=== PATIENT | male | born 1990 | race Caucasian/White ===

== ENCOUNTER 2017-09-08 15:41 | Emergency (ER) | payer MEDICAID, SELFPAY ==
[2017-09-08 15:42] VITALS: BP 136/76; PULSE 94; PULSE 96; RESP 20; TEMP 37; O2SAT 100; O2SAT 98; BMI 20.2
[2017-09-08 15:51] VITALS: BP 128/78; PULSE 86; RESP 14; O2SAT 98
--- NOTE | 2017-09-08 16:00 | RAD_ITS ---
STUDY: X-RAY CHEST REASON FOR EXAM: Male, 26 years old. Cough and difficulty breathing TECHNIQUE: Frontal and lateral views of the chest. COMPARISON: 11/12/2015 FINDINGS: The lungs are clear and expanded. There is no demonstrated pleural abnormality. Normal size heart. Normal mediastinum and lubna. Normal visualized pulmonary arteries. Normal visualized aortic arch and descending thoracic aorta. Normal visualized thoracic spine. Normal visualized ribs, clavicles, and shoulders. There is no demonstrated abnormality of the visualized soft tissue structures of the upper abdomen. RAD/Chest PA and Lateral IMPRESSION: Normal x-ray examination of the chest. Electronically Signed: Jordan Laguerre MD at 16:28 EDT , Service support ,
[2017-09-08 16:19] VITALS: PULSE 93; RESP 14; O2SAT 100
[2017-09-08] MEDS: Albuterol 2.5 MG/3 ML VIAL.NEB. INHALATION (16:19)
--- NOTE | 2017-09-08 16:51 | ED.DCSUM_ITS ---
- ER Visit Summary Date of Service: 09/08/17 Chief Complaint: I cannot breathe History of Present Illness: The patient is a 26 M who presents with chief complaint of I cannot breathe. Patient states he has pain left side of his chest with breathing after coughing. His cough is nonproductive. Does complain of nasal congestion. He denies headache. He denies fever chills. He denies ocular or auditory symptoms. He denies leg pain, swelling discoloration. He has no risk factors for pulmonary embolus. Patient denies any trauma. He denies nausea, vomiting or diarrhea. He denies any urologic symptoms. He denies any skin lesions. He has no past medical history. He is a smoker. Physical Examination: Vital signs are remarkable for a slight elevation blood pressure of 120/78. Patient appears slightly anxious. Head is atraumatic normocephalic. Pupils equal reactive. Extra muscles are intact. TMs are normal. Nares patent with mild drainage and nasal congestion. Posterior pharynx with slight erythema no exudate. Uvula is midline. Trachea is midline. There is no stridor. Lungs are without wheezes, rales or rhonchi. Heart is regular without murmur, gallop or rub. Abdomen soft nontender. No skin lesions or rashes noted. There is no asymmetry, swelling, discoloration, leg vein distention, palpable cords or tenderness along the distribution of the deep venous system. He is alert and oriented with a nonfocal neurologic exam. Test Results: Two-view chest x-ray interpreted by id reveals no evidence of infiltrate, effusion, or any abnormality. Cardiac silhouette is normal. Mediastinum is normal. Musculoskeletal structures are normal without any evidence of fracture etc. Peak flow prior to treatment for 440 and after treatment 450. Emergency Department Course and Treatment: Chest x-ray was obtained to evaluate for pneumothorax, infiltrate etc. Aerosols to assess if this would help and peak flows because of his insistence he cannot breathe and is not moving any air in or out. Treatment Plan: Informed by the respiratory therapist he still having tingling consistent with hyperventilation. Disposition: Discharged home with appropriate home-going instruction and prescription for naproxen since he has no contraindication. Impression: 1. Viral upper respiratory infection 2. Pleurisy secondary #1 This note was generated with [employer] software. It may contain incorrect words, spelling, and punctuation that were not noted in review of the chart prior to signing ED Disposition - Plan for ED Patient: Disposition: Home or Assisted Living Chief Complaint: Cough Instructions: ED URI Viral, ED Chest Pain Pleurisy Prescriptions: Naproxen [Naprosyn] 500 mg PO BID #10 tab Referrals: Care Physician,No Primary [Primary Care Provider] - Barry Haynes III, MD [STAFF PHYSICIAN] - 1 Week if not improving
[2017-09-08 17:18] VITALS: BP 125/70; PULSE 80; RESP 14; O2SAT 99
== END 2017-09-08 17:20 | disposition home or self-care (01) ==
PROVIDERS: Emergency Provider Emergency Medicine
DX: R09.1 Pleurisy (principal); J06.9 Acute upper respiratory infection, unspecified; F17.200 Nicotine dependence, unspecified, uncomplicated
CPT/HCPCS: 71046; 94640; 99283

== ENCOUNTER 2017-09-10 02:24 | Emergency (ER) | payer MEDICAID, SELFPAY ==
[2017-09-10 02:24] VITALS: BP 153/89; PULSE 84; RESP 18; TEMP 37.1; O2SAT 100; BMI 18.3
[2017-09-10 02:29] VITALS: O2SAT 100
--- NOTE | 2017-09-10 02:44 | ED.VISSUMM ---
- ER Visit Summary Date of Service: 09/10/17 Chief Complaint: [] Cough History of Present Illness: The patient is a 26 M [] complaining of cough, sore throat, subjective worsening of asthma. Denies fevers. Denies chest pain. Patient speaking with pressured speech and is verbally abusive. Physical Examination: [] Afebrile, vital signs stable. 26-year-old male no acute distress. Conversational. Cardiovascular exam is regular rate and rhythm. Lungs are clear to auscultation. Abdomen is soft and nontender. Test Results: [] None. Emergency Department Course and Treatment: [] Patient presents in a mildly agitated state. He was seen here yesterday reportedly and given a breathing treatment and had a negative chest x-ray. He was also prescribed naproxen which he said has minimally helped his symptoms. He was offered a breathing treatment and steroids and said he wanted to go to another hospital. After he became continually verbally abusive I discontinued the order of the aerosols and provided him prednisone as he had no wheezing on exam. He was discharged with a prescription for prednisone. Treatment Plan: [] Follow-up with PCP. Disposition: [] Discharge, stable. Impression: [] URI History of asthma This note was generated with [employer] dictation software. It may contain incorrect words, spelling, and punctuation that were not noted in review of the chart prior to signing ED Disposition - Plan for ED Patient: Chief Complaint: Shortness of Breath Referrals: Care Physician,No Primary [Primary Care Provider] -
--- NOTE | 2017-09-10 02:48 | ED.DEP ---
ED Disposition - Plan for ED Patient: Disposition: Home or Assisted Living Chief Complaint: Shortness of Breath Instructions: ED Upper Resp Infec No Abx Tx Prescriptions: Prednisone [Deltasone] 40 mg PO DAILY #5 tab Referrals: Care Physician,No Primary [Primary Care Provider] -
[2017-09-10] MEDS: predniSONE 20 MG Tablet 60 MG PO (02:49)
[2017-09-10 02:50] VITALS: RESP 18
--- NOTE | 2017-09-10 02:53 | ED.RN ---
upon administering meds to pt, pt was vulgar and swearing. pt stated fuck this mother fucking place. that dr gross got no empathy and is a fucking idiot along with all the other fucking retards at this stupid [facility]. pt ambulated out of department with no difficulty, swearing y'all are mother fuckers and i'm calling your boss and you're all getting letters on his way out.
== END 2017-09-10 02:51 | disposition home or self-care (01) ==
PROVIDERS: Emergency Provider Emergency Medicine
DX: J06.9 Acute upper respiratory infection, unspecified (principal); J45.909 Unspecified asthma, uncomplicated; Z72.0 Tobacco use
CPT/HCPCS: 99283

== ENCOUNTER 2019-07-11 03:14 | Emergency (ER) | payer MEDICAID, SELFPAY ==
[2019-07-11 03:15] VITALS: BP 122/69; PULSE 109; RESP 18; TEMP 36.4; O2SAT 98; BMI 20.3
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
[2019-07-11] MEDS: Naproxen 500 MG Tablet PO (03:41)
[2019-07-11] MEDS: traMADol 50 MG Tablet PO (03:41)
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
[2019-07-11 04:29] VITALS: BP 122/69; PULSE 109; RESP 18; O2SAT 98
== END 2019-07-11 04:30 | disposition home or self-care (01) ==
PROVIDERS: Emergency Provider Emergency Medicine; PCP Internal Medicine
DX: S16.1XXA Strain of muscle, fascia and tendon at neck level, initial encounter (principal); S60.222A Contusion of left hand, initial encounter; F17.200 Nicotine dependence, unspecified, uncomplicated; Y04.2XXA Assault by strike against or bumped into by another person, initial encounter; Y93.89 Activity, other specified; Y92.89 Other specified places as the place of occurrence of the external cause
CPT/HCPCS: 73110; 73130; 99284

== ENCOUNTER 2022-04-22 15:35 | Emergency (ER) | payer MEDICAID, SELFPAY ==
[2022-04-22 15:36] VITALS: BP 111/75; PULSE 90; RESP 18; TEMP 36.1; O2SAT 99; BMI 19.9
--- NOTE | 2022-04-22 15:57 | CT_ITS ---
EXAM: CT LUMBAR SPINE WITHOUT INTRAVENOUS CONTRAST CLINICAL INDICATION: injury TECHNIQUE: Helically acquired images were obtained of the lumbar spine without intravenous contrast. 2D reformats were reviewed. This CT exam was performed using one or more of the following dose reduction techniques: automated exposure control, adjustment of the mA and/or kV according to patient size, and/or use of iterative reconstruction technique. This report was created using [employer] report [employer] technology. COMPARISON: None. FINDINGS: VERTEBRAE: Unremarkable. No fracture. No traumatic subluxation. No discrete lytic or blastic abnormality. Normal alignment. DISCS/SPINAL CANAL/NEURAL FORAMINA: Unremarkable. Disc heights are preserved. No critical stenosis. VASCULATURE: Visualized abdominal aorta is not dilated. LYMPH NODES: Unremarkable. No retroperitoneal adenopathy. CT/Spine Lumbar without Contrast IMPRESSION: No evidence of acute lumbar spinal fracture or spondylolisthesis. Electronically Signed: Iker Guthrie MD at 17:19 EST ,
--- NOTE | 2022-04-22 15:57 | CT_ITS ---
EXAM: CT PELVIS WITHOUT INTRAVENOUS CONTRAST CLINICAL INDICATION: trauma TECHNIQUE: Helically acquired images were obtained of the pelvis without intravenous contrast. This CT exam was performed using one or more of the following dose reduction techniques: automated exposure control, adjustment of the mA and/or kV according to patient size, and/or use of iterative reconstruction technique. This report was created using [employer] report generation technology. COMPARISON: None. FINDINGS: BOWEL: Unremarkable as visualized. No bowel distention. No focal inflammatory change. APPENDIX: No evidence of acute appendicitis. INTRAPERITONEAL SPACE: Unremarkable. No ascites or other fluid collection. No free air. BLADDER: Unremarkable. REPRODUCTIVE: Unremarkable as visualized. No mass. BONES/JOINTS: Unremarkable. No suspicious lytic or blastic abnormality. SOFT TISSUES: Unremarkable. No pelvic wall hernia. LYMPH NODES: Unremarkable. No enlarged lymph nodes. CT/Pelvis without IV Contrast IMPRESSION: Negative CT of the soft tissue pelvis. Electronically Signed: Iker Guthrie MD at 17:21 [facility] ,
[2022-04-22] MEDS: HYDROcodone Bitartrate/Apap 5/325 Tablet PO (16:10)
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
[2022-04-22 17:48] VITALS: BP 119/72; PULSE 64; RESP 14; O2SAT 100
== END 2022-04-22 17:50 | disposition home or self-care (01) ==
PROVIDERS: Emergency Provider Emergency Medicine; PCP Internal Medicine; Visit Provider Emergency Medicine
DX: S30.0XXA Contusion of lower back and pelvis, initial encounter (principal); F17.210 Nicotine dependence, cigarettes, uncomplicated; S70.01XA Contusion of right hip, initial encounter; M54.50 Low back pain, unspecified; V28.09XA Other motorcycle driver injured in noncollision transport accident in nontraffic accident, initial encounter
CPT/HCPCS: 72131; 72192; 99282

== ENCOUNTER 2022-05-10 11:11 | Emergency (ER) | payer MEDICAID, SELFPAY ==
[2022-05-10 11:11] VITALS: BP 133/75; PULSE 91; RESP 16; TEMP 37.2; O2SAT 100; BMI 19.9
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
--- NOTE | 2022-05-10 11:28 | ED.RN ---
PT OBSERVED AMBULATING OUT OF DEPT.
== END 2022-05-10 11:32 | disposition left against medical advice (07) ==
LOC: ED 11:33
PROVIDERS: PCP Internal Medicine
DX: Z53.21 Procedure and treatment not carried out due to patient leaving prior to being seen by health care provider (principal)

== ENCOUNTER 2022-07-29 12:29 | Emergency (ER) | payer MEDICAID, SELFPAY ==
[2022-07-29 12:30] VITALS: BP 118/66; PULSE 63; RESP 18; TEMP 36; O2SAT 97; BMI 19.2
--- NOTE | 2022-07-29 14:22 | ED.RN ---
PT LEAVING, TIRED OF WAITING. I DONT WANT TO BE HERE ALL DAY.
== END 2022-07-29 14:22 | disposition left against medical advice (07) ==
LOC: ED 15:02
PROVIDERS: PCP Internal Medicine
DX: Z53.21 Procedure and treatment not carried out due to patient leaving prior to being seen by health care provider (principal)

== ENCOUNTER 2022-08-10 12:58 | Observation (INO) | payer MEDICAID, SELFPAY ==
[2022-08-10 12:58] VITALS: BP 105/78; PULSE 83; RESP 18; TEMP 36.9; O2SAT 98; BMI 20.9
[2022-08-10 13:40] LABS: Anion Gap 7 (5-15); BUN 19 mg/dL (7-18); BUN/Creat Ratio 21.5 RATIO (10-20); Chloride 105 mmol/L (98-107); Creatinine, Serum 0.88 mg/dL (0.70-1.30); EST Glomerular Filtration Rate 107 mL/min (>60); Est Glom Filt Rate - Afr Amer 129 mL/min (>60); Estimated Creatinine Clearance 111.59 ml/min; Glucose 147 mg/dL (74-106); Potassium 4.3 mmol/L (3.5-5.1); Sodium Level 137 mmol/L (136-145)
[2022-08-10 13:45] LABS: Amphetamine Urine VISTA POSITIVE (<1000 ng/mL); Barbiturate Urine VISTA NEGATIVE (< 200 ng/mL); Benzodiazepine Urine VISTA NEGATIVE (< 200 ng/mL); Cocaine Urine VISTA POSITIVE (< 300 ng/mL); Ecstacy Urine VISTA NEGATIVE (< 500 ng/mL); Methadone Urine VISTA NEGATIVE (< 300 ng/mL); PCP Urine VISTA NEGATIVE (< 25 ng/mL); THC Urine VISTA POSITIVE (< 50 ng/mL); Vista UDS pH Range 5
[2022-08-10 13:48] LABS: Alcohol, Blood (Medical)-Serum < 3.0 mg/dL
--- NOTE | 2022-08-10 13:49 | CM.ED ---
BIANKA Note Referral Reason: [facility] Referral Source: Case Find SW met with patient to discuss the [facility] program. 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 Patient said the fentanyl in his system was upsetting as his younger brother from fentanyl in 2019. Patient said that he went to [facility] to get treatment. Patient said that he is doing this for his 10 year old daughter who thinks I am superman but voiced he has to do treatment for himself. Patient said that his drug of choice was meth and stated as a child he had ADHD and was on various medications for ADHD including Ritalin and Concerta. Patient said that this is my first time seeking help. Patient said that his drug of choice was meth and he last used 2 days ago. Patient said that he thought he was doing meth and did not realize what else he was doing till he got the tox screen from [facility]. Patient was advised that the [facility] program includes no outside food or visitors, no phone access and all personal items are secured. BIANKA called Addiction TherapistKody and updated her regarding patient?s admission to [facility]. Plan: [facility] Jazlyn SIM
--- NOTE | 2022-08-10 14:37 | HP.PCM.HOS_ITS ---
HPI - General General Date of Admission: 08/10/22 Date of Service: 08/10/22 Chief Complaint: Polysubstance abuse-suspected acute opiate withdrawal HPI Narrative RAFA HYLTON, is a 31 M who presented the emergency department on 08/10/2022 after pre senting to [facility] and having a toxicology screen positive for fentanyl. 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 Unfortunately his toxicology screen was positive for fentanyl as well and there is suspicion that the amphetamines he uses is laced with this. Toxicology screen here is positive for cocaine, amphetamines, and marijuana. Patient states he has been using for several months. States he has been having escalation of use lately and would really like to stop. He states its not doing me any good. He is interested in sobriety. He denies any IV drug use ever. He admits also smoking tobacco. Vital signs on presentation were unremarkable. CBC was pending on admission. Chemistry panel was unremarkable. Toxicology screen showed amphetamines, co inna, and cannabis. Our screen is not able to delineate fentanyl. Plan is to admit the patient and monitor need for Subutex with withdrawal symptoms. If not any required 24 hours we will likely discharge home with outpatient planning for [facility]. [facility] Medical History Tobacco abuse Home Medications naproxen 500 mg tablet 500 mg PO BID PRN #20 tabs 07/11/19 [Rx Last Taken Unknown] Allergy/AdvReac Type Severity Reaction Status Date / Time No Known Allergies Allergy Verified 07/29/22 12:36 no significant family history Surgical History History of appendectomy Social History (Updated 08/10/22 @ 15:[address] Missy Hopkins DO) Smoking Status: Current every day smoker tobacco type: cigarettes alcohol intake: never substance use type: amphetamines ROS Constitutional Constitutional: Reports chills; Denies anorexia, change in weight, fatigue, fever(s), malaise, night sweats, weakness or other Eyes Eyes: Denies blurry vision, change in eye color, change in vision, discharge from eye(s), double vision, erythema, eye pain, loss of vision or other ENT HEENT: Denies abnormal hearing, dysphagia, ear pain, epistaxis, headache(s), hearing loss, nasal congestion, nasal discharge, post nasal drip, sinus pressure, sore throat or other Cardiovascular Cardiovascular: Denies chest pain, claudication, dyspnea on exertion, edema, lightheadedness, orthopnea, palpitations, paroxysmal nocturnal dyspnea, rapid heart rate, syncope or other Respiratory/Chest Respiratory/Chest: Denies cough, dyspnea, excessive phlegm production, hemoptysis, productive cough, shortness of breath at rest, shortness of breath with exertion, wheezing or other Gastrointestinal Gastrointestinal: Denies abdominal pain, coffee ground emesis, constipation, diarrhea, dyspepsia, hematemesis, hematochezia, loose stools, melena, nausea, vomiting or other Genitourinary Genitourinary: Denies burning urination, difficulty urinating, dysuria, hematuria, nocturia, urinary frequency, urinary hesitancy, urinary incontinence, urinary urgency or other Musculoskeletal Musculoskeletal: Denies arthralgias, back pain, joint pain, joint stiffness, joint swelling, myalgias, neck pain or other Neurologic Neurologic: Reports tremor(s); Denies abnormal gait, abnormal speech, confusion, disequilibrium, dizziness, focal weakness, headache(s), numbness, paresthesias, seizure-like activity, seizures, syncope, tingling or other Psychiatric Psychiatric: Reports anxiety; Denies depression, homicidal ideation, suicidal ideation or other Endocrine Endocrinology: Denies change in body appearance, cold intolerance, excessive sweating, heat intolerance, polydipsia, polyuria or other Hematologic/Lymphatic Hematologic/Lymphatic: Denies anemia, easy bleeding, easy bruising, lymphadenopathy or other Allergic/Immunologic Allergic/Immunologic: Denies rhinitis, hives, eczemia, asthma or other Vital Signs Vital Signs Vital Signs: 08/10/22 12:58 Temperature 98.4 F Temperature Source Temporal Pulse Rate 83 Respiratory Rate 18 Blood Pressure 105/78 Blood Pressure Mean 87 Pulse Ox 98 Oxygen Delivery Method Room Air Weight Weight: 64.274 kg Body Mass Index (BMI) 20.9 Physical Exam Const alert, oriented x3, no apparent distress and well nourished Constitutional Narrative: Young middle-aged white male, sitting up in bed, appears comfortable nontoxic HEENT normocephalic, head/scalp atraumatic, hearing grossly normal bilaterally and moist oral mucous membranes HEENT Narrative: Dentition is good, Mallampati is 2, no thrush Resp normal respiratory effort, no retractions, no use of accessory muscles and clear to auscultation bilaterally Auscultation: Negative for rales, rhonchi or wheezes Cardio regular rate, regular rhythm, S1 normal heart sound, S2 normal heart sound, no murmurs, no rub, no gallops and no clicks GI normal to inspection, nondistended, normoactive bowel sounds, soft to palpation, non-tender and non-distended Extremity no clubbing, cyanosis or edema Extremity Narrative: 2+ pedal pulses Neuro oriented x3, CN's II-XII intact bilaterally, moves all extremities and no focal motor deficits Speech: speech normal Psych affect normal Psych Narrative: Appears mildly anxious but otherwise unremarkable Results Lab / Micro Data Result Diagrams: 08/10/22 13:16 08/10/22 13:16 Labs: Laboratory Results - last 24 hr 08/10/22 13:16: Sodium 137, Potassium 4.3, Chloride 105, Carbon Dioxide 25.0, Anion Gap 7, BUN 19 H, Creatinine 0.88, Estim Creat Clear Calc 111.59, Est GFR (MDRD) Af Amer 129, Est GFR (MDRD) Non-Af 107, BUN/Creatinine Ratio 21.5 H, Glucose 147 H, Calcium 9.0 08/10/22 13:16: Ethyl Alcohol < 3.0 08/10/22 13:17: Urine Opiates Screen NEGATIVE, Urine Methadone Screen NEGATIVE, Ur Barbiturates Screen NEGATIVE, Ur Phencyclidine Scrn NEGATIVE, Ur Amphetamines Screen POSITIVE H, MDMA (Ecstasy) Screen NEGATIVE, U Benzodiazepines Scrn NEGATIVE, Urine Cocaine Screen POSITIVE H, U Cannabinoids Screen POSITIVE H, Ur Drug Screen Comment Assessment & Plan Assessment/Plan (1) Opiate withdrawal: (2) Polysubstance abuse: PLAN: Plan Acute opiate withdrawal -Patient denies regular opiate use however it is suspected based on his tox screen over [facility] that his methamphetamines and cocaine are laced with fentanyl -Toxicology screen at [facility] was positive for fentanyl -Subutex taper per [facility] protocol -Supportive medications as needed -Consult [facility] Polysubstance abuse -Toxicology screen positive for marijuana, cocaine, amphetamines, and fentanyl positive at [facility] -Recommend cessation -[facility] consultation as above Tobacco abuse -Recommend cessation -Nicotine replacement therapy DVT prophylaxis -Low risk -Encourage frequent and early ambulation CODE STATUS Full code Charges/Coding Visit Charges Inpatient E&M: 39269 Init Hosp L2
--- NOTE | 2022-08-10 14:48 | EX.ED.SAOD ---
HPI History of Present Illness Chief Complaint: Substance Abuse Informant: patient Narrative Narrative: Patient is a 31-year-old male with a 5-year history of methamphetamine abuse. He states he snorts it. He states he generally uses every day. He kind of uses whenever he can get but thinks it is mostly methamphetamines. He was following with [facility] and had a drug screen today which was also positive for fentanyl. They recommend he come to the emergency room for inpatient detox. Patient states he last used 2 days ago. He does note that he is having abdominal discomfort, diarrhea and just feels jittery. Denies any nausea or vomiting. Denies any other complaints at this time. Does note that he had a recent laceration to his left hand 10 days ago and one of the sutures fell out but the other [address]. No other complaints. [facility] Medical History Tobacco abuse Home Medications naproxen 500 mg tablet 500 mg PO BID PRN #20 tabs 07/11/19 [Rx Last Taken Unknown] Allergy/AdvReac Type Severity Reaction Status Date / Time No Known Allergies Allergy Verified 07/29/22 12:36 Surgical History History of appendectomy Social History Smoking Status: Current every day smoker tobacco type: cigarettes ROS ROS ED Constitutional Constitutional ED: Denies chills or fever(s) Eyes Eyes: Denies change in vision Respiratory/Chest Respiratory/Chest: Denies cough or dyspnea Gastrointestinal Gastrointestinal: Reports abdominal pain and diarrhea; Denies nausea or vomiting Musculoskeletal Musculoskeletal: Reports myalgias; Denies arthralgias Neurologic Neurologic: Denies headache(s) Psychiatric Psychiatric: Denies anxiety Hematologic/Lymphatic Hematologic/Lymphatic: Denies easy bleeding or easy bruising EXAM Physical Exam Const Vital Signs: 08/10/22 12:58 Temperature 98.4 F Temperature Source Temporal Pulse Rate 83 Respiratory Rate 18 Blood Pressure 105/78 Blood Pressure Mean 87 Pulse Ox 98 Oxygen Delivery Method Room Air Positive well nourished and well developed Constitutional Narrative: thin General Appearance ED: well developed and NAD; Negative for pallor HEENT Reports moist mucous membranes atraumatic Eyes PERRL and EOMs intact bilaterally Neck supple Chest Wall inspection of chest normal Resp normal respiratory effort and clear to auscultation bilaterally Cardio regular rate and regular rhythm GI soft to palpation, non-tender and non-distended Extremity General Extremety ED: Negative for edema or tenderness General Extremity: Negative for edema Neuro oriented x3 Sensorium / Orientation: alert Motor Exam: Negative for general weakness Psych mental status grossly normal and thought process normal Skin Skin Narrative: Healing well approximated laceration to the left hand between the thumb and the index finger. [address] General Skin Exam: Negative for jaundice or pallor Lesions: no lesions Rashes: no rashes MDM MDM MDM Narrative Medical decision making narrative: Patient presents for inpatient detox. He has a benign physical exam. Does have a suture in the left hand that is ready to be removed. This will be removed per nursing staff. Patient structure is positive for amphetamines, cocaine and cannabis. We do not have fentanyl in our drug screen but apparently that was positive earlier today at [facility]. Patient will be admitted for inpatient detox as he is likely regularly using fentanyl with his amphetamines. He is agreeable with plan of care. Remains hemodynamically stable. Lab Data Attestation: I reviewed the patient's lab results. Labs: Laboratory Results - last 24 hr 08/10/22 08/10/22 08/10/22 13:16 13:16 13:17 Sodium 137 Potassium 4.3 Chloride 105 Carbon Dioxide 25.0 Anion Gap 7 BUN 19 H Creatinine 0.88 Estim Creat Clear Calc 111.59 Est GFR (MDRD) Af Amer 129 Est GFR (MDRD) Non-Af 107 BUN/Creatinine Ratio 21.5 H Glucose 147 H Calcium 9.0 Urine Opiates Screen NEGATIVE Urine Methadone Screen NEGATIVE Ur Barbiturates Screen NEGATIVE Ur Phencyclidine Scrn NEGATIVE Ur Amphetamines Screen POSITIVE H MDMA (Ecstasy) Screen NEGATIVE U Benzodiazepines Scrn NEGATIVE Urine Cocaine Screen POSITIVE H U Cannabinoids Screen POSITIVE H Ur Drug Screen Comment Ethyl Alcohol < 3.0 Discharge Plan Triage Chief Complaint: Substance Abuse ED Provider: Estrellita Worthington Dx/Rx/DC Orders Prescriptions: No Action naproxen 500 MG tablet 500 mg PO BID PRN Qty: 20 0RF Primary Care Provider: Sanjay Cid Referrals: Sanjay Cid MD [Primary Care Provider] -
--- NOTE | 2022-08-10 14:50 | NURSING ---
MED SURG SHERLEY POLYSUBSTANCE ABUSE
[2022-08-10 14:57] VITALS: BP 108/59; PULSE 89; RESP 16; TEMP 36.6; O2SAT 98
[2022-08-10 16:17] LABS: Absolute Lymphocyte Count 2.47 X10^3/uL (0.83-4.51); Absolute Neutrophil Count 2.2 X10^3/uL (2.0-7.7); Basophil# 0.06 X10^3/uL; Eosinophil# 0.39 X10^3/uL; Eosinophils% 6.7 % (0-5); Hemoglobin 14.6 g/dL (13.0-16.5); Lymphocyte # 2.47 X10^3/ul (0.83-4.51); Lymphocyte % 42.4 % (19-41); Mean Corp Hgb Conc 32.4 g/dL (32-36); Mean Corpuscular Hgb 30.1 pg (27.0-32.0); Mean Corpuscular Volume 92.8 fL (80-94); Mean Platelet Vol. 10.1 fl (6.2-12.0); Monocyte# 0.74 X10^3/uL; Monocyte% 12.7 % (0-10); NRBC Flagged by Analyzer 0 % (0-5); Neutrophil # 2.15 X10^3/uL (2.7-7.7); Platelet Count 240 K/mm3 (150-450); RBC Distribution Width CV 12.4 % (11.6-14.6); RBC Distribution Width SD 42.6 fl (35.1-43.9); Red Blood Count 4.85 M/mm3 (4.6-6.2); White Blood Count 5.8 K/mm3 (4.4-11.0)
[2022-08-10 17:11] VITALS: BMI 20.9
[2022-08-10 22:33] VITALS: BP 108/72; PULSE 80; RESP 18; TEMP 36.7; O2SAT 97
[2022-08-10] MEDS: traZODone 100 MG Tablet PO (22:41)
[2022-08-11 05:32] VITALS: BP 94/49; PULSE 62; RESP 16; TEMP 36.8; O2SAT 98
[2022-08-11 08:41] VITALS: BP 108/63; PULSE 81; RESP 16; TEMP 36.6; O2SAT 99
--- NOTE | 2022-08-11 10:12 | ADDICTION ---
This policy writer sales met with PT to conduct ASAM, MSE, AUDIT assessments and to plan for d/c. PT A+Ox4 and participated actively. All assessments completed. PT plans to f/u with residential treatment at [facility]. Peer Supporter will provide transportation post d/c from [facility].
--- NOTE | 2022-08-11 12:46 | DCINST_ITS ---
Discharge Instructions Diet Discharge Diet: No restrictions Activity Discharge Activity: Return to Normal Activity Follow Up Care Test Results: Test results from this visit will be discussed in further detail at your follow- up appointment, if applicable. Discharge Plan Admission Admit Date/Time: 08/10/22 14:31 Primary Reason for Your Visit: Opioid detox Attending Provider: Vannessa Blandon Primary Care Provider: Sanjay Cid Consulting Providers: Missy Hopkins Instructions Patient Instructions: ED Drug Abuse Discharge Orders/Prescriptions Prescriptions: Continued naproxen 500 MG tablet 500 mg PO BID PRN Qty: 20 0RF Referrals / Follow Up: Sanjay Cid MD [Primary Care Provider] - Disposition Disposition (needs filled in before D/C Order can be placed): DC/Tx to Another Type of HCF
--- NOTE | 2022-08-11 12:48 | PCM.DC.SUM ---
Providers Date of Admission: 08/10/22 Date of Discharge: 08/11/22 Primary Care Physician: Dr. Sanjay Cid MD Reason For Visit: OPIATE DETOX Diagnosis Discharge Diagnosis (1) Opiate withdrawal: Status: Acute Code(s): F11.93 - Opioid use, unspecified with withdrawal (2) Polysubstance abuse: Status: Acute Code(s): F19.10 - Other psychoactive substance abuse, uncomplicated Medications at Discharge Home Medications naproxen 500 mg tablet 500 mg PO BID PRN #20 tabs 07/11/19 Hospital Course Summary of Care Provided Minutes Spent on Discharge: 20 Hospital Course: Per HPI: RAFA HYLTON, is a 31 M who presented the emergency department on 08/10/2022 after presenting to [facility] and having a toxicology screen positive for fentanyl.? He reported that he presented to [facility] for help with his amphetamine addiction.? Unfortunately his toxicology screen was positive for fentanyl as well and there is suspicion that the amphetamines he uses is laced with this.? Toxicology screen here is positive for cocaine, amphetamines, and marijuana.? Patient states he has been using for several months.? States he has been having escalation of use lately and would really like to stop.? He states its not doing me any good.? He is interested in sobriety.? He denies any IV drug use ever.? He admits also smoking tobacco. Vital signs on presentation were unremarkable.? CBC was pending on admission.? Chemistry panel was unremarkable.? Toxicology screen showed amphetamines, cocaine, and cannabis.? Our screen is not able to delineate fentanyl. Plan is to admit the patient and monitor need for Subutex with withdrawal symptoms.? If not any required 24 hours we will likely discharge home with outpatient planning for [facility]. Interim history: He did overnight and did not develop any symptoms of withdrawal, no complaints on day of discharge and was discharged to [facility] residential treatment in stable condition. Physical Exam Narrative General: Alert, oriented, no apparent distress HEENT: Atraumatic, normocephalic Eyes: Anicteric, normal conjunctiva, extraocular movements grossly intact Neck: Supple Respiratory: Clear to auscultation bilaterally, normal respiratory effort Cardiovascular: Regular rate and rhythm GI: Soft, nontender, nondistended Extremities: No edema Musculoskeletal: Moving all extremities Neuro: No overt focal neurological deficits Skin: No rashes appreciated Psych: Cooperative Weight / BMI Weight Weight: 64.27 kg Body Mass Index (BMI) 20.9 ABG / Lab / Microbiology Data Result Diagrams: 08/10/22 13:16 08/10/22 13:16 Laboratory: Laboratory Results - last 24 hr 08/10/22 13:16: WBC 5.8, RBC 4.85, Hgb 14.6, Hct 45.0, MCV 92.8, MCH 30.1, MCHC 32.4, RDW Std Deviation 42.6, RDW Coeff of Johanna 12.4, Plt Count 240, MPV 10.1, Immature Gran % (Auto) 0.200, Neut % (Auto) 37.0 L, Lymph % (Auto) 42.4 H, [place] % (Auto) 12.7 H, Eos % (Auto) 6.7 H, Baso % (Auto) 1.0, Absolute Neuts (auto) 2.2, Absolute Lymphs (auto) 2.47, Nucleated RBC % 0 08/10/22 13:16: Sodium 137, Potassium 4.3, Chloride 105, Carbon Dioxide 25.0, Anion Gap 7, BUN 19 H, Creatinine 0.88, Estim Creat Clear Calc 111.59, Est GFR (MDRD) Af Amer 129, Est GFR (MDRD) Non-Af 107, BUN/Creatinine Ratio 21.5 H, Glucose 147 H, Calcium 9.0 08/10/22 13:16: Ethyl Alcohol < 3.0 08/10/22 13:17: Urine Opiates Screen NEGATIVE, Urine Methadone Screen NEGATIVE, Ur Barbiturates Screen NEGATIVE, Ur Phencyclidine Scrn NEGATIVE, Ur Amphetamines Screen POSITIVE H, MDMA (Ecstasy) Screen NEGATIVE, U Benzodiazepines Scrn NEGATIVE, Urine Cocaine Screen POSITIVE H, U Cannabinoids Screen POSITIVE H, Ur Drug Screen Comment D/C Instructions Discharge Diet: No restrictions Meaningful Use Info Meaningful Use Diagnoses (Choose all that apply): None applicable Discharge Plan Admission Admit Date/Time: 08/10/22 14:31 Primary Reason for Your Visit: Opioid detox Attending Provider: Vannessa Blandon Primary Care Provider: Sanjay Cid Consulting Providers: Missy Hopkins Instructions Patient Instructions: ED Drug Abuse Discharge Orders/Prescriptions Prescriptions: Continued naproxen 500 MG tablet 500 mg PO BID PRN Qty: 20 0RF Referrals / Follow Up: Sanjay Cid MD [Primary Care Provider] - Disposition Disposition (needs filled in before D/C Order can be placed): DC/Tx to Another Type of HCF Charges/Coding Visit Charges Inpatient E&M: 66869 Disch Hosp
== END 2022-08-11 12:20 | disposition other institution (70) ==
LOC: ED 14:09 → MS3 08-11 06:48
PROVIDERS: Admitting Provider Internal Medicine; Emergency Provider Emergency Medicine; PCP Internal Medicine; Visit Provider Internal Medicine
DX: F11.23 Opioid dependence with withdrawal (principal); F15.10 Other stimulant abuse, uncomplicated; F14.19 Cocaine abuse with unspecified cocaine-induced disorder; F17.210 Nicotine dependence, cigarettes, uncomplicated; F12.10 Cannabis abuse, uncomplicated; S61.412D Laceration without foreign body of left hand, subsequent encounter; X58.XXXD Exposure to other specified factors, subsequent encounter
CPT/HCPCS: 80048; 80307; 82077; 85025; 99282; H0012

== ENCOUNTER 2023-07-21 14:39 | Emergency (ER) | payer MEDICAID, SELFPAY ==
[2023-07-21 14:41] VITALS: BP 133/84; PULSE 112; RESP 18; TEMP 36.7; O2SAT 99; BMI 21.4
--- NOTE | 2023-07-21 15:11 | CT_ITS ---
STUDY: CTA HEAD AND NECK WITH CONTRAST REASON FOR EXAM: Male, 32 years old. vision change, left side weakness RADIATION DOSAGE (If Supplied By Facility): CTDIvol = ( 26.40 ) mGy, DLP = ( 1699.78 ) mGycm TECHNIQUE: CT angiography was performed with a multi-detector CT scanner. Data acquisition was obtained from the skull base through the vertex following intravenous administration of IV 100mL [id number]-370. MIP images were reconstructed from the axial data set. Post-processing of the angiographic images was performed, with multiplanar reformation and 3D reconstruction. Individualized dose optimization techniques were used for this CT. COMPARISON: No relevant priors. FINDINGS: Normal bilateral petrous carotid arteries. Normal right cavernous carotid artery with a normal supraclinoid bifurcation. Normal left cavernous carotid artery with a normal supraclinoid bifurcation. Normal right A1 segments of the anterior cerebral artery. Normal left A1 segments of the anterior cerebral artery. Normal intact anterior communicating artery (ACOM). Normal bilateral A2 segments of the anterior cerebral arteries. Normal right M1 and M2 segments of the middle cerebral arteries, with a normal M1 bifurcation. Normal left M1 and M2 segments of the middle cerebral arteries, with a normal M1 bifurcation. Normal right posterior communicating artery (PCOM). Normal left posterior communicating artery (PCOM). Normal bilateral vertebral arteries. Normal basilar artery with a normal basilar bifurcation. The visualized bilateral superior cerebellar (SCA) arteries are normal. Normal bilateral P1, P2 and visualized P3 segments of the posterior cerebral arteries. There is no demonstrated aneurysm of the [place]. There is no demonstrated abnormality of the visualized brain. AORTIC ARCH: Normal visualized aortic arch. Normal origins of the brachiocephalic, left common carotid, and left subclavian arteries. RIGHT CAROTID ARTERIES: Normal right common carotid artery (CCA). Normal right common carotid bulb. Normal origin of the right internal carotid (ICA) artery without a hemodynamically significant stenosis. Normal visualized cervical portion of the right internal carotid artery. Normal origin of the right external carotid artery (ECA). LEFT CAROTID ARTERIES: Normal left common carotid artery (CCA). Normal left common carotid bulb. Normal origin of the left internal carotid (ICA) artery without a hemodynamically significant stenosis. Normal visualized cervical portion of the left internal carotid artery. Normal origin of the left external carotid artery (ECA). VERTEBRAL ARTERIES: Normal bilateral vertebral arteries. CT/CTA Head AND Neck W/ Contrast IMPRESSION: Normal CTA Head and neck with contrast. Electronically Signed: Jordan Laguerre MD at 16:39 EST ,
--- NOTE | 2023-07-21 15:13 | EDS_ITS ---
HPI History of Present Illness Chief Complaint: Back Detail of Chief Complaint: Back pain, paresthesias, anxiety, vision change Informant: patient Narrative Narrative: Patient presents with multiple complaints. He does report a history of back problems that stemmed from an injury in 2019. He has flares of pain intermittently but states x-rays have been unremarkable. He has not been able to get into see a specialist or have an MRI. He states that he had a good day at work today and got off work at noon. Around 2:00 he noted vision changes. Difficulty seeing out of his left eye and reports paresthesias on the left side of his body. He used his mother's inhaler and states he is able to breathe better. His vision changes improved but are not quite back to normal. He still feels like his left arm and leg are tingly and he feels off balance. He does have pain in his lower spine near the tailbone as well as some chest tightness. Patient does have a history of polysubstance abuse, but states he only uses marijuana currently. He denies using cigarettes, but does admit to vaping. [facility] Medical History Tobacco abuse Home Medications naproxen 500 mg tablet 500 mg PO BID PRN #20 tabs 07/11/19 [Rx Last Taken Unknown] lorazepam 0.5 mg tablet (Ativan) 0.5 mg PO BID PRN anxiety #10 tabs 07/21/23 [Rx Last Taken Unknown] Allergy/AdvReac Type Severity Reaction Status Date / Time No Known Allergies Allergy Verified 07/21/23 14:41 Surgical History History of appendectomy Social History Smoking Status: Current every day smoker tobacco type: cigarettes alcohol intake: never substance use type: amphetamines ROS ROS ED Constitutional Constitutional ED: Denies chills or fever(s) Eyes Eyes: Reports change in vision; Denies discharge from eye(s) ENT ENT ED: Denies discharge from eye(s), rhinorrhea or sore throat Cardiovascular Cardiovascular: Reports chest pain and racing heartbeat; Denies palpitations Respiratory/Chest Respiratory/Chest: Reports dyspnea; Denies cough Gastrointestinal Gastrointestinal: Denies abdominal pain, nausea or vomiting Genitourinary Genitourinary ED: Denies dysuria Musculoskeletal Musculoskeletal: Reports back pain; Denies extremity pain Integumentary Denies Abrasions or rash Neurologic Neurologic: Reports paresthesias and weakness; Denies headache(s) Psychiatric Psychiatric: Reports anxiety; Denies depression Allergic/Immunologic Allergic/Immunologic ED: Denies lip swelling or urticaria EXAM Physical Exam Const Vital Signs: 07/21/23 14:41 Temperature 98.1 F Temperature Source Temporal Pulse Rate 112 H Respiratory Rate 18 Blood Pressure 133/84 H Blood Pressure Mean 100 Pulse Ox 99 Oxygen Delivery Method Room Air Positive well nourished and well developed General Appearance ED: well developed HEENT Reports moist mucous membranes Eyes PERRL and EOMs intact bilaterally Chest Wall inspection of chest normal and palpation of chest normal Resp normal respiratory effort and clear to auscultation bilaterally Cardio Rate: tachycardic GI non-tender Palpation: soft Back/Spine Back/Spine Narrative: Mild tenderness in the lower lumbar region. No erythema or point tenderness. Extremity normal to inspection Neuro oriented x3 Neuro Narrative: Patient standing at bedside and able to ambulate without difficulty. Able to stand on tiptoes and heels without difficulty. Able to push pull with arms without difficulty. No drift appreciated. Normal sensation on testing. Psych Attitude: agitated Mood & Affect: anxious Skin no rashes or lesions noted MDM MDM MDM Narrative Medical decision making narrative: Patient placed on pvc monitor. EKG obtained to evaluate for cardiac arrhythmia/ischemia. Chest x-ray obtained to evaluate for acute lung pathology, cardiac size, or mediastinal abnormality. Lumbar spine x-rays obtained given his pain to this area with prior injury. CT of the head and neck obtained given his reported vision change along with left-sided paresthesias. Labwork obtained to evaluate for leukocytosis, anemia, and electrolyte derangement. Patient given Ativan to help with anxiety. History & Record Review Discussion w/independent historian: Patient Additional record(s) reviewed:: Prior ED visit and Prior labs Lab Data Attestation: I reviewed the patient's lab results. Labs: Laboratory Results - last 24 hr 07/21/23 15:24 WBC 5.3 RBC 4.94 Hgb 15.0 Hct 43.3 MCV 87.7 MCH 30.4 MCHC 34.6 RDW Std Deviation 40.9 RDW Coeff of Johanna 12.7 Plt Count 262 MPV 10.6 Immature Gran % (Auto) 0.400 Neut % (Auto) 58.0 Lymph % (Auto) 29.9 [place] % (Auto) 10.0 Eos % (Auto) 0.9 Baso % (Auto) 0.8 Absolute Neuts (auto) 3.1 Absolute Lymphs (auto) 1.58 Nucleated RBC % 0 Sodium 140 Potassium 3.7 Chloride 107 Carbon Dioxide 27.0 Anion Gap 6 BUN 11 Creatinine 1.00 Estim Creat Clear Calc 99.50 Est GFR (MDRD) Af Amer 112 Est GFR (MDRD) Non-Af 93 BUN/Creatinine Ratio 11.0 Glucose 113 H Calcium 9.0 Troponin I High Sens 5 Radiography Chest X-Ray - ED: 2 View, Read by ED Physician, Normal, Heart, Lungs and Medias tinum X-Ray: LS SPine (Chronic changes with no acute findings per my interpretation.) Diagnostic Testing: Clinical Impression(s) from Imaging Studies Head/Neck CTA 07/21/23 15:11 IMPRESSION: Normal CTA Head and neck with contrast. Electronically Signed: Jordan Laguerre MD at 16:39 EST , Chest X-Ray 07/21/23 16:00 IMPRESSION: No acute radiographic abnormalities. Hyperinflated lungs which can be seen in asthma. Electronically Signed: Roberto Dubon MD at 16:14 EST , Lumbar Spine X-Ray 07/21/23 16:00 IMPRESSION: No evidence of lumbar spinal fracture or spondylolisthesis. Minimal multilevel degenerative disc disease and spondylosis. Electronically Signed: Roberto Dubon MD at 16:18 EST , EKG Initial EKG: Attestation: I personally reviewed and interpreted this EKG as follows: Interpretation: Sinus Rhythm (Sinus at 75 with no acute ischemia.) Treatment and Re-Evaluation :: CBC was normal white count 5.3 with a hemoglobin of 15.0. Differential unremarkable. Chemistry studies are normal. Troponin is normal at 5. Two-view chest x-ray per my interpretation reveals no acute findings. Radiology interpretation reviewed and agrees. Lumbar spine x-rays per my interpretation for chronic changes with no acute findings. Radiology interpretation is reviewed. CTA of the head and neck reveals no acute abnormalities. EKG is sinus rhythm with no ischemia. On repeat evaluation patient sitting in the bed in no acute distress. Resting comfortably. His symptoms have completely resolved. I was able to give him reassurance with this workup. I do feel that anxiety had a significant impact on his symptoms. I will write him a short course of Ativan to use as needed. Return instructions are given. Discharge Plan Triage Chief Complaint: Back ED Provider: Joycelyn Isaac Dx/Rx/DC Orders Clinical Impression: Paresthesias, Anxiety, Back pain Instructions: ED Anxiety Reaction, ED Back Pain (Acute or Chronic), ED Paraesthesias Prescriptions: New lorazepam [Ativan] 0.5 mg tablet 0.5 mg PO BID PRN (Reason: anxiety) Qty: 10 0RF No Action naproxen 500 MG tablet 500 mg PO BID PRN Qty: 20 0RF Primary Care Provider: Sanjay Cid Referrals: Sanjay Cid MD [Primary Care Provider] - 1-2 Weeks Disposition Disposition: Home, Self Care
[2023-07-21] MEDS: Lorazepam 2 MG/ML WCH Syringe 0.5 MG IV (15:50)
[2023-07-21] MEDS: 0.9% Normal Saline (1000mL) 1,000 ML 150 ML IV (15:52)
[2023-07-21 15:56] LABS: Absolute Lymphocyte Count 1.58 X10^3/uL (0.83-4.51); Absolute Neutrophil Count 3.1 X10^3/uL (2.0-7.7); Basophil# 0.04 X10^3/uL; Basophil% 0.8 % (0-1); Eosinophil# 0.05 X10^3/uL; Eosinophils% 0.9 % (0-5); Hematocrit 43.3 % (40-54); Lymphocyte # 1.58 X10^3/ul (0.83-4.51); Lymphocyte % 29.9 % (19-41); Mean Corp Hgb Conc 34.6 g/dL (32-36); Mean Corpuscular Hgb 30.4 pg (27.0-32.0); Mean Corpuscular Volume 87.7 fL (80-94); Mean Platelet Vol. 10.6 fl (6.2-12.0); Monocyte# 0.53 X10^3/uL; NRBC Flagged by Analyzer 0 % (0-5); Neutrophil # 3.07 X10^3/uL (2.7-7.7); Platelet Count 262 K/mm3 (150-450); RBC Distribution Width CV 12.7 % (11.6-14.6); RBC Distribution Width SD 40.9 fl (35.1-43.9); Red Blood Count 4.94 M/mm3 (4.6-6.2); White Blood Count 5.3 K/mm3 (4.4-11.0)
--- NOTE | 2023-07-21 16:00 | RAD_ITS ---
INDICATION: pain EXAMINATION/TECHNIQUE: X-RAY - XR Spine Lumbar 2 or 3 Views COMPARISON: None. FINDINGS: VERTEBRAE: Preserved vertebral body height. No fracture. No spondylolisthesis. Preservation of the normal lumbar lordosis. Minimal multilevel facet arthropathy. DISCS: Minimal multilevel degenerative disc disease and spondylosis. INCLUDED ABDOMEN: Included bowel gas pattern is non-obstructive. RAD/Lumbar Spine 2 or 3 Views IMPRESSION: No evidence of lumbar spinal fracture or spondylolisthesis. Minimal multilevel degenerative disc disease and spondylosis. Electronically Signed: Roberto Dubon MD at 16:18 EST ,
--- NOTE | 2023-07-21 16:00 | RAD_ITS ---
INDICATION: pain EXAMINATION/TECHNIQUE: X-RAY - XR Chest 2 Views COMPARISON: None. FINDINGS: Hyperinflated lungs. Lungs otherwise clear. The cardiomediastinal silhouette is unremarkable. No pleural effusion or pneumothorax. No acute osseous abnormalities. RAD/Chest PA and Lateral IMPRESSION: No acute radiographic abnormalities. Hyperinflated lungs which can be seen in asthma. Electronically Signed: Roberto Dubon MD at 16:14 EST ,
[2023-07-21 16:06] LABS: Anion Gap 6 (5-15); BUN 11 mg/dL (7-18); Chloride 107 mmol/L (98-107); EST Glomerular Filtration Rate 93 mL/min (>60); Est Glom Filt Rate - Afr Amer 112 mL/min (>60); Glucose 113 mg/dL (74-106); Potassium 3.7 mmol/L (3.5-5.1); Sodium Level 140 mmol/L (136-145); Troponin-I HS 5 pg/mL (3.0-78.0)
[2023-07-21 16:59] VITALS: BP 124/69; PULSE 72; RESP 15; O2SAT 99
== END 2023-07-21 17:00 | disposition home or self-care (01) ==
PROVIDERS: Emergency Provider Emergency Medicine; PCP Internal Medicine; Visit Provider Emergency Medicine
DX: R20.2 Paresthesia of skin (principal); F41.9 Anxiety disorder, unspecified; M54.9 Dorsalgia, unspecified; H53.9 Unspecified visual disturbance; F17.210 Nicotine dependence, cigarettes, uncomplicated; R07.9 Chest pain, unspecified; R06.00 Dyspnea, unspecified
CPT/HCPCS: 70496; 70498; 71046; 72100; 80048; 84484; 85025; 93005; 96361; 96374; 99284; J7030; Q9967; A4216

== ENCOUNTER 2023-08-03 06:20 | Emergency (ER) | payer MEDICAID, SELFPAY ==
[2023-08-03 06:21] VITALS: BP 116/76; PULSE 73; RESP 18; TEMP 36.4; O2SAT 95; BMI 22.1
--- NOTE | 2023-08-03 07:07 | EX.ED.DYSGE1 ---
HPI History of Present Illness Chief Complaint: Other, Pain/Inj Informant: patient Onset/Context/Timing Onset: Weeks (1) Context: Gradual Onset Timing: Continuous Quality: Dull Location: Lower lumbar and sacrum Worsened by: Movement Relieved by: Pressure on tailbone Narrative Narrative: Patient presents with back pain and neck pain that has been getting progressively worse over the past week. Patient states pain is mainly over his lower lumbar area. Patient describes his pain as dull. Patient states that the pain has been constant. Patient denies any trauma or injury. Patient states the pain is worse with certain movements. Patient states the pain radiates down his left leg. Patient states it gets better when he applies pressure to his tailbone. Patient states an episode earlier this week where he felt lightheaded. Patient denies any syncope or falls. Prior similar symptoms: Yes PFSH [facility] Medical History (Updated 08/03/23 @ 08:[address] Donnie Carter DO) Tobacco abuse Home Medications cyclobenzaprine 10 mg tablet 10 mg PO QHS PRN PRN Muscle Spasm #10 TABLETS 08/03/23 [Rx Last Taken Unknown] naproxen 500 mg tablet 500 mg PO BID PRN #20 tabs 08/03/23 [Rx Last Taken Unknown] Allergy/AdvReac Type Severity Reaction Status Date / Time No Known Allergies Allergy Verified 08/03/23 06:24 Surgical History (Updated 08/03/23 @ 07:[address] Donnie Carter DO) H/O vascular surgery History of appendectomy Social History Smoking Status: Current every day smoker tobacco type: cigarettes and e-cigarettes alcohol intake: never substance use type: amphetamines ROS ROS ED Constitutional Constitutional ED: Reports sweats; Denies chills or fever(s) Eyes Eyes: Reports change in vision; Denies blurry vision ENT ENT ED: Reports rhinorrhea; Denies sore throat Cardiovascular Cardiovascular: Denies chest pain or palpitations Respiratory/Chest Respiratory/Chest: Reports dyspnea; Denies cough Gastrointestinal Gastrointestinal: Reports nausea; Denies vomiting Genitourinary Genitourinary ED: Denies dysuria or hematuria Musculoskeletal Musculoskeletal: Reports back pain and neck pain Integumentary Denies abscess or rash Neurologic Neurologic: Reports headache(s); Denies weakness Allergic/Immunologic Allergic/Immunologic ED: Denies mouth swelling or urticaria EXAM Physical Exam Const Vital Signs: 08/03/23 06:21 Temperature 97.6 F L Temperature Source Temporal Pulse Rate 73 Respiratory Rate 18 Blood Pressure 116/76 Blood Pressure Mean 89 Pulse Ox 95 Oxygen Delivery Method Room Air Positive well nourished and well developed General Appearance ED: well developed and NAD HEENT Reports moist mucous membranes Neck supple and no JVD Chest Wall inspection of chest normal and palpation of chest normal Resp normal respiratory effort and clear to auscultation bilaterally Cardio regular rate and regular rhythm GI non-distended Palpation: soft and tender LLQ and LUQ; Negative for guarding or rebound tenderness present Extremity normal to inspection General Extremety ED: Negative for edema or tenderness General Extremity: Negative for edema Neuro oriented x3, CN's II-XII intact bilaterally and no sensory deficits noted Neuro Narrative: Deep tendon reflexes are 2/4 bilaterally. Sensorium / Orientation: alert Motor Exam: strength 5/5 throughout Psych mental status grossly normal MDM MDM MDM Narrative Medical decision making narrative: Differential diagnosis includes spondylolisthesis, occult fracture, musculoskeletal strain, and anxiety. X-rays of the lumbar spine will be obtained to assess for spondylolisthesis and occult fracture. Radiography X-Ray: LS SPine, Read by ED Physician, Read by Radiologist and Normal Bony Alignment Diagnostic Testing: Clinical Impression(s) from Imaging Studies Lumbar Spine X-Ray 08/03/23 07:28 IMPRESSION: Normal x-ray examination of the lumbar spine. Electronically Signed: Rey Nelson MD at 8:04 EST , X-rays of the lumbar spine were obtained. There are 2 views. On my independent interpretation, there is no acute fracture or spondylolisthesis. Radiologist also interpreted the x-rays and agrees. Treatment and Re-Evaluation :: Patient was given injections of Toradol and Norflex here. Patient is feeling better on reevaluation. Patient was advised of his findings. Patient was given prescriptions for Naprosyn and Flexeril. Patient was instructed to follow-up with his primary care physician in 5 to 7 days for reevaluation. Patient was instructed to return if worse in any way. Patient understood and was agreeable with the plan. All questions were answered. Discharge Plan Triage Chief Complaint: Other, Pain/Inj ED Provider: Donnie Carter Dx/Rx/DC Orders Clinical Impression: Acute lumbosacral myofascial strain, Polysubstance abuse Instructions: ED Back Sprain/Strain Prescriptions: New cyclobenzaprine [cyclobenzaprine] 10 mg tablet 10 mg PO QHS PRN PRN (Reason: Muscle Spasm) Qty: 10 0RF naproxen 500 mg tablet 500 mg PO BID PRN Qty: 20 0RF Primary Care Provider: Care Physician,No Primary Referrals: NOT,DEFINED [Non-Staff] - 5-7 Days Disposition Disposition: Home, Self Care
--- NOTE | 2023-08-03 07:28 | RAD_ITS ---
STUDY: X-RAY - LUMBAR SPINE REASON FOR EXAM: Male, 32 years old. Injury/Pain TECHNIQUE: 2 view(s) of the lumbar spine were obtained. COMPARISON: Comparison is made with prior study dated July 21, 2023. FINDINGS: Normal lumbar lordosis. There is no substantial scoliosis. There is a normal alignment of the vertebrae. Normal vertebral bodies and endplates. Normal disc space heights. The soft tissue structures are unremarkable. RAD/Lumbar Spine 2 or 3 Views IMPRESSION: Normal x-ray examination of the lumbar spine. Electronically Signed: Rey Nelson MD at 8:04 EST ,
[2023-08-03] MEDS: Ketorolac 60 MG/2 ML Vial IM (07:36)
[2023-08-03] MEDS: Orphenadrine 60 MG/2 ML Ampul IM (07:38)
[2023-08-03 08:38] VITALS: BP 120/74; PULSE 73; RESP 14; TEMP 36.6; O2SAT 98
== END 2023-08-03 08:41 | disposition home or self-care (01) ==
PROVIDERS: Emergency Provider Emergency Medicine; Visit Provider Emergency Medicine
DX: S39.012A Strain of muscle, fascia and tendon of lower back, initial encounter (principal); F19.19 Other psychoactive substance abuse with unspecified psychoactive substance-induced disorder; F17.210 Nicotine dependence, cigarettes, uncomplicated; R06.00 Dyspnea, unspecified; R51.9 Headache, unspecified; X58.XXXA Exposure to other specified factors, initial encounter
CPT/HCPCS: 72100; 99282

== ENCOUNTER 2023-08-03 22:27 | Emergency (ER) | payer MEDICAID, SELFPAY ==
[2023-08-03 22:27] VITALS: BP 121/90; PULSE 81; RESP 18; TEMP 36.8; O2SAT 100; BMI 21.7
--- NOTE | 2023-08-03 22:47 | EDS_ITS ---
HPI History of Present Illness Chief Complaint: General Illness Detail of Chief Complaint: back pain Informant: patient Narrative Narrative: Patient presenting with pain in his low back that has been present for little over a week. He states it started with lots of heavy lifting and repetitive movements with heavy items at work. States he has had flareups like this before but this was not going away. Has occurred multiple times in the past couple years since he had some type of accident injuring his low back. It is focused in his left lower back radiating up his back and down his left leg. He states tonight he has been nauseated and he is scared that something is wrong. He states when the pain is severe sometimes takes his breath away. He denies any fevers chills or recent illness or feeling like he has an illness. He denies using any IV drugs. He was seen here earlier today for the same thing and states the pain is the same. He states that he cannot get comfortable. Denies any weakness, numbness. Denies any bowel or bladder dysfunction. No saddle anesthesia. [facility] Medical History Tobacco abuse Home Medications cyclobenzaprine 10 mg tablet 10 mg PO QHS PRN PRN Muscle Spasm #10 TABLETS 08/03/23 [Rx Last Taken Unknown] naproxen 500 mg tablet 500 mg PO BID PRN #20 tabs 08/03/23 [Rx Last Taken Unknown] prednisone 20 mg tablet 40 mg (2 x 20 mg) PO QHS #12 TABLETS 08/03/23 [Rx Last Taken Unknown] Allergy/AdvReac Type Severity Reaction Status Date / Time No Known Allergies Allergy Verified 08/03/23 22:29 Surgical History (Updated 08/03/23 @ 07:[address] Donnie Carter, DO) H/O vascular surgery History of appendectomy Social History Smoking Status: Current every day smoker tobacco type: cigarettes and e- cigarettes alcohol intake: never substance use type: amphetamines ROS ROS ED Constitutional Constitutional ED: Denies chills or fever(s) Gastrointestinal Gastrointestinal: Reports nausea; Denies abdominal pain, constipation, fecal incontinence or vomiting Genitourinary Genitourinary ED: Reports other Details: no urinary retention ; Denies abdominal discomfort or urinary incontinence Musculoskeletal Musculoskeletal: Reports as per HPI, back pain and other Details: States he has a whooshing feeling with moving a lot of the joints in his body including his neck, but not necessarily pain; when he moves his hip certain way he gets a crack/thump that is not necessarily painful and is concerned that something dangerous is going on with his back because of all this ; Denies neck pain Integumentary Denies rash or wounds Neurologic Neurologic: Denies headache(s), paresthesias or weakness Psychiatric Psychiatric: Reports anxiety; Denies suicidal ideation EXAM Physical Exam Const Vital Signs: 08/03/23 22:27 08/03/23 23:06 Temperature 98.3 F 98.3 F Temperature Source Temporal Pulse Rate 81 81 Respiratory Rate 18 18 Blood Pressure 121/90 H 121/90 H Blood Pressure Mean 100 100 Pulse Ox 100 100 Oxygen Delivery Method Room Air Positive well nourished and well developed General Appearance ED: well developed and NAD HEENT Negative for trauma or tenderness Eyes PERRL and EOMs intact bilaterally Neck full ROM and supple GI normal to inspection, nondistended, normoactive bowel sounds, soft to palpation and non-tender Back/Spine no CVA tenderness and normal to inspection Lumbar Spine / Lower Back: ROM limited, paraspinal muscle tenderness left (Mild at left SI joint. Normal inspection. No bony tenderness. No apparent limited range of motion.) and straight leg raise negative bilaterally; Negative for lumbar spinal tenderness Extremity normal to inspection, full ROM and no pedal edema Extremity Narrative: With flexing at the hips and then extending them along with external rotation patient recreates low-pitched joint cracking that he does not experience pain with objectively Neuro oriented x3 and no sensory deficits noted Sensorium / Orientation: alert Motor Exam: strength 5/5 throughout and clonus absent Deep Tendon Reflexes: Rt Patellar (L4): 2+, Lt Patellar (L4): 2+, Rt Ankle (S1): 2+ and Lt Ankle (S1): 2+ Deep Tendon Reflexes Back: Rt Patellar (L4): 2+, Lt Patellar (L4): 2+, Rt Ankle (S1): 2+ and Lt Ankle (S1): 2+ Plantar Reflex: Downgoing: bilateral Psych thought process normal Psych Narrative: Very anxious, moving arms and legs around normally but actively as if anxious. Easily consoles verbally. Mood & Affect: anxious Skin no rashes or lesions noted and no wounds MDM MDM MDM Narrative Medical decision making narrative: I reviewed the patient's ED visit from earlier today as well as lumbar spine x- ray series as interpreted by radiology as normal. His vital signs are normal right now. He is very anxious. He is neurologically intact and has normal pulses, negative straight leg raises bilaterally, and no sign of cauda equina syndrome or conus medullaris syndrome at this time. I reassured him, there is no life threat present. I do not think he has any type of joint infections. With regards to his joints being potentially inflamed in his back or elsewhere, I advised him that the ER is not the place to have a workup for chronic arthralgias. He needs to follow-up. In the meantime I am happy to try him on some prednisone. He took naproxen and Flexeril just prior to coming in here. Differential here does include a ruptured or inflamed disc, with radiculopathy which she is testing negative for at this time, as well as musculoskeletal etiologies such as sacroiliitis, basic strain. He does not have any acutely narrowed disc space. Discharged home to follow-up. History & Record Review Additional record(s) reviewed:: Prior ED visit Discharge Plan Triage Chief Complaint: General Illness ED Provider: Jad Santamaria Dx/Rx/DC Orders Clinical Impression: Low back pain Instructions: ED Back Pain (Acute or Chronic) Prescriptions: New prednisone 20 mg tablet 40 mg PO QHS Qty: 12 0RF No Action cyclobenzaprine [cyclobenzaprine] 10 mg tablet 10 mg PO QHS PRN PRN (Reason: Muscle Spasm) Qty: 10 0RF naproxen 500 mg tablet 500 mg PO BID PRN Qty: 20 0RF Primary Care Provider: Care Physician,No Primary Referrals: Doctor,Your [Non-Staff] - 3-5 Days if not improving Disposition Disposition: Home, Self Care Discharge Date/Time: 08/03/23 23:06
[2023-08-03] MEDS: predniSONE 20 MG Tablet 40 MG PO (22:59)
[2023-08-03] MEDS: proMETHazine 25 MG Tablet PO (22:59)
[2023-08-03 23:06] VITALS: BP 121/90; PULSE 81; RESP 18; TEMP 36.8; O2SAT 100
== END 2023-08-03 23:06 | disposition home or self-care (01) ==
PROVIDERS: Emergency Provider Emergency Medicine; Visit Provider Emergency Medicine
DX: S39.012A Strain of muscle, fascia and tendon of lower back, initial encounter (principal); F19.19 Other psychoactive substance abuse with unspecified psychoactive substance-induced disorder; F17.210 Nicotine dependence, cigarettes, uncomplicated; R06.00 Dyspnea, unspecified; R51.9 Headache, unspecified; R11.0 Nausea; X50.0XXA Overexertion from strenuous movement or load, initial encounter; Y99.0 Civilian activity done for income or pay
CPT/HCPCS: 72100; 96372; 99282; 99283

== ENCOUNTER 2023-08-05 12:46 | Emergency (ER) | payer MEDICAID, SELFPAY ==
[2023-08-05 12:47] VITALS: BP 128/71; PULSE 130; RESP 22; TEMP 36.4; O2SAT 100; BMI 21.4
--- NOTE | 2023-08-05 12:55 | EX.ED.DYSGE1 ---
HPI <JOSE GUADALUPE Hooker - Last Filed: 08/05/23 14:06> History of Present Illness Chief Complaint: Back Narrative Narrative: 32-year-old male presents with chronic low back pain and 2 days of not feeling well with multiple symptoms. He states he has been nauseated, fatigued, shaky all over, lightheaded and feels like he might pass out, and has left arm numbness and tingling. He has had left sided paresthesias intermittently for two years. His low back pain flared up over a week ago. It started after heavy lifting and repetitive movements at work. He has had similar flareups in the past after a back injury in 2019. It is mainly in his left lower back radiating down his left leg. He uses marijuana but denies other drugs or IV drug use. He has been seen for this multiple times in the past including 08/03/2023 and states the pain is the same. He has no weakness, saddle anesthesia, or bladder or bowel incontinence. 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 Donnie Carter DO) H/O vascular surgery History of appendectomy Social History Smoking Status: Current every day smoker tobacco type: cigarettes and e-cigarettes alcohol intake: never substance use type: amphetamines ROS <JOSE GUADALUPE Hooker - Last Filed: 08/05/23 14:06> ROS ED ROS Narrative Constitutional: Negative for fever, chills, malaise. CVS: Negative for palpitations, chest pain. Respiratory: Negative for shortness of breath. GI: Negative for abdominal pain, vomiting, diarrhea. Neuro: Negative for headache. EXAM <JOSE GUADALUPE Hooker - Last Filed: 08/05/23 14:06> Physical Exam Narrative Exam Narrative: CONST: Patient anxious and twitching in bed. EYES: Normal inspection. NECK: Normal inspection. RESP: No respiratory distress, CTAB. CVS: Rapid but regular rhythm, no murmur, no gallop. ABD: Soft and nontender, no guarding or rebound, nondistended. SKIN: Color normal, no rash, warm, dry, intact. EXTREMITIES: Normal appearance, 5/5 upper and lower extremity strength, normal sensation in all dermatomes, 2+ radial DP pulses. Compartments soft, no swelling or skin changes. NEURO: Oriented x4. PSYCH: Normal affect. Const Vital Signs: 08/05/23 12:47 08/05/23 14:08 Temperature 97.5 F L 98.6 F Temperature Source Temporal Pulse Rate 130 H 69 Respiratory Rate 22 H 20 H Blood Pressure 128/71 H 132/84 H Blood Pressure Mean 90 100 Pulse Ox 100 98 Oxygen Delivery Method Room Air <David Ruiz MD - Last Filed: 08/05/23 15:16> Physical Exam Const Vital Signs: 08/05/23 12:47 08/05/23 14:08 Temperature 97.5 F L 98.6 F Temperature Source Temporal Pulse Rate 130 H 69 Respiratory Rate 22 H 20 H Blood Pressure 128/71 H 132/84 H Blood Pressure Mean 90 100 Pulse Ox 100 98 Oxygen Delivery Method Room Air MDM <JOSE GUADALUPE Hooker - Last Filed: 08/05/23 14:06> MDM MDM Narrative Medical decision making narrative: Patient is twitching all over. He has paresthesias in the left arm. He has had this off and on for 2 years. He also has chronic low back pain. He is twitching and anxious, heart rate 130 with otherwise stable vital signs. He has a normal neurological exam. MSPs are intact in upper and lower extremities. Due to his heart rate labs and drug screen were obtained and are only remarkable for mild hypokalemia at 3.3 which was replaced p.o. Urine drug screen positive for cannabinoids. After IV fluids patient was reassessed. Heart rate is 77 bpm. He is lying in bed in no distress. He is asking for an MRI due to his ongoing paresthesias but again these have been present for 2 years. He had a negative CTA head neck for this issue on 07/21/2023. There is no indication for emergent MRI. He has an appointment with a new PCP on August 14 and she discussed the symptoms. For his chronic back pain he was given IV Toradol. At home he has naproxen/Flexeril/prednisone. He was discharged in stable condition. External records reviewed: CTA head and neck 07/21/2023 is negative. Lab Data Attestation: I reviewed the patient's lab results. Labs: Laboratory Results - last 24 hr 08/05/23 13:11 WBC 5.3 RBC 5.32 Hgb 15.7 Hct 46.6 MCV 87.6 MCH 29.5 MCHC 33.7 RDW Std Deviation 39.4 RDW Coeff of Johanna 12.3 Plt Count 231 MPV 10.2 Immature Gran % (Auto) 0.400 Neut % (Auto) 57.5 Lymph % (Auto) 33.6 [place] % (Auto) 7.3 Eos % (Auto) 0.4 Baso % (Auto) 0.8 Absolute Neuts (auto) 3.1 Absolute Lymphs (auto) 1.79 Nucleated RBC % 0 Sodium 141 Potassium 3.3 L Chloride 109 H Carbon Dioxide 23.0 Anion Gap 9 BUN 15 Creatinine 1.20 Estim Creat Clear Calc 82.97 Est GFR (MDRD) Af Amer 90 Est GFR (MDRD) Non-Af 75 BUN/Creatinine Ratio 12.5 Glucose 110 H Calcium 9.1 Total Bilirubin 1.10 H AST 25 ALT 20 Alkaline Phosphatase 89 Total Protein 7.2 Albumin 4.8 Globulin 2.4 Albumin/Globulin Ratio 2.0 Urine Opiates Screen NEGATIVE Urine Methadone Screen NEGATIVE Ur Barbiturates Screen NEGATIVE Ur Phencyclidine Scrn NEGATIVE Ur Amphetamines Screen NEGATIVE MDMA (Ecstasy) Screen NEGATIVE U Benzodiazepines Scrn NEGATIVE Urine Cocaine Screen NEGATIVE U Cannabinoids Screen POSITIVE H Ur Drug Screen Comment EKG Initial EKG: Attestation: I personally reviewed and interpreted this EKG as follows: Interpretation: Sinus Rhythm and No Acute Injury Pattern Comments: Normal sinus rhythm with sinus arrhythmia at 77 bpm Normal intervals, no ischemic changes <David Ruiz MD - Last Filed: 08/05/23 15:16> MDM MDM Narrative Medical decision making narrative: Patient is twitching all over. He has paresthesias in the left arm. He has had this off and on for 2 years. He also has chronic low back pain. He is twitching and anxious, heart rate 130 with otherwise stable vital signs. He has a normal neurological exam. MSPs are intact in upper and lower extremities. Due to his heart rate labs and drug screen were obtained and are only remarkable for mild hypokalemia at 3.3 which was replaced p.o. Urine drug screen positive for cannabinoids. After IV fluids patient was reassessed. Heart rate is 77 bpm. He is lying in bed in no distress. He is asking for an MRI due to his ongoing paresthesias but again these have been present for 2 years. He had a negative CTA head neck for this issue on 07/21/2023. There is no indication for emergent MRI. He has an appointment with a new PCP on August 14 and she discussed the symptoms. For his chronic back pain he was given IV Toradol. At home he has naproxen/Flexeril/prednisone. He was discharged in stable condition. External records reviewed: CTA head and neck 07/21/[address] Ruiz: I have personally performed a face to face assessment of the patient and have reviewed the SAMEER Note. I performed a substantive portion of the visit including all aspects of the following. My bernstein findings include: History is chronic back pain. Wants MRI. Exam is afebrile. Vital signs noted. Regular rate and rhythm. Lungs clear to auscultation bilaterally. Abdomen soft nontender with normal active bowel sounds. Neurological examination nonfocal and nonlateralizing. Medical Decision Making: Check labs. Check urine for drugs of abuse. Toradol for analgesia. Follow-up primary care. Discharge. Other additions or changes: [None] Lab Data Labs: Laboratory Results - last 24 hr 08/05/23 13:11 WBC 5.3 RBC 5.32 Hgb 15.7 Hct 46.6 MCV 87.6 MCH 29.5 MCHC 33.7 RDW Std Deviation 39.4 RDW Coeff of Johanna 12.3 Plt Count 231 MPV 10.2 Immature Gran % (Auto) 0.400 Neut % (Auto) 57.5 Lymph % (Auto) 33.6 [place] % (Auto) 7.3 Eos % (Auto) 0.4 Baso % (Auto) 0.8 Absolute Neuts (auto) 3.1 Absolute Lymphs (auto) 1.79 Nucleated RBC % 0 Sodium 141 Potassium 3.3 L Chloride 109 H Carbon Dioxide 23.0 Anion Gap 9 BUN 15 Creatinine 1.20 Estim Creat Clear Calc 82.97 Est GFR (MDRD) Af Amer 90 Est GFR (MDRD) Non-Af 75 BUN/Creatinine Ratio 12.5 Glucose 110 H Calcium 9.1 Total Bilirubin 1.10 H AST 25 ALT 20 Alkaline Phosphatase 89 Total Protein 7.2 Albumin 4.8 Globulin 2.4 Albumin/Globulin Ratio 2.0 Urine Opiates Screen NEGATIVE Urine Methadone Screen NEGATIVE Ur Barbiturates Screen NEGATIVE Ur Phencyclidine Scrn NEGATIVE Ur Amphetamines Screen NEGATIVE MDMA (Ecstasy) Screen NEGATIVE U Benzodiazepines Scrn NEGATIVE Urine Cocaine Screen NEGATIVE U Cannabinoids Screen POSITIVE H Ur Drug Screen Comment Discharge Plan Triage Chief Complaint: Back ED Midlevel Provider: Neva Lea ED Provider: David Ruiz Dx/Rx/DC Orders Clinical Impression: Low back pain, Paresthesia Instructions: Back Basics: A Healthy Spine Prescriptions: No Action prednisone 20 mg tablet 40 mg PO QHS Qty: 12 0RF cyclobenzaprine [cyclobenzaprine] 10 mg tablet 10 mg PO QHS PRN PRN (Reason: Muscle Spasm) Qty: 10 0RF naproxen 500 mg tablet 500 mg PO BID PRN Qty: 20 0RF Primary Care Provider: Care Physician,No Primary Referrals: Care Physician,No Primary [Primary Care Provider] - Activity Restrictions/Additional Instructions: You need to follow-up with your PCP as scheduled on August 14 Disposition Disposition: Home, Self Care Discharge Date/Time: 08/05/23 14:23
[2023-08-05] MEDS: 0.9% Normal Saline (1000mL) 1,000 ML 999 ML IV (13:15)
[2023-08-05 13:26] LABS: Absolute Lymphocyte Count 1.79 X10^3/uL (0.83-4.51); Absolute Neutrophil Count 3.1 X10^3/uL (2.0-7.7); Basophil# 0.04 X10^3/uL; Basophil% 0.8 % (0-1); Eosinophil# 0.02 X10^3/uL; Eosinophils% 0.4 % (0-5); Hematocrit 46.6 % (40-54); Hemoglobin 15.7 g/dL (13.0-16.5); Lymphocyte # 1.79 X10^3/ul (0.83-4.51); Lymphocyte % 33.6 % (19-41); Mean Corp Hgb Conc 33.7 g/dL (32-36); Mean Corpuscular Hgb 29.5 pg (27.0-32.0); Mean Corpuscular Volume 87.6 fL (80-94); Mean Platelet Vol. 10.2 fl (6.2-12.0); Monocyte# 0.39 X10^3/uL; Monocyte% 7.3 % (0-10); NRBC Flagged by Analyzer 0 % (0-5); Neutrophil # 3.07 X10^3/uL (2.7-7.7); Neutrophil % 57.5 % (47-70); Platelet Count 231 K/mm3 (150-450); RBC Distribution Width CV 12.3 % (11.6-14.6); RBC Distribution Width SD 39.4 fl (35.1-43.9); Red Blood Count 5.32 M/mm3 (4.6-6.2); White Blood Count 5.3 K/mm3 (4.4-11.0)
--- NOTE | 2023-08-05 13:32 | EKG12_ITS ---
Test Reason : CHEST DISCOMFORT Blood Pressure : / mmHG Vent. Rate : 077 BPM Atrial Rate : 077 BPM P-R Int : 166 ms QRS Dur : 094 ms QT Int : 346 ms P-R-T Axes : 088 074 069 degrees QTc Int : 391 ms Normal sinus rhythm with sinus arrhythmia Normal ECG When compared with ECG of 21-JUL-2023 15:20, No significant change was found Confirmed by MAYELA YBARRA, NATAN ([id number]), fashion editor MARITA COELLO ([id number]) on 08/07/2023 1:05:56 PM Referred By: Confirmed By:NATAN PEDRO MD
[2023-08-05 13:40] LABS: AST(SGOT) 25 U/L (15-37); Alanine Aminotransfer ALT/SGPT 20 U/L (16-61); Albumin, Serum 4.8 g/dL (3.2-5.0); Alkaline Phosphatase 89 U/L (45-117); Anion Gap 9 (5-15); BUN 15 mg/dL (7-18); BUN/Creat Ratio 12.5 RATIO (10-20); Calcium,Total 9.1 mg/dL (8.5-10.1); Chloride 109 mmol/L (98-107); EST Glomerular Filtration Rate 75 mL/min (>60); Est Glom Filt Rate - Afr Amer 90 mL/min (>60); Estimated Creatinine Clearance 82.97 ml/min; Globulin 2.4 g/dL (2.2-4.2); Glucose 110 mg/dL (74-106); Potassium 3.3 mmol/L (3.5-5.1); Protein, Total 7.2 g/dL (6.4-8.2); Sodium Level 141 mmol/L (136-145)
[2023-08-05 13:49] LABS: Amphetamine Urine VISTA NEGATIVE (<1000 ng/mL); Barbiturate Urine VISTA NEGATIVE (< 200 ng/mL); Benzodiazepine Urine VISTA NEGATIVE (< 200 ng/mL); Cocaine Urine VISTA NEGATIVE (< 300 ng/mL); Ecstacy Urine VISTA NEGATIVE (< 500 ng/mL); Methadone Urine VISTA NEGATIVE (< 300 ng/mL); PCP Urine VISTA NEGATIVE (< 25 ng/mL); THC Urine VISTA POSITIVE (< 50 ng/mL); Vista UDS pH Range 5
[2023-08-05] MEDS: Ketorolac 15 MG/ML Vial IV (14:05)
[2023-08-05] MEDS: Potassium Chloride Oral Tablet 20 MEQ PO (14:06)
[2023-08-05 14:08] VITALS: BP 132/84; PULSE 69; RESP 20; TEMP 37; O2SAT 98
== END 2023-08-05 14:23 | disposition home or self-care (01) ==
PROVIDERS: Physician Assistant; Emergency Provider Emergency Medicine; Visit Provider Emergency Medicine
DX: M54.50 Low back pain, unspecified (principal); E87.6 Hypokalemia; R20.2 Paresthesia of skin; G89.29 Other chronic pain; F17.210 Nicotine dependence, cigarettes, uncomplicated; F17.290 Nicotine dependence, other tobacco product, uncomplicated
CPT/HCPCS: 80053; 80307; 85025; 93005; 96361; 96374; 99283; J7030; A4216

== ENCOUNTER 2023-08-06 12:53 | Emergency (ER) | payer MEDICAID, SELFPAY ==
[2023-08-06 12:54] VITALS: BP 128/61; PULSE 106; RESP 16; TEMP 36.2; O2SAT 99; BMI 21.4
--- NOTE | 2023-08-06 13:08 | EDS_ITS ---
HPI <JOSE GUADALUPE Hooker - Last Filed: 08/06/23 14:29> History of Present Illness Chief Complaint: Back Narrative Narrative: 32-year-old male states about a week ago he developed cold sweats, myalgias, and lightheadedness. This is patient's third visit to the ED this week. At earlier visits he was complaining of a flare of his chronic low back pain. He is also having that but it is managed by naproxen and Flexeril. He was prescribed prednisone at a prior visit but did not pick it up. He has no new issues regarding his back. PFSH <JOSE GUADALUPE Hooker - Last Filed: 08/06/23 14:29> PFSH Medical History Tobacco abuse Home Medications cyclobenzaprine 10 mg tablet 10 mg PO QHS PRN PRN Muscle Spasm #10 TABLETS 08/03/23 [Rx Last Taken Unknown] naproxen 500 mg tablet 500 mg PO BID PRN #20 tabs 08/03/23 [Rx Last Taken Unknown] prednisone 20 mg tablet 40 mg (2 x 20 mg) PO QHS #12 TABLETS 08/03/23 [Rx Last Taken Unknown] Allergy/AdvReac Type Severity Reaction Status Date / Time No Known Allergies Allergy Verified 08/06/23 12:56 Surgical History H/O vascular surgery History of appendectomy Social History Smoking Status: Current every day smoker tobacco type: cigarettes and e- cigarettes alcohol intake: never substance use type: amphetamines ROS <JOSE GUADALUPE Hooker - Last Filed: 08/06/23 14:29> ROS ED ROS Narrative Constitutional: Positive for chills, malaise. ENT: Negative for sore throat, rhinorrhea. CVS: Negative for chest pain. Respiratory: Negative for shortness of breath, cough. GI: Positive for nausea. Negative for abdominal pain, vomiting, diarrhea, melena, hematochezia. : Negative for dysuria. Neuro: Negative for headache. EXAM <JOSE GUADALUPE Hooker - Last Filed: 08/06/23 14:29> Physical Exam Narrative Exam Narrative: CONST: Patient sitting in no acute distress. EYES: Normal inspection. NECK: Normal inspection. RESP: No respiratory distress, CTAB. CVS: Regular rate and rhythm, no murmur, no gallop. ABD: Soft and nontender, no guarding or rebound, nondistended. SKIN: Color normal, no rash, warm, dry, intact. EXTREMITIES: Normal appearance, no pedal edema. NEURO: Oriented x4. PSYCH: Normal affect. Const Vital Signs: 08/06/23 12:54 Temperature 97.2 F L Temperature Source Temporal Pulse Rate 106 H Respiratory Rate 16 Blood Pressure 128/61 H Blood Pressure Mean 83 Pulse Ox 99 Oxygen Delivery Method Room Air <David Ruiz MD - Last Filed: 08/06/23 14:58> Physical Exam Const Vital Signs: 08/06/23 12:54 Temperature 97.2 F L Temperature Source Temporal Pulse Rate 106 H Respiratory Rate 16 Blood Pressure 128/61 H Blood Pressure Mean 83 Pulse Ox 99 Oxygen Delivery Method Room Air MDM <JOSE GUADALUPE Hooker - Last Filed: 08/06/23 14:29> [facility] Narrative Medical decision making narrative: Patient reports a week of chills, lightheadedness and myalgias. He appears well and nontoxic. He has a benign exam. With main complaint of bodyaches his symptoms sound viral in nature. COVID/flu/RSV swab is negative. He was seen yesterday in the ED and had CBC/CMP which was only notable for potassium of 3.3 that was replaced. He does not require repeat blood work today. He was medicated with Tylenol and advised to continue naproxen or Tylenol at high. He needs to follow-up with his PCP. He was discharged in stable condition. <David Ruiz MD - Last Filed: 08/06/23 14:58> [facility] Narrative Medical decision making narrative: Patient reports a week of chills, lightheadedness and myalgias. He appears well and nontoxic. He has a benign exam. With main complaint of bodyaches his symptoms sound viral in nature. COVID/flu/RSV swab is negative. He was seen yesterday in the ED and had CBC/CMP which was only notable for potassium of 3.3 that was replaced. He does not require repeat blood work today. He was medicated with Tylenol and advised to continue naproxen or Tylenol at high. He needs to follow-up with his PCP. He was discharged in stable condition. Dr. Ruiz: I have personally performed a face to face assessment of the patient and have reviewed the SAMEER Note. I performed a substantive portion of the visit including all aspects of the following. My bernstein findings include: History is 1 week history of chills, lightheadedness, myalgias. Seen yesterday in the emergency department for back pain. Had laboratory work at that time. Differential diagnosis includes viral syndrome, versus chronic pain. Exam is afebrile. Vital signs noted. Resting on cot comfortably. Moves all extremities. Ambulatory in ED. No twitching noted today. Medical Decision Making: Check respiratory swab. Respiratory swab reviewed and he is negative for COVID, influenza, and RSV. I reviewed the laboratory work from yesterday, and do not feel that it requires repeating. Disposition is discharged in stable condition. Other additions or changes: [None] History & Record Review Additional record(s) reviewed:: Prior ED visit Lab Data Attestation: I reviewed the patient's lab results. Labs: Respiratory swabs negative. Discharge Plan Triage Chief Complaint: Back ED Midlevel Provider: Neva Lea ED Provider: David Ruiz Dx/Rx/DC Orders Clinical Impression: Myalgia Instructions: ED Myalgias Prescriptions: No Action prednisone 20 mg tablet 40 mg PO QHS Qty: 12 0RF cyclobenzaprine [cyclobenzaprine] 10 mg tablet 10 mg PO QHS PRN PRN (Reason: Muscle Spasm) Qty: 10 0RF naproxen 500 mg tablet 500 mg PO BID PRN Qty: 20 0RF Primary Care Provider: Care Physician,No Primary Referrals: Care Physician,No Primary [Primary Care Provider] - Activity Restrictions/Additional Instructions: Your COVID/flu/RSV swab is negative. Continue naproxen and Flexeril as needed. You can take [id number] Tylenol 1000 mg every 6 hours as needed for pain. You need to follow-up with your PCP. Disposition Disposition: Home, Self Care Discharge Date/Time: 08/06/23 14:43
[2023-08-06] MEDS: Acetaminophen 500 MG Tablet 1000 MG PO (13:12)
--- NOTE | 2023-08-06 14:33 | ED.RN ---
This RN walked in to pt room to discharge pt. Pt is on phone having a conversation, this RN waited several minutes, pt showed no signs of ending phone conversation. This RN handed pt discharge papers and asked do you have any questions for me? . Pt states to person on phone, this jacquie holcomb nurse was just in here . This RN asked pt not to speak that way to staff, pt states you guys didn't do shit for me . This RN explained that we had done all appropriate testing and now pt was able to move around the room freely without any distress and that pt had been seen several times for the same symptoms with no acute findings. Pt states I'll be back later . This RN reminded pt that he could not be verbally abusive to staff if he returned.
== END 2023-08-06 14:43 | disposition home or self-care (01) ==
PROVIDERS: Emergency Provider Emergency Medicine; Visit Provider Emergency Medicine
DX: M79.10 Myalgia, unspecified site (principal); M54.9 Dorsalgia, unspecified; F17.210 Nicotine dependence, cigarettes, uncomplicated; F17.290 Nicotine dependence, other tobacco product, uncomplicated; G89.29 Other chronic pain
CPT/HCPCS: 87631; 99282

== ENCOUNTER 2023-08-07 02:20 | Emergency (ER) | payer MEDICAID, SELFPAY ==
[2023-08-07 02:22] VITALS: BP 132/94; PULSE 98; RESP 16; TEMP 36.4; O2SAT 98; BMI 21.2
--- NOTE | 2023-08-07 02:40 | CT_ITS ---
INDICATION: pain left groin area EXAMINATION: CT Abdomen And Pelvis W/ Contrast Injection TECHNIQUE: Helically acquired images were obtained of the abdomen and pelvis with sagittal and coronal reconstructed images. Individualized dose optimization techniques were used for this CT. IV contrast dosage and agent: 100 mL of Isovue-370. Oral contrast: None. COMPARISON: CT pelvis from 04/22/2022. FINDINGS: VESSELS: No abdominal aortic aneurysm or dissection. LIVER: No evidence of a mass. No intrahepatic or extrahepatic biliary duct dilation. GALLBLADDER: No calcified stones. No evidence of cholecystitis. PANCREAS: No focal solid or cystic mass. No evidence of pancreatitis. SPLEEN: Normal. ADRENAL GLANDS: Normal. KIDNEYS AND URETERS: No urinary tract stone. No hydronephrosis or hydroureter. No significant asymmetric perinephric stranding. URINARY BLADDER: Unremarkable. BOWEL: No evidence of diverticulosis or diverticulitis. Appendix not identified. No evidence of bowel obstruction. REPRODUCTIVE ORGANS: No evidence of a pelvic mass. PERITONEUM: No intraabdominal free fluid or free air. LYMPH NODES: No pathologically enlarged mesenteric or retroperitoneal lymph nodes. ABDOMINAL WALL: No abdominal or pelvic wall hernia. BONES: Mild to moderate degenerative changes at L5-S1. Disc protrusions at L4-L5 and L5-S1. LOWER CHEST: Visualized lung bases are unremarkable. CT/Abdomen/Pelvis W IV Cont ONLY IMPRESSION: 1. No acute abnormality. 2. No abnormality seen in the left inguinal region. 3. Degenerative changes at L5-S1 and disc protrusions at L4-L5 and L5-S1. Electronically Signed: Ronal Prather DO at 4:07 [facility] ,
--- NOTE | 2023-08-07 02:45 | EX.ED.DYSGE1 ---
HPI History of Present Illness Chief Complaint: Other, Pain/Inj Informant: patient Narrative Narrative: Patient complains of pain in the right hip groin back area. Patient has had multiple visits for this. He also has a history of chronic back pain. This is normally managed with meds. No surgeries ever. He states that this pain has been going on for about a week. He really defines it is in the left groin area. He shows me that he can lift his hip up and rotated he gets popping in the anterior groin and anterior hip area. This reproduces his symptoms. Denies urinary symptoms. No change in bowel habits or incontinence. He sometimes feels tingling in his toes but never had weakness. This comes and goes. He states the pain kind of radiates up into his lower abdomen. At first he thought his back was acting up but he thinks this is different. When I talked to the patient I find out he did fall about a few days or maybe a week before this. 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 He was not climbing a ladder. 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 Evidently had bound up somehow and it knocked him to the ground backwards and landed on his back sacral and left hip area. But he states it did not seem to hurt a lot at that time. He has never had kidney stones. He is never had fevers with this. He states the pain makes him sometimes feel as though he might get sick but he is not nauseated and he has never vomited and he is able to eat and drink fine. I reviewed some recent visits. He has had 2 sets of blood works this month. He has had lumbar spine films. He even had CTA of the head and neck. All of his workup so far has been negative. He is on prednisone but just took the second dose tonight. So he is not going to be getting much benefit from it yet. [facility] Medical History Tobacco abuse Home Medications cyclobenzaprine 10 mg tablet 10 mg PO QHS PRN PRN Muscle Spasm #10 TABLETS 08/03/23 [Rx Last Taken Unknown] naproxen 500 mg tablet 500 mg PO BID PRN #20 tabs 08/03/23 [Rx Last Taken Unknown] prednisone 20 mg tablet 40 mg (2 x 20 mg) PO QHS #12 TABLETS 08/03/23 [Rx Last Taken Unknown] Allergy/AdvReac Type Severity Reaction Status Date / Time No Known Allergies Allergy Verified 08/06/23 12:56 Surgical History H/O vascular surgery History of appendectomy Social History Smoking Status: Current every day smoker tobacco type: cigarettes and e-cigarettes alcohol intake: never substance use type: amphetamines ROS ROS ED ROS Narrative A complete review of systems was performed and is negative except as documented in the history of present illness. Some specific details below. Constitutional: No recent fevers or chills. No overall malaise or myalgias. He has pain in the left hip but no generalized aches ENT: No difficulty swallowing. No swelling. No pain. No GERD. CV: No chest pain or palpitations. Respiratory: No dyspnea. No hemoptysis. No difficulty taking breaths. GI: Please see history of present illness. No actual nausea vomiting. No diarrhea. No constipation. No incontinence. : No frequency dysuria or hematuria. No trouble starting or stopping stream. Musculoskeletal: See history of present illness. Skin: No rash. Nondiaphoretic. Neuro: No weakness or numbness. Occasionally has a tingly feeling just in the tip of his toes. But he states he sometimes gets these in the right toes and in both hands also. This might be anxiety. He also states that he is out of his Ativan. It looks like he was given a prescription earlier this month but just for a few days and is not routinely prescribed it. Endocrine: No polyuria or polydipsia. EXAM Physical Exam Narrative Exam Narrative: CONSTITUTIONAL: Patient is nontoxic in appearance. The patient looks comfortable. Work of breathing looks normal. I watched him walk back to the room which he did without any difficulty HEENT: No notable trauma. Mucous membranes moist. No sign of dental infection. EYES: No conjunctival injection. No pallor. NECK: No meningismus. No JVD. CARDIOVASCULAR: Regular rate. Regular rhythm. No notable murmur. No JVD. RESPIRATORY: No respiratory distress. Breathing is unlabored. No wheezes. No rhonchi. No rales. No pain with a deep breath. GASTROINTESTINAL: Not distended. Bowel sounds are normal. No tenderness. No guarding. No rebound. No palpable mass. No bruit. Abdomen is overall quite benign. I do not even get left lower quadrant tenderness. GENITOURINARY: No tenderness over the bladder. No CVA tenderness. There is no inguinal hernia. When I put my hand over the anterior hip area on the left, patient will lift and rotate his leg and I can feel the clicking that he refers to. This is what is causing him pain. This seems very musculoskeletal. MUSCULOSKELETAL: Atraumatic. No peripheral edema. No cord. No tenderness along the deep venous system. No asymmetry. Distal pulses are intact. Sensation is also intact. NEUROLOGICAL: Patient is alert and oriented. No focal deficit noted. Patient can stand on toes and heels and do squats. He walks well. Patellar reflex 2+ bilaterally. Achilles reflex 1+ bilaterally. SKIN: No noted rashes. No diaphoresis. No vesicles noted. No notable pallor. PSYCHIATRIC: Patient is calm. Mood is appropriate. Const Vital Signs: 08/07/23 02:22 Temperature 97.5 F L Temperature Source Oral Pulse Rate 98 Respiratory Rate 16 Blood Pressure 132/94 H Blood Pressure Mean 106 Pulse Ox 98 Oxygen Delivery Method Room Air MDM MDM MDM Narrative Medical decision making narrative: I believe this patient's symptoms are musculoskeletal. It certainly possible it is related to the injury at work but I am not certain of that. But he has a clicking popping in the left inguinal area possibly from the left hip with motion. Patient has had x-rays. But with his multiple visits recurrent symptoms I will do a scan of his abdomen pelvis to make sure were not missing kidney stone or bleeding or other acute significant process. 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 But I think it is a starting point to rule out acute processes. I do not think we need to repeat his blood work. He has had 2 sets of relatively normal blood work this month. My independent interpretation of the patient's CT scan of the abdomen and pelvis shows no acute process. I do not see any bony injury. Kidneys look normal. Bowel looks normal. Final reading is really normal other than degenerative changes noted L4-S1. I explained to the patient that he appears to have musculoskeletal problem. I agree that this may not be typical back pain. He has an obvious clicking in the inguinal region when he lifts and rotates the leg with an internal/external rotation mechanism. I recommend he not do this repetitively to check it. He tends to sit in bed and move it [id number]. I think this is aggravating it. I will write him off work for couple days. I explained he needs to continue the prednisone because it takes days before it works for musculoskeletal problems. Radiography Diagnostic Testing: Clinical Impression(s) from Imaging Studies Abdomen/Pelvis CT 08/07/23 02:40 IMPRESSION: 1. No acute abnormality. 2. No abnormality seen in the left inguinal region. 3. Degenerative changes at L5-S1 and disc protrusions at L4-L5 and L5-S1. Electronically Signed: Ronal Prather DO at 4:07 EST , Discharge Plan Triage Chief Complaint: Other, Pain/Inj Other Complaint: Lower Extremity Injury ED Provider: Hector Saunders Dx/Rx/DC Orders Clinical Impression: Left inguinal pain Instructions: ED Hip Strain Prescriptions: No Action prednisone 20 mg tablet 40 mg PO QHS Qty: 12 0RF cyclobenzaprine [cyclobenzaprine] 10 mg tablet 10 mg PO QHS PRN PRN (Reason: Muscle Spasm) Qty: 10 0RF naproxen 500 mg tablet 500 mg PO BID PRN Qty: 20 0RF Stand Alone Forms: ED Work / School Excuse Primary Care Provider: Care Physician,No Primary Referrals: Leonie Rocha [Non-Staff] - 3-5 Days if not improving Care Physician,No Primary [Primary Care Provider] - Activity Restrictions/Additional Instructions: Follow-up with your physician or referral as above. Disposition Disposition: Home, Self Care
[2023-08-07 04:33] VITALS: BP 123/82; PULSE 58; RESP 16; TEMP 36.6; O2SAT 97
== END 2023-08-07 04:34 | disposition home or self-care (01) ==
PROVIDERS: Emergency Provider Emergency Medicine; Visit Provider Emergency Medicine
DX: M54.9 Dorsalgia, unspecified (principal); G89.29 Other chronic pain; R10.2 Pelvic and perineal pain; F17.210 Nicotine dependence, cigarettes, uncomplicated
CPT/HCPCS: 74177; 99283; Q9967; A4216

== ENCOUNTER 2023-08-08 11:13 | Emergency (ER) | payer MEDICAID, SELFPAY ==
[2023-08-08 11:14] VITALS: BP 142/91; PULSE 82; RESP 20; TEMP 36.6; O2SAT 97; BMI 20.7
--- NOTE | 2023-08-08 11:41 | EX.ED.DYSGE1 ---
HPI History of Present Illness Chief Complaint: Anxiety Informant: patient Onset/Context/Timing Onset: Weeks (1) Context: Gradual Onset Timing: Continuous Quality: Stabbing, dull Location: Left flank, chest, and head Worsened by: Nothing Relieved by: Nothing Narrative Narrative: Patient presents with left flank and chest pain that has been constant for the past week. Patient states the pain came on gradually. Patient states it has gotten progressively worse. Patient describes the pain as dull but stabbing. Patient states the pain is over the left flank, chest, and head. Patient states he feels lightheaded when he is up and ambulating. Patient states he feels better when he is laying flat. Patient states nothing seems to help with his pain however. Patient admits to some subjective chills. Patient states his urine has been orange and dark red recently. Patient admits to some nausea and vomiting. Patient states he is unable to keep anything down. [facility] Medical History Tobacco abuse Home Medications cyclobenzaprine 10 mg tablet 10 mg PO QHS PRN PRN Muscle Spasm #10 TABLETS 08/03/23 [Rx Last Taken Unknown] naproxen 500 mg tablet 500 mg PO BID PRN #20 tabs 08/03/23 [Rx Last Taken Unknown] prednisone 20 mg tablet 40 mg (2 x 20 mg) PO QHS #12 TABLETS 08/03/23 [Rx Last Taken Unknown] Allergy/AdvReac Type Severity Reaction Status Date / Time No Known Allergies Allergy Verified 08/08/23 11:13 Surgical History H/O vascular surgery History of appendectomy Social History Smoking Status: Current every day smoker tobacco type: e-cigarettes alcohol intake: never substance use type: amphetamines ROS ROS ED Constitutional Constitutional ED: Reports chills; Denies fever(s) Eyes Eyes: Reports blurry vision; Denies diplopia ENT ENT ED: Denies rhinorrhea or sore throat Cardiovascular Cardiovascular: Reports chest pain and palpitations Respiratory/Chest Respiratory/Chest: Reports dyspnea; Denies cough Gastrointestinal Gastrointestinal: Reports nausea and vomiting Genitourinary Genitourinary ED: Reports hematuria; Denies dysuria Musculoskeletal Musculoskeletal: Reports back pain; Denies neck pain Integumentary Reports rash; Denies abscess Neurologic Neurologic: Reports headache(s); Denies weakness Allergic/Immunologic Allergic/Immunologic ED: Denies mouth swelling or urticaria EXAM Physical Exam Const Vital Signs: 08/08/23 11:14 08/08/23 11:52 Temperature 97.9 F Temperature Source Oral Pulse Rate 82 68 Respiratory Rate 20 H 13 Blood Pressure 142/91 H 131/85 H Blood Pressure Mean 108 100 Pulse Ox 97 98 Oxygen Delivery Method Room Air Room Air Positive well nourished and well developed General Appearance ED: well developed and NAD HEENT Reports moist mucous membranes Neck supple and no JVD Resp normal respiratory effort and clear to auscultation bilaterally Cardio regular rate and regular rhythm GI non-distended Palpation: soft and tender epigastric, LLQ, RLQ, LUQ, RUQ and suprapubic; Negative for guarding or rebound tenderness present Back/Spine General Back: CVA tenderness left Extremity normal to inspection Neuro oriented x3, CN's II-XII intact bilaterally and no sensory deficits noted Sensorium / Orientation: alert Motor Exam: strength 5/5 throughout Psych Mood & Affect: anxious MDM MDM MDM Narrative Medical decision making narrative: Differential diagnosis includes ureteral calculus, urinary tract infection, pneumonia, pneumothorax, musculoskeletal pain, and anxiety. Urinalysis will be obtained to assess for urinary tract infection and hematuria. CBC will be obtained to assess for leukocytosis and anemia. Basic metabolic profile will be obtained to assess for electrolyte abnormality and renal function. CT scan of the abdomen pelvis will be obtained to assess for ureteral calculus. Chest x-ray will be obtained to assess for pneumonia and pneumothorax. Patient has no signs of cauda equina syndrome and does not need an emergent MRI. Lab Data Attestation: I reviewed the patient's lab results. Lab results narrative: CBC was reviewed and was within normal limits. Basic metabolic profile was reviewed and was within normal limits. Urinalysis was reviewed. There is no evidence of urinary tract infection or hematuria. Labs: Laboratory Results - last 24 hr 08/08/23 08/08/23 12:00 12:15 WBC 6.3 RBC 5.53 Hgb 16.2 Hct 47.6 MCV 86.1 MCH 29.3 MCHC 34.0 RDW Std Deviation 38.9 RDW Coeff of Johanna 12.2 Plt Count 228 MPV 10.0 Immature Gran % (Auto) 0.500 Neut % (Auto) 58.9 Lymph % (Auto) 29.6 Mcleod % (Auto) 10.3 H Eos % (Auto) 0.2 Baso % (Auto) 0.5 Absolute Neuts (auto) 3.7 Absolute Lymphs (auto) 1.87 Nucleated RBC % 0 Sodium 141 Potassium 3.7 Chloride 107 Carbon Dioxide 27.0 Anion Gap 7 BUN 14 Creatinine 1.04 Estim Creat Clear Calc 92.58 Est GFR (MDRD) Af Amer 107 Est GFR (MDRD) Non-Af 88 BUN/Creatinine Ratio 13.5 Glucose 88 Calcium 9.6 Urine Color Yellow Urine Clarity Clear Urine pH 6.5 Ur Specific [place] 1.015 Urine Protein 15 H Urine Glucose (UA) Normal Urine Ketones 50 H Urine Occult Blood Negative Urine Nitrite Negative Urine Bilirubin Negative Urine Urobilinogen 1 H Ur Leukocyte Esterase Negative Urine RBC 0 SEEN Urine WBC 0 SEEN Ur Squamous Epith Cells 0 SEEN Urine Bacteria 0 SEEN Urine Mucus 0 SEEN Radiography Diagnostic Testing: Clinical Impression(s) from Imaging Studies Abdomen/Pelvis CT 08/08/23 11:47 IMPRESSION: Scattered sigmoid diverticula. Questionable sludge in the gallbladder lumen. Electronically Signed: Rey Nelson MD at 13:17 EST , CT scan of the abdomen and pelvis was obtained. There are scattered sigmoid diverticula. There is questionable sludge in the gallbladder lumen. There is no free air or free fluid. There is no evidence of bowel obstruction or perforation. There is no ureteral calculus noted. This was interpreted by the radiologist and was also independently reviewed by myself. Treatment and Re-Evaluation :: Patient was given IV fluids and Toradol. Patient is feeling better on reevaluation. Patient was advised of his findings. Patient was instructed to drink plenty of fluids. Patient was instructed to continue Naprosyn as needed for pain. Patient was instructed to follow-up with his primary care physician for further evaluation. Patient understood and was agreeable with the plan. All questions were answered. Discharge Plan Triage Chief Complaint: Anxiety ED Provider: Schwiger,Donnie Dx/Rx/DC Orders Clinical Impression: Low back pain, Myalgia Instructions: ED Back and Neck Pain, General Prescriptions: No Action prednisone 20 mg tablet 40 mg PO QHS Qty: 12 0RF cyclobenzaprine [cyclobenzaprine] 10 mg tablet 10 mg PO QHS PRN PRN (Reason: Muscle Spasm) Qty: 10 0RF naproxen 500 mg tablet 500 mg PO BID PRN Qty: 20 0RF Primary Care Provider: Care Physician,No Primary Referrals: Leonie Rocha [Non-Staff] - 3-5 Days Disposition Disposition: Home, Self Care
--- NOTE | 2023-08-08 11:47 | CT_ITS ---
STUDY: CT ABDOMEN AND PELVIS WITHOUT CONTRAST REASON FOR EXAM: Male, 32 years old. Left flank pain RADIATION DOSAGE (If Supplied By Facility): CTDIvol = ( 6.10 ) mGy, DLP = ( 283.48 ) mGycm TECHNIQUE: Transaxial images were obtained from the dome of the diaphragm to the symphysis pubis without oral contrast, and without intravenous contrast. Sagittal and coronal images were reconstructed. Individualized dose optimization techniques were used for this CT. COMPARISON: Comparison is made with prior study dated August 07, 2023. FINDINGS: The visualized lung bases are unremarkable. The visualized portions of the heart are within normal limits. Normal liver. Questionable sludge in the gallbladder lumen. Normal spleen. Normal pancreas. Normal bilateral adrenal glands. Normal right kidney. Normal left kidney. Normal visualized stomach. Normal small intestine. There are scattered colonic diverticula consistent with diverticulosis. The appendix is visualized and appears normal. Normal abdominal aorta. Normal inferior vena cava. Normal retroperitoneum. Normal urinary bladder. Normal abdominal wall. There are degenerative changes of the visualized lumbar spine. CT/Abdomen/Pelvis without Cont IMPRESSION: Scattered sigmoid diverticula. Questionable sludge in the gallbladder lumen. Electronically Signed: Rey Nelson MD at 13:17 EST ,
[2023-08-08 11:52] VITALS: BP 131/85; PULSE 68; RESP 13; O2SAT 98
[2023-08-08 12:11] LABS: Absolute Lymphocyte Count 1.87 X10^3/uL (0.83-4.51); Absolute Neutrophil Count 3.7 X10^3/uL (2.0-7.7); Basophil# 0.03 X10^3/uL; Basophil% 0.5 % (0-1); Eosinophil# 0.01 X10^3/uL; Eosinophils% 0.2 % (0-5); Hematocrit 47.6 % (40-54); Hemoglobin 16.2 g/dL (13.0-16.5); Lymphocyte # 1.87 X10^3/ul (0.83-4.51); Lymphocyte % 29.6 % (19-41); Mean Corpuscular Hgb 29.3 pg (27.0-32.0); Mean Corpuscular Volume 86.1 fL (80-94); Monocyte# 0.65 X10^3/uL; Monocyte% 10.3 % (0-10); NRBC Flagged by Analyzer 0 % (0-5); Neutrophil # 3.73 X10^3/uL (2.7-7.7); Neutrophil % 58.9 % (47-70); Platelet Count 228 K/mm3 (150-450); RBC Distribution Width CV 12.2 % (11.6-14.6); RBC Distribution Width SD 38.9 fl (35.1-43.9); Red Blood Count 5.53 M/mm3 (4.6-6.2); White Blood Count 6.3 K/mm3 (4.4-11.0)
[2023-08-08 12:21] LABS: Anion Gap 7 (5-15); BUN 14 mg/dL (7-18); BUN/Creat Ratio 13.5 RATIO (10-20); Calcium,Total 9.6 mg/dL (8.5-10.1); Chloride 107 mmol/L (98-107); Creatinine, Serum 1.04 mg/dL (0.70-1.30); EST Glomerular Filtration Rate 88 mL/min (>60); Est Glom Filt Rate - Afr Amer 107 mL/min (>60); Estimated Creatinine Clearance 92.58 ml/min; Glucose 88 mg/dL (74-106); Potassium 3.7 mmol/L (3.5-5.1); Sodium Level 141 mmol/L (136-145)
[2023-08-08 12:22] LABS: Bacteria 0 SEEN /hpf (None Seen); Mucous, Urine 0 SEEN /hpf (<or=2+); Red Blood Cells-Urine 0 SEEN /hpf (0-5); Squamous Epithelial Cells - UA 0 SEEN /hpf (0-5); White Blood Cells 0 SEEN /hpf (0-5)
[2023-08-08] MEDS: 0.9% Normal Saline (1000mL) 1,000 ML 1000 ML IV (12:31)
[2023-08-08] MEDS: Ketorolac 30 MG/ML Syringe IV (12:31)
[2023-08-08 12:35] LABS: Color, Urine Yellow (Yellow); Glucose, Dipstick Normal (Normal); Ketone-Dipstick 50 mg/dl (Negative); Leukocyte Esterase-Dipstick Negative /ul (Negative); Nitrite-Dipstick Negative (Negative); Occult Blood-Urine Negative /ul (Negative); Protein-Dipstick 15 mg/dl (Negative); Specific Gravity, Urine 1.015 (1.002-1.030); Urine Bilirubin Dipstick Negative (Negative); Urine Clarity Clear (Clear); Urine Urobilinogen 1 mg/dl (Normal); Urine pH 6.5 (5.0 - 8.0)
[2023-08-08 13:57] VITALS: BP 116/79; PULSE 78; RESP 20; TEMP 37.1; O2SAT 98
== END 2023-08-08 14:00 | disposition home or self-care (01) ==
PROVIDERS: Emergency Provider Emergency Medicine; Visit Provider Emergency Medicine
DX: M54.50 Low back pain, unspecified (principal); F41.9 Anxiety disorder, unspecified; M79.10 Myalgia, unspecified site; R11.2 Nausea with vomiting, unspecified; R07.9 Chest pain, unspecified; F17.290 Nicotine dependence, other tobacco product, uncomplicated; R06.00 Dyspnea, unspecified; R31.9 Hematuria, unspecified; R51.9 Headache, unspecified; K57.30 Diverticulosis of large intestine without perforation or abscess without bleeding
CPT/HCPCS: 74176; 80048; 81001; 85025; 87631; 96361; 96374; 99284; J7030

== ENCOUNTER 2023-08-09 21:29 | Emergency (ER) | payer MEDICAID, SELFPAY ==
[2023-08-09 21:30] VITALS: BP 134/77; PULSE 118; RESP 16; TEMP 36.4; O2SAT 99; BMI 21.7
--- NOTE | 2023-08-09 21:48 | EX.ED.DYSGE1 ---
HPI History of Present Illness Chief Complaint: Palpitations Narrative Narrative: Patient presenting with anxiety. He states believes it is due to taking prednisone. He was just started on this for lower back pain. He states it did initially help his pain and he felt like he was going to sleep last night and then today it has been worse. He states he took his prednisone tonight as prescribed and now he feels even more anxious. He admits that he did smoke some weed tonight and states that he had previously smoked this batch. He does not know if there was something in it or not. Patient states it does not calm down and he is actually more anxious. He had lab work done 2 days ago which was normal as an outpatient. He had a D-dimer done yesterday as well. He denies any chest pain but does feel like he is a little bit anxious with his symptoms. No fevers, chills, cough. [facility] Medical History Tobacco abuse Home Medications cyclobenzaprine 10 mg tablet 10 mg PO QHS PRN PRN Muscle Spasm #10 TABLETS 08/03/23 [Rx Last Taken Unknown] naproxen 500 mg tablet 500 mg PO BID PRN #20 tabs 08/03/23 [Rx Last Taken Unknown] prednisone 20 mg tablet 40 mg (2 x 20 mg) PO QHS #12 TABLETS 08/03/23 [Rx Last Taken Unknown] hydroxyzine pamoate 25 mg capsule (Vistaril) 25 mg PO TID PRN anxiety #20 caps 08/09/23 [Rx Last Taken Unknown] Allergy/AdvReac Type Severity Reaction Status Date / Time No Known Allergies Allergy Verified 08/09/23 21:32 Surgical History H/O vascular surgery History of appendectomy Social History Smoking Status: Current every day smoker tobacco type: e-cigarettes alcohol intake: never substance use type: amphetamines ROS ROS ED Constitutional Constitutional ED: Denies chills, fever(s) or sweats Eyes Eyes: Denies blurry vision or change in vision ENT ENT ED: Denies ear pain or sore throat Cardiovascular Cardiovascular: Denies chest pain, palpitations or racing heartbeat Respiratory/Chest Respiratory/Chest: Denies cough, dyspnea or sputum Gastrointestinal Gastrointestinal: Denies abdominal pain, constipation, diarrhea, nausea or vomiting Genitourinary Genitourinary ED: Denies dysuria, hematuria or urinary frequency Musculoskeletal Musculoskeletal: Reports back pain; Denies arthralgias, myalgias or neck pain Integumentary Denies abscess, Abrasions or rash Neurologic Neurologic: Denies headache(s), paresthesias or weakness Psychiatric Psychiatric: Reports anxiety; Denies depression, suicidal ideation or suicidal thoughts Endocrine Endocrinology: Denies polydipsia or polyuria EXAM Physical Exam Const Vital Signs: 08/09/23 21:30 Temperature 97.6 F L Temperature Source Temporal Pulse Rate 118 H Respiratory Rate 16 Blood Pressure 134/77 H Blood Pressure Mean 96 Pulse Ox 99 Oxygen Delivery Method Room Air Positive well nourished and well developed General Appearance ED: well developed and NAD; Negative for pallor HEENT Reports moist mucous membranes Eyes PERRL and EOMs intact bilaterally Resp normal respiratory effort and clear to auscultation bilaterally Auscultation: Negative for rales, rhonchi or wheezes Cardio regular rate Rate: tachycardic Neuro oriented x3 and CN's II-XII intact bilaterally Psych mental status grossly normal Skin no rashes or lesions noted General Skin Exam: Negative for jaundice or pallor MDM MDM MDM Narrative Medical decision making narrative: Patient presenting with anxiety. He believes it is due to taking prednisone. He states he is never really taken that. He also took Naprosyn today which he thought might of worsened his symptoms. He he admits to smoking weed as well does not know if there was something in the weed but he is more anxious now. He had blood work drawn the last couple days and is normal. I do not suspect a cardiac source. He had a negative D-dimer. Patient will be given Vistaril here in the ER. He states his mother could pick him up. He does not have much pain on examination of his back and he is able to get up and walk around the room. He is going from laying to sitting to standing over and over again because he is anxious. I do not believe he is a threat to himself or others however. His mother will be able to pick him up after he is medicated. I will give him prescription for Vistaril as well and he can take this home with him via meds to beds. He will discontinue his prednisone as this is causing his symptoms and symptoms should resolve. He acknowledges standing this. Impression: 1. History of lumbar strain 2. Medication side effect 3. Anxiety Discharge Plan Triage Chief Complaint: Palpitations ED Provider: Aayush Hsu Dx/Rx/DC Orders Instructions: ED Drug Reaction, Other Prescriptions: New hydroxyzine pamoate [Vistaril] 25 mg capsule 25 mg PO TID PRN (Reason: anxiety) Qty: 20 0RF No Action prednisone 20 mg tablet 40 mg PO QHS Qty: 12 0RF cyclobenzaprine [cyclobenzaprine] 10 mg tablet 10 mg PO QHS PRN PRN (Reason: Muscle Spasm) Qty: 10 0RF naproxen 500 mg tablet 500 mg PO BID PRN Qty: 20 0RF Primary Care Provider: Care Physician,No Primary Referrals: Care Physician,No Primary [Primary Care Provider] - Disposition Disposition: Home, Self Care
[2023-08-09 21:52] VITALS: BP 130/79; PULSE 80; RESP 11; O2SAT 97
[2023-08-09] MEDS: hydrOXYzine PAM 25 MG Capsule 50 MG PO (21:55)
[2023-08-09 22:48] VITALS: BP 133/66; PULSE 66; RESP 12; TEMP 36.8; O2SAT 100
== END 2023-08-09 22:50 | disposition home or self-care (01) ==
LOC: ED 22:12
PROVIDERS: Emergency Provider Student in an Organized Health Care Education/Training Program; Visit Provider Student in an Organized Health Care Education/Training Program
DX: R00.2 Palpitations (principal); T38.0X5A Adverse effect of glucocorticoids and synthetic analogues, initial encounter; F41.9 Anxiety disorder, unspecified; R06.00 Dyspnea, unspecified; M79.10 Myalgia, unspecified site; M54.50 Low back pain, unspecified; F17.290 Nicotine dependence, other tobacco product, uncomplicated
CPT/HCPCS: 36415; 85379; 85652; 86038; 86140; 86617; 99282

== ENCOUNTER → 2023-08-09 | Outpatient (CLI) | payer MEDICAID, SELFPAY ==
[2023-08-09 17:59] LABS: Erythrocyte Sedimentation Rate < 1 mm/hr (0-20)
[2023-08-09 18:26] LABS: CRP < 2.90 mg/L (0.0-3.0)
[2023-08-09 18:40] LABS: D-Dimer Quantitative (DVT/PE) < 0.27 FEU/ug/m (0.27-0.49)
[2023-08-11 14:10] LABS: ANTINUCLEAR ANTIBODIES DIRECT Negative (Negative)
[2023-08-14 15:08] LABS: Lyme IgG P18 Ab Absent (.); Lyme IgG P23 Ab Absent (.); Lyme IgG P28 Ab Absent (.); Lyme IgG P30 Ab Absent (.); Lyme IgG P39 Ab Absent (.); Lyme IgG P41 Ab Absent (.); Lyme IgG P45 Ab Absent (.); Lyme IgG P58 Ab Absent (.); Lyme IgG P66 Ab Absent (.); Lyme IgG P93 Ab Absent (.); Lyme IgG WB Interpretation Negative (.); Lyme IgM P23 Ab Absent (.); Lyme IgM P39 Ab Absent (.); Lyme IgM P41 Ab Absent (.); Lyme IgM WB Interpretation Negative (.)
== END | disposition home or self-care (01) ==
LOC: LAB 16:41
PROVIDERS: Referring Provider Nurse Practitioner Family; Visit Provider Nurse Practitioner Family
DX: R06.00 Dyspnea, unspecified (principal); M79.10 Myalgia, unspecified site
CPT/HCPCS: 36415; 85379; 85652; 86038; 86140; 86617 ×2

== ENCOUNTER 2023-08-10 09:52 | Emergency (ER) | payer MEDICAID, SELFPAY ==
[2023-08-10 09:52] VITALS: BP 134/76; PULSE 71; RESP 15; TEMP 36.5; O2SAT 98; BMI 22.0
--- NOTE | 2023-08-10 10:11 | EDS_ITS ---
HPI History of Present Illness Chief Complaint: Anxiety Detail of Chief Complaint: Back pain and anxiety Informant: patient Narrative Narrative: Patient presents to the emergency department complaint of back pain that started while at work today. He tells me has had chronic back pain since 2019. Today he had to put a barrel with few parts and it into another container and developed sudden onset of severe pain in his left lower back. After walking for a little bit it seemed to get better. He tried to go back to work and moved again had more pain in his left upper shoulder, radiated into his neck and felt somewhat lightheaded. Patient states that he thinks he freaked out and called EMS. He has had multiple visits to this emergency department this week he has been here every day. Has history of anxiety. He has history of chronic back pain and has an MRI scheduled of his back in 2 weeks. He has had several CT scans of his abdomen pelvis including yesterday to rule out kidney stone which was negative. Patient denies any falls otherwise. He has some chronic weakness in his left leg since 2019. PFSH PFS Medical History Tobacco abuse Home Medications cyclobenzaprine 10 mg tablet 10 mg PO QHS PRN PRN Muscle Spasm #10 TABLETS 08/03/23 [Rx Last Taken Unknown] naproxen 500 mg tablet 500 mg PO BID PRN #20 tabs 08/03/23 [Rx Last Taken Unknown] prednisone 20 mg tablet 40 mg (2 x 20 mg) PO QHS #12 TABLETS 08/03/23 [Rx Last Taken Unknown] hydroxyzine pamoate 25 mg capsule (Vistaril) 25 mg PO TID PRN anxiety #20 caps 08/09/23 [Rx Last Taken Unknown] Allergy/AdvReac Type Severity Reaction Status Date / Time No Known Allergies Allergy Verified 08/10/23 09:58 Surgical History H/O vascular surgery History of appendectomy Social History Smoking Status: Current every day smoker tobacco type: e-cigarettes alcohol intake: never substance use type: amphetamines ROS ROS ED Review of Systems ROS Unobtainable: other Constitutional Constitutional ED: Reports lethargy; Denies chills, fever(s), sweats or weight loss Eyes Eyes: Denies blurry vision, change in vision or diplopia ENT ENT ED: Denies rhinorrhea or sore throat Cardiovascular Cardiovascular: Denies chest pain, orthopnea or racing heartbeat Respiratory/Chest Respiratory/Chest: Denies cough, dyspnea, dyspnea on exertion, orthopnea or sputum Gastrointestinal Gastrointestinal: Denies abdominal pain, diarrhea, nausea or vomiting Genitourinary Genitourinary ED: Denies dysuria, hematuria or urinary frequency Musculoskeletal Musculoskeletal: Reports back pain; Denies arthralgias, myalgias or neck pain Integumentary Denies abscess, Abrasions or rash Neurologic Neurologic: Denies headache(s) or weakness Psychiatric Psychiatric: Denies anxiety, depression or suicidal thoughts Endocrine Endocrinology: Denies polydipsia, polyphagia or polyuria Hematologic/Lymphatic Hematologic/Lymphatic: Denies easy bleeding, easy bruising or lymphadenopathy Allergic/Immunologic Allergic/Immunologic ED: Denies mouth swelling, tongue swelling or urticaria EXAM Physical Exam Const Vital Signs: 08/10/23 09:52 08/10/23 10:15 08/10/23 11:08 Temperature 97.7 F L 97.7 F L Temperature Source Temporal Pulse Rate 71 77 77 Respiratory Rate 15 18 18 Blood Pressure 134/76 H 119/80 119/80 Blood Pressure Mean 95 93 93 Pulse Ox 98 97 97 Oxygen Delivery Method Room Air Room Air Positive well nourished and well developed General Appearance ED: well developed and NAD HEENT Reports TM's clear and moist mucous membranes normocephalic and atraumatic; Negative for trauma or tenderness Tympanic Membrane ED: Yes TM's clear Eyes PERRL and EOMs intact bilaterally General Eye ED: Negative for pale conjunctiva or scleral icterus Neck no lymphadenopathy, supple and no JVD General: Negative for tenderness Chest Wall inspection of chest normal and palpation of chest normal Chest: Negative for tenderness Resp normal respiratory effort and clear to auscultation bilaterally Effort and Inspection: Negative for respiratory distress or pain with movement Auscultation: Negative for rhonchi, wheezes or diminished lung sounds Cardio regular rate, regular rhythm, S1 normal heart sound, S2 normal heart sound and no murmurs Peripheral Pulses: pulses 2+ throughout GI normal to inspection, nondistended, normoactive bowel sounds, soft to palpation, non-tender, non-distended and no masses Back/Spine no CVA tenderness Back/Spine Narrative: Mild diffuse tenderness over the lumbar spine and lumbar paraspinal musculature bilaterally. There is no erythema or warmth. He has negative straight leg raises. Deep tendon reflexes are plus 2 out of 4 bilaterally at the patella and Achilles. Normal L5 extension. Normal sensation to light touch. Extremity normal to inspection General Extremety ED: Negative for edema General Extremity: Negative for edema Neuro oriented x3, CN's II-XII intact bilaterally, no sensory deficits noted and gait normal Sensorium / Orientation: awake, alert, oriented to person, oriented to place and oriented to time Motor Exam: strength 5/5 throughout and strength abnormal Psych mental status grossly normal Skin no rashes or lesions noted and no wounds MDM MDM MDM Narrative Medical decision making narrative: Patient presents with chronic back pain. He presents with anxiety. Patient tweaked his back today at work and sounds like he became more anxious and called the squad. Has had multiple visits to the emergency department. I did evaluate his last CT from yesterday that showed some sludge in the gallbladder and some degenerative changes of his lumbar spine. He is not having any abdominal pain. I did give him a milligram of Ativan p.o. and he felt markedly improved. Patient states that he is back to his baseline. Patient was seen by social science instructor and was given some outpatient referrals. Patient does not want work restrictions and states that work is good to him about not making him lift or do repetitive motions with his back. Patient will be discharged to home and he is to continue with his Vistaril as needed for anxiety. I do not feel he needs any further imaging as he just had a CT scan of his abdomen pelvis yesterday. He is have an MRI scheduled in 2 weeks. There is no evidence of cauda equina or red flag symptoms or signs of cauda equina. Patient advised to return if worsening pain, weakness extremities, change in bowel or bladder function, or condition should worsen anyway. Discharge Plan Triage Chief Complaint: Anxiety ED Provider: Ambrose Muñoz Dx/Rx/DC Orders Clinical Impression: Anxiety, Chronic back pain Instructions: ED Back Pain (Acute or Chronic), ED Panic Attack Prescriptions: No Action prednisone 20 mg tablet 40 mg PO QHS Qty: 12 0RF hydroxyzine pamoate [Vistaril] 25 mg capsule 25 mg PO TID PRN (Reason: anxiety) Qty: 20 0RF cyclobenzaprine [cyclobenzaprine] 10 mg tablet 10 mg PO QHS PRN PRN (Reason: Muscle Spasm) Qty: 10 0RF naproxen 500 mg tablet 500 mg PO BID PRN Qty: 20 0RF Primary Care Provider: Care Physician,No Primary Referrals: Ronal Talley DO [Med Staff - Active Staff] - 3-5 Days Care Physician,No Primary [Primary Care Provider] - Disposition Disposition: Home, Self Care Discharge Date/Time: 08/10/23 11:16
[2023-08-10] MEDS: LORazepam 1 MG Tablet PO (10:14)
[2023-08-10 10:15] VITALS: BP 119/80; PULSE 77; RESP 18; O2SAT 97
--- NOTE | 2023-08-10 10:55 | CM.ED ---
Social Work Per chart review, patient has had multiple ED visits recently due to pain and anxiety. SW introduced self and role to patient. Patient reports difficulty with anxiety due to pain and concerns for his back. Pt reports waiting on an MRI which is in a few weeks. 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 Pt reports he was thinking he did not need counseling or groups and is fine on his own. Pt reports he is starting to realize he needs more support. SW provided emotional support and positive reinforcement. SW discussed the physical, mental, and emotional neglect that occurs in active addiction and overwhelming nature of dealing with everything in sobriety. Pt reports he did not address his health issues and is now struggling physically. SW provided anxiety coping skills resource. SW discussed [facility] behavioral health IOP program which can help with anxiety management techniques and support. Pt is very open to the IOP program and brochure given, pt reports he will call. Patient appreciative for the resources and support. Pily Dugan ANALYTICS SPECIALIST, [employer]SEMBLY LABORER
[2023-08-10 11:08] VITALS: BP 119/80; PULSE 77; RESP 18; TEMP 36.5; O2SAT 97
== END 2023-08-10 11:16 | disposition home or self-care (01) ==
PROVIDERS: Emergency Provider Emergency Medicine; Visit Provider Emergency Medicine
DX: F41.9 Anxiety disorder, unspecified (principal); M47.816 Spondylosis without myelopathy or radiculopathy, lumbar region; K83.8 Other specified diseases of biliary tract; M25.512 Pain in left shoulder; G89.29 Other chronic pain; M54.9 Dorsalgia, unspecified; F17.290 Nicotine dependence, other tobacco product, uncomplicated
CPT/HCPCS: 99284

== ENCOUNTER 2023-08-12 19:30 | Emergency (ER) | payer MEDICAID, SELFPAY ==
[2023-08-12 19:30] VITALS: BP 107/72; PULSE 89; RESP 15; TEMP 36.7; O2SAT 100; BMI 20.5
--- NOTE | 2023-08-12 19:54 | EKG12_ITS ---
Test Reason : CP Blood Pressure : / mmHG Vent. Rate : 059 BPM Atrial Rate : 059 BPM P-R Int : 166 ms QRS Dur : 088 ms QT Int : 376 ms P-R-T Axes : 083 071 066 degrees QTc Int : 372 ms Sinus bradycardia Otherwise normal ECG Confirmed by Martin Lopez ([id number]), map editor ENRIQUE EVANS ([id number]) on 08/14/2023 10:31:35 AM Referred By: SURI Confirmed By:Martin Lopez
[2023-08-12 20:14] LABS: Absolute Lymphocyte Count 2.99 X10^3/uL (0.83-4.51); Absolute Neutrophil Count 3.2 X10^3/uL (2.0-7.7); Basophil# 0.03 X10^3/uL; Basophil% 0.4 % (0-1); Eosinophils% 1.5 % (0-5); Hematocrit 46.6 % (40-54); Hemoglobin 15.9 g/dL (13.0-16.5); Lymphocyte # 2.99 X10^3/ul (0.83-4.51); Mean Corp Hgb Conc 34.1 g/dL (32-36); Mean Corpuscular Hgb 30.3 pg (27.0-32.0); Mean Corpuscular Volume 88.9 fL (80-94); Mean Platelet Vol. 10.3 fl (6.2-12.0); Monocyte# 0.47 X10^3/uL; Monocyte% 6.9 % (0-10); NRBC Flagged by Analyzer 0 % (0-5); Neutrophil # 3.19 X10^3/uL (2.7-7.7); Neutrophil % 47.1 % (47-70); Platelet Count 220 K/mm3 (150-450); RBC Distribution Width CV 12.1 % (11.6-14.6); Red Blood Count 5.24 M/mm3 (4.6-6.2); White Blood Count 6.8 K/mm3 (4.4-11.0)
[2023-08-12] MEDS: 0.9% Normal Saline (1000mL) 1,000 ML 1000 ML IV (20:14)
[2023-08-12] MEDS: Ketorolac 15 MG/ML Vial IV (20:14)
--- NOTE | 2023-08-12 20:21 | EX.ED.DYSGE1 ---
HPI <FRAN Calero - Last Filed: 08/12/23 21:04> History of Present Illness Chief Complaint: Chest Pain Narrative Narrative: Patient is a 32-year-old male with history of chronic back pain anxiety who presents to the emergency department for complaints of left-sided chest pain. Patient has been to the emergency department in the last 2 months 11 times. Patient is had multiple complaints of back pain, to anxiety, chest pain abdominal pain. Patient states today, he had left-sided chest pain is here for evaluation. He denies any nausea or vomiting. Patient states he just feels generally off. Patient states that he is just scared all the time. He is currently waiting for an MRI of his lower back. PFSH <FRAN Calero - Last Filed: 08/12/23 21:04> [facility] Medical History Tobacco abuse Home Medications hydroxyzine pamoate 25 mg capsule (Vistaril) 25 mg PO TID PRN anxiety #20 caps 08/09/23 [Rx Last Taken 08/12/23] Allergy/AdvReac Type Severity Reaction Status Date / Time No Known Allergies Allergy Verified 08/12/23 19:34 Surgical History H/O vascular surgery History of appendectomy Social History Smoking Status: Current every day smoker tobacco type: e-cigarettes alcohol intake: never substance use type: amphetamines ROS <FRAN Calero - Last Filed: 08/12/23 21:04> ROS ED ROS Narrative Constitutional: Negative for fever, chills, weight loss, weakness Eyes: Negative for vision loss, vision change, double vision ENT: Negative for any sore throat, ear pain, congestion Cardiovascular: Negative for any palpitations. Positive for chest pain and tightness Respiratory: Negative for any cough, sputum production, hemoptysis, dyspnea, dyspnea on exertion, orthopnea Gastrointestinal: Negative for any abdominal pain, nausea, vomiting, diarrhea, constipation, blood in stool, blood in vomit : Negative for any urinary frequency, dysuria, retention, blood in urine Muscle skeletal: Negative for any neck pain, back pain Neurological: Negative for any headache, syncope, dizziness Skin: Negative for any rashes, itching, abrasions, lacerations Psychiatric: Negative for any depression, stress, suicidal ideation, homicidal ideation Hematologic: Negative for any excessive bruising, easy bleeding EXAM <FRAN Calero - Last Filed: 08/12/23 21:04> Physical Exam Narrative Exam Narrative: Vital signs reviewed. HEET: Head normocephalic atraumatic, TMs clear bilaterally. Posterior pharynx is clear, moist mucous membranes. Nares clear bilaterally. Neck: Supple with no lymphadenopathy or tenderness. No signs of meningismus. Cardiac: Regular rate and rhythm no murmurs gallops or rubs, equal peripheral pulses bilaterally. Respiratory: Lungs clear to auscultation bilaterally. Slight pain to the left side on palpation. Abdomen: Soft, nontender, nondistended. No abdominal bruit or pulsatile masses. No hepatosplenomegaly Extremities: No peripheral edema, no signs of gross trauma or deformity. Active full range of motion of all extremities. Neuro: Cranial nerves II through XII intact, no focal neurological deficits. Skin: Clean dry and intact with no rash, purpura, petechiae, vesicles or pustules. Backs/flank: No CVA tenderness, no midline spinal tenderness, no deformity. Psych: Normal mood and affect. No SI, HI or acute psychosis. Const Vital Signs: 08/12/23 19:30 08/12/23 19:41 08/12/23 20:30 Temperature 98.0 F 98 F Temperature Source Temporal Temporal Pulse Rate 89 78 Respiratory Rate 15 16 Respiratory Effort Normal Blood Pressure 107/72 118/75 Blood Pressure Mean 83 89 Pulse Ox 100 100 Oxygen Delivery Method Room Air Room Air 08/12/23 21:00 08/12/23 21:07 Temperature 98.1 F 98.1 F Temperature Source Temporal Pulse Rate 67 67 Respiratory Rate 16 16 Respiratory Effort Blood Pressure 150/93 H 136/83 H Blood Pressure Mean 112 100 Pulse Ox 100 98 Oxygen Delivery Method <Dr. Aayush Hsu, - Last Filed: 08/12/23 22:34> Physical Exam Const Vital Signs: 08/12/23 19:30 08/12/23 19:41 08/12/23 20:30 Temperature 98.0 F 98 F Temperature Source Temporal Temporal Pulse Rate 89 78 Respiratory Rate 15 16 Respiratory Effort Normal Blood Pressure 107/72 118/75 Blood Pressure Mean 83 89 Pulse Ox 100 100 Oxygen Delivery Method Room Air Room Air 08/12/23 21:00 08/12/23 21:07 Temperature 98.1 F 98.1 F Temperature Source Temporal Pulse Rate 67 67 Respiratory Rate 16 16 Respiratory Effort Blood Pressure 150/93 H 136/83 H Blood Pressure Mean 112 100 Pulse Ox 100 98 Oxygen Delivery Method [facility] <FRAN Calero - Last Filed: 08/12/23 21:04> [facility] Lab Data Labs: Laboratory Results - last 24 hr 08/12/23 19:49 WBC 6.8 RBC 5.24 Hgb 15.9 Hct 46.6 MCV 88.9 MCH 30.3 MCHC 34.1 RDW Std Deviation 40.0 RDW Coeff of Johanna 12.1 Plt Count 220 MPV 10.3 Immature Gran % (Auto) 0.100 Neut % (Auto) 47.1 Lymph % (Auto) 44.0 H Parker % (Auto) 6.9 Eos % (Auto) 1.5 Baso % (Auto) 0.4 Absolute Neuts (auto) 3.2 Absolute Lymphs (auto) 2.99 Nucleated RBC % 0 Sodium 142 Potassium 3.3 L Chloride 107 Carbon Dioxide 30.0 Anion Gap 5 BUN 14 Creatinine 1.02 Estim Creat Clear Calc 93.58 Est GFR (MDRD) Af Amer 109 Est GFR (MDRD) Non-Af 90 BUN/Creatinine Ratio 13.7 Glucose 102 Calcium 8.9 Troponin I High Sens 5 Radiography Diagnostic Testing: Clinical Impression(s) from Imaging Studies Chest X-Ray 08/12/23 20:24 IMPRESSION: No radiographic evidence of acute cardiopulmonary disease. Electronically Signed: Waqas Guardado DO at 21:24 EST Reading Location ID and State: [facility] / [place] Tel [phone], Service support , Treatment and Re-Evaluation :: Differential diagnosis includes however is not limited to: Anxiety, ACS, CA, chest wall strain Patient appears to be in no obvious distress, patient is obviously anxious. Patient is presenting to the emergency department with complaints of left-sided chest pain has been ongoing for the last couple days. Patient has been here multiple times. I spoke with the patient at length, he with patient is going through some sort of anxiety issues. Patient will receive a cardiac workup including troponin, basic laboratories as well as chest x-ray. Patient given IV Toradol. All radiologic examinations were read, reviewed by the emergency department attending. From these reads, a plan of care will be put in place. Patient CBC, chemistry was grossly unremarkable. Patient's chest x-ray was unremarkable. Patient's EKG was unremarkable. Patient felt much better, I do believe this was secondary to the Toradol as well as the Vistaril. I did speak with the patient regarding his anxiety, he will continue to follow-up outpatient. All questions answered, no evidence of any ACS or acute pathology at this time. Stable for discharge. <Dr. Aayush Hsu, DO - Last Filed: 08/12/23 22:34> [facility] Narrative Medical decision making narrative: Differential diagnosis includes however is not limited to: Anxiety, ACS, CA, chest wall strain Patient appears to be in no obvious distress, patient is obviously anxious. Patient is presenting to the emergency department with complaints of left-sided chest pain has been ongoing for the last couple days. Patient has been here multiple times. I spoke with the patient at length, he with patient is going through some sort of anxiety issues. Patient will receive a cardiac workup including troponin, basic laboratories as well as chest x-ray. Patient given IV Toradol. All radiologic examinations were read, reviewed by the emergency department attending. From these reads, a plan of care will be put in place. Patient CBC, chemistry was grossly unremarkable. Patient's chest x-ray was unremarkable. Patient's EKG was unremarkable. Patient felt much better, I do believe this was secondary to the Toradol as well as the Vistaril. I did speak with the patient regarding his anxiety, he will continue to follow-up outpatient. All questions answered, no evidence of any ACS or acute pathology at this time. Stable for discharge. This patient was seen with a PA/CARE REP Individually assessed they patient including history and physical. I have reviewed everything on the chart that is available and agree with the documentation provided by the PA/CARE REP including discussion about the assessment, treatment plan, discussion, and return precautions. Patient presenting with anxiety but gets chest comfort with it. He has been seen several times here for this. His workup is ultimately normal. I do not believe needs to admission or further workup. Counseled patient he should have discussed this anxiety with his PCP as he is only taking Vistaril. He has so far been resistant to taking daily meds for anxiety. Given that it is more frequent and has been ER several times he states that he will talk to them. Impression: 1 chest pain 2 anxiety Lab Data Labs: Laboratory Results - last 24 hr 08/12/23 19:49 WBC 6.8 RBC 5.24 Hgb 15.9 Hct 46.6 MCV 88.9 MCH 30.3 MCHC 34.1 RDW Std Deviation 40.0 RDW Coeff of Johanna 12.1 Plt Count 220 MPV 10.3 Immature Gran % (Auto) 0.100 Neut % (Auto) 47.1 Lymph % (Auto) 44.0 H Parker % (Auto) 6.9 Eos % (Auto) 1.5 Baso % (Auto) 0.4 Absolute Neuts (auto) 3.2 Absolute Lymphs (auto) 2.99 Nucleated RBC % 0 Sodium 142 Potassium 3.3 L Chloride 107 Carbon Dioxide 30.0 Anion Gap 5 BUN 14 Creatinine 1.02 Estim Creat Clear Calc 93.58 Est GFR (MDRD) Af Amer 109 Est GFR (MDRD) Non-Af 90 BUN/Creatinine Ratio 13.7 Glucose 102 Calcium 8.9 Troponin I High Sens 5 Radiography Diagnostic Testing: Clinical Impression(s) from Imaging Studies Chest X-Ray 08/12/23 20:24 IMPRESSION: No radiographic evidence of acute cardiopulmonary disease. Electronically Signed: Waqas Guardado DO at 21:24 EST Reading Location ID and State: [address] [place] [address] Tel [phone], Service support , Discharge Plan Triage Chief Complaint: Chest Pain ED Midlevel Provider: Ky Gonzalez ED Provider: Aayush Hsu Dx/Rx/DC Orders Clinical Impression: Acute chest wall pain, Anxiety Instructions: ED Anxiety Reaction, ED Chest Pain, Uncertain Cause Prescriptions: No Action hydroxyzine pamoate [Vistaril] 25 mg capsule 25 mg PO TID PRN (Reason: anxiety) Qty: 20 0RF Primary Care Provider: Care Physician,No Primary Referrals: Care Physician,No Primary [Primary Care Provider] - Activity Restrictions/Additional Instructions: Continue following up. Return for any worsening symptoms Disposition Disposition: Home, Self Care Discharge Date/Time: 08/12/23 21:11
--- NOTE | 2023-08-12 20:24 | RAD_ITS ---
INDICATION: cough EXAMINATION/TECHNIQUE: X-RAY - XR Chest 1 View COMPARISON: FINDINGS: LINES/DEVICES: None. LUNGS: No consolidation, edema or effusion. No pneumothorax. MEDIASTINUM AND CARDIOVASCULAR STRUCTURES: Cardiac silhouette not enlarged. Central airways and mediastinal contour are unremarkable. BONES AND SOFT TISSUES: Unremarkable. RAD/Chest 1 View (Portable) IMPRESSION: No radiographic evidence of acute cardiopulmonary disease. Electronically Signed: Waqas Guardado DO at 21:24 EST ,
[2023-08-12 20:30] VITALS: BP 118/75; PULSE 78; RESP 16; TEMP 36.6; O2SAT 100
[2023-08-12 20:34] LABS: Anion Gap 5 (5-15); BUN 14 mg/dL (7-18); BUN/Creat Ratio 13.7 RATIO (10-20); Calcium,Total 8.9 mg/dL (8.5-10.1); Chloride 107 mmol/L (98-107); Creatinine, Serum 1.02 mg/dL (0.70-1.30); EST Glomerular Filtration Rate 90 mL/min (>60); Est Glom Filt Rate - Afr Amer 109 mL/min (>60); Estimated Creatinine Clearance 93.58 ml/min; Glucose 102 mg/dL (74-106); Potassium 3.3 mmol/L (3.5-5.1); Sodium Level 142 mmol/L (136-145); Troponin-I HS 5 pg/mL (3.0-78.0)
[2023-08-12 21:00] VITALS: BP 150/93; PULSE 67; RESP 16; TEMP 36.7; O2SAT 100
[2023-08-12 21:07] VITALS: BP 136/83; PULSE 67; RESP 16; TEMP 36.7; O2SAT 98
== END 2023-08-12 21:11 | disposition home or self-care (01) ==
PROVIDERS: Nurse Practitioner; Emergency Provider Student in an Organized Health Care Education/Training Program; Visit Provider Student in an Organized Health Care Education/Training Program
DX: R07.89 Other chest pain (principal); F41.9 Anxiety disorder, unspecified; M54.9 Dorsalgia, unspecified; G89.29 Other chronic pain; F17.290 Nicotine dependence, other tobacco product, uncomplicated
CPT/HCPCS: 71045; 80048; 84484; 85025; 93005; 96361; 96374; 99283; A4216

== ENCOUNTER 2023-08-13 13:39 | Emergency (ER) | payer MEDICAID, SELFPAY ==
[2023-08-13 13:40] VITALS: BP 159/101; PULSE 107; RESP 28; TEMP 36.3; O2SAT 99; BMI 20.7
--- NOTE | 2023-08-13 13:51 | EX.ED.VIS.PS ---
HPI HPI - Psych History of Present Illness Chief Complaint: Anxiety Detail of Chief Complaint: Anxiety and see HPI narrative Informant: patient Onset/Context/Timing Onset: Hours (1 hour prior to presentation) Context: Sudden Onset Conflict: Family, Work and Financial Timing: Continuous Current Severity: Severe Maximum Severity: Severe Worsened by: Situational factors and Alcohol intoxication Relieved by: Patient is a 32-year-old male with hx of anxiety disorder and polysubstance Associated Symptoms Associated Symptoms - Psych: Positive for Change in Eating and Change in sleeping; Negative for Depressed, Decreased Interest, Guilt, Decreased Concentration, Hopelessness, Suicidal Thoughts, Easily distracted, Grandiosity, Flight of Ideas, Increased activity, Pressured Speech, Agitated, Angry, Hostile, Threatening, Confusion, Paranoia, Visual Hallucinations or Auditory Hallucinations Specific plan (suicidal thought): Not applicable Narrative Narrative: Patient is a 32-year-old male who has had numerous visits over the last 11 days. He has been seen here. Dominantly for anxiety. He was given outpatient resources. He has not followed up. He took hydroxyzine 1/2-hour to 1 hour prior to presentation. He feels overwhelmed as if he is going to . He does endorse shortness of breath, tingling of his hands, feet and perioral region. He complains of palpitations and shortness of breath. He denies headache. Denies ringing is ears decreased hearing. No trouble speech or swallowing. He denies nausea or vomiting. Prior similar symptoms: Yes Recent Illness/Hospitalization: Yes PFSH PFSH Medical History Tobacco abuse Home Medications hydroxyzine pamoate 25 mg capsule (Vistaril) 25 mg PO TID PRN anxiety #20 caps 08/09/23 [Rx Last Taken 08/12/23] Allergy/AdvReac Type Severity Reaction Status Date / Time No Known Allergies Allergy Verified 08/13/23 13:41 Surgical History H/O vascular surgery History of appendectomy Social History Smoking Status: Current every day smoker tobacco type: e-cigarettes alcohol intake: never substance use type: amphetamines ROS ROS ED Constitutional Constitutional ED: Denies chills, fever(s), subjective, sweats or weight loss Eyes Eyes: Denies blurry vision, change in vision or diplopia ENT ENT ED: Denies ear pain, rhinorrhea or sore throat Cardiovascular Cardiovascular: Reports palpitations and racing heartbeat; Denies chest pain, orthopnea or paroxysmal nocturnal dyspnea Respiratory/Chest Respiratory/Chest: Reports dyspnea; Denies cough, dyspnea on exertion, orthopnea or paroxysmal nocturnal dyspnea Gastrointestinal Gastrointestinal: Denies abdominal pain, diarrhea, melena, nausea or vomiting Musculoskeletal Musculoskeletal: Denies arthralgias, back pain, myalgias or neck pain Integumentary Denies rash Neurologic Neurologic: Reports paresthesias and weakness; Denies headache(s) Psychiatric Psychiatric: Reports anxiety; Denies depression or suicidal ideation Endocrine Endocrinology: Denies polydipsia, polyphagia or polyuria Hematologic/Lymphatic Hematologic/Lymphatic: Denies easy bleeding or easy bruising EXAM Physical Exam Const Vital Signs: 08/13/23 13:40 Temperature 97.4 F L Temperature Source Temporal Pulse Rate 107 H Respiratory Rate 28 H Blood Pressure 159/101 H Blood Pressure Mean 120 Pulse Ox 99 Oxygen Delivery Method Room Air Positive well nourished and well developed Constitutional Narrative: Patient is thin. There is no eye contact during history and physical. General Appearance ED: well developed; Negative for pallor HEENT Denies moist mucous membranes HEENT Narrative: Ears normal. normocephalic and atraumatic Eyes PERRL and EOMs intact bilaterally General Eye ED: Negative for pale conjunctiva or scleral icterus Neck no lymphadenopathy, supple and no JVD Resp normal respiratory effort and clear to auscultation bilaterally Cardio S1 normal heart sound, S2 normal heart sound and no murmurs Rate: tachycardic Rhythm: regular rhythm GI non-tender, non-distended and no masses Auscultation: normoactive bowel sounds Palpation: soft Back/Spine no CVA tenderness Extremity normal to inspection General Extremety ED: Negative for edema or tenderness General Extremity: Negative for edema Neuro oriented x3, CN's II-XII intact bilaterally and no sensory deficits noted Neuro Narrative: DTRs are brisk. There is no pathologic spread. Patient does have clonus at the ankles bilaterally. Patient has a positive straight Chvostek sign and Trousseau sign. Woody Coma Scale: document GCS findings Spontaneous Obeys Commands Oriented 15 Sensorium / Orientation: alert Psych cooperative, speech normal, activity/motor behavior normal, denies hallucinations, denies homicidal ideation and denies suicidal ideation Appearance: grossly normal and appropriate Activity / Motor Behavior: psychomotor agitation, fidgetting and avoids eye contact Speech: normal speech Mood & Affect: anxious Thought Process: normal thought process Thought Content: normal thought content Attention / Concentration: attention grossly intact Memory / Cognition: memory grossly intact Insight: limited Judgement: fair Skin Skin Narrative: No lesions, rash, acral cyanosis noted. General Skin Exam: Negative for jaundice or pallor Lesions: no lesions Rashes: no rashes MDM MDM MDM Narrative Medical decision making narrative: Patient is hyperventilating in light of a positive Chvostek sign, hyperreflexia, clonus and complaints of perioral as well as bilateral hand and feet numbness. Patient has a history of anxiety. He was treated with Ativan p.o. and brown paper bag since he is hyperventilating. History & Record Review Additional record(s) reviewed:: Prior ED visit (As noted in the HPI patient's had numerous visits since August 03. He also had a visit July 21.) Treatment and Re-Evaluation Narrative: Patient was reassessed at 1445. He is sitting up. There is good eye contact. His symptoms have resolved with outlined treatment. Patient was instructed to follow-up with the counseling center. He was informed that he had a panic attack and that he was hyperventilating. Patient feels comfortable going home. Discharge Plan Triage Chief Complaint: Anxiety ED Provider: Ross Smith Dx/Rx/DC Orders Clinical Impression: Acute dyspnea, Panic attack, Acute hyperventilation syndrome Instructions: ED Hyperventilation Syndrome, ED Panic Attack Prescriptions: No Action hydroxyzine pamoate [Vistaril] 25 mg capsule 25 mg PO TID PRN (Reason: anxiety) Qty: 20 0RF Primary Care Provider: Care Physician,No Primary Referrals: Counseling,Center [Group of Physicians] - As soon as possible Care Physician,No Primary [Primary Care Provider] - Disposition Disposition: Home, Self Care
[2023-08-13] MEDS: LORazepam 0.5 MG Tablet PO (14:22)
[2023-08-13 15:12] VITALS: BP 129/89; PULSE 84; RESP 16; TEMP 36.7; O2SAT 100
== END 2023-08-13 15:13 | disposition home or self-care (01) ==
PROVIDERS: Emergency Provider Emergency Medicine; Visit Provider Emergency Medicine
DX: F41.0 Panic disorder [episodic paroxysmal anxiety] (principal); F10.129 Alcohol abuse with intoxication, unspecified; R06.4 Hyperventilation; R06.02 Shortness of breath; F17.290 Nicotine dependence, other tobacco product, uncomplicated; R20.2 Paresthesia of skin
CPT/HCPCS: 99282

== ENCOUNTER → 2023-08-15 | Outpatient (CLI) | payer MEDICAID, SELFPAY ==
[2023-08-15 16:43] LABS: Thyroid Stim Hormone (TSH) 0.57 uIU/mL (0.358-3.74)
== END | disposition home or self-care (01) ==
PROVIDERS: Referring Provider Nurse Practitioner Family; Visit Provider Nurse Practitioner Family
DX: F41.1 Generalized anxiety disorder (principal)
CPT/HCPCS: 36415; 84443

== ENCOUNTER 2023-08-16 15:39 | Emergency (ER) | payer MEDICAID, SELFPAY ==
[2023-08-16 15:40] VITALS: BP 140/109; PULSE 123; RESP 18; TEMP 36.8; O2SAT 96; BMI 20.2
--- NOTE | 2023-08-16 16:23 | EX.ED.DYSGE1 ---
HPI <Kriss York RN - Last Filed: 08/16/23 16:52> History of Present Illness Chief Complaint: Abd Pain Informant: patient Onset/Context/Timing Onset: Weeks (2) Timing: Continuous Current Severity: Severe Maximum Severity: Severe Worsened by: Nothing Relieved by: Nothing Associated Symptoms Associated Symptoms: Weight loss Narrative Narrative: Patient presents to the ED with multiple complaints including abdominal pain x 2 weeks, intermittent diarrhea, and 20 pound weight loss over the past 2 weeks despite his normal p.o. intake. Patient is crying and reports he feels like he is dying. Patient reports stabbing left-sided abdominal pain and chest pain. Of note, he has been seen greater than 10 times in the ED since the beginning of July for multiple complaints. He reports being started on BuSpar yesterday that was prescribed by the [facility]. He reports he was prescribed hydroxyzine 2 weeks ago and only took that for 1 week as he reports it did not make him feel right. Reports ports he has an appointment on 08/18/2023 with a psychiatrist. He has attempted to get in contact with a counselor. He was seen at the counseling center yesterday. However their hours do not work with his work schedule. He reports he will get in contact with his prior counselor at [facility]. He denies suicidal or homicidal ideation. 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 He reports his mother is a good support person who can usually calm him down. However today he felt like he could not get his anxiety under control. He reports symptoms started 2 weeks ago after reinjuring his back. He had an original back injury in 2019. He reports he was prescribed naproxen, Flexeril, and prednisone. Once he started having anxiety, he was advised to immediately stop taking the prednisone. However symptoms have not resolved. He does have an MRI scheduled 08/22/2023. He denies recent hospitalizations or travel. Prior similar symptoms: Yes Recent Illness/Hospitalization: No PFSH <Kriss York RN - Last Filed: 08/16/23 16:52> [facility] Medical History Tobacco abuse Home Medications hydroxyzine pamoate 25 mg capsule (Vistaril) 25 mg PO TID PRN anxiety #20 caps 08/09/23 [Rx Last Taken 08/12/23] Allergy/AdvReac Type Severity Reaction Status Date / Time No Known Allergies Allergy Verified 08/16/23 15:40 Surgical History H/O vascular surgery History of appendectomy Social History Smoking Status: Current every day smoker tobacco type: e-cigarettes alcohol intake: never substance use type: amphetamines ROS <Kriss York RN - Last Filed: 08/16/23 16:52> ROS ED Constitutional Constitutional ED: Reports weight loss and other Details: 20 pound weight loss over 2 weeks ; Denies chills, fever(s) or sweats Eyes Eyes: Denies blurry vision, change in vision or diplopia ENT ENT ED: Denies rhinorrhea or sore throat Cardiovascular Cardiovascular: Reports chest pain and palpitations; Denies orthopnea, paroxysmal nocturnal dyspnea or racing heartbeat Respiratory/Chest Respiratory/Chest: Reports dyspnea; Denies cough, dyspnea on exertion, orthopnea or paroxysmal nocturnal dyspnea Gastrointestinal Gastrointestinal: Reports abdominal pain, diarrhea and nausea; Denies constipation or vomiting Genitourinary Genitourinary ED: Reports dysuria, hematuria and urinary frequency Musculoskeletal Musculoskeletal: Reports back pain; Denies arthralgias, myalgias or neck pain Integumentary Denies rash Neurologic Neurologic: Denies headache(s), paresthesias or weakness Psychiatric Psychiatric: Reports anxiety; Denies depression, suicidal ideation or suicidal thoughts Hematologic/Lymphatic Hematologic/Lymphatic: Reports systems reviewed and no addt'l complaints, except as documented EXAM <Kriss York RN - Last Filed: 08/16/23 16:52> Physical Exam Narrative Exam Narrative: Awake, alert, tearful Const Vital Signs: 08/16/23 15:40 08/16/23 17:02 Temperature 98.3 F 97.6 F L Temperature Source Temporal Pulse Rate 123 H 88 Respiratory Rate 18 14 Blood Pressure 140/109 H 129/85 H Blood Pressure Mean 119 99 Pulse Ox 96 99 Oxygen Delivery Method Room Air Positive well nourished and well developed General Appearance ED: well developed; Negative for cyanotic or diaphoretic HEENT Reports moist mucous membranes Negative for trauma Eyes PERRL and EOMs intact bilaterally Neck no lymphadenopathy, supple and no JVD Chest Wall inspection of chest normal and palpation of chest normal Resp normal respiratory effort and clear to auscultation bilaterally Auscultation: Negative for rales, rhonchi or wheezes Cardio regular rate, regular rhythm, S1 normal heart sound and S2 normal heart sound GI normal to inspection, nondistended, normoactive bowel sounds, non-distended and no masses; Negative for hepatosplenomegaly Inspection: Negative for abdominal distention Auscultation: normoactive bowel sounds Palpation: soft and tender LLQ and LUQ; Negative for guarding Back/Spine Cervical Spine: Negative for cervical spine tenderness Thoracic Spine / Upper Back: paraspinal muscle tenderness; Negative for thoracic spinal tenderness Lumbar Spine / Lower Back: Negative for lumbar spinal tenderness Extremity normal to inspection General Extremety ED: Negative for edema General Extremity: Negative for edema Neuro oriented x3 Sensorium / Orientation: alert Motor Exam: strength 5/5 throughout Psych Attitude: No agitated Mood & Affect: anxious and tearful Skin no rashes or lesions noted, no wounds and skin turgor normal <Dr. Tomasz Layne MD - Last Filed: 08/16/23 22:21> Physical Exam Const Vital Signs: 08/16/23 15:40 08/16/23 17:02 Temperature 98.3 F 97.6 F L Temperature Source Temporal Pulse Rate 123 H 88 Respiratory Rate 18 14 Blood Pressure 140/109 H 129/85 H Blood Pressure Mean 119 99 Pulse Ox 96 99 Oxygen Delivery Method Room Air MDM <Kriss York RN - Last Filed: 08/16/23 16:52> [facility] Narrative Medical decision making narrative: No lab work or imaging ordered. On review of medical record, patient had abdominal CT on 08/07/2023 and 08/08/2023 which were unremarkable. Patient will be given 1 mg Ativan. Differential Diagnosis Differential Diagnosis: Anxiety Treatment and Re-Evaluation :: Patient has counseling scheduled for 08/18/2023 at 1330. He is not suicidal or homicidal. He will be given Ativan 1 mg. He will be instructed to return for worsening, concerning, or suicidal or homicidal thoughts. Upon reevaluation, patient remains tearful. He is agreeable with current plan and will be discharged home. <Dr. Tomasz Layne MD - Last Filed: 08/16/23 22:21> MDM MDM Narrative Medical decision making narrative: I have personally performed a face to face assessment of the patient and have reviewed the SAMEER Note. I performed a substantive portion of the visit including all aspects of the following. My bernstein findings include: History is 32-year-old male history of anxiety recently started on BuSpar. States he feels like he is dying . Patient's had recent workups and recent abdominal CAT scans. He is very anxious and tearful. Exam is [well-appearing 32-year-old male. Vital signs stable afebrile. HEENT exam unremarkable. Moist mucous membranes. Neck nontender. Lungs clear to auscultation. Heart regular rhythm rate about 105 no murmur. Abdomen is soft, nontender, nondistended, normal bowel sounds without peritoneal signs. On my exam is absolutely no tenderness. He has had a prior appendectomy. Moving all 4 extremities. Nontender no edema. Neurologically is awake alert no focal motor deficits. He makes good eye contact. He answers questions and follows commands.] Medical Decision Making [patient is a benign exam. He has had recent abdominal CAT scans and workups have all been negative. I think this is all secondary to anxiety. He will be given 1 Ativan. Discharged home. Continue his BuSpar and outpatient follow-up.] Other additions or changes: [None] History & Record Review Discussion w/independent historian: Patient Additional record(s) reviewed:: Prior inpatient record, Prior outpatient record, Prior ED visit and Prior labs Discharge Plan Triage Chief Complaint: Abd Pain ED Provider: Tomasz Layne Dx/Rx/DC Orders Clinical Impression: Anxiety Instructions: Anxiety Disorders Tx Prescriptions: No Action hydroxyzine pamoate [Vistaril] 25 mg capsule 25 mg PO TID PRN (Reason: anxiety) Qty: 20 0RF Primary Care Provider: [facility] Leonie Ramirez Referrals: Counseling,Center [Group of Physicians] - [facility] - As Needed Activity Restrictions/Additional Instructions: Follow-up with psychiatrist on Monday at 1:30 PM as scheduled. Return for concerning or worsening symptoms. Return for suicidal or homicidal ideation. Disposition Disposition: Home, Self Care Discharge Date/Time: 08/16/23 17:03
[2023-08-16] MEDS: LORazepam 1 MG Tablet PO (17:01)
[2023-08-16 17:02] VITALS: BP 129/85; PULSE 88; RESP 14; TEMP 36.4; O2SAT 99
== END 2023-08-16 17:03 | disposition home or self-care (01) ==
PROVIDERS: Emergency Provider Emergency Medicine; Visit Provider Emergency Medicine
DX: F41.9 Anxiety disorder, unspecified (principal); R19.7 Diarrhea, unspecified; R10.9 Unspecified abdominal pain; F17.290 Nicotine dependence, other tobacco product, uncomplicated; R07.9 Chest pain, unspecified; R06.00 Dyspnea, unspecified; R30.0 Dysuria
CPT/HCPCS: 99282

== ENCOUNTER 2023-08-19 12:55 | Emergency (ER) | payer MEDICAID, SELFPAY ==
[2023-08-19 12:56] VITALS: BP 142/87; PULSE 78; RESP 13; TEMP 36; O2SAT 96; BMI 19.9
--- NOTE | 2023-08-19 13:11 | CT_ITS ---
INDICATION: headache, numbness diffusely EXAMINATION: CT BRAIN - CT Head or Brain W/O Contrast Injection TECHNIQUE: Multiple axial images were obtained of the head without intravenous contrast. A radiation dose optimization technique was used for this scan. IV Contrast dosage and agent: None. RADIATION DOSAGE (If Supplied By Facility): CTDIvol = ( 44.99 ) mGy, DLP = ( 1252.95 ) mGycm COMPARISON: No relevant prior comparison study available FINDINGS: BRAIN PARENCHYMA: No intra- or extra-axial hemorrhage. No evidence of acute infarct. No intracranial mass or mass effect. There is preservation of the joshua/white matter interface. Posterior fossa structures are unremarkable. CSF SPACES: Appropriate for age. No hydrocephalus. Basal cisterns are patent. CALVARIUM, SKULL BASE, PARANASAL SINUSES AND MASTOID AIR CELLS: Clear. No discrete lytic or blastic abnormalities. ORBITS: Both globes, extraocular muscles, optic nerves and retrobulbar fat appear unremarkable. CT/Brain/Head without Contrast IMPRESSION: No acute intracranial process. Electronically Signed: Harley Carranza MD at 14:03 EST ,
--- NOTE | 2023-08-19 13:11 | EKG12_ITS ---
Test Reason : CP Blood Pressure : / mmHG Vent. Rate : 073 BPM Atrial Rate : 073 BPM P-R Int : 166 ms QRS Dur : 084 ms QT Int : 362 ms P-R-T Axes : 083 067 062 degrees QTc Int : 398 ms Normal sinus rhythm with sinus arrhythmia Normal ECG Confirmed by Martin Lopez [id number]), research editor ENRIQUE EVANS ([id number]) on 08/22/2023 7:22:33 AM Referred By: Confirmed By:Martin Lopez
--- NOTE | 2023-08-19 13:11 | CT_ITS ---
INDICATION: pain w/ radiculopathy sx L side EXAMINATION: CT CERVICAL SPINE - CT Spine Cervical W/O Contrast Injection TECHNIQUE: Helically acquired images were obtained of the cervical spine. 2D reformatted images were reviewed. A radiation dose optimization technique was used for this scan. IV Contrast dosage and agent: None. RADIATION DOSAGE (If Supplied By Facility): CTDIvol = ( 20.67 ) mGy, DLP = ( 1252.95 ) mGycm COMPARISON: No relevant prior comparison study available FINDINGS: VERTEBRAE: No fracture or traumatic subluxation. No discrete lytic or blastic abnormality. The alignment of the vertebral bodies unremarkable. Loss of the normal cervical lordosis. Normal craniocervical junction and cervicothoracic junction. DISCS and SPINAL CANAL: Disc heights are preserved. No critical stenosis. NECK SOFT TISSUES: No prevertebral soft tissue swelling. There is no cervical adenopathy. LUNG APICES: Clear. CT/Spine Cervical without Contras IMPRESSION:
--- NOTE | 2023-08-19 13:15 | EX.ED.DYSGE1 ---
HPI History of Present Illness Chief Complaint: Numb/Ting Informant: patient Narrative Narrative: Patient states 15 or 20 minutes prior to coming here he started feeling really poorly and his chronic pain in his low back with shooting all the way up his left side into his neck and his head, started feeling numbness all over his body bilaterally simultaneously, and pain also shooting down his leg which he has had in the last couple months along with his low back pain. Patient states he is very nervous about what is going on because he cannot feel anything. While in triage, triage nurse states that he decided to lay himself down on the floor in the lobby. He did not pass out or fall or injure himself. Patient states he thinks he may have lost consciousness while in the car with his dad who drove him here. He is very poor historian and does not answer all of my questions. [facility] Medical History (Updated 08/20/23 @ 00:01 by Ti Ramírez) Acute hyperventilation syndrome Anxiety Panic attack Polysubstance abuse Tobacco abuse Home Medications hydroxyzine pamoate 25 mg capsule (Vistaril) 25 mg PO TID PRN anxiety #20 caps 08/09/23 [Rx Last Taken 08/12/23] Allergy/AdvReac Type Severity Reaction Status Date / Time No Known Allergies Allergy Verified 08/16/23 15:40 Surgical History H/O vascular surgery History of appendectomy Social History Smoking Status: Current every day smoker tobacco type: e-cigarettes alcohol intake: never substance use type: amphetamines ROS ROS ED Constitutional Constitutional ED: Denies chills or fever(s) ENT ENT ED: Denies rhinorrhea or sore throat Cardiovascular Cardiovascular: Reports other Details: Left-sided chest pain at times Respiratory/Chest Respiratory/Chest: Reports cough; Denies dyspnea Gastrointestinal Gastrointestinal: Reports nausea and other Details: Left-sided abdominal pain at times for the past several weeks ; Denies diarrhea Genitourinary Genitourinary ED: Denies dysuria or hematuria Musculoskeletal Musculoskeletal: Reports back pain and neck pain Integumentary Denies abscess or rash Neurologic Neurologic: Reports headache(s) and paresthesias RUE, RLE, LUE and LLE; Denies weakness Psychiatric Psychiatric: Reports anxiety; Denies suicidal ideation EXAM Physical Exam Const Vital Signs: 08/19/23 12:56 08/19/23 13:34 08/19/23 14:00 Temperature 96.8 F L Temperature Source Temporal Pulse Rate 78 70 Respiratory Rate 13 16 Blood Pressure 142/87 H 115/71 Blood Pressure Mean 105 85 Pulse Ox 96 98 Oxygen Delivery Method Room Air Room Air Room Air 08/19/23 15:00 08/19/23 16:00 08/19/23 17:00 Temperature Temperature Source Pulse Rate 55 L 58 L 63 Respiratory Rate 17 17 17 Blood Pressure 110/66 123/72 H 127/82 H Blood Pressure Mean 80 89 97 Pulse Ox 99 98 100 Oxygen Delivery Method Room Air Room Air Room Air 08/19/23 17:18 Temperature 97.4 F L Temperature Source Pulse Rate 70 Respiratory Rate 16 Blood Pressure 118/78 Blood Pressure Mean 91 Pulse Ox 96 Oxygen Delivery Method Positive well nourished and well developed General Appearance ED: well developed and NAD HEENT Reports moist mucous membranes normocephalic and atraumatic Eyes PERRL and EOMs intact bilaterally Neck full ROM and supple Resp normal respiratory effort and clear to auscultation bilaterally Cardio regular rate, regular rhythm and no murmurs Rate: Negative for tachycardic GI non-tender and non-distended Auscultation: normoactive bowel sounds Palpation: soft Back/Spine no CVA tenderness Back/Spine Narrative: Normal inspection. No signs of trauma. No objective midline tenderness. General Back: other FROM, but patient states it is painful when I sit him up and he wants to lay back down. Extremity normal to inspection Extremity Narrative: Moving left hip fully without apparent discomfort General Extremety ED: Negative for edema, pulses abnormal or tenderness General Extremity: Negative for edema or pulses abnormal Neuro oriented x3, CN's II-XII intact bilaterally and no sensory deficits noted Sensorium / Orientation: awake and alert Motor Exam: strength 5/5 throughout Psych Psych Narrative: Patient very anxious Mood & Affect: anxious Skin no rashes or lesions noted and no wounds MDM MDM MDM Narrative Medical decision making narrative: Patient presenting with a lot of symptoms that do not fit 1 clinical picture. The abdominal pain does not seem new, and the back pain is not new, including the sciatica-like symptoms he has had down the left lower extremity. There has been no bowel or bladder dysfunction to suggest cauda equina syndrome here. Pain in his neck and head are new along with tingling all over his body that does not seem to be lateralizing, very unlikely to be an acute stroke especially in this otherwise healthy 32-year-old whose only risk factor is smoking. However given the symptoms and the fact that they are in usual, we did obtain a CT of the head as well as cervical spine to see if there could be some clues hinting out radiculopathy there. I reviewed the images and the report which I agree with, the studies were negative for anything acute except for the possibility of muscle spasm of the neck causing straightening of the spine. His EKG and troponin are normal, we observed him for a while after treating him with fluids, Toradol, Ativan, and Reglan. He did have improvement after this and then notes details that when he sits up, as opposed to lying supine, it makes his numbness in his entire body including his arms, worse. As I discussed with him, he is feeling tired and having discomfort in his back and left lower extremity, and I do not think any of this is acute stroke especially given that he is making everything worse when he sits up. I do not have a great explanation as to why sitting up would make him have more numbness in his arms. We also obtained a 2-hour delta which also was normal. Given all of this, his vital signs are normal and I do not think he has an emergent medical condition and is safe for discharge home and close outpatient follow-up, he states after the weekend he has an MRI of his low back scheduled which I would keep. Lab Data Attestation: I reviewed the patient's lab results. Labs: Laboratory Results - last 24 hr 08/19/23 08/19/23 13:25 15:36 WBC 6.3 RBC 5.51 Hgb 16.2 Hct 48.1 MCV 87.3 MCH 29.4 MCHC 33.7 RDW Std Deviation 39.1 RDW Coeff of Johanna 12.2 Plt Count 227 MPV 10.0 Immature Gran % (Auto) 0.300 Neut % (Auto) 48.3 Lymph % (Auto) 38.6 [place] % (Auto) 9.9 Eos % (Auto) 2.1 Baso % (Auto) 0.8 Absolute Neuts (auto) 3.0 Absolute Lymphs (auto) 2.41 Nucleated RBC % 0 Sodium 140 Potassium 4.1 Chloride 108 H Carbon Dioxide 24.0 Anion Gap 8 BUN 12 Creatinine 1.00 Estim Creat Clear Calc 95.38 Est GFR (MDRD) Af Amer 112 Est GFR (MDRD) Non-Af 92 BUN/Creatinine Ratio 12.0 Glucose 101 Calcium 9.1 Total Bilirubin 0.60 AST 15 ALT 16 Alkaline Phosphatase 80 Troponin I High Sens 5 8 Total Protein 7.6 Albumin 4.5 Globulin 3.1 Albumin/Globulin Ratio 1.5 Radiography Chest X-Ray - ED: 1 View, Read by ED Physician, Normal, Heart, Lungs, Mediastinum, Bony Structures and No Acute Disease Diagnostic Testing: Clinical Impression(s) from Imaging Studies Brain CT 08/19/23 13:11 IMPRESSION: No acute intracranial process. Electronically Signed: Harley Carranza MD at 14:03 EST , Cervical Spine CT 08/19/23 13:11 IMPRESSION: 1. No evidence of acute cervical spinal fracture or spondylolisthesis. 2. Straightening of the cervical spine which could be due to muscle spasm. Electronically Signed: Harley Carranza MD at 14:06 EST , Chest X-Ray 08/19/23 13:40 IMPRESSION: No radiographic evidence of acute cardiopulmonary disease. Electronically Signed: Harley Carranza MD at 14:07 EST , Rhythm Strip Rhythm Strip: Sinus Rhythm Rate: 75 Ectopy: None EKG Initial EKG: Attestation: I personally reviewed and interpreted this EKG as follows: Interpretation: Sinus Rhythm and No Acute Injury Pattern Comments: nml EKG Discharge Plan Triage Chief Complaint: Numb/Ting ED Provider: Jad Santamaria Dx/Rx/DC Orders Clinical Impression: Acute neck pain, Paresthesias, Headache, Back pain with left-sided sciatica Instructions: ED Paraesthesias Prescriptions: No Action hydroxyzine pamoate [Vistaril] 25 mg capsule 25 mg PO TID PRN (Reason: anxiety) Qty: 20 0RF Primary Care Provider: [facility] Leonie Ramirez Referrals: [facility] Ashley,Leonie Rocha [Primary Care Provider] - 3-5 Days if not improving Disposition Disposition: Home, Self Care Discharge Date/Time: 08/19/23 17:20
[2023-08-19] MEDS: 0.9% Normal Saline (1000mL) 1,000 ML 1000 ML IV (13:31)
[2023-08-19] MEDS: Metoclopramide 10 MG/2 ML Vial 5 MG IV (13:31)
[2023-08-19] MEDS: Lorazepam 2 MG/ML WCH Syringe 0.5 MG IV (13:32)
[2023-08-19] MEDS: Ketorolac 30 MG/ML Syringe IV (13:33)
[2023-08-19 13:36] LABS: Absolute Lymphocyte Count 2.41 X10^3/uL (0.83-4.51); Basophil# 0.05 X10^3/uL; Basophil% 0.8 % (0-1); Eosinophil# 0.13 X10^3/uL; Eosinophils% 2.1 % (0-5); Hematocrit 48.1 % (40-54); Hemoglobin 16.2 g/dL (13.0-16.5); Lymphocyte # 2.41 X10^3/ul (0.83-4.51); Lymphocyte % 38.6 % (19-41); Mean Corp Hgb Conc 33.7 g/dL (32-36); Mean Corpuscular Hgb 29.4 pg (27.0-32.0); Mean Corpuscular Volume 87.3 fL (80-94); Monocyte# 0.62 X10^3/uL; Monocyte% 9.9 % (0-10); NRBC Flagged by Analyzer 0 % (0-5); Neutrophil # 3.02 X10^3/uL (2.7-7.7); Neutrophil % 48.3 % (47-70); Platelet Count 227 K/mm3 (150-450); RBC Distribution Width CV 12.2 % (11.6-14.6); RBC Distribution Width SD 39.1 fl (35.1-43.9); Red Blood Count 5.51 M/mm3 (4.6-6.2); White Blood Count 6.3 K/mm3 (4.4-11.0)
--- NOTE | 2023-08-19 13:40 | RAD_ITS ---
INDICATION: chest pain EXAMINATION/TECHNIQUE: X-RAY - XR Chest 1 View COMPARISON: Prior study dated: 08/12/2023 FINDINGS: LINES/DEVICES: None. LUNGS: No consolidation, edema or effusion. No pneumothorax. MEDIASTINUM AND CARDIOVASCULAR STRUCTURES: Cardiac silhouette not enlarged. Central airways and mediastinal contour are unremarkable. BONES AND SOFT TISSUES: Unremarkable. RAD/Chest 1 View (Portable) IMPRESSION: No radiographic evidence of acute cardiopulmonary disease. Electronically Signed: Harley Carranza MD at 14:07 EST ,
[2023-08-19 13:47] LABS: ALB/GLOB Ratio 1.5 RATIO (0.9-2.4); AST(SGOT) 15 U/L (15-37); Alanine Aminotransfer ALT/SGPT 16 U/L (16-61); Albumin, Serum 4.5 g/dL (3.2-5.0); Alkaline Phosphatase 80 U/L (45-117); Anion Gap 8 (5-15); BUN 12 mg/dL (7-18); Calcium,Total 9.1 mg/dL (8.5-10.1); Chloride 108 mmol/L (98-107); EST Glomerular Filtration Rate 92 mL/min (>60); Est Glom Filt Rate - Afr Amer 112 mL/min (>60); Estimated Creatinine Clearance 95.38 ml/min; Globulin 3.1 g/dL (2.2-4.2); Glucose 101 mg/dL (74-106); Potassium 4.1 mmol/L (3.5-5.1); Protein, Total 7.6 g/dL (6.4-8.2); Sodium Level 140 mmol/L (136-145); Troponin-I HS (w/2H Reflex) 5 pg/mL (3.0-78.0)
[2023-08-19 14:00] VITALS: BP 115/71; PULSE 70; RESP 16; O2SAT 98
[2023-08-19 15:00] VITALS: BP 110/66; PULSE 55; RESP 17; O2SAT 99
[2023-08-19 15:26] LABS: Reflex Troponin-HS? (from REC) Y
[2023-08-19 16:00] VITALS: BP 123/72; PULSE 58; RESP 17; O2SAT 98
[2023-08-19 16:12] LABS: Troponin-I HS 8 pg/mL (3.0-78.0)
[2023-08-19 17:00] VITALS: BP 127/82; PULSE 63; RESP 17; O2SAT 100
[2023-08-19 17:18] VITALS: BP 118/78; PULSE 70; RESP 16; TEMP 36.3; O2SAT 96
== END 2023-08-19 17:20 | disposition home or self-care (01) ==
PROVIDERS: Emergency Provider Emergency Medicine; Visit Provider Emergency Medicine
DX: M54.32 Sciatica, left side (principal); R10.9 Unspecified abdominal pain; M54.2 Cervicalgia; R51.9 Headache, unspecified; R20.2 Paresthesia of skin; G89.29 Other chronic pain; R20.0 Anesthesia of skin; F17.290 Nicotine dependence, other tobacco product, uncomplicated
CPT/HCPCS: 70450; 71045; 72125; 80053; 84484; 85025; 93005; 96361; 96374; 96375; 99283; J7030; A4216

== ENCOUNTER 2023-08-21 08:30 | Emergency (ER) | payer MEDICAID, SELFPAY ==
[2023-08-21 08:36] VITALS: BP 135/89; PULSE 77; RESP 16; TEMP 36.2; O2SAT 97; BMI 20.7
--- NOTE | 2023-08-21 08:44 | EX.ED.DYSGE1 ---
HPI History of Present Illness Chief Complaint: Anxiety Informant: patient Onset/Context/Timing Onset: Today Context: Onset with activity Timing: Intermittent Quality: Racing Location: Chest Worsened by: Activity while at work Relieved by: Laying down Narrative Narrative: Patient presents with palpitations and anxiety that began today while he was at work. Patient states it came on rather suddenly. Patient states that it has been intermittent. Patient states he feels his heart racing at times. Patient states it is worse when he is up and active while at work. Patient states it is better when he is able to lay down. Patient states that his vision appears to be bright and cloudy at the same time. Patient admits to some shortness of breath. Patient admits to some nausea. Patient also admits to some urinary frequency. Patient denies any fevers or chills. Prior similar symptoms: Yes PFSH PFSH Medical History Acute hyperventilation syndrome Anxiety Panic attack Polysubstance abuse Tobacco abuse Home Medications hydroxyzine pamoate 25 mg capsule (Vistaril) 25 mg PO TID PRN anxiety #20 caps 08/09/23 [Rx Last Taken 08/12/23] Allergy/AdvReac Type Severity Reaction Status Date / Time No Known Allergies Allergy Verified 08/16/23 15:40 Surgical History H/O vascular surgery History of appendectomy Social History Smoking Status: Current every day smoker tobacco type: e-cigarettes alcohol intake: never substance use type: amphetamines ROS ROS ED Constitutional Constitutional ED: Denies chills or fever(s) Eyes Eyes: Reports blurry vision and change in vision ENT ENT ED: Denies rhinorrhea or sore throat Cardiovascular Cardiovascular: Reports palpitations; Denies chest pain Respiratory/Chest Respiratory/Chest: Denies cough or dyspnea Gastrointestinal Gastrointestinal: Reports nausea; Denies vomiting Genitourinary Genitourinary ED: Reports urinary frequency; Denies dysuria or hematuria Musculoskeletal Musculoskeletal: Reports back pain and neck pain Integumentary Denies abscess or rash Neurologic Neurologic: Reports headache(s); Denies weakness Allergic/Immunologic Allergic/Immunologic ED: Denies mouth swelling or urticaria EXAM Physical Exam Const Vital Signs: 08/21/23 08:36 Temperature 97.2 F L Temperature Source Temporal Pulse Rate 77 Respiratory Rate 16 Blood Pressure 135/89 H Blood Pressure Mean 104 Pulse Ox 97 Oxygen Delivery Method Room Air Positive well nourished and well developed General Appearance ED: well developed and NAD HEENT Reports moist mucous membranes Neck supple and no JVD Chest Wall inspection of chest normal and palpation of chest normal Resp normal respiratory effort and clear to auscultation bilaterally Cardio regular rate and regular rhythm GI non-tender and non-distended Palpation: soft Extremity normal to inspection General Extremety ED: Negative for edema or tenderness General Extremity: Negative for edema Neuro oriented x3, CN's II-XII intact bilaterally and no sensory deficits noted Sensorium / Orientation: alert Motor Exam: strength 5/5 throughout Psych mental status grossly normal MDM MDM MDM Narrative Medical decision making narrative: Differential diagnosis includes anxiety, electrolyte abnormality, cardiac dysrhythmia, cardiac ischemia, pulmonary embolism, and urinary tract infection. EKG will be obtained to assess for cardiac dysrhythmia and cardiac ischemia. CBC will be obtained to assess for leukocytosis and anemia. Basic metabolic profile will be obtained to assess for electrolyte abnormality and renal function. D-dimer will be obtained to assess for pulmonary embolism. High-sensitivity troponin will be obtained to assess for cardiac ischemia. Lab Data Attestation: I reviewed the patient's lab results. Lab results narrative: CBC was reviewed and was within normal limits. Basic metabolic profile was reviewed and was within normal limits. High-sensitivity troponin was reviewed and was normal at 4. D-dimer was reviewed and was normal at 0.28. Urinalysis was reviewed. There is no evidence of urinary tract infection or hematuria. Labs: Laboratory Results - last 24 hr 08/21/23 08/21/23 09:35 09:55 WBC 5.6 RBC 5.27 Hgb 15.5 Hct 46.2 MCV 87.7 MCH 29.4 MCHC 33.5 RDW Std Deviation 38.7 RDW Coeff of Johanna 12.1 Plt Count 227 MPV 10.0 Immature Gran % (Auto) 0.200 Neut % (Auto) 58.8 Lymph % (Auto) 31.9 [place] % (Auto) 7.3 Eos % (Auto) 0.9 Baso % (Auto) 0.9 Absolute Neuts (auto) 3.3 Absolute Lymphs (auto) 1.79 Nucleated RBC % 0 D-Dimer Quant (PE/DVT) 0.28 Sodium 140 Potassium 4.0 Chloride 107 Carbon Dioxide 29.0 Anion Gap 4 L BUN 12 Creatinine 1.07 Estim Creat Clear Calc 84.71 Est GFR (MDRD) Af Amer 103 Est GFR (MDRD) Non-Af 85 BUN/Creatinine Ratio 11.2 Glucose 103 Calcium 9.2 Troponin I High Sens 4 Urine Color Yellow Urine Clarity Clear Urine pH 7.0 Ur Specific [place] 1.010 Urine Protein Negative Urine Glucose (UA) Normal Urine Ketones Negative Urine Occult Blood Negative Urine Nitrite Negative Urine Bilirubin Negative Urine Urobilinogen Normal Ur Leukocyte Esterase Negative Urine RBC 0 SEEN Urine WBC 0 SEEN Ur Squamous Epith Cells 0 SEEN Urine Bacteria 0 SEEN Urine Mucus 0 SEEN EKG Initial EKG: Attestation: I personally reviewed and interpreted this EKG as follows: Interpretation: Sinus Rhythm (76) and No Acute Injury Pattern Comments: EKG was obtained. On my independent interpretation, it showed a normal sinus rhythm with a rate of 76. LA interval, QRS interval, and QTc intervals were all normal. [place] was normal. There are no acute ST or T wave changes. Prior EKG tracings: available for review Prior: Unchanged (08/12/2023) Treatment and Re-Evaluation :: Patient was ordered a dose of Vistaril here. Patient refused this. Patient states he does not like the way it makes him feel. Patient was resting comfortably on reevaluation. Patient was advised of his findings. Patient was advised that this may be anxiety. Patient was instructed to follow-up with his primary care physician in 3 to 5 days for further evaluation. Patient was given a note for work. Patient understood and was agreeable with the plan. All questions were answered. Discharge Plan Triage Chief Complaint: Anxiety ED Provider: Donnie Carter Dx/Rx/DC Orders Clinical Impression: Palpitations, Anxiety Instructions: ED Palpitations Prescriptions: No Action hydroxyzine pamoate [Vistaril] 25 mg capsule 25 mg PO TID PRN (Reason: anxiety) Qty: 20 0RF Stand Alone Forms: ED Work / School Excuse [facility]-5 Days Disposition Disposition: Home, Self Care
--- NOTE | 2023-08-21 09:22 | EKG12_ITS ---
Test Reason : GENERAL Blood Pressure : / mmHG Vent. Rate : 076 BPM Atrial Rate : 076 BPM P-R Int : 170 ms QRS Dur : 086 ms QT Int : 352 ms P-R-T Axes : 079 072 068 degrees QTc Int : 396 ms Normal sinus rhythm Normal ECG Confirmed by Martin Lopez ([id number]), editor farm journal ENRIQUE EVANS ([id number]) on 08/22/2023 11:17:41 AM Referred By: Confirmed By:Martin Lopez
[2023-08-21 09:41] LABS: Absolute Lymphocyte Count 1.79 X10^3/uL (0.83-4.51); Absolute Neutrophil Count 3.3 X10^3/uL (2.0-7.7); Basophil# 0.05 X10^3/uL; Basophil% 0.9 % (0-1); Eosinophil# 0.05 X10^3/uL; Eosinophils% 0.9 % (0-5); Hematocrit 46.2 % (40-54); Hemoglobin 15.5 g/dL (13.0-16.5); Lymphocyte # 1.79 X10^3/ul (0.83-4.51); Lymphocyte % 31.9 % (19-41); Mean Corp Hgb Conc 33.5 g/dL (32-36); Mean Corpuscular Hgb 29.4 pg (27.0-32.0); Mean Corpuscular Volume 87.7 fL (80-94); Monocyte# 0.41 X10^3/uL; Monocyte% 7.3 % (0-10); NRBC Flagged by Analyzer 0 % (0-5); Neutrophil # 3.31 X10^3/uL (2.7-7.7); Neutrophil % 58.8 % (47-70); Platelet Count 227 K/mm3 (150-450); RBC Distribution Width CV 12.1 % (11.6-14.6); RBC Distribution Width SD 38.7 fl (35.1-43.9); Red Blood Count 5.27 M/mm3 (4.6-6.2); White Blood Count 5.6 K/mm3 (4.4-11.0)
--- NOTE | 2023-08-21 09:42 | ED.RN ---
rn explaining plan of care to patient. pt refusing hydroxazine states he does not want the medication and states i have a prescription for that but don't like the way it makes me feel . dr hitchcock notified at this time.
[2023-08-21 09:58] LABS: D-Dimer Quantitative (DVT/PE) 0.28 FEU/ug/m (0.27-0.49)
[2023-08-21 10:02] LABS: Anion Gap 4 (5-15); BUN 12 mg/dL (7-18); BUN/Creat Ratio 11.2 RATIO (10-20); Calcium,Total 9.2 mg/dL (8.5-10.1); Chloride 107 mmol/L (98-107); Creatinine, Serum 1.07 mg/dL (0.70-1.30); EST Glomerular Filtration Rate 85 mL/min (>60); Est Glom Filt Rate - Afr Amer 103 mL/min (>60); Estimated Creatinine Clearance 84.71 ml/min; Glucose 103 mg/dL (74-106); Sodium Level 140 mmol/L (136-145); Troponin-I HS 4 pg/mL (3.0-78.0)
[2023-08-21 10:22] LABS: Bacteria 0 SEEN /hpf (None Seen); Mucous, Urine 0 SEEN /hpf (<or=2+); Red Blood Cells-Urine 0 SEEN /hpf (0-5); Squamous Epithelial Cells - UA 0 SEEN /hpf (0-5); White Blood Cells 0 SEEN /hpf (0-5)
[2023-08-21 10:23] LABS: Color, Urine Yellow (Yellow); Glucose, Dipstick Normal (Normal); Ketone-Dipstick Negative (Negative); Leukocyte Esterase-Dipstick Negative /ul (Negative); Nitrite-Dipstick Negative (Negative); Occult Blood-Urine Negative /ul (Negative); Protein-Dipstick Negative (Negative); Urine Bilirubin Dipstick Negative (Negative); Urine Clarity Clear (Clear); Urine Urobilinogen Normal (Normal)
[2023-08-21 10:51] VITALS: BP 120/80; PULSE 69; RESP 16; TEMP 36.2; O2SAT 100
== END 2023-08-21 10:53 | disposition home or self-care (01) ==
PROVIDERS: Emergency Provider Emergency Medicine; Visit Provider Emergency Medicine
DX: F41.9 Anxiety disorder, unspecified (principal); R35.0 Frequency of micturition; F17.290 Nicotine dependence, other tobacco product, uncomplicated; R51.9 Headache, unspecified; R00.2 Palpitations
CPT/HCPCS: 80048; 81001; 84484; 85025; 85379; 93005; 99284; A4216

== ENCOUNTER 2023-08-22 14:15 | Emergency (ER) | payer MEDICAID, SELFPAY | END 2023-08-22 16:45 | disposition left against medical advice (07) | LOC: ED 16:31 | DX: Z53.21 Procedure and treatment not carried out due to patient leaving prior to being seen by health care provider (principal) ==

== ENCOUNTER 2023-08-26 20:09 | Emergency (ER) | payer MEDICAID, SELFPAY ==
[2023-08-26 20:10] VITALS: BP 139/85; PULSE 95; RESP 18; TEMP 36.8; O2SAT 98; BMI 20.3
[2023-08-26] MEDS: LORazepam 0.5 MG Tablet PO (20:46)
--- NOTE | 2023-08-26 21:16 | EX.ED.DYSGE1 ---
HPI History of Present Illness Chief Complaint: Anxiety Detail of Chief Complaint: Anxiety and left lower back pain radiating anteriorly Informant: patient Onset/Context/Timing Onset: Today (For anxiety right) and Weeks (Left leg pain for weeks) Context: Sudden Onset Timing: Intermittent (Anxiety/panic attacks as well as leg pain) Quality: Pain Location: Left low back radiating anterior left leg Current Severity: Mild Maximum Severity: Moderate Worsened by: Walking Relieved by: Nothing specific Associated Symptoms Associated Symptoms: No associated symptoms Narrative Narrative: Patient is a 32-year-old male with history of anxiety disorder. He was recently prescribed BuSpar. He discontinued because it made him feel foggy. He is on no antianxiety medication. Patient denies fever, chills night sweats. Patient has recent dental procedure. Patient denies bowel bladder dysfunction. No saddle paresthesia or anesthesia. He denies foot drop. He states he cannot squat because of pain in his left hip low back area. He does not have steps, which he goes up and down. He denies dragging his foot. He is concerned the pain in his back is something serious. He began to cry when he told me this. Prior similar symptoms: Yes Recent Illness/Hospitalization: Yes ([facility] several weeks ago) [facility] Medical History Acute hyperventilation syndrome Anxiety Panic attack Polysubstance abuse Tobacco abuse Home Medications NK 08/26/23 [History Last Taken Unknown] clorazepate dipotassium 3.75 mg tablet 3.75 mg PO TID 5 days #15 tabs 08/26/23 [Rx Last Taken Unknown] Allergy/AdvReac Type Severity Reaction Status Date / Time No Known Allergies Allergy Verified 08/16/23 15:40 Surgical History H/O vascular surgery History of appendectomy Social History Smoking Status: Current every day smoker tobacco type: e-cigarettes alcohol intake: never substance use type: amphetamines ROS ROS ED Constitutional Constitutional ED: Denies chills, fever(s), subjective, sweats or weight loss Eyes Eyes: Denies blurry vision or change in vision ENT ENT ED: Denies ear pain, rhinorrhea or sore throat Cardiovascular Cardiovascular: Denies chest pain or palpitations Respiratory/Chest Respiratory/Chest: Denies cough or dyspnea Gastrointestinal Gastrointestinal: Denies abdominal pain, constipation, nausea or vomiting Genitourinary Genitourinary ED: Reports other Details: And documented in HPI narrative ; Denies dysuria, hematuria or urinary frequency Musculoskeletal Musculoskeletal: Reports back pain; Denies arthralgias, myalgias or neck pain Integumentary Denies rash Neurologic Neurologic: Denies paresthesias or weakness Psychiatric Psychiatric: Reports anxiety and depression Hematologic/Lymphatic Hematologic/Lymphatic: Reports systems reviewed and no addt'l complaints, except as documented EXAM Physical Exam Const Vital Signs: 08/26/23 20:10 Temperature 98.3 F Temperature Source Temporal Pulse Rate 95 Respiratory Rate 18 Blood Pressure 139/85 H Blood Pressure Mean 103 Pulse Ox 98 Oxygen Delivery Method Room Air Positive well nourished and well developed General Appearance ED: well developed; Negative for NAD or pallor HEENT Reports moist mucous membranes HEENT Narrative: Atraumatic and normocephalic. Ears normal. Nares patent. Posterior pharynx normal. Eyes PERRL and EOMs intact bilaterally Eyes Narrative: Patient does wear glasses. General Eye ED: Negative for pale conjunctiva or scleral icterus Neck no lymphadenopathy, supple and no JVD Chest Wall inspection of chest normal and palpation of chest normal Resp normal respiratory effort and clear to auscultation bilaterally Cardio regular rate, regular rhythm, S1 normal heart sound, S2 normal heart sound and no murmurs GI normal to inspection, nondistended, normoactive bowel sounds, non-tender, non-distended and no masses; Negative for hepatosplenomegaly Back/Spine no CVA tenderness Back/Spine Narrative: Straight leg test and femoral stretch tests are negative. Patella and ankle reflex are 3+ and symmetric. EHLs intact. Gait observed and normal. No foot drop with ambulation. He is able to walk on his heels and toes. He is able to perform 1 legged squat right leg. He complained of pain on the left and had difficulty. DP and PT pulse are palpable. He has normal sensation L3-S1 dermatome. EHL is intact. Rashad Beata 4 test causes him pain laterally. Thoracic Spine / Upper Back: Negative for thoracic spinal tenderness Lumbar Spine / Lower Back: Negative for lumbar spinal tenderness Extremity normal to inspection General Extremety ED: Negative for edema or tenderness General Extremity: Negative for edema Neuro oriented x3, CN's II-XII intact bilaterally and no sensory deficits noted Psych Psych Narrative: In my opinion patient began to hyperventilate. Mood & Affect: anxious and tearful Skin no rashes or lesions noted, no wounds and skin turgor normal General Skin Exam: elasticity normal; Negative for jaundice or pallor MDM MDM MDM Narrative Medical decision making narrative: Suspect patient's low back pain is due to muscular pain and not herniated disc. Suspect a lot of his symptoms are due to anxiety reaction/panic attack. Patient was treated with lorazepam. Prior records were reviewed. He has been to the emergency department several times for anxiety. Patient was reassessed at 2117. He is much [place]. He was prescribed Tranxene. History & Record Review Additional record(s) reviewed:: Prior outpatient record and Prior ED visit Discharge Plan Triage Chief Complaint: Anxiety ED Provider: Ross Smith Dx/Rx/DC Orders Clinical Impression: Anxiety in acute stress reaction, Palpitations, Acute left-sided low back pain Instructions: ED Anxiety Reaction, ED Back and Neck Pain, General Prescriptions: New clorazepate dipotassium 3.75 mg tablet 3.75 mg PO TID 5 Days Qty: 15 0RF No Action NK Primary Care Provider: [facility] Leonie Ramirez Referrals: Counseling,Center [Group of Physicians] - As soon as possible [facility] Leonie Ramirez [Primary Care Provider] - 1 Week Disposition Disposition: Home, Self Care
[2023-08-26 21:32] VITALS: BP 125/78; PULSE 77; RESP 16; TEMP 36.9; O2SAT 99
== END 2023-08-26 21:39 | disposition home or self-care (01) ==
PROVIDERS: Emergency Provider Emergency Medicine; Visit Provider Emergency Medicine
DX: F43.0 Acute stress reaction (principal); M54.50 Low back pain, unspecified; M79.606 Pain in leg, unspecified; F41.9 Anxiety disorder, unspecified; F17.210 Nicotine dependence, cigarettes, uncomplicated; R00.2 Palpitations
CPT/HCPCS: 99282

== ENCOUNTER 2023-09-07 10:48 | Emergency (ER) | payer MEDICAID, SELFPAY ==
[2023-09-07 10:49] VITALS: BP 138/78; PULSE 69; RESP 18; TEMP 36.6; O2SAT 100; BMI 22.1
--- NOTE | 2023-09-07 11:08 | ED.VIS.BACK ---
HPI History of Present Illness Chief Complaint: Back Detail of Chief Complaint: Back and right hip pain Informant: patient Narrative Narrative: Patient presents with back and right hip pain. He comes from work. Presents via EMS. Patient states that he had been having back pain issues and has been seeing a chiropractor. Saw chiropractor a week ago who adjusted his right hip and ever since then he had some discomfort in his low back and hip especially with certain movements. Today he was at work and had more discomfort in his right back and into the muscles of his right leg and left leg. [place] like his legs were shaking. Patient also with history of significant anxiety. Has had multiple visits to this emergency department for flank and back pain has had multiple CTs. He denies any falls or injuries otherwise. He was also seen by chiropractor yesterday and adjusted. [facility] Medical History Acute hyperventilation syndrome Anxiety Panic attack Polysubstance abuse Tobacco abuse Home Medications clorazepate dipotassium 3.75 mg tablet 3.75 mg PO TID 5 days #15 tabs 08/26/23 [Rx Last Taken Unknown] cyclobenzaprine 10 mg tablet 10 mg PO TID PRN Muscle Spasm #20 TABLETS 09/07/23 [Rx Last Taken Unknown] naproxen 500 mg tablet 500 mg PO BID #14 tabs 09/07/23 [Rx Last Taken Unknown] Allergy/AdvReac Type Severity Reaction Status Date / Time No Known Allergies Allergy Verified 08/16/23 15:40 Surgical History H/O vascular surgery History of appendectomy Social History Smoking Status: Current every day smoker tobacco type: e-cigarettes alcohol intake: never substance use type: amphetamines ROS ROS ED Review of Systems ROS Unobtainable: other Constitutional Constitutional ED: Reports lethargy; Denies chills, fever(s), sweats or weight loss Eyes Eyes: Denies blurry vision, change in vision or diplopia ENT ENT ED: Denies rhinorrhea or sore throat Cardiovascular Cardiovascular: Denies chest pain, orthopnea or racing heartbeat Respiratory/Chest Respiratory/Chest: Denies cough, dyspnea, dyspnea on exertion, orthopnea or sputum Gastrointestinal Gastrointestinal: Denies abdominal pain, diarrhea, nausea or vomiting Genitourinary Genitourinary ED: Denies dysuria, hematuria or urinary frequency Musculoskeletal Musculoskeletal: Reports back pain and other Details: Right leg pain ; Denies arthralgias, myalgias or neck pain Integumentary Denies abscess, Abrasions or rash Neurologic Neurologic: Denies headache(s) or weakness Psychiatric Psychiatric: Denies anxiety, depression or suicidal thoughts Endocrine Endocrinology: Denies polydipsia, polyphagia or polyuria Hematologic/Lymphatic Hematologic/Lymphatic: Denies easy bleeding, easy bruising or lymphadenopathy Allergic/Immunologic Allergic/Immunologic ED: Denies mouth swelling, tongue swelling or urticaria EXAM Physical Exam Const Vital Signs: 09/07/23 10:49 Temperature 97.8 F Temperature Source Temporal Pulse Rate 69 Respiratory Rate 18 Blood Pressure 138/78 H Blood Pressure Mean 98 Pulse Ox 100 Oxygen Delivery Method Room Air Positive well nourished and well developed General Appearance ED: well developed and NAD HEENT Reports TM's clear and moist mucous membranes normocephalic and atraumatic; Negative for trauma or tenderness Tympanic Membrane ED: Yes TM's clear Eyes PERRL and EOMs intact bilaterally General Eye ED: Negative for pale conjunctiva or scleral icterus Neck no lymphadenopathy, supple and no JVD General: Negative for tenderness Chest Wall inspection of chest normal and palpation of chest normal Chest: Negative for tenderness Resp normal respiratory effort and clear to auscultation bilaterally Effort and Inspection: Negative for respiratory distress or pain with movement Auscultation: Negative for rhonchi, wheezes or diminished lung sounds Cardio regular rate, regular rhythm, S1 normal heart sound, S2 normal heart sound and no murmurs Peripheral Pulses: pulses 2+ throughout GI normal to inspection, nondistended, normoactive bowel sounds, soft to palpation, non-tender, non-distended and no masses Back/Spine no CVA tenderness and no thoracic nor lumbar tenderness Back/Spine Narrative: No bony tenderness on exam of the thoracic or lumbar spine. Patient has tenderness over the lumbar paraspinal musculature bilaterally that seems to reproduce pain. He has negative straight leg raises. Deep tendon reflexes plus 2 out of 4 bilaterally at the patella and Achilles. Patient has normal L5 extension. Patient has normal sensation to light touch. Extremity normal to inspection General Extremety ED: Negative for edema General Extremity: Negative for edema Neuro oriented x3, CN's II-XII intact bilaterally, no sensory deficits noted and gait normal Sensorium / Orientation: awake, alert, oriented to person, oriented to place and oriented to time Motor Exam: strength 5/5 throughout and strength abnormal Psych mental status grossly normal Skin no rashes or lesions noted and no wounds MDM MDM MDM Narrative Medical decision making narrative: Patient with atraumatic back pain. Currently feels improved and has been seeing a chiropractor. Multiple visits to the ER for same and has had multiple CT scans of his abdomen pelvis. He does not feel like he needs any imaging and I am in agreement. Suspect possibility of muscle spasm or potentially even sciatica. Will refer to back specialist to follow-up with as well as neurology. Patient has complained of multiple anxiety-like type symptoms but has had intermittent headaches and paresthesias in such. Patient has no red flag symptoms of cauda equina or acute cord compression. Discharge Plan Triage Chief Complaint: Back ED Provider: Ambrose Muñoz Dx/Rx/DC Orders Clinical Impression: Back pain Instructions: ED Back Spasm, No Trauma Prescriptions: New cyclobenzaprine [cyclobenzaprine] 10 mg tablet 10 mg PO TID PRN (Reason: Muscle Spasm) Qty: 20 0RF naproxen 500 mg tablet 500 mg PO BID Qty: 14 0RF No Action clorazepate dipotassium 3.75 mg tablet 3.75 mg PO TID 5 Days Qty: 15 0RF Primary Care Provider: [facility] Leonie Ramirez Referrals: Ronal Talley DO [Med Staff - Active Staff] - 3-5 Days Morris Mcnair MD [Non-Staff -Ordering Privileges] [facility] - Disposition Disposition: Home, Self Care
[2023-09-07 11:21] VITALS: BP 117/69; PULSE 78; RESP 16; O2SAT 99
== END 2023-09-07 11:27 | disposition home or self-care (01) ==
PROVIDERS: Emergency Provider Emergency Medicine; Visit Provider Emergency Medicine
DX: M54.9 Dorsalgia, unspecified (principal); M25.551 Pain in right hip; F41.9 Anxiety disorder, unspecified; R51.9 Headache, unspecified; F17.290 Nicotine dependence, other tobacco product, uncomplicated; R20.2 Paresthesia of skin
CPT/HCPCS: 99282

== ENCOUNTER 2023-09-12 15:35 | Emergency (ER) | payer MEDICAID, SELFPAY ==
[2023-09-12 15:35] VITALS: BP 116/84; PULSE 79; RESP 14; TEMP 36.3; O2SAT 99
--- NOTE | 2023-09-12 17:06 | EDS_ITS ---
HPI History of Present Illness Chief Complaint: Lower Extremity Injury Informant: patient Onset/Context/Timing Onset: Hours (2) Context: Sudden Onset Timing: Continuous Quality: Anxious Location: Generalized Worsened by: Nothing Relieved by: Ativan Narrative Narrative: Patient presents with anxiety that began again today. Patient states he has been having difficulty with anxiety attacks over the past 2 months. Patient states that today it became worse. Patient states it began rather suddenly. Patient states he feels anxious all over. Patient states that yesterday he took an Ativan which helped. Patient states nothing makes it worse. Patient states that he has been having some visual changes where he sees things moving in his vision. Patient also admits to some shortness of breath where he feels like he cannot catch his breath. Patient admits to some nausea but denies any vomiting. Patient admits to some pain in his neck and back. Patient admits to some diffuse abdominal pain. Patient also admits to headache. Patient states he has been feeling depressed but denies any suicidal or homicidal ideations. [facility] Medical History Acute hyperventilation syndrome Anxiety Panic attack Polysubstance abuse Tobacco abuse Home Medications clorazepate dipotassium 3.75 mg tablet 3.75 mg PO TID 5 days #15 tabs 08/26/23 [Rx Last Taken Unknown] cyclobenzaprine 10 mg tablet 10 mg PO TID PRN Muscle Spasm #20 TABLETS 09/07/23 [Rx Last Taken Unknown] naproxen 500 mg tablet 500 mg PO BID #14 tabs 09/07/23 [Rx Last Taken Unknown] Allergy/AdvReac Type Severity Reaction Status Date / Time No Known Allergies Allergy Verified 09/12/23 15:36 Surgical History H/O vascular surgery History of appendectomy Social History Smoking Status: Current every day smoker tobacco type: e-cigarettes alcohol intake: never substance use type: amphetamines ROS ROS ED Constitutional Constitutional ED: Denies chills or fever(s) Eyes Eyes: Reports change in vision; Denies blurry vision ENT ENT ED: Denies rhinorrhea or sore throat Cardiovascular Cardiovascular: Denies chest pain or palpitations Respiratory/Chest Respiratory/Chest: Reports dyspnea; Denies cough Gastrointestinal Gastrointestinal: Reports nausea; Denies vomiting Genitourinary Genitourinary ED: Denies dysuria or hematuria Musculoskeletal Musculoskeletal: Reports back pain and neck pain Integumentary Denies abscess or rash Neurologic Neurologic: Reports headache(s); Denies weakness Psychiatric Psychiatric: Reports anxiety and depression; Denies suicidal ideation or suicidal thoughts Allergic/Immunologic Allergic/Immunologic ED: Denies mouth swelling or urticaria EXAM Physical Exam Const Vital Signs: 09/12/23 15:35 09/12/23 17:08 09/12/23 17:35 Temperature 97.3 F L Temperature Source Temporal Pulse Rate 79 85 Respiratory Rate 14 13 Respiratory Effort Normal Respiratory Pattern Normal Blood Pressure 116/84 H 117/78 Blood Pressure Mean 94 91 Pulse Ox 99 99 Oxygen Delivery Method Room Air Room Air Positive well nourished and well developed General Appearance ED: well developed and NAD HEENT Reports moist mucous membranes Neck supple and no JVD Resp normal respiratory effort and clear to auscultation bilaterally Cardio regular rate and regular rhythm GI non-distended Palpation: soft and tender epigastric, LLQ, RLQ, LUQ, RUQ, periumbilical and suprapubic; Negative for guarding or rebound tenderness present Extremity normal to inspection Neuro oriented x3, CN's II-XII intact bilaterally and no sensory deficits noted Sensorium / Orientation: alert Motor Exam: strength 5/5 throughout Psych Mood & Affect: depressed MDM MDM MDM Narrative Medical decision making narrative: Differential diagnosis includes anxiety, depression, gastroenteritis, e lectrolyte abnormality, dehydration, urinary tract infection, and muscle strain. CBC will be obtained to assess for leukocytosis and anemia. Basic metabolic profile will be obtained to assess for electrolyte abnormality and renal function. Urinalysis will be obtained to assess for urinary tract infection and hematuria. Lab Data Attestation: I reviewed the patient's lab results. Lab results narrative: CBC was reviewed and was within normal limits. Basic metabolic profile was reviewed and was within normal limits. Urinalysis was reviewed. There is no evidence of urinary tract infection or hematuria. Urine tox screen was positive for cannabinoids. Labs: Laboratory Results - last 24 hr 09/12/23 09/12/23 17:24 17:30 WBC 4.8 RBC 5.22 Hgb 15.6 Hct 45.7 MCV 87.5 MCH 29.9 MCHC 34.1 RDW Std Deviation 39.5 RDW Coeff of Johanna 12.3 Plt Count 226 MPV 9.6 Immature Gran % (Auto) 0.200 Neut % (Auto) 45.6 L Lymph % (Auto) 42.9 H [place] % (Auto) 9.7 Eos % (Auto) 1.0 Baso % (Auto) 0.6 Absolute Neuts (auto) 2.2 Absolute Lymphs (auto) 2.07 Nucleated RBC % 0 Sodium 142 Potassium 4.1 Chloride 107 Carbon Dioxide 30.0 Anion Gap 5 BUN 10 Creatinine 0.91 Est GFR (MDRD) Af Amer 125 Est GFR (MDRD) Non-Af 103 BUN/Creatinine Ratio 11.0 Glucose 92 Calcium 9.1 Urine Color Yellow Urine Clarity Clear Urine pH 8.0 Ur Specific [place] 1.010 Urine Protein Negative Urine Glucose (UA) Normal Urine Ketones Negative Urine Occult Blood Negative Urine Nitrite Negative Urine Bilirubin Negative Urine Urobilinogen Normal Ur Leukocyte Esterase Negative Urine RBC 0 SEEN Urine WBC 0 SEEN Ur Squamous Epith Cells 0 SEEN Urine Bacteria 0 SEEN Urine Mucus 0 SEEN Urine Opiates Screen NEGATIVE Urine Methadone Screen NEGATIVE Ur Barbiturates Screen NEGATIVE Ur Phencyclidine Scrn NEGATIVE Ur Amphetamines Screen NEGATIVE MDMA (Ecstasy) Screen NEGATIVE U Benzodiazepines Scrn NEGATIVE Urine Cocaine Screen NEGATIVE U Cannabinoids Screen POSITIVE H Ur Drug Screen Comment Treatment and Re-Evaluation :: Patient was given IV fluids. Patient was given a dose of Toradol here. Patient states he felt no better. Patient was given a dose of BuSpar. Patient was advised of his findings. Patient was advised of the need to follow-up with his primary care physician at [facility]. Patient was advised that he would need prescriptions for his anxiety from them not from the emergency department. Patient understood and was agreeable with the plan. All questions were answered. Discharge Plan Triage Chief Complaint: Lower Extremity Injury Other Complaint: Weakness ED Provider: Donnie Carter Dx/Rx/DC Orders Clinical Impression: Acute anxiety, Nicotine dependence Instructions: ED Anxiety Reaction Prescriptions: No Action cyclobenzaprine [cyclobenzaprine] 10 mg tablet 10 mg PO TID PRN (Reason: Muscle Spasm) Qty: 20 0RF naproxen 500 mg tablet 500 mg PO BID Qty: 14 0RF clorazepate dipotassium 3.75 mg tablet 3.75 mg PO TID 5 Days Qty: 15 0RF Primary Care Provider: Medical Leonie Ramirez [facility] [Primary Care Provider] - 3-5 Days Disposition Disposition: Home, Self Care
[2023-09-12] MEDS: 0.9% Normal Saline (1000mL) 1,000 ML 1000 ML IV (17:25)
[2023-09-12] MEDS: Ketorolac 30 MG/ML Syringe IV (17:25)
[2023-09-12 17:35] VITALS: BP 117/78; PULSE 85; RESP 13; O2SAT 99
[2023-09-12 17:35] LABS: Absolute Lymphocyte Count 2.07 X10^3/uL (0.83-4.51); Absolute Neutrophil Count 2.2 X10^3/uL (2.0-7.7); Basophil# 0.03 X10^3/uL; Basophil% 0.6 % (0-1); Eosinophil# 0.05 X10^3/uL; Hematocrit 45.7 % (40-54); Hemoglobin 15.6 g/dL (13.0-16.5); Lymphocyte # 2.07 X10^3/ul (0.83-4.51); Lymphocyte % 42.9 % (19-41); Mean Corp Hgb Conc 34.1 g/dL (32-36); Mean Corpuscular Hgb 29.9 pg (27.0-32.0); Mean Corpuscular Volume 87.5 fL (80-94); Mean Platelet Vol. 9.6 fl (6.2-12.0); Monocyte# 0.47 X10^3/uL; Monocyte% 9.7 % (0-10); NRBC Flagged by Analyzer 0 % (0-5); Neutrophil % 45.6 % (47-70); Platelet Count 226 K/mm3 (150-450); RBC Distribution Width CV 12.3 % (11.6-14.6); RBC Distribution Width SD 39.5 fl (35.1-43.9); Red Blood Count 5.22 M/mm3 (4.6-6.2); White Blood Count 4.8 K/mm3 (4.4-11.0)
[2023-09-12 17:42] LABS: Bacteria 0 SEEN /hpf (None Seen); Color, Urine Yellow (Yellow); Glucose, Dipstick Normal (Normal); Ketone-Dipstick Negative (Negative); Leukocyte Esterase-Dipstick Negative /ul (Negative); Mucous, Urine 0 SEEN /hpf (<or=2+); Nitrite-Dipstick Negative (Negative); Occult Blood-Urine Negative /ul (Negative); Protein-Dipstick Negative (Negative); Red Blood Cells-Urine 0 SEEN /hpf (0-5); Squamous Epithelial Cells - UA 0 SEEN /hpf (0-5); Urine Bilirubin Dipstick Negative (Negative); Urine Clarity Clear (Clear); Urine Urobilinogen Normal (Normal); White Blood Cells 0 SEEN /hpf (0-5)
[2023-09-12 17:49] LABS: Anion Gap 5 (5-15); BUN 10 mg/dL (7-18); Calcium,Total 9.1 mg/dL (8.5-10.1); Chloride 107 mmol/L (98-107); Creatinine, Serum 0.91 mg/dL (0.70-1.30); EST Glomerular Filtration Rate 103 mL/min (>60); Est Glom Filt Rate - Afr Amer 125 mL/min (>60); Glucose 92 mg/dL (74-106); Potassium 4.1 mmol/L (3.5-5.1); Sodium Level 142 mmol/L (136-145)
[2023-09-12 17:57] LABS: Amphetamine Urine VISTA NEGATIVE (<1000 ng/mL); Barbiturate Urine VISTA NEGATIVE (< 200 ng/mL); Benzodiazepine Urine VISTA NEGATIVE (< 200 ng/mL); Cocaine Urine VISTA NEGATIVE (< 300 ng/mL); Ecstacy Urine VISTA NEGATIVE (< 500 ng/mL); Methadone Urine VISTA NEGATIVE (< 300 ng/mL); PCP Urine VISTA NEGATIVE (< 25 ng/mL); THC Urine VISTA POSITIVE (< 50 ng/mL); Vista UDS pH Range 7
[2023-09-12 19:00] VITALS: BP 124/70; PULSE 74; RESP 16; O2SAT 96
[2023-09-12 19:21] VITALS: BP 123/84; PULSE 75; RESP 16; TEMP 36.8; O2SAT 99
== END 2023-09-12 19:45 | disposition home or self-care (01) ==
PROVIDERS: Emergency Provider Emergency Medicine; Visit Provider Emergency Medicine
DX: F41.9 Anxiety disorder, unspecified (principal); R53.1 Weakness; R51.9 Headache, unspecified; R10.84 Generalized abdominal pain; M54.9 Dorsalgia, unspecified; R11.0 Nausea; F17.290 Nicotine dependence, other tobacco product, uncomplicated; R06.00 Dyspnea, unspecified; F32.A Depression, unspecified
CPT/HCPCS: 80048; 80307; 81001; 85025; 96361; 96374; 99285; A4216

== ENCOUNTER 2023-09-15 18:20 | Emergency (ER) | payer MEDICAID, SELFPAY ==
[2023-09-15 18:22] VITALS: BP 118/66; PULSE 94; RESP 24; TEMP 36.3; O2SAT 96; BMI 21.2
--- NOTE | 2023-09-15 18:33 | EDS_ITS ---
HPI History of Present Illness Chief Complaint: Back [facility] Medical History Acute hyperventilation syndrome Anxiety Panic attack Polysubstance abuse Tobacco abuse Home Medications clorazepate dipotassium 3.75 mg tablet 3.75 mg PO TID 5 days #15 tabs 08/26/23 [Rx Last Taken Unknown] cyclobenzaprine 10 mg tablet 10 mg PO TID PRN Muscle Spasm #20 TABLETS 09/07/23 [Rx Last Taken Unknown] naproxen 500 mg tablet 500 mg PO BID #14 tabs 09/07/23 [Rx Last Taken Unknown] Allergy/AdvReac Type Severity Reaction Status Date / Time No Known Allergies Allergy Verified 09/12/23 15:36 Surgical History H/O vascular surgery History of appendectomy Social History Smoking Status: Current every day smoker tobacco type: e-cigarettes alcohol intake: never substance use type: amphetamines EXAM Physical Exam Const Vital Signs: 09/15/23 18:22 Temperature 97.3 F L Temperature Source Axillary Pulse Rate 94 Respiratory Rate 24 H Blood Pressure 118/66 Blood Pressure Mean 83 Pulse Ox 96 Oxygen Delivery Method Room Air [facility] MDM MDM Narrative Medical decision making narrative: HISTORY OF PRESENT ILLNESS: 32-year-old male presents with back pain. Patient notes mid back pain. Notes acute on chronic back pain. Notes 2 years of back pain is worse over the last month. Denies any recent falls or other trauma. Denies any urinary complaints. Denies history of kidney or liver failure. Patient denies any saddle anesthesia, urinary tension, bowel or bladder incontinence, lower extremity weakness, fever or IV drug use, no recent spinal manipulation or surgery, no recent urinary catheterization. REVIEW OF SYSTEMS: All other systems reviewed and are negative except as noted in the history of present illness. At least 10 review of systems reviewed and are negative except as noted in history of present illness. PHYSICAL EXAM: Nursing triage notes reviewed, Vital signs reviewed Constitutional: please see mdm HENT: MMM Eyes: Pupils equal round and reactive to light, Extraocular muscles intact Neck: No stridor, no JVD, full neck ROM Lungs: Clear to auscultation, No wheezing or rales. No increased work of breathing, no conversational dyspnea, no accessory muscle use, no nasal flaring. No respiratory distress noted Heart: Regular rate and rhythm, No murmurs, No rubs and No gallops, 2+ distal pulses (radial, femoral, posterior tibial) in all extremities Abdomen: Soft, there is no tenderness, rigidity, rebound or guarding, no obvious peritoneal signs, no palpable pulsatile abdominal masses, no auscultated abdominal bruit : No CVAT Extremities: No edema Back: No midline step-offs or deformities Neuro: Intact sensation L1-S1 dermatomal distributions. Intact 5/5 strength in hip flexion (T12-L3). Knee extension (L2-L4). Ankle dorsiflexion (L4-L5). Ankle plantar flexion (S1). Great toe extension (L5). 2+ patellar and Achilles DTRs. Skin: No rash or lesions noted MEDICAL DECISION MAKING: Chief Complaint: Back pain External records reviewed: Recent advanced imaging of the axial skeleton Factors affecting care: Chronic back pain Social determinants of health: No IV drug use, although document history of polysubstance abuse ALL IMAGES (IF OBTAINED) HAVE BEEN PERSONALLY REVIEWED AND INTERPRETED BY MYSELF. MDM Narrative: Patient was hemodynamically stable, afebrile and nontoxic-appearing. No back pain red flags. No focal neurologic deficits. I suspect the patient suffering from mechanical etiology. I considered the following differential diagnosis: Musculoskeletal back pain, space-occupying lesion of the spinal (epidural abscess, epidural hematoma), cauda equina, conus medullaris, fracture dislocation, AAA, nephrolithiasis, pyelonephritis, aortic dissection The patient presented complaining of back pain. There was no history of recent fall or trauma. There was no evidence to support genitourinary etiology. There is also no evidence to suggest vascular pathology such as AAA dissection. No fevers or other evidence to suspect infectious processes, abscess, osteomyelitis etc. The patient?s neurological exam is normal with normal motor and sensory. There is no saddle paresthesias reported and no bowel or bladder incontinence or retention. I suspect the pain is mechanical in nature. Clinical suspicion, plan of care and management was discussed with the patient. The patient was instructed to follow up with their health care provider. The patient was also instructed to return if the pain worsened, changed, or developed weakness or bowel or bladder trouble. The patient agreed with plan. I completed a structured, evidence-based clinical evaluation to screen for acute non-traumatic spinal emergencies. The patient has a normal detailed neurologic exam and red flag historical factors were negative. The evidence indicates that the patient is very low risk for an acute spinal emergency and this is consistent with my clinical intuition. The risk of further workup is higher than the likelihood of the patient having a spinal epidural abscess or other dangerous emergency spinal condition. It is, therefore, in the patient?s best interest not to do additional emergent testing at this time. Shared Decision-Making I have discussed with the patient my clinical impression and the result of an evidence-based clinical evaluation to screen for spinal epidural abscess and other spinal emergencies, as well as the risk of further testing and hospitalization. The evidence shows that the risk for an acute spinal emergency is less than 1%. Although the risk of an acute spinal emergency has not been completely eliminated, the risks of further testing likely exceed any potential benefit, and the patient agrees with not pursuing further emergent evaluation for causes of back pain at this time. The patient and/or family, caregivers express understanding. The patient and/or family, caregivers agrees with the plan. Total critical care time today provided was at least 0 minutes. This excludes separately billable procedures. Critical care time (if documented) is secondary to the patient having high probability of clinically significant/life threatening deterioration in the patient's condition which required my urgent intervention. Impression: 1. Acute on chronic back pain Disposition: Discharge Ranjan Grimes DO Discharge Plan Triage Chief Complaint: Back ED Provider: Ranjan Grimes Dx/Rx/DC Orders Prescriptions: No Action cyclobenzaprine [cyclobenzaprine] 10 mg tablet 10 mg PO TID PRN (Reason: Muscle Spasm) Qty: 20 0RF naproxen 500 mg tablet 500 mg PO BID Qty: 14 0RF clorazepate dipotassium 3.75 mg tablet 3.75 mg PO TID 5 Days Qty: 15 0RF Primary Care Provider: [facility]: [facility] -
[2023-09-15] MEDS: Lidocaine 5% Patch 1 PATCH TOPICAL (19:10)
[2023-09-15] MEDS: Ibuprofen 200 MG Tablet 400 MG PO (19:11)
[2023-09-15] MEDS: Acetaminophen 325 MG Tablet PO (19:11)
[2023-09-15 19:14] VITALS: BP 137/80; PULSE 89; RESP 16; TEMP 37.1; O2SAT 96
== END 2023-09-15 19:15 | disposition home or self-care (01) ==
PROVIDERS: Emergency Provider Emergency Medicine; Visit Provider Emergency Medicine
DX: G89.29 Other chronic pain (principal); M54.9 Dorsalgia, unspecified; F17.290 Nicotine dependence, other tobacco product, uncomplicated
CPT/HCPCS: 99282

== ENCOUNTER 2023-09-16 09:58 | Emergency (ER) | payer MEDICAID, SELFPAY ==
[2023-09-16 09:59] VITALS: BP 112/73; PULSE 94; RESP 14; TEMP 36.2; O2SAT 100; BMI 20.2
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
[2023-09-16] MEDS: Ketorolac 60 MG/2 ML Vial IM (10:29)
[2023-09-16] MEDS: diazePAM 5 MG Tablet PO (10:29)
== END 2023-09-16 11:29 | disposition home or self-care (01) ==
PROVIDERS: Emergency Provider Emergency Medicine; Visit Provider Emergency Medicine
DX: M54.9 Dorsalgia, unspecified (principal); G89.29 Other chronic pain; F41.9 Anxiety disorder, unspecified; F17.290 Nicotine dependence, other tobacco product, uncomplicated
CPT/HCPCS: 96372; 99282

== ENCOUNTER 2023-09-20 12:12 | Emergency (ER) | payer MEDICAID, SELFPAY ==
[2023-09-20 12:13] VITALS: BP 134/88; PULSE 91; RESP 16; TEMP 36.8; O2SAT 100; BMI 20.1
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
[2023-09-20 12:51] VITALS: BP 135/78; PULSE 78; RESP 14; TEMP 36.7; O2SAT 99
== END 2023-09-20 13:00 | disposition home or self-care (01) ==
PROVIDERS: Emergency Provider Emergency Medicine; Visit Provider Emergency Medicine
DX: F41.9 Anxiety disorder, unspecified (principal); F17.290 Nicotine dependence, other tobacco product, uncomplicated; R09.A2 Foreign body sensation, throat
CPT/HCPCS: 99282

== ENCOUNTER 2023-09-25 03:17 | Emergency (ER) | payer MEDICAID, SELFPAY ==
[2023-09-25 03:19] VITALS: BP 123/70; PULSE 114; RESP 16; TEMP 37.1; O2SAT 94; BMI 20.7
[2023-09-25] MEDS: Orphenadrine 60 MG/2 ML Ampul IM (03:44)
[2023-09-25] MEDS: Ketorolac 30 MG/ML Syringe IM (03:44)
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
[2023-09-25 04:51] VITALS: BP 120/83; PULSE 63; RESP 16; TEMP 36.2; O2SAT 96
== END 2023-09-25 04:56 | disposition home or self-care (01) ==
PROVIDERS: Emergency Provider Emergency Medicine; Visit Provider Emergency Medicine
DX: M54.12 Radiculopathy, cervical region (principal); M62.838 Other muscle spasm; F41.9 Anxiety disorder, unspecified; F17.290 Nicotine dependence, other tobacco product, uncomplicated
CPT/HCPCS: 96372; 99283; A4216

== ENCOUNTER 2023-09-26 08:19 | Emergency (ER) | payer MEDICAID, SELFPAY ==
[2023-09-26 08:20] VITALS: BP 141/92; PULSE 75; RESP 16; TEMP 36.6; O2SAT 99; BMI 20.9
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
[2023-09-26] MEDS: Oxymetazoline 0.05% 1 SPRAY SPRAY.BTL 2 SPRAY NASAL (08:51)
== END 2023-09-26 09:52 | disposition home or self-care (01) ==
PROVIDERS: Emergency Provider Emergency Medicine; Visit Provider Emergency Medicine
DX: R04.0 Epistaxis (principal); F41.9 Anxiety disorder, unspecified; F17.290 Nicotine dependence, other tobacco product, uncomplicated
CPT/HCPCS: 30901; 99282

== ENCOUNTER 2023-09-27 07:22 | Emergency (ER) | payer MEDICAID, SELFPAY ==
[2023-09-27 07:23] VITALS: BP 135/94; PULSE 95; RESP 18; TEMP 36.6; O2SAT 96; BMI 20.7
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
[2023-09-27] MEDS: Orphenadrine 60 MG/2 ML Ampul IM (07:48)
[2023-09-27] MEDS: Ketorolac 60 MG/2 ML Vial IM (07:48)
[2023-09-27 11:22] VITALS: BP 128/88; PULSE 90; RESP 16; O2SAT 99
--- NOTE | 2023-09-27 11:41 | ED.RN ---
GERALD, SOCIAL WORK, UP TO SEE PT
--- NOTE | 2023-09-27 11:42 | ED.RN ---
SOCIAL WORK INTO ROOM. PT LES
== END 2023-09-27 11:45 | disposition home or self-care (01) ==
PROVIDERS: Emergency Provider Emergency Medicine; Visit Provider Emergency Medicine
DX: M62.830 Muscle spasm of back (principal); F41.9 Anxiety disorder, unspecified; M54.50 Low back pain, unspecified; Z79.899 Other long term (current) drug therapy; F17.290 Nicotine dependence, other tobacco product, uncomplicated
CPT/HCPCS: 96372; 99282

== ENCOUNTER 2023-09-27 15:45 | Emergency (ER) | payer MEDICAID, SELFPAY ==
[2023-09-27 15:46] VITALS: BP 95/65; PULSE 98; RESP 22; TEMP 36.3; O2SAT 100; BMI 20.7
--- NOTE | 2023-09-27 18:46 | CT_ITS ---
STUDY: CT CERVICAL SPINE WITHOUT CONTRAST REASON FOR EXAM: Male, 32 years old. neck pain RADIATION DOSAGE (If Supplied By Facility): CTDIvol = ( 15.23 ) mGy, DLP = ( 662.87 ) mGycm TECHNIQUE: High resolution transaxial imaging was performed without contrast material. Sagittal and coronal images were reconstructed. Individualized dose optimization techniques were used for this CT. COMPARISON: 08/19/2023 FINDINGS: Normal craniovertebral junction. Normal anterior atlantoaxial articulation. Normal odontoid process. Normal cervical lordosis. Normal vertebral bodies and posterior osseous elements. C2-3: Normal endplates. Normal disc height and morphology. Normal central canal and intervertebral neuroforamina. C3-4: Normal endplates. Normal disc height and morphology. Normal central canal and intervertebral neuroforamina. C4-5: Normal endplates. Normal disc height and morphology. Normal central canal and intervertebral neuroforamina. C5-6: Normal endplates. Normal disc height and morphology. Normal central canal and intervertebral neuroforamina. C6-7: Normal endplates. Normal disc height and morphology. Normal central canal and intervertebral neuroforamina. C7-T1: Normal endplates. Normal disc height and morphology. Normal central canal and intervertebral neuroforamina. Normal visualized soft tissue structures. CT/Spine Cervical without Contras IMPRESSION: Normal unenhanced CT examination of the cervical spine. Electronically Signed: Praveen Deleon MD at 19:58 EDT ,
--- NOTE | 2023-09-27 18:46 | CT_ITS ---
INDICATION: chest and back pain EXAMINATION: CTA CHEST, ABDOMEN AND PELVIS WITH CONTRAST - TECHNIQUE: A CTA of the chest, abdomen, and pelvis is obtained with sagittal and coronal reconstructed MIP views. Three-dimensional surface rendered sequence of the thoracic and abdominal aorta was obtained. A radiation dose optimization technique was used for this scan. 100 mL of Isovue-[id number]. Oral contrast: None. COMPARISON: 08/08/2023 FINDINGS: CT CHEST: THORACIC AORTA: No atheromatous disease, no aneurysmal changes or dissection. ABDOMINAL AORTA: No aneurysm or dissection. No significant atheromatous disease. The iliac arteries are unremarkable. LUNGS: The lungs are well-expanded without acute or chronic changes. No effusions or pneumothorax. MEDIASTINUM: The thyroid gland is normal. No mediastinal or hilar adenopathy. HEART: Heart is normal size. No pericardial effusion. No CAD. CT ABDOMEN AND PELVIS: LIVER: The liver enhances homogeneously. No masses identified. GALLBLADDER: The CBD is normal. Normal gallbladder. SPLEEN: Normal. PANCREAS: No masses or inflammation. ADRENAL GLANDS: Normal. KIDNEYS AND URETERS: The kidneys both enhance appropriately. There are normal size and shape. No hydronephrosis or nephrolithiasis. No renal masses or cysts. STOMACH: Normal. SMALL BOWEL: No abnormal distention of the small bowel. MESENTERY: No mesenteric inflammation. No ascites. COLON: No significant diverticulosis, masses or inflammation. The colon otherwise is normal. There is a large fatty ileocecal valve. APPENDIX: Status post appendectomy. IVC: Normal. RETROPERITONEUM: No retroperitoneal lymphadenopathy. PELVIC STRUCTURES: Normal bladder. SOFT TISSUES ABDOMEN: The anterior abdominal wall is normal. SOFT TISSUE CHEST: The extrathoracic soft tissues are normal. BONES: No fractures or significant degenerative disease. CT/CTA Chst, Abd, Pel W and/or WO IMPRESSION: Normal contrast-enhanced CT of the chest. Normal contrast-enhanced CT of the abdomen and pelvis. Electronically Signed: Praveen Deleon MD at 20:30 EDT ,
[2023-09-27] MEDS: Ketorolac 15 MG/ML Vial IV (19:10)
[2023-09-27 19:21] LABS: Absolute Lymphocyte Count 2.24 X10^3/uL (0.83-4.51); Absolute Neutrophil Count 4.9 X10^3/uL (2.0-7.7); Basophil# 0.05 X10^3/uL; Basophil% 0.6 % (0-1); Eosinophil# 0.01 X10^3/uL; Eosinophils% 0.1 % (0-5); Hematocrit 44.8 % (40-54); Hemoglobin 15.5 g/dL (13.0-16.5); Lymphocyte # 2.24 X10^3/ul (0.83-4.51); Mean Corp Hgb Conc 34.6 g/dL (32-36); Mean Corpuscular Hgb 29.1 pg (27.0-32.0); Mean Corpuscular Volume 84.2 fL (80-94); Mean Platelet Vol. 9.7 fl (6.2-12.0); Monocyte# 0.56 X10^3/uL; Monocyte% 7.2 % (0-10); NRBC Flagged by Analyzer 0 % (0-5); Neutrophil # 4.85 X10^3/uL (2.7-7.7); Neutrophil % 62.8 % (47-70); Platelet Count 252 K/mm3 (150-450); RBC Distribution Width CV 11.8 % (11.6-14.6); RBC Distribution Width SD 35.7 fl (35.1-43.9); Red Blood Count 5.32 M/mm3 (4.6-6.2); White Blood Count 7.7 K/mm3 (4.4-11.0)
[2023-09-27 19:47] LABS: Bacteria 0 SEEN /hpf (None Seen); Mucous, Urine 0 SEEN /hpf (<or=2+); Red Blood Cells-Urine 0 SEEN /hpf (0-5); Squamous Epithelial Cells - UA 0 SEEN /hpf (0-5); White Blood Cells 0 SEEN /hpf (0-5)
[2023-09-27 19:48] LABS: Anion Gap 8 (5-15); BUN 8 mg/dL (7-18); BUN/Creat Ratio 8.2 RATIO (10-20); Calcium,Total 9.4 mg/dL (8.5-10.1); Chloride 110 mmol/L (98-107); Creatinine, Serum 0.97 mg/dL (0.70-1.30); EST Glomerular Filtration Rate 95 mL/min (>60); Est Glom Filt Rate - Afr Amer 115 mL/min (>60); Estimated Creatinine Clearance 99.11 ml/min; Glucose 96 mg/dL (74-106); Potassium 3.2 mmol/L (3.5-5.1); Sodium Level 142 mmol/L (136-145); Troponin-I HS 7 pg/mL (3.0-78.0)
[2023-09-27 19:55] LABS: Color, Urine Straw (Yellow); Glucose, Dipstick Normal (Normal); Ketone-Dipstick 5 mg/dl (Negative); Leukocyte Esterase-Dipstick Negative /ul (Negative); Nitrite-Dipstick Negative (Negative); Occult Blood-Urine Negative /ul (Negative); Protein-Dipstick Negative (Negative); Urine Bilirubin Dipstick Negative (Negative); Urine Clarity Clear (Clear); Urine Urobilinogen Normal (Normal)
[2023-09-27 20:00] VITALS: BP 120/75; PULSE 59; RESP 16; TEMP 36.3; O2SAT 99
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
[2023-09-27 20:06] LABS: Amphetamine Urine VISTA NEGATIVE (<1000 ng/mL); Barbiturate Urine VISTA NEGATIVE (< 200 ng/mL); Benzodiazepine Urine VISTA NEGATIVE (< 200 ng/mL); Cocaine Urine VISTA NEGATIVE (< 300 ng/mL); Ecstacy Urine VISTA NEGATIVE (< 500 ng/mL); Methadone Urine VISTA NEGATIVE (< 300 ng/mL); PCP Urine VISTA NEGATIVE (< 25 ng/mL); THC Urine VISTA POSITIVE (< 50 ng/mL); Vista UDS pH Range 7
[2023-09-27 20:29] VITALS: BP 120/75; PULSE 59; RESP 16; TEMP 36.3; O2SAT 99
== END 2023-09-27 20:49 | disposition home or self-care (01) ==
PROVIDERS: Emergency Provider Student in an Organized Health Care Education/Training Program; Visit Provider Student in an Organized Health Care Education/Training Program
DX: M62.830 Muscle spasm of back (principal); R07.9 Chest pain, unspecified; F41.9 Anxiety disorder, unspecified; M54.50 Low back pain, unspecified; M54.2 Cervicalgia; F17.290 Nicotine dependence, other tobacco product, uncomplicated; Z79.899 Other long term (current) drug therapy; R10.9 Unspecified abdominal pain
CPT/HCPCS: 71275; 72125; 74174; 80048; 80307; 81001; 84484; 85025; 93005; 96374; 99283; Q9967; A4216

== ENCOUNTER → 2023-09-28 | Outpatient (CLI) | payer MEDICAID, SELFPAY ==
--- NOTE | 2023-09-28 17:17 | MRI_ITS ---
STUDY: MRI CERVICAL SPINE WITHOUT CONTRAST REASON FOR EXAM: Male, 32 years old. Pain TECHNIQUE: Standardized fat and water weighted pulse sequences were obtained in the sagittal and axial planes. COMPARISON: CT September 27, 2023 FINDINGS: Normal foramen magnum and brainstem-cervical cord junction. Normal craniovertebral junction. Normal anterior atlantoaxial articulation. Normal odontoid process. Normal cervical lordosis. Normal vertebral bodies and posterior osseous elements. There is no acute fracture C2-3: Normal endplates. Normal disc height, signal and morphology. Normal central canal and intervertebral neural foramina. C3-4: Normal endplates. Normal disc height, signal and morphology. Normal central canal and intervertebral neural foramina. C4-5: Normal endplates. Normal disc height, signal and morphology. Normal central canal and intervertebral neural foramina. C5-6: Normal endplates. Normal disc height, signal and morphology. Normal central canal and intervertebral neural foramina. C6-7: Normal endplates. Normal disc height, signal and morphology. Normal central canal and intervertebral neural foramina. C7-T1: Normal endplates. Normal disc height, signal and morphology. Normal central canal and intervertebral neural foramina. Normal cervical cord. Normal visualized soft tissue structures. MRI/Spine Cervical (Routine) IMPRESSION: Normal unenhanced MR examination of the cervical spine. Electronically Signed: Jad Cardona MD at 23:31 EDT ,
== END | disposition home or self-care (01) ==
LOC: MRI 17:07
PROVIDERS: Referring Provider Orthopaedic Surgery Orthopaedic Surgery of the Spine; Visit Provider Orthopaedic Surgery Orthopaedic Surgery of the Spine
DX: M54.12 Radiculopathy, cervical region (principal)
CPT/HCPCS: 72141

== ENCOUNTER 2023-09-30 12:49 | Emergency (ER) | payer MEDICAID, SELFPAY ==
[2023-09-30 12:49] VITALS: BP 116/92; PULSE 85; RESP 16; TEMP 36.6; O2SAT 98; BMI 19.7
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
[2023-09-30] MEDS: Mag Hydrox/Al Hydrox/Simeth 30 ML UDC PO (13:15)
== END 2023-09-30 13:30 | disposition home or self-care (01) ==
LOC: ED 13:10
PROVIDERS: Emergency Provider Emergency Medicine; Visit Provider Emergency Medicine
DX: R10.9 Unspecified abdominal pain (principal); F17.290 Nicotine dependence, other tobacco product, uncomplicated
CPT/HCPCS: 99282

== ENCOUNTER 2023-10-02 17:03 | Emergency (ER) | payer MEDICAID, SELFPAY ==
[2023-10-02 17:04] VITALS: BP 141/70; PULSE 118; RESP 24; TEMP 35.9; O2SAT 94; BMI 21.2
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
[2023-10-02] MEDS: LORazepam 2 MG/ML Syringe 1 MG IV (17:27)
[2023-10-02 17:38] LABS: Absolute Lymphocyte Count 1.55 X10^3/uL (0.83-4.51); Absolute Neutrophil Count 3.6 X10^3/uL (2.0-7.7); Basophil# 0.05 X10^3/uL; Basophil% 0.9 % (0-1); Eosinophil# 0.03 X10^3/uL; Eosinophils% 0.5 % (0-5); Hemoglobin 15.6 g/dL (13.0-16.5); Lymphocyte # 1.55 X10^3/ul (0.83-4.51); Lymphocyte % 27.2 % (19-41); Mean Corp Hgb Conc 34.7 g/dL (32-36); Mean Corpuscular Hgb 29.8 pg (27.0-32.0); Mean Platelet Vol. 9.7 fl (6.2-12.0); Monocyte# 0.43 X10^3/uL; Monocyte% 7.6 % (0-10); NRBC Flagged by Analyzer 0 % (0-5); Neutrophil # 3.61 X10^3/uL (2.7-7.7); Neutrophil % 63.4 % (47-70); Platelet Count 261 K/mm3 (150-450); RBC Distribution Width CV 11.9 % (11.6-14.6); RBC Distribution Width SD 37.4 fl (35.1-43.9); Red Blood Count 5.23 M/mm3 (4.6-6.2); White Blood Count 5.7 K/mm3 (4.4-11.0)
[2023-10-02 17:43] LABS: Amphetamine Urine VISTA NEGATIVE (<1000 ng/mL); Barbiturate Urine VISTA NEGATIVE (< 200 ng/mL); Benzodiazepine Urine VISTA NEGATIVE (< 200 ng/mL); Cocaine Urine VISTA NEGATIVE (< 300 ng/mL); Ecstacy Urine VISTA NEGATIVE (< 500 ng/mL); Methadone Urine VISTA NEGATIVE (< 300 ng/mL); PCP Urine VISTA NEGATIVE (< 25 ng/mL); THC Urine VISTA POSITIVE (< 50 ng/mL); Vista UDS pH Range 6
[2023-10-02 17:46] LABS: Alcohol, Blood (Medical)-Serum < 3.0 mg/dL
[2023-10-02 17:58] LABS: Anion Gap 5 (5-15); BUN 11 mg/dL (7-18); BUN/Creat Ratio 10.2 RATIO (10-20); Calcium,Total 9.1 mg/dL (8.5-10.1); Chloride 105 mmol/L (98-107); Creatinine, Serum 1.08 mg/dL (0.70-1.30); EST Glomerular Filtration Rate 84 mL/min (>60); Est Glom Filt Rate - Afr Amer 102 mL/min (>60); Estimated Creatinine Clearance 89.02 ml/min; Glucose 101 mg/dL (74-106); Sodium Level 137 mmol/L (136-145); Thyroid Stim Hormone (TSH) 0.46 uIU/mL (0.358-3.74)
--- NOTE | 2023-10-02 18:01 | ED.RN ---
CRISIS NOTIFIED PT NEEDS EVALUATED, MEDICAL CLEARANCE FAXED.
--- NOTE | 2023-10-02 18:49 | ED.RN ---
assisted physicians transfer pt to their cot. report given.
--- NOTE | 2023-10-02 19:17 | EKG12_ITS ---
Test Reason : DYSRHYTHMIA Blood Pressure : / mmHG Vent. Rate : 088 BPM Atrial Rate : 088 BPM P-R Int : 154 ms QRS Dur : 084 ms QT Int : 362 ms P-R-T Axes : 083 072 071 degrees QTc Int : 438 ms Normal sinus rhythm Right atrial enlargement Borderline ECG Confirmed by DHARA YBARRA, PETER ([id number]), associate entertainment editor MARITA COELLO ([id number]) on 10/09/2023 1:24:01 PM Referred By: Confirmed By:TORO JULES MD
[2023-10-02 21:03] VITALS: BP 127/81; PULSE 88; RESP 16; TEMP 36.7; O2SAT 99
--- NOTE | 2023-10-02 22:53 | ED.RN ---
This RN took the patients IV out because he was seen trying to leave the unit with his home clothes on. This RN took the patients IV out and removed his clothes from the room.
[2023-10-02] MEDS: LORazepam 2 MG/ML Syringe 1 MG IM (23:01)
--- NOTE | 2023-10-02 23:38 | ED.RN ---
This RN gave report to Leland at [facility]
[2023-10-03 01:57] VITALS: BP 120/78; PULSE 66; RESP 16; O2SAT 99
[2023-10-03 05:00] VITALS: BP 109/59; PULSE 61; RESP 18; O2SAT 97
[2023-10-03 07:37] VITALS: BP 99/59; PULSE 69; RESP 14; TEMP 36.4; O2SAT 96
== END 2023-10-03 07:52 ==
PROVIDERS: Emergency Provider Emergency Medicine; Visit Provider Emergency Medicine
DX: F41.9 Anxiety disorder, unspecified (principal); F17.290 Nicotine dependence, other tobacco product, uncomplicated
CPT/HCPCS: 80048; 80307; 80320; 84443; 85025; 93005; 96372; 96374; 99284; A4216; G0480

== ENCOUNTER 2024-01-16 20:19 | Emergency (ER) | payer MEDICAID, SELFPAY ==
[2024-01-16 20:20] VITALS: BP 128/76; PULSE 91; RESP 18; TEMP 36.3; O2SAT 99; BMI 20.7
--- NOTE | 2024-01-16 21:10 | CT_ITS ---
STUDY: CT ABDOMEN AND PELVIS WITH CONTRAST REASON FOR EXAM: Male, 33 years old. epigastric pain RADIATION DOSAGE (If Supplied By Facility): CTDIvol = ( 13.69 ) mGy, DLP = ( 368.25 ) mGycm TECHNIQUE: Transaxial images were obtained from the dome of the diaphragm to the symphysis pubis without oral contrast. IV 100mL Isovue-300 was administered. Sagittal and coronal images were reconstructed. Individualized dose optimization techniques were used for this CT. The protocol utilizes one or more of the following dose reduction techniques: automated exposure control, adjustment of mA and/or kV according to patient size,and/or use of iterative reconstruction technique. COMPARISON: CT abdomen and pelvis August 08, 2023. FINDINGS: The visualized lung bases are unremarkable. The visualized portions of the heart are within normal limits. Normal liver. Normal gallbladder and extrahepatic biliary system. Normal spleen. Normal pancreas. Normal bilateral adrenal glands. Normal right kidney. Normal left kidney. Normal visualized stomach. Normal small intestine. Normal colon. Appendix is surgically absent. Normal abdominal aorta. Normal inferior vena cava. Normal retroperitoneum. Normal urinary bladder. Normal abdominal wall. Normal osseous structures. CT/Abdomen/Pelvis W IV Cont ONLY IMPRESSION: No acute disease Electronically Signed: Farrukh Mason MD at 22:29 EDT ,
--- NOTE | 2024-01-16 21:31 | RAD_ITS ---
STUDY: X-RAY CHEST REASON FOR EXAM: Male, 33 years old. pain TECHNIQUE: Single frontal view of the chest. COMPARISON: CT chest September 27, 2023. August 19, 2023. FINDINGS: Lungs are hyperaerated. The lungs are clear and expanded. There is no demonstrated pleural abnormality. Normal size heart. Normal mediastinum and lubna. Normal visualized pulmonary arteries. Normal visualized aortic arch and descending thoracic aorta. Normal visualized thoracic spine. Normal visualized ribs, clavicles, and shoulders. There is no demonstrated abnormality of the visualized soft tissue structures of the upper abdomen. Intravenous contrast in the kidneys bilaterally. RAD/Chest 1 View (Portable) IMPRESSION: Small airways disease Electronically Signed: Farrukh Mason MD at 22:31 EDT ,
[2024-01-16 21:35] LABS: Absolute Lymphocyte Count 1.72 X10^3/uL (0.83-4.51); Basophil# 0.03 X10^3/uL; Basophil% 0.7 % (0-1); Eosinophil# 0.07 X10^3/uL; Eosinophils% 1.7 % (0-5); Hematocrit 44.4 % (40-54); Hemoglobin 15.3 g/dL (13.0-16.5); Lymphocyte # 1.72 X10^3/ul (0.83-4.51); Lymphocyte % 40.9 % (19-41); Mean Corp Hgb Conc 34.5 g/dL (32-36); Mean Corpuscular Hgb 29.9 pg (27.0-32.0); Mean Corpuscular Volume 86.7 fL (80-94); Monocyte# 0.41 X10^3/uL; Monocyte% 9.7 % (0-10); NRBC Flagged by Analyzer 0 % (0-5); Neutrophil # 1.97 X10^3/uL (2.7-7.7); Neutrophil % 46.8 % (47-70); Platelet Count 201 K/mm3 (150-450); RBC Distribution Width CV 11.7 % (11.6-14.6); RBC Distribution Width SD 37.5 fl (35.1-43.9); Red Blood Count 5.12 M/mm3 (4.6-6.2); White Blood Count 4.2 K/mm3 (4.4-11.0)
[2024-01-16] MEDS: 0.9% Normal Saline (1000mL) 1,000 ML 999 ML IV (21:35)
[2024-01-16 21:52] LABS: ALB/GLOB Ratio 1.3 RATIO (0.9-2.4); AST(SGOT) 16 U/L (15-37); Alanine Aminotransfer ALT/SGPT 16 U/L (16-61); Albumin, Serum 4.1 g/dL (3.2-5.0); Alkaline Phosphatase 89 U/L (45-117); Anion Gap 5 (5-15); BUN 9 mg/dL (7-18); BUN/Creat Ratio 7.4 RATIO (10-20); Chloride 107 mmol/L (98-107); Creatinine, Serum 1.22 mg/dL (0.70-1.30); EST Glomerular Filtration Rate 73 mL/min (>60); Est Glom Filt Rate - Afr Amer 88 mL/min (>60); Estimated Creatinine Clearance 78.19 ml/min; Globulin 3.1 g/dL (2.2-4.2); Glucose 90 mg/dL (74-106); Lipase 23 U/L (13-75); Potassium 4.1 mmol/L (3.5-5.1); Protein, Total 7.2 g/dL (6.4-8.2); Sodium Level 142 mmol/L (136-145)
[2024-01-16] MEDS: Pantoprazole Sodium 40 MG in 0.9% Normal Saline (100mL MB+) 100 ML 330 MG IV (21:55)
[2024-01-16] MEDS: Ondansetron 4 MG/2 ML Vial IV (21:55)
[2024-01-16 23:00] VITALS: BP 133/65; PULSE 84; RESP 18; TEMP 36.6; O2SAT 99
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
== END 2024-01-16 23:25 | disposition home or self-care (01) ==
PROVIDERS: Emergency Provider Emergency Medicine; Visit Provider Emergency Medicine
DX: K21.9 Gastro-esophageal reflux disease without esophagitis (principal); F17.290 Nicotine dependence, other tobacco product, uncomplicated
CPT/HCPCS: 71045; 74177; 80053; 83690; 85025; 96365; 96375; 99283; J7030; Q9967; A4216; J2405

== ENCOUNTER 2024-01-23 03:32 | Emergency (ER) | payer MEDICAID, SELFPAY ==
[2024-01-23 03:32] VITALS: PULSE 63; RESP 12; TEMP 36.5; O2SAT 100; BMI 21.2
--- NOTE | 2024-01-23 03:46 | EKG12_ITS ---
Test Reason : CP Blood Pressure : / mmHG Vent. Rate : 053 BPM Atrial Rate : 053 BPM P-R Int : 190 ms QRS Dur : 098 ms QT Int : 394 ms P-R-T Axes : 079 072 064 degrees QTc Int : 369 ms Sinus bradycardia with Premature atrial complexes Otherwise normal ECG Confirmed by MAYELA YBARRA, NATAN ([id number]), index editor ENRIQUE EVANS ([id number]) on 01/24/2024 9:41:27 AM Referred By: BABAK Confirmed By:NATAN PEDRO MD
--- NOTE | 2024-01-23 03:46 | RAD_ITS ---
INDICATION: chest pain EXAMINATION/TECHNIQUE: X-RAY - XR Chest 2 Views COMPARISON: No relevant prior comparison study available FINDINGS: LINES/DEVICES: None. LUNGS: No consolidation, edema or effusion. No pneumothorax. MEDIASTINUM AND CARDIOVASCULAR STRUCTURES: Cardiac silhouette not enlarged. Central airways and mediastinal contour are unremarkable. BONES AND SOFT TISSUES: Unremarkable. RAD/Chest PA and Lateral IMPRESSION: No radiographic evidence of acute cardiopulmonary disease. Electronically Signed: Jw Real MD at 5:44 EDT ,
[2024-01-23] MEDS: Ketorolac 30 MG/ML Syringe IV (04:01)
[2024-01-23 04:05] VITALS: BP 122/83; PULSE 60; RESP 16; O2SAT 99
[2024-01-23 04:36] LABS: D-Dimer Quantitative (DVT/PE) < 0.27 FEU/ug/m (0.27-0.49)
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
[2024-01-23 05:06] VITALS: BP 114/73; PULSE 60; RESP 16; TEMP 36.5; O2SAT 98
== END 2024-01-23 05:09 | disposition home or self-care (01) ==
PROVIDERS: Emergency Provider Emergency Medicine; PCP Nurse Practitioner Family; Visit Provider Emergency Medicine
DX: M94.0 Chondrocostal junction syndrome [Tietze] (principal); K21.9 Gastro-esophageal reflux disease without esophagitis; F41.9 Anxiety disorder, unspecified; F17.290 Nicotine dependence, other tobacco product, uncomplicated; Z79.899 Other long term (current) drug therapy
CPT/HCPCS: 71046; 85379; 93005; 96374; 99284; A4216

== ENCOUNTER 2024-02-25 00:40 | Emergency (ER) | payer MEDICAID, SELFPAY ==
[2024-02-25 00:41] VITALS: BP 151/91; PULSE 81; RESP 18; TEMP 36.2; O2SAT 99; BMI 20.6
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
[2024-02-25] MEDS: Ketorolac 60 MG/2 ML Vial IM (01:13)
[2024-02-25] MEDS: Orphenadrine 60 MG/2 ML Ampul IM (01:13)
[2024-02-25 01:19] VITALS: BP 143/85; PULSE 70; RESP 18; TEMP 36.3; O2SAT 96
== END 2024-02-25 01:20 | disposition home or self-care (01) ==
PROVIDERS: Emergency Provider Emergency Medicine; PCP Nurse Practitioner Family; Visit Provider Emergency Medicine
DX: S39.012A Strain of muscle, fascia and tendon of lower back, initial encounter (principal); F41.9 Anxiety disorder, unspecified; M54.9 Dorsalgia, unspecified; G89.29 Other chronic pain; F17.290 Nicotine dependence, other tobacco product, uncomplicated; X58.XXXA Exposure to other specified factors, initial encounter
CPT/HCPCS: 96372; 99284

== ENCOUNTER 2024-03-01 08:00 | Emergency (ER) | payer MEDICAID, SELFPAY ==
[2024-03-01 08:01] VITALS: BP 137/77; PULSE 82; RESP 18; TEMP 36.4; O2SAT 99
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
== END 2024-03-01 08:31 | disposition home or self-care (01) ==
PROVIDERS: Emergency Provider Emergency Medicine; PCP Nurse Practitioner Family; Visit Provider Emergency Medicine
DX: F41.9 Anxiety disorder, unspecified (principal); J45.909 Unspecified asthma, uncomplicated; Z79.899 Other long term (current) drug therapy; F17.290 Nicotine dependence, other tobacco product, uncomplicated
CPT/HCPCS: 99282

== ENCOUNTER 2024-03-01 23:48 | Emergency (ER) | payer MEDICAID, SELFPAY ==
[2024-03-01 23:49] VITALS: BP 123/77; PULSE 78; RESP 16; TEMP 37.1; O2SAT 98
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
[2024-03-02] MEDS: dexAMETHasone 4 MG/ML Vial IM (00:17)
[2024-03-02] MEDS: Orphenadrine 60 MG/2 ML Ampul IM (00:21)
[2024-03-02 00:39] VITALS: BP 126/76; PULSE 56; RESP 16; TEMP 36.6; O2SAT 98
== END 2024-03-02 00:40 | disposition home or self-care (01) ==
PROVIDERS: Emergency Provider Emergency Medicine; PCP Nurse Practitioner Family; Visit Provider Emergency Medicine
DX: S16.1XXA Strain of muscle, fascia and tendon at neck level, initial encounter (principal); F41.9 Anxiety disorder, unspecified; F17.290 Nicotine dependence, other tobacco product, uncomplicated; X58.XXXA Exposure to other specified factors, initial encounter
CPT/HCPCS: 96372; 99282

== ENCOUNTER 2024-03-05 23:24 | Emergency (ER) | payer MEDICAID, SELFPAY ==
[2024-03-05 23:24] VITALS: BP 119/89; PULSE 82; RESP 25; TEMP 36.6; O2SAT 98
--- NOTE | 2024-03-05 23:40 | RAD_ITS ---
INDICATION: DYSPNEA EXAMINATION/TECHNIQUE: X-RAY - XR Chest 2 Views COMPARISON: 01/23/2024 FINDINGS: LINES/DEVICES: None. LUNGS: No consolidation. No pneumothorax. MEDIASTINUM: Unremarkable. CARDIAC SILHOUETTE: Not enlarged. BONES AND SOFT TISSUES: No acute abnormalities. RAD/Chest PA and Lateral IMPRESSION: No evidence of active intrathoracic disease. Electronically Signed: Kristan Perry MD at 0:06 EDT ,
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
[2024-03-06 00:40] VITALS: PULSE 80; RESP 18; O2SAT 98
== END 2024-03-06 00:41 | disposition home or self-care (01) ==
PROVIDERS: Emergency Provider Emergency Medicine; PCP Nurse Practitioner Family; Visit Provider Emergency Medicine
DX: R06.00 Dyspnea, unspecified (principal); F19.19 Other psychoactive substance abuse with unspecified psychoactive substance-induced disorder; F41.9 Anxiety disorder, unspecified; F17.290 Nicotine dependence, other tobacco product, uncomplicated; R13.10 Dysphagia, unspecified
CPT/HCPCS: 71046; 74230; 92611; 99282

== ENCOUNTER → 2024-03-05 | Outpatient (CLI) | payer MEDICAID, SELFPAY ==
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
== END | disposition home or self-care (01) ==
LOC: RAD 12:23
PROVIDERS: PCP Nurse Practitioner Family; Referring Provider Family Medicine; Visit Provider Family Medicine
DX: R13.10 Dysphagia, unspecified (principal)
CPT/HCPCS: 74230; 92611

== ENCOUNTER 2024-03-26 10:00 | Outpatient (RCR) | payer MEDICAID, SELFPAY | END 2024-03-26 19:00 | disposition home or self-care (01) | LOC: SP 10:00 | PROVIDERS: PCP Nurse Practitioner Family; Referring Provider Family Medicine; Visit Provider Family Medicine | DX: R13.13 Dysphagia, pharyngeal phase (principal); R13.14 Dysphagia, pharyngoesophageal phase | CPT/HCPCS: 92526; 92612 ==

== ENCOUNTER 2024-04-05 22:16 | Emergency (ER) | payer MEDICAID, SELFPAY ==
[2024-04-05 22:17] VITALS: BP 127/67; PULSE 81; RESP 18; TEMP 36.8; O2SAT 100; BMI 20.5
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
[2024-04-05] MEDS: diazePAM 5 MG Tablet PO (22:48)
--- OUTSIDE RECORDS SUMMARY | 2024-04-05 22:55 | XMS RPT_ITS | CCD ---
Author Organization [facility] Inform ion Partnership [facility] Care Team Providers Care Corrugator Name Role Phone PHYSICIAN, NONE Primary Care Physician Unavailab johnathan RIVERA MD., DR. WILKINS Attending Unavaila ble PHYSICIAN, NONE Primary Care Unavailable Sanjay Montiel MD Primary Care Provider [phone] SANJAY MONTIEL Primary Care Unavailable SANJAY MONTIEL Primary Care Unavailable Allergies Allergy Classification Reported Allergen(s) Allergy Type Date of Onset Reaction(s) Facility (4 sources) Cat; Translations: [CATS] Propensity to adverse reactions 04-20-2009 Intolerance [facility] Work Phone: Medications Current Medications Medication Drug Class(es) Dates Sig (Normalized) Sig (Original) cyclobenzaprine hydrochloride 10 mg oral tablet (2 sources) Muscle Relaxant Start: 02-04-2023 End: 02-07-2023 take 1 tablet by mouth every eight hours as needed cyclobenzaprine (FLEXERIL) 10 mg tablet Take 1 tablet by mouth three times daily as needed for muscle spasm for up to 3 days. 9 tablet 0 02/04/2023 02/07/2023 Active Start: 05-30-2022 End: 06-06-2022 cyclobenzaprine 10 mg oral t ablet Dose : 10 mg = 1 tab(s), Oral, TID, X 7 day(s), # 21 tab(s), 0 Refill(s), 06/06/22 4:59:00 EST Start Date: 05/30/22 Stop Date: 06/06/22 Status: Ordered Comment on above: Take 1 tablet by nghia th three times daily as needed for muscle spasm for up to 3 days. ibuprofen 600 mg oral tablet (1 source) Nonsteroidal Anti-inflammatory Drug Start: 12- End: ibuprofen 600 mg oral tablet Dose : 600 mg = 1 tab(s), Oral, QID, X 10 day(s), # 40 tab(s), 0 Refill(s), 06/09/22 4:59:00 EST Start Date: 05/30/22 Stop Date: 06/09/22 Status: Ordered lidocaine 0.05 mg/mg medicated patch (1 source) Antiarrhythmic, Amide Local Anesthetic Start: End: lidocaine 5% topical patch Apply 1 patch(es), Topical, Daily, X 10 day(s), # 10 patch(es), 0 Refill(s), 65 Start Date: 05/30/22 Stop Date: 06/09/22 Status: Ordered methylPREDNISolone 4 mg oral tablet (1 source) Corticosteroid Start: Medrol Dosepak 4 mg oral tablet See Instructions, as directed on package labeling, # 1 pack, 0 Refill(s) Start Date: 12/15/17 Status: Ordered naproxen 500 mg oral tablet (1 source) Nonsteroidal Anti-inflammatory Drug Start: End: take 1 tablet by mouth twice daily at mealtime naproxen (NAPROSYN) 500 mg tablet Take 1 tablet by mouth twice daily with meals for 14 days. Take with food. 28 tablet 0 02/04/2023 02/18/2023 Active Comment on above: Take 1 tablet by nghia th twice daily with meals for 14 days. Take with food. Problems Active Problems Problem Classification Problem Date Documented Da te Episodic/Chronic Asthma (1 source) Asthma 01-17-2017 Chronic Open wounds of extremities (1 source) Laceration of hand without foreign body; Translations: [Laceration without foreign body of left hand, initial encounter] Episodic Spondylosis; intervertebral disc disorders; other back problems (1 source) Acute low back pain; Translations: [Acute bilateral low back pain without sciatica] 02-04-2023 Episodic Sprains and strains (1 source) Lower back injury; Translations: [Strain of muscle, fascia and tendon of lower back, initial encounter] Onset: 05-30-2022 Episodic Past or Other Problems Problem Classification Problem Date Documented Da te Episodic/Chronic Other connective tissue disease (3 sources) Atrophy of muscle of right hand; Translations: [Muscle wasting and atrophy, not elsewhere classified, right hand] Onset: 12-26-2017 12-26-2017 Episodic Other connective tissue disease (3 sources) Pain in right hand; Translations: [Pain in right hand] Onset: 12-26-2017 12-26-2017 Episodic Residual codes; unclassified (3 sources) Tobacco use and exposure - finding; Translations: [Tobacco use] Onset: 12-26-2017 12-26-2017 Episodic Results Test Name Value Interpretation Reference Range Carrie muhammad CNOVon 02-04-2023 CNOV Office Visit (UCTR ) JAYY HYLTON ([id number]) 1990 M Date Time Provider Department 02/04/23 3:15 PM KELI FRANK [facility] During your visit today, we recorded the following information about you: Temperature Pulse Respiration Blood pressure 98.4 degrees 75/minute 21/minute 132/86 Weight 69 kg Keli Frank APRN.MANUFACTURING SUPERVISOR 02/04/2023 3:32 PM Signed Subjective The history is provided by the patient. No english as a second language teacher was used. HUMBERTO Hylton is a 32 year old male who presents today for CC of lower back pain that started today with lifting porcelain molds. He denies any loss of bowel or bladder function. He has not used any treatment. No known injury or trauma BP 132/86 Pulse 75 Temp 36.9 ?C (98.4 ?F) Resp 21 Wt 69 kg (152 lb 3.2 oz) SpO2 99% BMI 22.81 kg/m? Social History Tobacco Use Smoking status: Every Day Packs/day: 0.50 Years: 11.00 Additional pack years: 0.00 Total pack years: 5.50 Types: Cigarettes Start date: 06/12/2006 Smokeless tobacco: Never Tobacco comments: vaping Substance Use Topics Alcohol use: Yes Alcohol/week: 7.5 standard drinks of alcohol Types: 3 Cans of Beer (12oz) per week Drug use: No PAST MEDICAL HISTORY Diagnosis Date Alcohol intoxication ([facility]) 11/2010 Atrophy of right hand muscles 12/26/2017 Laceration of arm, right, complicated, sequela 12/03/2010 right bicep/tricep area Metacarpal bone fracture 11/11/2010 right 3rd (punch injury) Opiate withdrawal ([facility]) 08/10/2022 Pneumonia, organism unspecified(486) 1999 HOSPITALIZED X2 AGE 9 YRS Polysubstance abuse ([facility]) 08/10/2022 Tobacco use 12/26/2017 Unspecified asthma(493.90) 1999 I have confirmed and edited as necessary, the [facility] Review of Systems Constitutional: Negative for chills and fever. Musculoskeletal: Positive for back pain. Negative for joint pain and myalgias. Skin: Negative for itching and rash. All other systems reviewed and are negative. Objective Physical Exam Vitals and nursing note reviewed. Cardiovascular: Pulses: Dorsalis pedis pulses are 2+ on the right side and 2+ on the left side. Posterior tibial pulses are 2+ on the right side and 2+ on the left side. Pulmonary: Effort: Pulmonary effort is normal. Musculoskeletal: Cervical back: Normal. Thoracic back: Normal. Lumbar back: Tenderness present. No swelling, edema, deformity, signs of trauma, lacerations, spasms or bony tenderness. Decreased range of motion. Negative right straight leg raise test and negative left straight leg raise test. No scoliosis. Back: Skin: General: Skin is warm and dry. Neurological: Mental Status: He is alert and oriented to person, place, and time. Sensory: Sensation is intact. Deep Tendon Reflexes: Reflexes are normal and symmetric. Psychiatric: Mood and Affect: Affect normal. ASSESSMENT/PLAN: 1. Acute bilateral low back pain without sciatica - ICD9: 724.2, 338.19, ICD10: M54.50 Rest, ice, naproxen, flexeril as discussed Stretches Follow up with PCP prn Diagnosis and treatment plan were discussed and questions were answered to the patient's satisfaction. Pt acknowledged understanding of concepts and follow up plan. Specific signs and symptoms that would indicate the need for higher level of care were discussed in detail warranting prompt ER evaluation. Keli Frank APRN.MANUFACTURING SUPERVISOR Allergies As of Date: 02/04/2023 Noted Allergy Reaction CATS 04/20/2009 5 - Intolerance Date Reviewed: 02/04/2023 Reviewed by: Tsering Patrick MA - Fully Assessed Reason for Visit: Back Pain [12] Cmt: Lower back pain, shooting down left leg started today Primary Visit Diagnosis:Acute bilateral low back pain without sciatica [M54.50] Order(s):naproxen (NAPROSYN) 500 mg tabletTake 1 tablet by mouth twice daily with meals for 14 days. Take with food.Disp: 28 tabletRfl: 0 cyclobenzaprine (FLEXERIL) 10 mg tabletTake 1 tablet by mouth three times daily as needed for muscle spasm for up to 3 days.Disp: 9 tabletRfl: 0 Prescriptions as of 02/04/2023 - naproxen (NAPROSYN) 500 mg tablet Take 1 tablet by mouth twice daily with meals for 14 days. Take with food. - cyclobenzaprine (FLEXERIL) 10 mg tablet Take 1 tablet by mouth three times daily as needed for muscle spasm for up to 3 days. Problem List As Of Date 02/04/2023 Noted Resolved Atrophy of right hand muscles [M62.541] 12/26/2017 Right hand pain [M79.641] 12/26/2017 Tobacco use [Z72.0] 12/26/2017 Prescriptions ordered this encounter Disp Refills Start End NAPROXEN 500 MG TABLET 28 t* 0 02/04/2023 02/18/2023 Route: ORAL Sig: Take 1 tablet by mouth twice daily with meals for 14 days. Take with food. CYCLOBENZAPRINE 10 MG TABLET 9 ta* 0 02/04/2023 02/07/2023 Route: ORAL Sig: Take 1 tablet by mouth three times daily as needed for muscle spasm for up to 3 days. Encounter Sta (more content not included)... Normal [facility] [place] 08-01-2022 DORCAS Telephone ([facility]) JAYY HYLTON ([id number]) 1990 M Date Time Provider Department 08/01/22 FARRUKH PEREA [facility] During your visit today, we recorded the following information about you: Cindy Paniagua LPN 08/01/2022 3:39 PM Signed Clifford pt's employer called to let us know his employee had an incident on 07-29-22 and was treated at the [facility] and was given stitches. Employer asking if pt has any restrictions. Before going any further I informed the employer that I needed to get permission from pt to speak with them or send any type of message thru. I called pt and he gave his verbal okay to speak with his employer. Please review and advise if pt has any restrictions while at work to employer. Clifford PH: [phone] ext [phone]. Cindy Pro PA-C 08/01/2022 7:06 PM Signed Can we call and see what the patient does for work? Generally do not want to do anything that would submerge it in water, keep it covered, avoid things that would cause stress on the wound to rip the sutures out. Barbara Murrieta 08/02/2022 8:46 AM Signed called call was disconnected now busy sound, will try again. 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 Just need something in writing stating below restrictions faxed to [phone] attn workman's comp. Barbara Pro PA-C 08/02/2022 12:20 PM Signed Note printed. Crystal Ogden LPN 08/02/2022 12:23 PM Signed Letter faxed to number provided.Crystal Ogden LPN Allergies As of Date: 08/01/2022 Noted Allergy Reaction CATS 04/20/2009 5 - Intolerance Date Reviewed: 07/29/2022 Reviewed by: Crystal Ogden LPN - Fully Assessed Reason for Visit: Results [95] Problem List As Of Date 08/01/2022 Noted Resolved Atrophy of right hand muscles [M62.541] 12/26/2017 Right hand pain [M79.641] 12/26/2017 Tobacco use [Z72.0] 12/26/2017 Letter Text Encounter Status:Closed by CRYSTAL OGDEN LPN on 08/02/22 Normal [facility] CNOVon 07-29-2022 CNOV Office Visit ([facility] ) JAYY HYLTON ([id number]) 1990 M Date Time Provider Department 07/29/22 3:15 PM FARRUKH PEREA [facility] During your visit today, we recorded the following information about you: Temperature Pulse Respiration Blood pressure 98 degrees 84/minute 16/minute 122/80 Weight 62.3 kg Farrukh Perea MD 07/29/2022 3:52 PM Signed Patient presents with: left hand laceration: Cut hand 2 hours ago HPI: Cut his left hand trying to open a can with his pocket knife a couple hours ago. Punctured between the thumb and index finger. Td 12/03/2010. MEDICATIONS: No prescriptions on file. ALLERGIES: ALLERGIES Allergen Reactions Cats Intolerance VITALS: BP 122/80 Pulse 84 Temp 36.7 ?C (98 ?F) (Tympanic) Resp 16 Wt 62.3 kg (137 lb 6.4 oz) BMI 20.59 kg/m? PE: Gen: alert, anxious Hand: left. 13mm laceration in the interdigital space between the thumb and index finger. Normal finger and thumb strength with flexion, extension, abduction and adduction. Normal sensation and capillary refill of the index finger and thumb. Procedure: Anesthesia: 3cc 0.25% bupivacaine. Site cleansed with hibiclens on gauze and irrigation with normal saline. 2 simple interrupted sutures with 4-0 Prolene monofilament. Hemostasis achieved with wound closure. Wound dressed with bacitracin on an adhesive bandage. ASSESSMENT/PLAN: 1. Laceration of left hand without foreign body, initial encounter - ICD9: 882.0, ICD10: S61.412A Keep sutures covered and dry for 48 hours. The dressing may be changed as needed. After 48 hours, sutures may be exposed to limited water but not submerged. [place]and[place]au re-evaluation for sign of infection such as spreading redness, warmth, pus-like discharge, increasing pain, or fever. Return for suture removal in 7-10 days. - TDAP VACCINE AGE 7+ IM Farrukh Perea MD Allergies As of Date: 07/29/2022 Noted Allergy Reaction CATS 04/20/2009 5 - Intolerance Date Reviewed: 07/29/2022 Reviewed by: Crystal Ogden LPN - Fully Assessed Reason for Visit: left hand laceration [Other] Cmt: Cut hand 2 hours ago Primary Visit Diagnosis:Laceration of left hand without foreign body, initial encounter [S61.412A] Order(s):TDAP VACCINE AGE 7+ IM [[id number]] Order #: [id number] Problem List As Of Date 07/29/2022 Noted Resolved Atrophy of right hand muscles [M62.541] 12/26/2017 Right hand pain [M79.641] 12/26/2017 Tobacco use [Z72.0] 12/26/2017 Disposition: Return in about 10 days (around 08/08/2022) for Suture removal. Follow-up and Disposition History for Encounter Date Provider Department Center 07/29/2022 [id number] PEREA [facility] Encounter Status:Closed by FARRUKH PEREA on 07/29/22 Normal [facility] XR SPINE LUMBAR AP/LATon XR SPINE LUMBAR AP/LAT ORIGINAL EXAMINATION: XRAY VIEWS OF THE LUMBAR SPINE 05/30/2022 4:43 am COMPARISON: None. HISTORY: ORDERING SYSTEM PROVIDED HISTORY: Reason for Exam: lower back pain FINDINGS: There are 5 lumbar vertebrae. The lumbar spine alignment is normal. Vertebral bodies are normal in shape with no fracture. The disc spaces are maintained. Posterior elements are unremarkable with no evidence of pars defect. Sacroiliac joints are normal. IMPRESSION: No radiographic abnormality of the lumbar spine. Interpreted by: Rajan Cazares MD Preliminary Report By: Rajan Cazares MD Electronically signed By Rajan Cazares MD Dictated Date: 05/30/2022 4:45:40 AM Prelim Date: 05/30/2022 4:46:55 AM Sign Date: 05/30/2022 4:46:55 AM Ordering Provider: FRANKY Guzmán [facility] ([place]) Vital Signs Date Time Vital Sign Value Performing Clinician Facility 02-04-2023 15:13-0400 Body temperature 98.4 [degF] Keli Zac CLINICAL INFORMATICIST.MANUFACTURING SUPERVISOR Work Phone: [facility] 02-04-2023 15:13-0400 Body weight 69.04 kg Keli Zac CLINICAL INFORMATICIST.MANUFACTURING SUPERVISOR Work Phone: [facility] 02-04-2023 15:13-0400 Diastolic blood pressure 86 mm[Hg] Keli Zac CLINICAL INFORMATICIST.MANUFACTURING SUPERVISOR Work Phone: [facility] 02-04-2023 15:13-0400 Heart rate 75 /min Keli Zac CLINICAL INFORMATICIST.MANUFACTURING SUPERVISOR Work Phone: [facility] 02-04-2023 15:13-0400 Respiratory rate 21 /min Keli Zac CLINICAL INFORMATICIST.MANUFACTURING SUPERVISOR Work Phone: [facility] 02-04-2023 15:13-0400 SaO2% (BldA) [Mass fraction] 99 % Keli Zac CLINICAL INFORMATICIST.MANUFACTURING SUPERVISOR Work Phone: [facility] 02-04-2023 15:13-0400 Systolic blood pressure 132 mm[Hg] Keli Zac CLINICAL INFORMATICIST.MANUFACTURING SUPERVISOR Work Phone: [facility] 07-29-2022 15:03-0500 Body temperature 98.01 [degF] Farrukh Perea MD Work Phone: [facility] 07-29-2022 15:03-0500 Body weight 62.32 kg Farrukh Perea MD Work Phone: [facility] 07-29-2022 15:03-0500 Diastolic blood pressure 80 mm[Hg] Farrukh Perea MD Work Phone: [facility] 07-29-2022 15:03-0500 Heart rate 84 /min Farrukh Perea MD Work Phone: [facility] 07-29-2022 15:03-0500 Respiratory rate 16 /min Farrukh Perea MD Work Phone: [facility] 07-29-2022 15:03-0500 Systolic blood pressure 122 mm[Hg] Farrukh Perea MD Work Phone: [facility] 05-30-2022 05:00-0500 Diastolic Blood Pressure Non-Invasive [address] FRANKY RIVERA MD [facility] 05-30-2022 05:00-0500 Heart rate 73 /min DR FRANKY RIVERA MD [facility] 05-30-2022 05:00-0500 Respiratory rate 16 /min DR FRANKY RIVERA MD [facility] 05-30-2022 05:00-0500 Systolic Blood Pressure Non-Invasive [address] FRANKY RIVERA MD [facility] 05-30-2022 04:07-0500 Body height [address] FRANKY RIVERA MD [facility] 05-30-2022 04:07-0500 Body temperature 98.6 [degF] DR FRANKY RIVERA MD [facility] 05-30-2022 04:07-0500 Body weight 61.[address] FRANKY RIVERA MD [facility] 05-30-2022 04:07-0500 Diastolic Blood Pressure Non-Invasive [address] FRANKY RIVERA MD [facility] 05-30-2022 04:07-0500 Heart rate 81 /min DR FRANKY RIVERA MD [facility] 05-30-2022 04:07-0500 Respiratory rate 18 /min DR FRANKY RIVERA MD [facility] 05-30-2022 04:07-0500 Systolic Blood Pressure Non-Invasive [address] FRANKY RIVERA MD [facility] Encounters Encounter Date Encounter Type Care Provider Facility Start: 02-04-2023 End: 02-05-2023 ambulatory SANJAY MONTIEL Facility:[facility] Start: 02-04-2023 End: 02-04-2023 Patient encounter procedure Keli Frank CLINICAL INFORMATICIST.MANUFACTURING SUPERVISOR Work Phone: [facility] Comment on above: Acute bilateral low back pain without sciatica (Primary Dx) Start: 08-01-2022 Telephone encounter Farrukh Cordero MD Work Phone: [facility] Comment on above: Results Start: 07-29-2022 End: 07-29-2022 ambulatory SANJAY Guido MONTIEL Facility:[facility] Start: 07-29-2022 End: 07-29-2022 Patient encounter procedure Farrukh Perea MD Work Phone: [facility] Comment on above: Laceration of left h and without foreign body, initial encounter (Primary Dx) Start: 05-30-2022 End: 05-30-2022 Emergency department patient visit DR. FRANKY RIVERA MD. Facility: Start: 05-30-2022 End: 05-30-2022 Emergency department patient visit DR FRANKY RIVERA MD [facility] Procedures Date Procedure Procedure Detail Performing Clinician Appendectomy DR FRANKY ROMO MD Plan of Treatment Date Care Activity Detail Author Start: 07-29-2032 Urine microalbumin profile DTAP,TDAP,TD (7 - Td or Tdap) [facility] Start: 02-10-2023 Influenza vaccination INFLUENZA (#1) [facility] Start: 06-12-2022 DEPRESSION ASSESSMENT DEPRESSION ASS ESSMENT [facility] Start: 02-10-2022 Influenza vaccination INFLUENZA (#1) [facility] Start: 11-14-2009 HEPATITIS C SCREENING HEPATITIS C [facility] Start: 11-14-2009 HIV SCREENING HIV SCREENING [facility] Start: 11-14-1997 PNEUMOCOCCAL (1 - PCV) PNEUMOCOCCAL (1 - PCV) [facility] Start: 05-16-1992 COVID-19 VACCINE (#1) COVID-19 VACCI NE (#1) [facility] Immunizations Immunization Date Immunization Notes Care Provider Fa blank 07-29-2022 tetanus toxoid, redu marissa diphtheria toxoid, and acellular pertussis vaccine, adsorbed Farrukh Perea MD Work Phone: [facility] 12-03-2010 TD(adult) unspecifie d formulation Farrukh Perea MD Work Phone: [facility] Work Phone: 04-20-2009 hepatitis B vaccine, pediatric or pediatric/adolescent dosage Farrukh Perea MD Work Phone: [facility] Work Phone: 04-20-2009 influenza virus vaccine, unspecified formulation Farrukh Perea MD Work Phone: [facility] Work Phone: 01-20-2005 hepatitis B vaccine, pediatric or pediatric/adolescent dosage Farrukh Perea MD Work Phone: [facility] Work Phone: 01-20-2005 tetanus and diphther ia toxoids, adsorbed, preservative free, for adult use (2 Lf of tetanus toxoid and 2 Lf of diphtheria toxoid) Farrukh Perea MD Work Phone: [facility] Work Phone: 01-20-2005 tetanus and diphther ia toxoids, adsorbed, preservative free, for adult use (5 Lf of tetanus toxoid and 2 Lf of diphtheria toxoid) Farrukh Perea MD Work Phone: [facility] 01-23-2004 hepatitis B vaccine, pediatric or pediatric/adolescent dosage Farrukh Perea MD Work Phone: [facility] Work Phone: 01-23-2004 measles, mumps and rubella virus vaccine Farrukh Perea MD Work Phone: [facility] Work Phone: 07-29-1997 diphtheria, tetanus toxoids and acellular pertussis vaccine Farrukh Perea MD Work Phone: [facility] Work Phone: 07-29-1997 trivalent poliovirus vaccine, live, oral Farrukh Perea MD Work Phone: [facility] Work Phone: 07-03-1995 diphtheria, tetanus toxoids and acellular pertussis vaccine Farrukh Perea MD Work Phone: [facility] Work Phone: 04-12-1993 diphtheria, tetanus toxoids and acellular pertussis vaccine Farrukh Perea MD Work Phone: [facility] Work Phone: 04-12-1993 measles, mumps and rubella virus vaccine Farrukh Perea MD Work Phone: [facility] Work Phone: 04-12-1993 trivalent poliovirus vaccine, live, oral Farrukh Perea MD Work Phone: [facility] Work Phone: 07-07-1992 diphtheria, tetanus toxoids and acellular pertussis vaccine Farrukh Perea MD Work Phone: [facility] Work Phone: 07-07-1992 haemophilus influenz ae type b vaccine, PRP-D conjugate Farrukh Perea MD Work Phone: [facility] Work Phone: 07-07-1992 trivalent poliovirus vaccine, live, oral Farrukh Perea MD Work Phone: [facility] Work Phone: 01-10-1992 diphtheria, tetanus toxoids and acellular pertussis vaccine Farrukh Perea MD Work Phone: [facility] Work Phone: 01-10-1992 haemophilus influenz ae type b vaccine, PRP-D conjugate Farrukh Perea MD Work Phone: [facility] Work Phone: 01-10-1992 trivalent poliovirus vaccine, live, oral Farrukh Perea MD Work Phone: [facility] Work Phone: Payers Date Payer Category Payer Medicaid [id number] 2022 Medicaid [id number] 2022 Medicaid [id number] 1990 Unknown [id number] Social History Date Type Detail Facility Start: 05-30-2022 Tobacco smoking status Heavy t obacco smoker (finding) [facility] Sex Assigned At Male [facility] Start: 06-12-2006 [facility] Start: 06-12-2006 History of tobacco use Cigarette Smo ker [facility] Start: 05-20-2020 End: 07-29-2022 Cigarettes smoked current (pack per day) - Reported 0.5 [facility] Start: 07-29-2022 Tobacco use and exposure Smokeless tobacco non-user [facility] Start: 07-29-2022 End: 02-04-2023 Alcohol intake Current drinker of alcohol (finding) [facility] Start: 07-29-2022 Tobacco Comment vaping [facility] Start: 1990 Sex Assigned At Not on file [facility] Start: 05-20-2020 End: 02-04-2023 Tobacco use panel [facility] National Score (1-10 0), lower number is lower risk Not on file [facility] Functional Status Date Assessment Result Facility 05-30-2022 Functional Status Up ad ford Britni rausch [facility] Mental Status Date Assessment Result Facility 05-30-2022 Mental Status Oriented x [address] [facility] Clinical Notes 05-30-2022 to 02-04-2023 Keli Frank, CLINICAL INFORMATICIST.MANUFACTURING SUPERVISOR - 02/04/2023 3:25 PM EDTTelephone Encounter - Crystal Ogden MAGALY - 08/02/2022 12:22 PM ESTTelephone Encounter - nAgelic Pro PA-C - 08/02/2022 12:20 PM EST Note Date & Type Note Facility 02-04-2023 Note HNO ID: [id number] Author: Keli Frank APRN.ARLEY Service: ? Author Type: Nurse Practitioner Type: Progress Notes Filed: 02/04/2023 3:32 PM Note Text: Subjective The history is provided by the patient. No english as a second language teacher was used. HUMBERTO Hylton is a 32 year old male who presents today for CC of lower back pain that started today with lifting porcelain molds. He denies any loss of bowel or bladder function. He has not used any treatment. No known injury or trauma BP 132/86 Pulse 75 Temp 36.9 ?C (98.4 ?F) Resp 21 Wt 69 kg (152 lb 3.2 oz) SpO2 99% BMI 22.81 kg/m? Social History Tobacco Use Smoking status: Every Day Packs/day: 0.50 Years: 11.00 Additional pack years: 0.00 Total pack years: 5.50 Types: Cigarettes Start date: 06/12/2006 Smokeless tobacco: Never Tobacco comments: vaping Substance Use Topics Alcohol use: Yes Alcohol/week: 7.5 standard drinks of alcohol Types: 3 Cans of Beer (12oz) per week Drug use: No PAST MEDICAL HISTORY Diagnosis Date Alcohol intoxication ([facility]) 11/2010 Atrophy of right hand muscles 12/26/2017 Laceration of arm, right, complicated, sequela 12/03/2010 right bicep/tricep area Metacarpal bone fracture 11/11/2010 right 3rd (punch injury) Opiate withdrawal ([facility]) 08/10/2022 Pneumonia, organism unspecified(486) 1999 HOSPITALIZED X2 AGE 9 YRS Polysubstance abuse ([facility]) 08/10/2022 Tobacco use 12/26/2017 Unspecified asthma(493.90) 1999 I have confirmed and edited as necessary, the [facility] Review of Systems Constitutional: Negative for chills and fever. Musculoskeletal: Positive for back pain. Negative for joint pain and myalgias. Skin: Negative for itching and rash. All other systems reviewed and are negative. Objective Physical Exam Vitals and nursing note reviewed. Cardiovascular: Pulses: Dorsalis pedis pulses are 2+ on the right side and 2+ on the left side. Posterior tibial pulses are 2+ on the right side and 2+ on the left side. Pulmonary: Effort: Pulmonary effort is normal. Musculoskeletal: Cervical back: Normal. Thoracic back: Normal. Lumbar back: Tenderness present. No swelling, edema, deformity, signs of trauma, lacerations, spasms or bony tenderness. Decreased range of motion. Negative right straight leg raise test and negative left straight leg raise test. No scoliosis. Back: Skin: General: Skin is warm and dry. Neurological: Mental Status: He is alert and oriented to person, place, and time. Sensory: Sensation is intact. Deep Tendon Reflexes: Reflexes are normal and symmetric. Psychiatric: Mood and Affect: Affect normal. ASSESSMENT/PLAN: 1. Acute bilateral low back pain without sciatica - ICD9: 724.2, 338.19, ICD10: M54.50 Rest, ice, naproxen, flexeril as discussed Stretches Follow up with PCP prn Diagnosis and treatment plan were discussed and questions were answered to the patient's satisfaction. Pt acknowledged understanding of concepts and follow up plan. Specific signs and symptoms that would indicate the need for higher level of care were discussed in detail warranting prompt ER evaluation. Keli Frank APRN.[facility] 02-04-2023 History of Present illness Narrative Images from the original note were not included. Subjective The history is provided by the patient. No english as a second language teacher was used. HPI Jayy Hylton is a 32 year old male who presents today for CC of lower back pain that started today with lifting porcelain molds. He denies any loss of bowel or bladder function. He has not used any treatment. 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 Musculoskeletal: Positive for back pain. Negative for joint pain and myalgias. Skin: Negative for itching and rash. All other systems reviewed and are negative. Objective Physical Exam Vitals and nursing note reviewed. Cardiovascular: Pulses: Dorsalis pedis pulses are 2+ on the right side and 2+ on the left side. Posterior tibial pulses are 2+ on the right side and 2+ on the left side. Pulmonary: Effort: Pulmonary effort is normal. Musculoskeletal: Cervical back: Normal. Thoracic back: Normal. Lumbar back: Tenderness present. No swelling, edema, deformity, signs of trauma, lacerations, spasms or bony tenderness. Decreased range of motion. Negative right straight leg raise test and negative left straight leg raise test. No scoliosis. Back: Skin: General: Skin is warm and dry. Neurological: Mental Status: He is alert and oriented to person, place, and time. Sensory: Sensation is intact. Deep Tendon Reflexes: Reflexes are normal and symmetric. Psychiatric: Mood and Affect: Affect normal. ASSESSMENT/PLAN: 1. Acute bilateral low back pain without sciatica - ICD9: 724.2, 338.19, ICD10: M54.50 Rest, ice, naproxen, flexeril as discussed Stretches Follow up with PCP prn Diagnosis and treatment plan were discussed and questions were answered to the patient's satisfaction. Pt acknowledged understanding of concepts and follow up plan. Specific signs and symptoms that would indicate the need for higher level of care were discussed in detail warranting prompt ER evaluation. Keli Frnak APRN.MANUFACTURING SUPERVISOR documented in this encounter [facility] 08-02-2022 Miscellaneous Notes Letter faxed to number provided.Crystal Ogden LPN Note printed. 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 Just need something in writing stating below restrictions faxed to [phone] attn workman's comp. Barbara Murrieta called call was disconnected now busy sound, will try again. Barbara Murrieta Can we call and see what the patient does for work? Generally do not want to do anything that would submerge it in water, keep it covered, avoid things that would cause stress on the wound to rip the sutures out. Clifford briceño's employer called to let us know his employee had an incident on 07-29-22 and was treated at the [facility] and was given stitches. Employer asking if pt has any restrictions. Before going any further I informed the employer that I needed to get permission from pt to speak with them or send any type of message thru. I called pt and he gave his verbal okay to speak with his employer. Please review and advise if pt has any restrictions while at work to employer. Clifford PH: [phone] ext [phone]. Cindy Paniagua LPN documented in this encounter [facility] 07-29-2022 Note HNO ID: [id number] Author: Farrukh Perea MD Service: ? Author Type: Physician Type: Progress Notes Filed: 07/29/2022 3:52 PM Note Text: Patient presents with: left hand laceration: Cut hand 2 hours ago HPI: Cut his left hand trying to open a can with his pocket knife a couple hours ago. Punctured between the thumb and index finger. Td 12/03/2010. MEDICATIONS: No prescriptions on file. ALLERGIES: ALLERGIES Allergen Reactions Cats Intolerance VITALS: BP 122/80 Pulse 84 Temp 36.7 ?C (98 ?F) (Tympanic) Resp 16 Wt 62.3 kg (137 lb 6.4 oz) BMI 20.59 kg/m? PE: Gen: alert, anxious Hand: left. 13mm laceration in the interdigital space between the thumb and index finger. Normal finger and thumb strength with flexion, extension, abduction and adduction. Normal sensation and capillary refill of the index finger and thumb. Procedure: Anesthesia: 3cc 0.25% bupivacaine. Site cleansed with hibiclens on gauze and irrigation with normal saline. 2 simple interrupted sutures with 4-0 Prolene monofilament. Hemostasis achieved with wound closure. Wound dressed with bacitracin on an adhesive bandage. ASSESSMENT/PLAN: 1. Laceration of left hand without foreign body, initial encounter - ICD9: 882.0, ICD10: S61.412A Keep sutures covered and dry for 48 hours. The dressing may be changed as needed. After 48 hours, sutures may be exposed to limited water but not submerged. flandreau re-evaluation for sign of infection such as spreading redness, warmth, pus-like discharge, increasing pain, or fever. Return for suture removal in 7-10 days. - TDAP VACCINE AGE 7+ IM Farrukh Perea MD [facility] 07-29-2022 History of Present illness Narrative Patient presents with: left hand laceration: Cut hand 2 hours ago HPI: Cut his left hand trying to open a can with his pocket knife a couple hours ago. Punctured between the thumb and index finger. Td 12/03/2010. MEDICATIONS: No prescriptions on file. ALLERGIES: ALLERGIES Allergen Reactions Cats Intolerance VITALS: BP 122/80 Pulse 84 Temp 36.7 C (98 F) (Tympanic) Resp 16 Wt 62.3 kg (137 lb 6.4 oz) BMI 20.59 kg/m PE: Gen: alert, anxious Hand: left. 13mm laceration in the interdigital space between the thumb and index finger. Normal finger and thumb strength with flexion, extension, abduction and adduction. Normal sensation and capillary refill of the index finger and thumb. Procedure: Anesthesia: 3cc 0.25% bupivacaine. Site cleansed with hibiclens on gauze and irrigation with normal saline. 2 simple interrupted sutures with 4-0 Prolene monofilament. Hemostasis achieved with wound closure. Wound dressed with bacitracin on an adhesive bandage. ASSESSMENT/PLAN: 1. Laceration of left hand without foreign body, initial encounter - ICD9: 882.0, ICD10: S61.412A Keep sutures covered and dry for 48 hours. The dressing may be changed as needed. After 48 hours, sutures may be exposed to limited water but not submerged. flandreau re-evaluation for sign of infection such as spreading redness, warmth, pus-like discharge, increasing pain, or fever. Return for suture removal in 7-10 days. - TDAP VACCINE AGE 7+ IM Farrukh Perea MD documented in this encounter [facility] 05-30-2022 Hospital Discharge instructions Patient Education 05/30/2022 05:00:42 Back Sprain/Strain Back Sprain or Strain Injury to the muscles (strain) or ligaments (sprain) around the spine can be troubling. Injury may occur after a sudden forceful twisting or bending force such as in a car accident, after a simple awkward movement, or after lifting something heavy with poor body positioning. In any case, muscle spasm is often present and adds to the pain. Thankfully, most people feel better in 1 to 2 weeks, and most of the rest in 1 to 2 months. Most people can remain active. Unless you had a forceful or traumatic physical injury such as a car accident or fall, X-rays may not be ordered for the first evaluation of a back sprain or strain. If pain continues and does not respond to medical treatment, your healthcare provider may then order X-rays and other tests. Home care The following guidelines will help you care for your injury at home: When in bed, try to find a comfortable position. A firm mattress is best. Try lying flat on your back with pillows under your knees. You can also try lying on your side with your knees bent up toward your chest and a pillow between your knees. Don't sit for long periods. Try not to take long car rides or take other trips that have you sitting for a long time. This puts more stress on the lower back than standing or walking. During the first 24 to 72 hours after an injury or flare-up, apply an ice pack to the painful area for 20 minutes. Then remove it for 20 minutes. Do this for 60 to 90 minutes, or several times a day. This will reduce swelling and pain. Be sure to wrap the ice pack in a thin towel or plastic to protect your skin. You can start with ice, then switch to heat. Heat from a hot shower, hot bath, or heating pad reduces pain and works well for muscle spasms. Put heat on the painful area for 20 minutes, then remove for 20 minutes. Do this for 60 to 90 minutes, or several times a day. Do not use a heating pad while sleeping. It can burn the skin. You can alternate the ice and heat. Talk with your healthcare provider to find out the best treatment or therapy for your back pain. Therapeutic massage will help relax the back muscles without stretching them. Be aware of safe lifting methods. Do not lift anything over 15 pounds until all of the pain is gone. Medicines Talk to your healthcare provider before using medicines, especially if you have other health problems or are taking other medicines. You may use acetaminophen or ibuprofen to control pain, unless another pain medicine was prescribed. If you have chronic conditions like diabetes, liver or kidney disease, stomach ulcers, or gastrointestinal bleeding, or are taking blood-thinner medicines, talk with your doctor before taking any medicines. Be careful if you are given prescription medicines, narcotics, or medicine for muscle spasm. They can cause drowsiness, and affect your coordination, reflexes, and judgment. Do not drive or operate heavy machinery when taking these types of medicines. Only take pain medicine as prescribed by your healthcare provider. Follow-up care Follow up with your healthcare provider, or as advised. You may need physical therapy or more tests if your symptoms get worse. If you had X-rays your healthcare provider may be checking for any broken bones, breaks, or fractures. Bruises and sprains can sometimes hurt as much as a fracture. These injuries can take time to heal completely. If your symptoms don t improve or they get worse, talk with your healthcare provider. You may need a repeat X-ray or other tests. Call 911 Call 911 if any of the following occur: Trouble breathing Confused Very drowsy or trouble awakening Fainting or loss of consciousness Rapid or very slow heart rate Loss of bowel or bladder control When to seek medical advice Call your healthcare provider right away if any of the following occur: Pain gets worse or spreads to your arms or legs Weakness or numbness in one or both arms or legs Numbness in the groin or genital area [id number] [employer]. [address] [place] [address]. All rights reserved. This information is not intended as a substitute for professional medical care. Always follow your healthcare professional's instructions. Follow Up Care 05/30/2022 04:01:13 With:KHUSHI HARRIS Address: [address] [place] [address] [place] [address]- [phone] Business (1) When:2-4 days Comments:Take Tylenol ibuprofen use lidocaine patches for back pain. You may use muscle relaxers as needed. As discussed, do not take muscle relaxers and drive or operate heavy machinery. Follow-up with your doctor. Return if worsening or concerning symptoms such as severe pain numbness weakness accidents with your bowels or bladder. [facility] 05-30-2022 Note Discharge Instructions Thank you for allowing [facility] to assist you with your healthcare needs. The following is important discharge information regarding your hospital visit. Diagnosis from Today's Visit Back pain Lumbar strain What to Do Next Instructions from Your Care Team No qualifying data available. Post Acute Orders No qualifying data available. You Need to Schedule the Following Appointments Follow Up with KHUSHI HARRIS When Within 2-4 days Why: Take Tylenol ibuprofen use lidocaine patches for back pain. You may use muscle relaxers as needed. As discussed, do not take muscle relaxers and drive or operate heavy machinery. Follow-up with your doctor. Return if worsening or concerning symptoms such as severe pain numbness weakness accidents with your bowels or bladder. Where: 0 [facility] [place] [address] [phone] Business (1) Allergies NKA Medications Please ask your primary doctor or pharmacist before taking any other medication not listed, including over the counter drugs, herbal medications, vitamins and or supplements as they may interact with your home medications. What How Much When Instructions Last Dose New cyclobenzaprine (cyclobenzaprine 10 mg oral tablet) 1 tab(s) by mouth Three (3) times a day Duration: 7 Days Printed Prescription New ibuprofen (ibuprofen 600 mg oral tablet) 1 tab(s) by mouth Four (4) times a day Duration: 10 Days Printed Prescription New lidocaine topical (lidocaine 5% topical patch) 1 patch(es) Topical Every day Duration: 10 Days Printed Prescription Unchanged methylPREDNISolone (Medrol Dosepak 4 mg oral tablet) See instructions as directed on package labeling Please take this list to your next doctor s visit. Bring all medications you take, including over the counter medications, herbals and other supplements with you to your doctor s visit. Patients and families are reminded to discard old lists and to update any records with all medication providers or retail pharmacies. Medication Leaflets cyclobenzaprine (david issa) Amrix, Comfort Pac with Cyclobenzaprine, Fexmid What is the most important information I should know about cyclobenzaprine? You should not use cyclobenzaprine if you have a thyroid disorder, heart block, congestive heart failure, a heart rhythm disorder, or you have recently had a heart attack. Do not use cyclobenzaprine if you have taken an MAO inhibitor in the past 14 days, such as isocarboxazid, linezolid, phenelzine, rasagiline, selegiline, or tranylcypromine. What is cyclobenzaprine? Cyclobenzaprine is a muscle relaxant. It works by blocking nerve impulses (or pain sensations) that are sent to your brain. Cyclobenzaprine is used together with rest and physical therapy to relieve muscle spasms caused by painful conditions such as an injury. Cyclobenzaprine may also be used for purposes not listed in this medication guide. What should I discuss with my healthcare provider before taking cyclobenzaprine? You should not use cyclobenzaprine if you are allergic to it, or if you have: a thyroid disorder; heart block, heart rhythm disorder, congestive heart failure; or if you have recently had a heart attack. Cyclobenzaprine is not approved for use by anyone younger than 15 years old. Do not use cyclobenzaprine if you have taken an MAO inhibitor in the past 14 days. A dangerous drug interaction could occur. MAO inhibitors include isocarboxazid, linezolid, phenelzine, rasagiline, selegiline, and tranylcypromine. Some medicines can interact with cyclobenzaprine and cause a serious condition called serotonin syndrome. Be sure your doctor knows if you also take stimulant medicine, opioid medicine, herbal products, or medicine for depression, mental illness, Parkinson's disease, migraine headaches, serious infections, or prevention of nausea and vomiting. Ask your doctor before making any changes in how or when you take your medications. Tell your doctor if you have ever had: liver disease; glaucoma; enlarged prostate; or problems with urination. It is not known whether this medicine will harm an unborn baby. Tell your doctor if you are or plan to become . It may not be safe to breast-feed while using this medicine. Ask your doctor about any risk. Older adults may be more sensitive to the effects of this medicine. How should I take cyclobenzaprine? Follow all directions on your prescription label and read all medication guides or instruction sheets. Your doctor may occasionally change your dose. Use the medicine exactly as directed. Cyclobenzaprine is usually taken once daily for only 2 or 3 weeks. Follow your doctor's dosing instructions very carefully. Swallow the capsule whole and do not crush, chew, break, or open it. Take the medicine at the same time each day. Call your doctor if your symptoms do not improve after 3 weeks, or if they get worse. Store at room temperature away from moisture, heat, and light. What happens if I miss a dose? Take the medicine as soon as you can, but skip the missed dose if it is almost time for your next dose. Do not take two doses at one time. What happens if I overdose? Seek emergency medical attention or call the Poison Help line at . An overdose of cyclobenzaprine can be fatal. Overdose symptoms may include severe drowsiness, vomiting, fast heartbeats, tremors, agitation, or hallucinations. What should I avoid while taking cyclobenzaprine? Avoid driving or hazardous activity until you know how this medicine will affect you. Your reactions could be impaired. Avoid drinking alcohol. Dangerous side effects could occur. What are the possible side effects of cyclobenzaprine? Get emergency medical help if you have signs of an allergic reaction: hives; difficult breathing; swelling of your face, lips, tongue, or throat. Stop using cyclobenzaprine and call your doctor at once if you have: fast or irregular heartbeats; chest pain or pressure, pain spreading to your jaw or shoulder; or sudden numbness or weakness (especially on one side of the body), slurred speech, balance problems. Seek medical attention right away if you have symptoms of serotonin syndrome, such as: agitation, hallucinations, fever, sweating, shivering, fast heart rate, muscle stiffness, twitching, loss of coordination, nausea, vomiting, or diarrhea. Serious side effects may be more likely in older adults. Common side effects may include: drowsiness, tiredness; headache, dizziness; dry mouth; or upset stomach, nausea, constipation. This is not a complete list of side effects and others may occur. Call your doctor for medical advice about side effects. You may report side effects to FDA at 1-965-VKS-9908. What other drugs will affect cyclobenzaprine? Using cyclobenzaprine with other drugs that make you drowsy can worsen this effect. Ask your doctor before using opioid medication, a sleeping pill, a muscle relaxer, or medicine for anxiety or seizures. Tell your doctor about all your other medicines, especially: bupropion (Zyban, for smoking cessation); meperidine; tramadol; verapamil; cold or allergy medicine that contains an antihistamine (Benadryl and others); medicine to treat Parkinson's disease; medicine to treat excess stomach acid, stomach ulcer, motion sickness, or irritable bowel syndrome; medicine to treat overactive bladder; or bronchodilator asthma medication. This list is not complete. Other drugs may affect cyclobenzaprine, including prescription and [id number]-qquzvig medicines, vitamins, and herbal products. Not all possible drug interactions are listed here. Where can I get more information? Your pharmacist can provide more information about cyclobenzaprine. Remember, keep this and all other medicines out of the reach of children, never share your medicines with others, and use this medication only for the indication prescribed. Every effort has been made to ensure that the information provided by [employer]') is accurate, up-to-date, and complete, but no guarantee is made to that effect. Drug information contained herein may be time sensitive. [employer] information has been compiled for use by healthcare practitioners and consumers in the [place] and therefore [employer] does not warrant that uses outside of the [place] are appropriate, unless specifically indicated otherwise. [employer] drug information does not endorse drugs, diagnose patients or recommend therapy. [employer] drug information is an informational resource designed to assist licensed healthcare practitioners in caring for their patients and/or to serve consumers viewing this service as a supplement to, and not a substitute for, the expertise, skill, knowledge and judgment of healthcare practitioners. The absence of a warning for a given drug or drug combination in no way should be construed to indicate that the drug or drug combination is safe, effective or appropriate for any given patient. [employer] does not assume any responsibility for any aspect of healthcare administered with the aid of information [employer] provides. The information contained herein is not intended to cover all possible uses, directions, precautions, warnings, drug interactions, allergic reactions, or adverse effects. If you have questions about the drugs you are taking, check with your doctor, nurse or pharmacist. Copyright 0029-9720 [employer]. Version: 5.01. Revision Date: 03/07/2018. lidocaine topical (LYE mohr dykes TOP i dayron) AneCream, Bactine, Glydo, LidaMantle, Lidoderm, LidoRx, Medi-Quik [place], RadiaGuard, RectiCare, Regenecare COPE [place], Solarcaine Cool Aloe What is the most important information I should know about lidocaine topical? An overdose of numbing medicine can cause fatal side effects if too much of the medicine is absorbed through your skin. Do not use large amounts of lidocaine topical, or cover treated skin areas with a bandage or plastic wrap without medical advice. Keep both used and unused lidocaine skin patches out of the reach of children or pets. The amount of lidocaine in the skin patches could be harmful to a child or pet who accidentally sucks on or swallows the patch. What is lidocaine topical? Lidocaine is a local anesthetic (numbing medication). There are many brands and forms of lidocaine available. Not all brands are listed on this leaflet. Lidocaine topical (for use on the skin) is used to reduce pain or discomfort caused by skin irritations such as sunburn, insect bites, poison lisseth, poison oak, poison sumac, and minor cuts, scratches, or conner. Lidocaine topical is also used to treat rectal discomfort caused by hemorrhoids. Lidocaine intradermal device can be used in minor medical procedures such as venipuncture or peripheral intravenous cannulation. Lidocaine topical may also be used for purposes not listed in this medication guide. What should I discuss with my healthcare provider before using lidocaine topical? You should not use lidocaine topical if you are allergic to any type of numbing medicine. Fatal overdoses have occurred when numbing medicines were used without the advice of a medical doctor (such as during a cosmetic procedure like laser hair removal). However, overdose has also occurred in women treated with a numbing medicine before having a mammography. Be aware that many cosmetic procedures are performed without a medical doctor present. Tell your doctor if you have ever had: a blood cell disorder called methemoglobinemia (in you or a family member); liver disease; or if you take a heart rhythm medicine. Tell your doctor if you are or . If you apply lidocaine topical to your chest, avoid areas that may come into contact with the baby's mouth. How should I use lidocaine topical? Use this medicine exactly as directed on the label, or as it has been prescribed by your doctor. Do not apply this medicine in larger amounts than recommended. Improper use of lidocaine topical may result in . Lidocaine topical comes in many different forms (gel, spray, cream, lotion, ointment, liquid, skin patch, and others). Do not take by mouth. Topical medicine is for use only on the skin. If this medicine gets in your eyes, nose, mouth, rectum, or vagina, rinse with water. Read and carefully follow any Instructions for Use provided with your medicine. Ask your doctor or pharmacist if you do not understand these instructions. Use the smallest amount of medicine needed to numb the skin or relieve pain. Your body may absorb too much of this medicine if you use too much, if you apply it over large skin areas, or if you apply heat, bandages, or plastic wrap to treated skin areas. Skin that is cut or irritated may also absorb more topical medication than healthy skin. Do not apply this medicine to swollen skin areas or deep puncture wounds. Avoid using the medicine on skin that is raw or blistered, such as a severe burn or abrasion. Do not cover treated skin unless your doctor has told you to. Lidocaine topical may be applied with your finger tips or a cotton swab. Lidocaine intradermal device is applied by a healthcare provider. Store at room temperature away from moisture and heat. Keep both used and unused lidocaine topical skin patches out of the reach of children or pets. The amount of lidocaine in the skin patches could be harmful to a child or pet who accidentally sucks on or swallows the patch. Seek emergency medical attention if this happens. What happens if I miss a dose? Since lidocaine topical is used when needed, you may not be on a dosing schedule. Skip any missed dose if it's almost time for your next dose. Do not use two doses at one time. What happens if I overdose? Seek emergency medical attention or call the Poison Help line at . An overdose of numbing medicine can cause fatal side effects if too much of the medicine is absorbed through your skin and into your blood. Overdose symptoms may include uneven heartbeats, seizure (convulsions), slowed breathing, coma, or respiratory failure (breathing stops). Lidocaine applied to the skin is not likely to cause an overdose unless you apply more than the recommended dose. What should I avoid while using lidocaine topical? Avoid touching the sticky side of a lidocaine skin patch while applying it. Avoid accidentally injuring treated skin areas while they are numb. Avoid coming into contact with very hot or very cold surfaces. What are the possible side effects of lidocaine topical? Get emergency medical help if you have signs of an allergic reaction: hives; difficulty breathing; swelling of your face, lips, tongue, or throat. Call your doctor at once if you have: severe headache or vomiting; severe burning, stinging, or irritation where the medicine was applied; swelling or redness; sudden dizziness or drowsiness after medicine is applied; confusion, problems with speech or vision, ringing in your ears; or unusual sensations of temperature. Common side effects include: mild irritation where the medication is applied; or numbness in places where the medicine is accidentally applied. This is not a complete list of side effects and others may occur. Call your doctor for medical advice about side effects. You may report side effects to FDA at 9-238-SDI-4543. What other drugs will affect lidocaine topical? Medicine used on the skin is not likely to be affected by other drugs you use. But many drugs can interact with each other. Tell each of your health care providers about all medicines you use, including prescription and jbza-oxo-dheuvss medicines, vitamins, and herbal products. Where can I get more information? Your pharmacist can provide more information about lidocaine topical. Remember, keep this and all other medicines out of the reach of children, never share your medicines with others, and use this medication only for the indication prescribed. Every effort has been made to ensure that the information provided by [employer]') is accurate, up-to-date, and complete, but no guarantee is made to that effect. Drug information contained herein may be time sensitive. [employer] information has been compiled for use by healthcare practitioners and consumers in the [place] and therefore [employer] does not warrant that uses outside of the [place] are appropriate, unless specifically indicated otherwise. [employer] drug information does not endorse drugs, diagnose patients or recommend therapy. [employer] drug information is an informational resource designed to assist licensed healthcare practitioners in caring for their patients and/or to serve consumers viewing this service as a supplement to, and not a substitute for, the expertise, skill, knowledge and judgment of healthcare practitioners. The absence of a warning for a given drug or drug combination in no way should be construed to indicate that the drug or drug combination is safe, effective or appropriate for any given patient. [employer] does not assume any responsibility for any aspect of healthcare administered with the aid of information [employer] provides. The information contained herein is not intended to cover all possible uses, directions, precautions, warnings, drug interactions, allergic reactions, or adverse effects. If you have questions about the drugs you are taking, check with your doctor, nurse or pharmacist. Copyright 9512-8472 [employer]. Version: 9.02. Revision Date: 10/26/2021. ibuprofen (EYE bue PROE fen) Advil, Genpril, IBU, Midol IB, Motrin IB, Proprinal, Smart Sense Children's Ibuprofen What is the most important information I should know about ibuprofen? Ibuprofen can increase your risk of fatal heart attack or stroke. Do not use this medicine just before or after heart bypass surgery (coronary artery bypass graft, or CABG). Ibuprofen may also cause stomach or intestinal bleeding, which can be fatal. What is ibuprofen? Ibuprofen is a nonsteroidal anti-inflammatory drug (NSAID). Ibuprofen is used to reduce fever and treat pain or inflammation caused by many conditions such as headache, toothache, back pain, arthritis, menstrual cramps, or minor injury. This medicine is used in adults and children who are at least 6 months old. Ibuprofen may also be used for purposes not listed in this medication guide. What should I discuss with my healthcare provider before taking ibuprofen? Ibuprofen can increase your risk of fatal heart attack or stroke, even if you don't have any risk factors. Do not use this medicine just before or after heart bypass surgery (coronary artery bypass graft, or CABG). Ibuprofen may also cause stomach or intestinal bleeding, which can be fatal. These conditions can occur without warning while you are using ibuprofen, especially in older adults. You should not use ibuprofen if you are allergic to it, or if you have ever had an asthma attack or severe allergic reaction after taking aspirin or an NSAID. Ask a doctor or pharmacist if this medicine is safe to use if you have ever had: heart disease, high blood pressure, high cholesterol, diabetes, or if you smoke; a heart attack, stroke, or blood clot; stomach ulcers or bleeding; liver or kidney disease; asthma; or if you take aspirin to prevent heart attack or stroke. Ask a doctor before using this medicine if you are or . If you are , you should not take ibuprofen unless your doctor tells you to. Taking an NSAID during the last 20 weeks of can cause serious heart or kidney problems in the unborn baby and possible complications with your . Do not give ibuprofen to a child younger than 6 months old without the advice of a doctor. How should I take ibuprofen? Use exactly as directed on the label, or as prescribed by your doctor. Use the lowest dose that is effective in treating your condition. An ibuprofen overdose can damage your stomach or intestines. The maximum amount of ibuprofen for adults is 800 milligrams per dose or 3200 mg per day (4 maximum doses). A child's dose of ibuprofen is based on the age and weight of the child. Carefully follow the dosing instructions provided with children's ibuprofen for the age and weight of your child. Ask a doctor or pharmacist if you have questions. Take ibuprofen with food or milk to lessen stomach upset. Shake the oral suspension (liquid) before you measure a dose. Use the dosing syringe provided, or use a medicine dose-measuring device (not a kitchen spoon). You must chew the chewable tablet before you swallow it. Store at room temperature away from moisture and heat. Do not allow the liquid medicine to freeze. What happens if I miss a dose? Since ibuprofen is used when needed, you may not be on a dosing schedule. Skip any missed dose if it's almost time for your next dose. Do not use two doses at one time. What happens if I overdose? Seek emergency medical attention or call the Poison Help line at . Overdose symptoms may include nausea, vomiting, stomach pain, drowsiness, black or bloody stools, coughing up blood, shallow breathing, fainting, or coma. What should I avoid while taking ibuprofen? Ask a doctor or pharmacist before using other medicines for pain, fever, swelling, or cold/flu symptoms. They may contain ingredients similar to ibuprofen (such as aspirin, ibuprofen, ketoprofen, or naproxen). Avoid taking aspirin unless your doctor tells you to. If you also take aspirin to prevent stroke or heart attack, taking ibuprofen can make aspirin less effective in protecting your heart and blood vessels. If you take both medicines, take ibuprofen at least 8 hours before or 30 minutes after you take aspirin (non-enteric coated form). Avoid drinking alcohol. It may increase your risk of stomach bleeding. What are the possible side effects of ibuprofen? Get emergency medical help if you have signs of an allergic reaction (hives, difficult breathing, swelling in your face or throat) or a severe skin reaction (fever, sore throat, burning eyes, skin pain, red or purple skin rash with blistering and peeling). Get emergency medical help if you have signs of a heart attack or stroke: chest pain spreading to your jaw or shoulder, sudden numbness or weakness on one side of the body, slurred speech, leg swelling, feeling short of breath. Stop using ibuprofen and call your doctor at once if you have: changes in your vision; shortness of breath (even with mild exertion); swelling or rapid weight gain; a skin rash, no matter how mild; signs of stomach bleeding--bloody or tarry stools, coughing up blood or vomit that looks like coffee grounds; liver problems--nausea, upper stomach pain, itching, tired feeling, flu-like symptoms, loss of appetite, dark urine, debora-colored stools, jaundice (yellowing of the skin or eyes); low red blood cells (anemia)--pale skin, feeling light-headed or short of breath, rapid heart rate, trouble concentrating; or kidney problems--little or no urinating, painful or difficult urination, swelling in your feet or ankles, feeling tired or short of breath. Common side effects may include: nausea, vomiting, gas; bleeding; or dizziness, headache. This is not a complete list of side effects and others may occur. Call your doctor for medical advice about side effects. You may report side effects to FDA at 8-871-QDO-5766. What other drugs will affect ibuprofen? Ask your doctor before using ibuprofen if you take an antidepressant. Taking certain antidepressants with an NSAID may cause you to bruise or bleed easily. Ask a doctor or pharmacist before using ibuprofen with any other medications, especially: cyclosporine; lithium; methotrexate; a blood thinner (warfarin, Coumadin, Jantoven); heart or blood pressure medication, including a diuretic or 'water pill'; or steroid medicine (such as prednisone). This list is not complete. Other drugs may affect ibuprofen, including prescription and [id number] medicines, vitamins, and herbal products. Not all possible drug interactions are listed here. Where can I get more information? Your pharmacist can provide more information about ibuprofen. Remember, keep this and all other medicines out of the reach of children, never share your medicines with others, and use this medication only for the indication prescribed. Every effort has been made to ensure that the information provided by [employer] is accurate, up-to-date, and complete, but no guarantee is made to that effect. Drug information contained herein may be time sensitive. [employer] information has been compiled for use by healthcare practitioners and consumers in the [place] and therefore [employer] does not warrant that uses outside of the [place] are appropriate, unless specifically indicated otherwise. [employer] drug information does not endorse drugs, diagnose patients or recommend therapy. [employer] drug information is an informational resource designed to assist licensed healthcare practitioners in caring for their patients and/or to serve consumers viewing this service as a supplement to, and not a substitute for, the expertise, skill, knowledge and judgment of healthcare practitioners. The absence of a warning for a given drug or drug combination in no way should be construed to indicate that the drug or drug combination is safe, effective or appropriate for any given patient. [employer] does not assume any responsibility for any aspect of healthcare administered with the aid of information [employer] provides. The information contained herein is not intended to cover all possible uses, directions, precautions, warnings, drug interactions, allergic reactions, or adverse effects. If you have questions about the drugs you are taking, check with your doctor, nurse or pharmacist. Copyright 8008-6223 [employer]. Version: 22.01. Revision Date: 05/06/2020. Education Materials Back Sprain or Strain Injury to the muscles (strain) or ligaments (sprain) around the spine can be troubling. Injury may occur after a sudden forceful twisting or bending force such as in a car accident, after a simple awkward movement, or after lifting something heavy with poor body positioning. In any case, muscle spasm is often present and adds to the pain. Thankfully, most people feel better in 1 to 2 weeks, and most of the rest in 1 to 2 months. Most people can remain active. Unless you had a forceful or traumatic physical injury such as a car accident or fall, X-rays may not be ordered for the first evaluation of a back sprain or strain. If pain continues and does not respond to medical treatment, your healthcare provider may then order X-rays and other tests. Home care The following guidelines will help you care for your injury at home: When in bed, try to find a comfortable position. A firm mattress is best. Try lying flat on your back with pillows under your knees. You can also try lying on your side with your knees bent up toward your chest and a pillow between your knees. Don't sit for long periods. Try not to take long car rides or take other trips that have you sitting for a long time. This puts more stress on the lower back than standing or walking. During the first 24 to 72 hours after an injury or flare-up, apply an ice pack to the painful area for 20 minutes. Then remove it for 20 minutes. Do this for 60 to 90 minutes, or several times a day. This will reduce swelling and pain. Be sure to wrap the ice pack in a thin towel or plastic to protect your skin. You can start with ice, then switch to heat. Heat from a hot shower, hot bath, or heating pad reduces pain and works well for muscle spasms. Put heat on the painful area for 20 minutes, then remove for 20 minutes. Do this for 60 to 90 minutes, or several times a day. Do not use a heating pad while sleeping. It can burn the skin. You can alternate the ice and heat. Talk with your healthcare provider to find out the best treatment or therapy for your back pain. Therapeutic massage will help relax the back muscles without stretching them. Be aware of safe lifting methods. Do not lift anything over 15 pounds until all of the pain is gone. Medicines Talk to your healthcare provider before using medicines, especially if you have other health problems or are taking other medicines. You may use acetaminophen or ibuprofen to control pain, unless another pain medicine was prescribed. If you have chronic conditions like diabetes, liver or kidney disease, stomach ulcers, or gastrointestinal bleeding, or are taking blood-thinner medicines, talk with your doctor before taking any medicines. Be careful if you are given prescription medicines, narcotics, or medicine for muscle spasm. They can cause drowsiness, and affect your coordination, reflexes, and judgment. Do not drive or operate heavy machinery when taking these types of medicines. Only take pain medicine as prescribed by your healthcare provider. Follow-up care Follow up with your healthcare provider, or as advised. You may need physical therapy or more tests if your symptoms get worse. If you had X-rays your healthcare provider may be checking for any broken bones, breaks, or fractures. Bruises and sprains can sometimes hurt as much as a fracture. These injuries can take time to heal completely. If your symptoms don t improve or they get worse, talk with your healthcare provider. You may need a repeat X-ray or other tests. Call 911 Call 911 if any of the following occur: Trouble breathing Confused Very drowsy or trouble awakening Fainting or loss of consciousness Rapid or very slow heart rate Loss of bowel or bladder control When to seek medical advice Call your healthcare provider right away if any of the following occur: Pain gets worse or spreads to your arms or legs Weakness or numbness in one or both arms or legs Numbness in the groin or genital area [id number] [employer]. [address] [place] [address]. All rights reserved. This information is not intended as a substitute for professional medical care. Always follow your healthcare professional's instructions. Additional Information VACCINATE! IT SAVES LIVES! Members of the community who have not yet received the COVID-19 vaccine and would like to receive it can visit one of [facility] vaccine clinics. There are many vaccine clinic locations within the [facility]. For locations and available times, please visit [email or web address]. It is important to note that some COVID mobile vaccine clinics are held outdoors and may be canceled in rainy or stormy conditions. To learn more about pediatric vaccinations (ages 5-11), we invite you to visit the [facility] webpage. [email or web address] To learn more about the COVID-19 vaccine, we invite you to visit the [employer] website for a list of frequently asked questions. [email or web address] [facility] [employer] Patient Portal Access Instructions: Stay connected with your healthcare team and access your personal medical information anytime with the [employer] [employer] [facility] Patient Portal. If you would like a full copy of your medical records please contact the [facility] Medical Records Department Monday through Monday between 8a.m. and 4:30p.m. Please follow the directions below to access the portal: 1.Access the email account you provided upon registration to the [facility].2.Look for an invitation email from [facility].3.Open the email and access the invitation link: Accept Invitation to [facility]4.Fill in the required leija to create your account. Sign into [email or web address] with your username and password that you created in the above steps to stay up to date. You can then view a summary of results, a summary of your visits, and the ability to download your summaries to your computer or send the information securely to a physician. Remember that your healthcare information is confidential, so carefully consider who you will allow to register on the [employer] Patient Portal for access to your information. You can also access the [employer] Patient Portal on the [employer] yann. Simply click on Health Records under Health Data and then click on the [employer] logo. HOW TO SAFELY DISPOSE OF PRESCRIPTION MEDICATIONS Please use one of the following methods to safely dispose of your unused medications. 1.Use a drug disposal kit: the drug disposal pouch allows you to safely discard your old and unused drugs. Ask your nurse to give you one when you are discharged.2.Visit a local take-back location: Many local pharmacies and police departments have programs that collect old and unwanted prescription drugs. Call your local pharmacy or go to http://[employer].Tresata/7V5Vh4r to find one close to you.3.Make use of household items: Use cat litter or old coffee grounds to dispose medications if other options are not available. Mix your drugs with these household products, seal them in an airtight container and throw it into the garbage. Call [facility]: [phone] to be sure your drugs can be disposed of in this way. Some medicines may require a different approach.4.Never flush your medications down the toilet. IF YOU HAVE BEEN PRESCRIBED AN OPIOIDS FOR PAIN If you have been prescribed an opioid (such as hydrocodone, oxycodone or morphine), it is critical to understand the possible side effects and risks of opioid pain medications. Even when taken as directed, opioids can have several side effects including: Tolerance, meaning you might need to take more of a medication for the same pain relief. Nausea, vomiting and/or constipation. Sleepiness, dizziness, dry mouth, confusion, depression or itching. Physical dependence, meaning you have withdrawal symptoms when a medication is stopped ? this can develop within a few days. KNOW YOUR RESPONSIBILITIES It is important to know exactly how much and how often to take the opioid pain medications you are prescribed. Never take opioids in higher amounts or more often than prescribed. Do not combine opioids with alcohol or other drugs that cause drowsiness, such as benzodiazepines, also known as benzos, including diazepam and alprazolam, muscle relaxants or sleep aids. Never sell or share prescription opioids. This is illegal. Store opioids in a secure place and out of reach of others (including children, family, friends and visitors). The last page(s) of this document has been signed and retained as a CHART COPY Signatures Patient Education Materials Back Sprain/Strain Medication Leaflets cyclobenzaprine, lidocaine topical, ibuprofen My discharge plan and instructions have been reviewed and explained to me and I,JAYY HYLTON understand my current condition and have read and understand these discharge instructions. I have received a written copy of the plan/instructions. If I have questions, I am aware that I should contact my doctor. 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 HISTORY: ORDERING SYSTEM PROVIDED HISTORY: Reason for Exam: lower back pain FINDINGS: There are 5 lumbar vertebrae. The lumbar spine alignment is normal. Vertebral bodies are normal in shape with no fracture. The disc spaces are maintained. Posterior elements are unremarkable with no evidence of pars defect. Sacroiliac joints are normal. IMPRESSION: No radiographic abnormality of the lumbar spine. Interpreted by: Rajan Cazares MD Preliminary Report By: Rajan Cazares MD Electronically signed By Rajan Cazares MD Dictated Date: 05/30/2022 4:45:40 AM Prelim Date: 05/30/2022 4:46:55 AM Sign Date: 05/30/2022 4:46:55 AM Ordering Provider: FRANKY RIVERA [facility] 05-30-2022 Note ORIGINAL EXAMINATION: XRAY VIEWS OF THE LUMBAR SPINE 05/30/2022 4:43 am COMPARISON: None. HISTORY: ORDERING SYSTEM PROVIDED HISTORY: Reason for Exam: lower back pain FINDINGS: There are 5 lumbar vertebrae. The lumbar spine alignment is normal. Vertebral bodies are normal in shape with no fracture. The disc spaces are maintained. Posterior elements are unremarkable with no evidence of pars defect. Sacroiliac joints are normal. IMPRESSION: No radiographic abnormality of the lumbar spine. Interpreted by: Rajan Cazares MD Preliminary Report By: Rajan Cazares MD Electronically signed By Rajan Cazares MD Dictated Date: 05/30/2022 4:45:40 AM Prelim Date: 05/30/2022 4:46:55 AM Sign Date: 05/30/2022 4:46:55 AM Ordering Provider: FRANKY RIVERA [facility] Evaluation + Plan note No data available for this section [facility] Evaluation note Diagnosis Laceration of left hand without foreign body, initial encounter- Primary documented in this encounter [facility] Acute bilateral low back pain without sciatica- Primary documented in this encounter [facility] Summary Purpose Family History No Family History Records FoundNo Family History Records Found Advance Directives No Advanced Directives Records FoundNo Advanced Directives Records Found Additional Source Comments Care Team (unrecognized sect ion and content) Care Team Personnel Name: PHYSICIAN, NONE Position: Physician Member Role: Primary Care Physician Name: FRANKY RIVERA MD Position: ED Physician Member Role: ED Physician Address: Address: [address] [place] [address] Name: MILLIE Awan Position: AO RN Member Role: ED RN (unrecognized sect ion and content) No Status Records FoundNo Status Records Found INFORMATION SOURCE (unrecogn ized section and content) DATE CREATED AUTHOR 06/07/2022 [facility] ([place]) DATE CREATED AUTHOR AUTHOR'S ORGANIZ ATION 02/05/2023 [facility] Source Comments (unrecognize d section and content) In the event this informatio n is protected by the Federal Confidentiality of Alcohol and Drug Abuse Patient Records regulations: The Federal rules restrict any use of the information to criminally investigate or prosecute any alcohol or drug abuse patient.[facility] the event this information is protected by the Federal Confidentiality of Alcohol and Drug Abuse Patient Records regulations: The Federal rules restrict any use of the information to criminally investigate or prosecute any alcohol or drug abuse patient.[facility] the event this information is protected by the Federal Confidentiality of Alcohol and Drug Abuse Patient Records regulations: The Federal rules restrict any use of the information to criminally investigate or prosecute any alcohol or drug abuse patient.[facility] Reason for Visit (unrecogniz ed section and content) Reason Comments left hand laceration Cut hand 2 hours ag o Reason Comments Results Reason Comments Back Pain Lower back pain, judie oting down left leg started today Care Teams (unrecognized sec tion and content) Corrugator Relationship Specialty Start Date End Date Sanjay Montiel MD [address] [place], [place] [id number] PCP - General Internal Medicine 12/26/17 Corrugator Relationship Specialty Start Date End Date Sanjay Montiel MD [address] [place], [place] [id number] PCP - General Internal Medicine 12/26/17 Corrugator Relationship Specialty Start Date End Date Sanjay Montiel MD [address] [place] [address] PCP - General Internal Medicine 12/26/17 FOR RECORDS PERTAINING TO PATIENTS WHO ARE OR HAVE BEEN ENROLLED IN A CHEMICAL DEPENDENCY/SUBSTANCEABUSE PROGRAM, SOME INFORMATION MAY BE OMITTED. This clinical summary was aggregated from multiple sources. Caution should be exercised in using it in the provision of clinical care. This summary normalizes information from multiple sources, and as a consequence, information in this document may materially change the coding, format and clinical context of patient data. In addition, data may be omitted in some cases. CLINICAL DECISIONS SHOULD BE BASED ON THE PRIMARY CLINICAL RECORDS. [facility]. provides no warranty or guarantee of the accuracy or completeness of information in this document.
== END 2024-04-05 22:56 | disposition home or self-care (01) ==
LOC: ED 22:53
PROVIDERS: Emergency Provider Emergency Medicine; PCP Nurse Practitioner Family; Visit Provider Emergency Medicine
DX: M62.838 Other muscle spasm (principal); F41.9 Anxiety disorder, unspecified; M54.2 Cervicalgia; Z79.899 Other long term (current) drug therapy; F17.290 Nicotine dependence, other tobacco product, uncomplicated
CPT/HCPCS: 99282

== ENCOUNTER 2024-05-25 17:41 | Emergency (ER) | payer MEDICAID, SELFPAY ==
[2024-05-25 17:41] VITALS: BP 138/84; PULSE 129; RESP 16; TEMP 36.2; O2SAT 99; BMI 20.5
--- NOTE | 2024-05-25 18:03 | CT_ITS ---
EXAM: CT ABDOMEN AND PELVIS WITH INTRAVENOUS CONTRAST CLINICAL INDICATION: abd pain LLQ and suprapubic TECHNIQUE: Helically acquired images were obtained of the abdomen and pelvis with intravenous contrast. This CT exam was performed using one or more of the following dose reduction techniques: automated exposure control, adjustment of the mA and/or kV according to patient size, and/or use of iterative reconstruction technique. CONTRAST: IV 75mL Isovue-370 COMPARISON: No relevant prior studies available. FINDINGS: LOWER THORAX: Unremarkable. Lung bases are clear. No cardiomegaly. No significant pericardial effusion. ABDOMEN: LIVER: Unremarkable. Homogeneous. No focal mass. GALLBLADDER AND BILE DUCTS: Unremarkable. No calcified gallstones. No gallbladder distention or wall edema. No intra- or extrahepatic biliary ductal dilation. PANCREAS: Unremarkable. No focal cystic or solid mass. SPLEEN: Unremarkable. Normal size without focal cystic or solid mass. ADRENALS: Unremarkable. No nodules. KIDNEYS AND URETERS: Unremarkable. Normal renal size and position. No renal stones or hydronephrosis. STOMACH AND BOWEL: Unremarkable. No stomach or bowel distention. No focal inflammatory change. PELVIS: APPENDIX: No evidence of acute appendicitis. BLADDER: Unremarkable. REPRODUCTIVE: Unremarkable as visualized. No mass. ABDOMEN and PELVIS: INTRAPERITONEAL SPACE: Unremarkable. No ascites or other fluid collection. No free air. BONES/JOINTS: Unremarkable. No suspicious lytic or blastic abnormality. SOFT TISSUES: Unremarkable. No discrete abdominal or pelvic wall hernia. VASCULATURE: Unremarkable. Abdominal aorta is normal in caliber. LYMPH NODES: Unremarkable. No enlarged lymph nodes. CT/Abdomen/Pelvis W IV Cont ONLY IMPRESSION: Negative CT of the abdomen and pelvis with intravenous contrast. Electronically Signed: Cindy Ray MD at 19:22 EST Reading Location ID and State: [id number] / Tel , Service support ,
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
[2024-05-25] MEDS: Ondansetron 4 MG/2 ML Vial IV (18:14)
[2024-05-25] MEDS: Morphine 4 MG/ML Syringe IV (18:14)
[2024-05-25 18:17] LABS: Absolute Lymphocyte Count 2.84 X10^3/uL (0.83-4.51); Absolute Neutrophil Count 2.7 X10^3/uL (2.0-7.7); Basophil# 0.07 X10^3/uL; Basophil% 1.1 % (0-1); Eosinophil# 0.23 X10^3/uL; Eosinophils% 3.6 % (0-5); Hematocrit 45.7 % (40-54); Hemoglobin 15.6 g/dL (13.0-16.5); Lymphocyte # 2.84 X10^3/ul (0.83-4.51); Lymphocyte % 44.7 % (19-41); Mean Corp Hgb Conc 34.1 g/dL (32-36); Mean Corpuscular Hgb 30.1 pg (27.0-32.0); Mean Corpuscular Volume 88.1 fL (80-94); Monocyte# 0.52 X10^3/uL; Monocyte% 8.2 % (0-10); NRBC Flagged by Analyzer 0 % (0-5); Neutrophil # 2.68 X10^3/uL (2.7-7.7); Neutrophil % 42.2 % (47-70); Platelet Count 275 K/mm3 (150-450); RBC Distribution Width CV 12.1 % (11.6-14.6); RBC Distribution Width SD 38.9 fl (35.1-43.9); Red Blood Count 5.19 M/mm3 (4.6-6.2); White Blood Count 6.4 K/mm3 (4.4-11.0)
[2024-05-25 18:34] LABS: ALB/GLOB Ratio 1.5 RATIO (0.9-2.4); AST(SGOT) 18 U/L (15-37); Alanine Aminotransfer ALT/SGPT 19 U/L (16-61); Albumin, Serum 4.8 g/dL (3.2-5.0); Alkaline Phosphatase 93 U/L (45-117); Anion Gap 6 (5-15); BUN 13 mg/dL (7-18); BUN/Creat Ratio 12.1 RATIO (10-20); Chloride 102 mmol/L (98-107); Creatinine, Serum 1.07 mg/dL (0.70-1.30); EST Glomerular Filtration Rate 85 mL/min (>60); Est Glom Filt Rate - Afr Amer 103 mL/min (>60); Estimated Creatinine Clearance 88.51 ml/min; Globulin 3.2 g/dL (2.2-4.2); Glucose 162 mg/dL (74-106); Lipase 27 U/L (13-75); Potassium 3.4 mmol/L (3.5-5.1); Sodium Level 137 mmol/L (136-145)
[2024-05-25 19:41] VITALS: BP 112/78; PULSE 68; RESP 16; TEMP 36.6; O2SAT 100
[2024-05-25] MEDS: Mag Hydrox/Al Hydrox/Simeth 30 ML UDC PO (19:57)
[2024-05-25] MEDS: Lidocaine 2% Viscous15 ML UDC 15 ML PO (19:57)
[2024-05-25] MEDS: Dicyclomine 10 MG Capsule 20 MG PO (19:57)
== END 2024-05-25 20:03 | disposition home or self-care (01) ==
PROVIDERS: Emergency Provider Emergency Medicine; PCP Nurse Practitioner Family; Visit Provider Emergency Medicine
DX: R10.9 Unspecified abdominal pain (principal); F19.19 Other psychoactive substance abuse with unspecified psychoactive substance-induced disorder; K21.9 Gastro-esophageal reflux disease without esophagitis; F41.9 Anxiety disorder, unspecified; F17.290 Nicotine dependence, other tobacco product, uncomplicated; Z90.49 Acquired absence of other specified parts of digestive tract; Z79.899 Other long term (current) drug therapy
CPT/HCPCS: 74177; 80053; 83690; 85025; 96374; 96375; 99284; Q9967; A4216; J2405

== ENCOUNTER 2024-05-26 20:24 | Emergency (ER) | payer MEDICAID, SELFPAY ==
[2024-05-26 20:26] VITALS: BP 125/78; PULSE 88; RESP 16; TEMP 36.4; O2SAT 100; BMI 20.7
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
[2024-05-26] MEDS: Orphenadrine 60 MG/2 ML Ampul IM (20:57)
[2024-05-26] MEDS: Ketorolac 60 MG/2 ML Vial IM (20:57)
[2024-05-26] MEDS: Dicyclomine 10 MG Capsule 20 MG PO (20:57)
[2024-05-26 21:02] VITALS: BP 116/79; PULSE 78; RESP 18; TEMP 36.7; O2SAT 99
== END 2024-05-26 21:18 | disposition home or self-care (01) ==
PROVIDERS: Emergency Provider Emergency Medicine; PCP Nurse Practitioner Family; Visit Provider Emergency Medicine
DX: S39.012A Strain of muscle, fascia and tendon of lower back, initial encounter (principal); R10.9 Unspecified abdominal pain; F17.290 Nicotine dependence, other tobacco product, uncomplicated; Z79.899 Other long term (current) drug therapy; X50.0XXA Overexertion from strenuous movement or load, initial encounter
CPT/HCPCS: 96372; 99282

== ENCOUNTER 2024-06-03 12:07 | Emergency (ER) | payer MEDICAID, SELFPAY ==
[2024-06-03 12:13] VITALS: BP 123/67; PULSE 64; RESP 16; TEMP 36.6; O2SAT 99; BMI 20.7
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
--- NOTE | 2024-06-03 12:46 | ED.RN ---
pt. stated he did not want to file workmans comp
[2024-06-03] MEDS: Morphine 4 MG/ML Syringe IV (12:50)
[2024-06-03] MEDS: Ondansetron 4 MG/2 ML Vial IV (12:50)
[2024-06-03] MEDS: Ketorolac 15 MG/ML Vial IV (12:51)
--- NOTE | 2024-06-03 13:50 | CM.ED ---
Social work Reason for referral: no PCP Referral source: case find This SW identified patient's lack of PCP and need for resources. In a chart review, this SW also identified patient's historical ED SW involvement regarding no PCPs and check-in's due to substance use and chronic pain. This SW entered patient's room and introduced self and role at [facility]. Patient welcomed SW visit and conversation. Patient confirmed patient did not have a PCP and patient stated he had tried to get into [facility]. Patient reported being told that he can no longer schedule with [facility] due to missing too many scheduled appointments. Patient accepted resource of [facility] Provider Directory and stated patient knew he needed to get into a PCP soon. This SW asked about patient's recovery and any current counseling. Patient reported being clean and sober for about 2 years. Patient stated he went through [facility] IOP program and [facility], but patient stated he does not need resources for current counseling services. This SW asked about [facility]'s IOP program and patient stated he cannot make that work due to the hours patient works at [employer]. Patient reported being thrilled by getting patient's daughter back in patient's life since becoming clean. Patient stated his daughter is 12 years old and lives in [place], but patient reported getting his daughter for the aleman and talking with her often via Facetime. Patient reported being so proud to be his daughter's father. Much active listening provided. Patient denied further needs at this time. Jenniffer Means, METAL EXTRUSION SUPERVISOR, GLASS ENGRAVER
[2024-06-03 14:30] VITALS: BP 117/84; PULSE 58; RESP 20; TEMP 36.6; O2SAT 100
== END 2024-06-03 14:31 | disposition home or self-care (01) ==
PROVIDERS: Emergency Provider Emergency Medicine; Visit Provider Emergency Medicine
DX: S39.012A Strain of muscle, fascia and tendon of lower back, initial encounter (principal); R03.0 Elevated blood-pressure reading, without diagnosis of hypertension; F17.290 Nicotine dependence, other tobacco product, uncomplicated; X50.0XXA Overexertion from strenuous movement or load, initial encounter; Y99.0 Civilian activity done for income or pay
CPT/HCPCS: 96374; 96375; 99284; A4216; J2405

== ENCOUNTER → 2024-06-17 | Outpatient (CLI) | payer MEDICAID, SELFPAY ==
--- NOTE | 2024-06-17 14:15 | RAD_ITS ---
STUDY: X-RAY - LUMBAR SPINE REASON FOR EXAM: Male, 33 years old. Low back pain TECHNIQUE: 3 view(s) of the lumbar spine were obtained. COMPARISON: None FINDINGS: Normal lumbar lordosis. There is no substantial scoliosis. There is a normal alignment of the vertebrae. Normal vertebral bodies and endplates. Normal disc space heights. The soft tissue structures are unremarkable. RAD/Lumbar Spine 2 or 3 Views IMPRESSION: Normal x-ray examination of the lumbar spine. Electronically Signed: Nas Munson MD at 14:26 EST ,
== END | disposition home or self-care (01) ==
LOC: MTRAD 14:11
PROVIDERS: Referring Provider Physician Assistant; Visit Provider Physician Assistant
DX: M54.50 Low back pain, unspecified (principal)
CPT/HCPCS: 72100

== ENCOUNTER 2024-10-07 06:18 | Emergency (ER) | payer MEDICAID, SELFPAY ==
[2024-10-07 06:19] VITALS: BP 146/96; PULSE 96; RESP 18; TEMP 36.6; O2SAT 98; BMI 21.7
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
--- NOTE | 2024-10-07 06:30 | CT_ITS ---
PROCEDURE: ABDOMEN/PELVIS W IV CONT ONLY 10/07/2024 REASON FOR EXAM: ABDOMINAL PAIN AND BLOATING TECHNIQUE: Abdomen and pelvis CT with intravenous contrast. Coronal and Sagittal reconstruction series were provided. PATIENT PREPARATION: Per protocol ORAL CONTRAST TYPE: None. CONTRAST: 98 cc Isovue-300 IV One or more dose reduction techniques were used (e.g., Automated exposure control, adjustment of the mA and/or kV according to patient size, use of iterative reconstruction technique. RADIATION DOSE SUMMARY: CTDlvol: 19.95 mGy DLP: 518.30 mGycm COMPARISON: None available FINDINGS: The lung bases are clear. The liver, gallbladder, adrenal glands, kidneys, pancreas and spleen appear within limits. Abdominal aorta appears within limits. No adenopathy. No bowel dilation or free air. Status post appendectomy. The bladder and prostate appear within limits. No free fluid. CT/Abdomen/Pelvis W IV Cont ONLY IMPRESSION: No evidence of acute intra-abdominal process. Reading Location: [id number]
[2024-10-07] MEDS: Ondansetron 4 MG/2 ML Vial IV (06:33)
[2024-10-07] MEDS: Morphine 4 MG/ML Syringe IV (06:33)
[2024-10-07] MEDS: 0.9% Normal Saline (1000mL) 1,000 ML 999 ML IV (06:33)
[2024-10-07 06:42] LABS: Absolute Lymphocyte Count 3.79 X10^3/uL (0.83-4.51); Absolute Neutrophil Count 3.6 X10^3/uL (2.0-7.7); Basophil# 0.11 X10^3/uL; Basophil% 1.2 % (0-1); Eosinophil# 0.41 X10^3/uL; Eosinophils% 4.6 % (0-5); Hematocrit 46.9 % (40-54); Hemoglobin 16.2 g/dL (13.0-16.5); Lymphocyte # 3.79 X10^3/ul (0.83-4.51); Lymphocyte % 42.7 % (19-41); Mean Corp Hgb Conc 34.5 g/dL (32-36); Mean Corpuscular Hgb 30.5 pg (27.0-32.0); Mean Corpuscular Volume 88.3 fL (80-94); Mean Platelet Vol. 9.7 fl (6.2-12.0); Monocyte# 0.99 X10^3/uL; Monocyte% 11.2 % (0-10); NRBC Flagged by Analyzer 0 % (0-5); Neutrophil # 3.55 X10^3/uL (2.7-7.7); Neutrophil % 40.1 % (47-70); Platelet Count 256 K/mm3 (150-450); RBC Distribution Width CV 12.4 % (11.6-14.6); RBC Distribution Width SD 40.1 fl (35.1-43.9); Red Blood Count 5.31 M/mm3 (4.6-6.2); White Blood Count 8.9 K/mm3 (4.4-11.0)
[2024-10-07 06:58] LABS: Lipase 23 U/L (13-75)
[2024-10-07 07:09] LABS: ALB/GLOB Ratio 1.8 RATIO (0.9-2.4); AST(SGOT) 27 U/L (<=37); Alanine Aminotransfer ALT/SGPT 16 U/L (<=46); Alkaline Phosphatase 93 U/L (40-129); Anion Gap 16 (5-15); BUN 10 mg/dL (4-19); BUN/Creat Ratio 9.3 RATIO (10-20); Calcium,Total 9.6 mg/dL (7.6-11.0); Carbon Dioxide 23.2 mmol/L (21.0-32.0); Chloride 104 mmol/L (98-108); Creatinine, Serum 1.09 mg/dL (0.70-1.20); EST Glomerular Filtration Rate 92 (>60); Estimated Creatinine Clearance 91.79 ml/min (50-250); Globulin 2.8 g/dL (2.2-4.2); Glucose 109 mg/dL (70-99); Protein, Total 7.7 g/dL (5.9-8.4); Sodium Level 142 mmol/L (133-145); Total Bilirubin 0.46 mg/dL (0.00-1.30)
[2024-10-07 08:18] VITALS: BP 109/73; PULSE 83; RESP 17; O2SAT 95
[2024-10-07 08:44] LABS: Bacteria 0 SEEN /hpf (None Seen); Mucous, Urine 0 SEEN /hpf (<or=2+); Red Blood Cells-Urine 0 SEEN /hpf (0-5); White Blood Cells 0 SEEN /hpf (0-5)
[2024-10-07 08:48] LABS: Color, Urine Yellow (Yellow); Glucose, Dipstick Normal (Normal); Ketone-Dipstick Negative (Negative); Leukocyte Esterase-Dipstick Negative /ul (Negative); Nitrite-Dipstick Negative (Negative); Occult Blood-Urine Negative /ul (Negative); Protein-Dipstick 15 mg/dl (Negative); Urine Bilirubin Dipstick Negative (Negative); Urine Clarity Clear (Clear); Urine Urobilinogen Normal (Normal)
[2024-10-07 08:58] LABS: Squamous Epithelial Cells - UA 0-5 SEEN /hpf (0-5)
[2024-10-07 09:48] VITALS: BP 116/74; PULSE 58; RESP 14; TEMP 36.6; O2SAT 97
== END 2024-10-07 09:52 | disposition home or self-care (01) ==
PROVIDERS: Emergency Medicine; Emergency Provider Emergency Medicine; PCP Nurse Practitioner Family; Visit Provider Emergency Medicine
DX: R10.33 Periumbilical pain (principal); R10.13 Epigastric pain; F17.290 Nicotine dependence, other tobacco product, uncomplicated; R11.0 Nausea; Z90.49 Acquired absence of other specified parts of digestive tract
CPT/HCPCS: 74177; 80053; 81001; 83690; 85025; 96361; 96374; 99282; Q9967; A4216; J2405

== ENCOUNTER 2024-10-16 22:41 | Emergency (ER) | payer MEDICAID, SELFPAY ==
[2024-10-16 22:41] VITALS: BP 125/91; PULSE 88; RESP 18; TEMP 36.4; O2SAT 95; BMI 21.7
[2024-10-16] MEDS: Hyoscyamine Sulfate 0.125 MG Tablet 0.25 MG SL (23:39)
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
[2024-10-17] MEDS: Mag Hydrox/Al Hydrox/Simeth 30 ML UDC PO (00:09)
[2024-10-17 00:33] VITALS: BP 119/80; PULSE 65; RESP 16; TEMP 36.4; O2SAT 96
== END 2024-10-17 00:34 | disposition home or self-care (01) ==
PROVIDERS: Emergency Provider Emergency Medicine; PCP Nurse Practitioner Family; Visit Provider Emergency Medicine
DX: R10.12 Left upper quadrant pain (principal); F41.9 Anxiety disorder, unspecified; G89.29 Other chronic pain; F17.290 Nicotine dependence, other tobacco product, uncomplicated
CPT/HCPCS: 99285

== ENCOUNTER 2024-11-02 12:05 | Emergency (ER) | payer MEDICAID, SELFPAY ==
[2024-11-02 12:06] VITALS: BP 173/139; PULSE 111; RESP 18; TEMP 36.4; O2SAT 98; BMI 20.7
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
[2024-11-02] MEDS: Ibuprofen 600 MG Tablet PO (12:29)
--- NOTE | 2024-11-02 12:35 | RAD_ITS ---
PROCEDURE: SHOULDER MIN 2 VIEWS 11/02/2024 REASON FOR EXAM: ATRAUMATIC PAIN TECHNIQUE: Internal rotation, external rotation, axillary and scapular Y-view obtained of the left shoulder COMPARISON: None. FINDINGS: Bones: No fracture Joints: Unremarkable. No dislocation. Soft tissues: Unremarkable Other: RAD/Shoulder min 2 Views IMPRESSION: No acute process and no significant degenerative change Reading [facility]
[2024-11-02 14:00] VITALS: BP 152/78; PULSE 100; RESP 18; TEMP 36.4; O2SAT 98
== END 2024-11-02 14:03 | disposition home or self-care (01) ==
PROVIDERS: Emergency Provider Emergency Medicine; PCP Nurse Practitioner Family; Visit Provider Emergency Medicine
DX: M25.512 Pain in left shoulder (principal); F10.129 Alcohol abuse with intoxication, unspecified; F17.290 Nicotine dependence, other tobacco product, uncomplicated; Z87.898 Personal history of other specified conditions
CPT/HCPCS: 73030; 99282; A4216

== ENCOUNTER 2024-11-03 09:25 | Emergency (ER) | payer MEDICAID, SELFPAY ==
[2024-11-03 09:26] VITALS: BP 116/79; PULSE 94; RESP 16; TEMP 36.7; O2SAT 94; BMI 21.8
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
[2024-11-03] MEDS: 0.9% Normal Saline (1000mL) 1,000 ML 999 ML IV (10:08)
[2024-11-03] MEDS: Ondansetron 4 MG/2 ML Vial IV (10:09)
[2024-11-03] MEDS: hydrOXYzine PAM 25 MG Capsule PO (10:09)
[2024-11-03 10:29] LABS: Absolute Lymphocyte Count 2.83 X10^3/uL (0.83-4.51); Absolute Neutrophil Count 5.1 X10^3/uL (2.0-7.7); Basophil% 1.1 % (0-1); Eosinophil# 0.29 X10^3/uL; Eosinophils% 3.1 % (0-5); Hematocrit 45.7 % (40-54); Hemoglobin 15.8 g/dL (13.0-16.5); Lymphocyte # 2.83 X10^3/ul (0.83-4.51); Lymphocyte % 30.7 % (19-41); Mean Corp Hgb Conc 34.6 g/dL (32-36); Mean Corpuscular Hgb 30.5 pg (27.0-32.0); Mean Corpuscular Volume 88.2 fL (80-94); Mean Platelet Vol. 9.8 fl (6.2-12.0); Monocyte# 0.91 X10^3/uL; Monocyte% 9.9 % (0-10); NRBC Flagged by Analyzer 0 % (0-5); Neutrophil # 5.07 X10^3/uL (2.7-7.7); Platelet Count 242 K/mm3 (150-450); RBC Distribution Width CV 12.1 % (11.6-14.6); RBC Distribution Width SD 39.6 fl (35.1-43.9); Red Blood Count 5.18 M/mm3 (4.6-6.2); White Blood Count 9.2 K/mm3 (4.4-11.0)
--- NOTE | 2024-11-03 10:38 | ED.RN ---
PT CONTINUES TO GET UP IN ROOM AND PACE. PT UNWILLING TO LET IV FLUIDS BE INFUSED. FLUIDS STOPPED AT THIS TIME
[2024-11-03 10:49] LABS: AST(SGOT) 26 U/L (<=37); Alanine Aminotransfer ALT/SGPT 16 U/L (<=46); Albumin, Serum 4.6 g/dL (3.5-5.0); Alkaline Phosphatase 91 U/L (40-129); Anion Gap 14 (5-15); BUN 11 mg/dL (4-19); BUN/Creat Ratio 12.4 RATIO (10-20); Calcium,Total 9.3 mg/dL (7.6-11.0); Carbon Dioxide 22.1 mmol/L (21.0-32.0); Chloride 107 mmol/L (98-108); EST Glomerular Filtration Rate 117 (>60); Estimated Creatinine Clearance 111.67 ml/min (50-250); Globulin 2.3 g/dL (2.2-4.2); Glucose 93 mg/dL (70-99); Lipase 18 U/L (13-75); Potassium 4.2 mmol/L (3.3-5.1); Protein, Total 6.9 g/dL (5.9-8.4); Sodium Level 143 mmol/L (133-145); Total Bilirubin 0.49 mg/dL (0.00-1.30)
[2024-11-03 11:25] VITALS: BP 116/70; PULSE 72; RESP 18; O2SAT 98
== END 2024-11-03 12:02 | disposition home or self-care (01) ==
PROVIDERS: Emergency Provider Emergency Medicine; PCP Nurse Practitioner Family; Visit Provider Emergency Medicine
DX: R10.9 Unspecified abdominal pain (principal); R11.2 Nausea with vomiting, unspecified; F17.290 Nicotine dependence, other tobacco product, uncomplicated; R51.9 Headache, unspecified; F41.9 Anxiety disorder, unspecified
CPT/HCPCS: 80053; 83690; 85025; 96361; 96374; 99285; A4216; J2405

== ENCOUNTER 2024-11-25 18:19 | Emergency (ER) | payer MEDICAID, SELFPAY ==
[2024-11-25 18:21] VITALS: BP 114/73; PULSE 93; RESP 16; TEMP 36.4; O2SAT 99; BMI 20.8
[2024-11-25 20:19] VITALS: BP 113/78; PULSE 55; RESP 12; O2SAT 97
[2024-11-25 20:22] LABS: Absolute Lymphocyte Count 1.81 X10^3/uL (0.83-4.51); Absolute Neutrophil Count 4.5 X10^3/uL (2.0-7.7); Basophil# 0.08 X10^3/uL; Basophil% 1.1 % (0-1); Eosinophil# 0.12 X10^3/uL; Eosinophils% 1.7 % (0-5); Hematocrit 46.4 % (40-54); Lymphocyte # 1.81 X10^3/ul (0.83-4.51); Lymphocyte % 25.7 % (19-41); Mean Corp Hgb Conc 34.5 g/dL (32-36); Mean Corpuscular Hgb 30.4 pg (27.0-32.0); Mean Corpuscular Volume 88.2 fL (80-94); Mean Platelet Vol. 10.1 fl (6.2-12.0); Monocyte# 0.52 X10^3/uL; Monocyte% 7.4 % (0-10); NRBC Flagged by Analyzer 0 % (0-5); Neutrophil # 4.49 X10^3/uL (2.7-7.7); Neutrophil % 63.8 % (47-70); Platelet Count 256 K/mm3 (150-450); RBC Distribution Width CV 12.4 % (11.6-14.6); RBC Distribution Width SD 40.5 fl (35.1-43.9); Red Blood Count 5.26 M/mm3 (4.6-6.2)
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
[2024-11-25 20:38] LABS: Lipase 17 U/L (13-75)
[2024-11-25 20:39] LABS: AST(SGOT) 25 U/L (<=37); Alanine Aminotransfer ALT/SGPT 16 U/L (<=46); Albumin, Serum 4.7 g/dL (3.5-5.0); Alkaline Phosphatase 85 U/L (40-129); Anion Gap 13 (5-15); BUN 8 mg/dL (4-19); BUN/Creat Ratio 8.8 RATIO (10-20); Calcium,Total 9.5 mg/dL (7.6-11.0); Chloride 106 mmol/L (98-108); Creatinine, Serum 0.94 mg/dL (0.70-1.20); EST Glomerular Filtration Rate 110 (>60); Estimated Creatinine Clearance 101.11 ml/min (50-250); Globulin 2.4 g/dL (2.2-4.2); Glucose 95 mg/dL (70-99); Potassium 4.3 mmol/L (3.3-5.1); Protein, Total 7.1 g/dL (5.9-8.4); Sodium Level 142 mmol/L (133-145); Total Bilirubin 0.62 mg/dL (0.00-1.30)
[2024-11-25] MEDS: Lidocaine 2% Viscous15 ML UDC 15 ML PO (20:54)
[2024-11-25] MEDS: Mag Hydrox/Al Hydrox/Simeth 30 ML UDC PO (20:54)
[2024-11-25] MEDS: Lorazepam 2 MG/ML WCH Syringe 1 MG IV (20:54)
[2024-11-25 21:59] VITALS: BP 135/94; PULSE 72; RESP 14; TEMP 36.7; O2SAT 97
== END 2024-11-25 22:07 | disposition home or self-care (01) ==
PROVIDERS: Emergency Provider Emergency Medicine; PCP Nurse Practitioner Family; Visit Provider Emergency Medicine
DX: R10.9 Unspecified abdominal pain (principal); F41.9 Anxiety disorder, unspecified; Z79.899 Other long term (current) drug therapy; F17.290 Nicotine dependence, other tobacco product, uncomplicated
CPT/HCPCS: 80053; 83690; 85025; 96374; 99283; A4216

== ENCOUNTER 2024-12-18 23:42 | Emergency (ER) | payer MEDICAID, SELFPAY ==
[2024-12-18 23:43] VITALS: BP 121/75; PULSE 60; RESP 16; TEMP 36.7; O2SAT 98; BMI 21.8
[2024-12-18 23:48] VITALS: O2SAT 98
--- NOTE | 2024-12-18 23:59 | RAD_ITS ---
PROCEDURE: CHEST PA AND LATERAL 12/18/2024 REASON FOR EXAM: COUGH TECHNIQUE: CHEST PA AND LATERAL COMPARISON: 03/05/2024 FINDINGS: No focal consolidation. No pleural effusion or pneumothorax. Cardiac silhouette is within normal limits. No acute fractures. RAD/Chest PA and Lateral IMPRESSION: No focal consolidations. Reading Location: [id number]
[2024-12-19 00:14] VITALS: PULSE 78; RESP 16
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
[2024-12-19 01:04] VITALS: BP 120/73; PULSE 65; RESP 18; TEMP 36.7; O2SAT 100
== END 2024-12-19 01:06 | disposition home or self-care (01) ==
PROVIDERS: Emergency Provider Emergency Medicine; PCP Nurse Practitioner Family; Visit Provider Emergency Medicine
DX: J06.9 Acute upper respiratory infection, unspecified (principal); F41.9 Anxiety disorder, unspecified; R05.9 Cough, unspecified; F17.290 Nicotine dependence, other tobacco product, uncomplicated
CPT/HCPCS: 71046; 94640; 99284

== ENCOUNTER 2024-12-30 18:36 | Emergency (ER) | payer MEDICAID, SELFPAY ==
[2024-12-30 18:37] VITALS: BP 138/97; PULSE 72; RESP 18; TEMP 36.2; O2SAT 98; BMI 21.7
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
[2024-12-30 19:53] VITALS: BP 123/60; PULSE 87; RESP 16; TEMP 36.1; O2SAT 100
== END 2024-12-30 19:54 | disposition home or self-care (01) ==
LOC: ED 19:45
PROVIDERS: Emergency Provider Emergency Medicine; PCP Nurse Practitioner Family; Visit Provider Emergency Medicine
DX: F41.0 Panic disorder [episodic paroxysmal anxiety] (principal); R29.700 NIHSS score 0; F17.290 Nicotine dependence, other tobacco product, uncomplicated
CPT/HCPCS: 99284

== ENCOUNTER 2025-01-01 21:00 | Emergency (ER) | payer MEDICAID, SELFPAY ==
[2025-01-01 21:01] VITALS: BP 129/84; PULSE 87; RESP 18; TEMP 36.6; O2SAT 97; BMI 23.6
--- OUTSIDE RECORDS SUMMARY | 2025-01-01 21:38 | XMS RPT_ITS | CCD ---
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 on 08-21-2023 Lymphocytes Auto (Unsp spec) [#/Vol] 1.79 10*3/uL 0.83-4.51 [facility] Automated lymphocyte count a s percentage of total leukocytesOrdered By: Donnie Carter on 08-21-2023 Lymphocytes/100 WBC Auto (Unsp spec) 31.9 % 19-41 [facility] Basophil percentageOrdered B y: Donnie Carter on 08-21-2023 Basophil percentage 0 SEEN /hpf 0-5 [facility] Basophil percentage 15.5 g/dL 13.0-16.5 [facility] Basophil percentage 103 mg/dL 74-106 [facility] Basophil percentage 140 mmol/L 136-145 [facility] Basophil percentage 4.0 mmol/L 3.5-5.1 [facility] Basophil percentage 107 mmol/L 98-107 [facility] Basophils (Bld) [#/Vol] 5.6 10*3/uL 4.4-11.0 [facility] Basophils (Bld) [#/Vol] 3.3 10*3/uL 2.0-7.7 [facility] Basophils/100 WBC (Bld) 0.9 % 0-[address] [facility] Basophils/100 WBC (Bld) 58.8 % 47-[address] [facility] Basophils/100 WBC (Bld) 7.3 % 0-[address] [facility] Chloride [Moles/Vol] 107 mmol/L 98-107 [facility] Eosinophils/100 WBC (Bld) 0.9 % 0-5 [facility] Glucose [Mass/Vol] 103 mg/dL 74-106 [facility] Comment on above: Fasting Glucose resu lt from 100 to 125 mg/dL suggests IMPAIRED HOMEOSTASIS per A.D.A. criteria. Hemoglobin (Bld) [Mass/Vol] 15.5 g/dL 13.0-16.5 [facility] Monocytes/100 WBC (Bld) 7.3 % 0-[address] [facility] Neutrophils (Bld) [#/Vol] 3.3 10*3/uL 2.0-7.7 [facility] Neutrophils/100 WBC (Bld) 58.8 % 47-70 [facility] Potassium [Moles/Vol] 4.0 mmol/L 3.5-5.1 [facility] Sodium [Moles/Vol] 140 mmol/L 136-145 [facility] WBC (Bld) [#/Vol] 5.6 10*3/uL 4.4-11.0 [facility] Bilirubin Test strip Ql (U)O rdered By: Donnie Carter on 08-21-2023 Bilirubin Ql (U) Negative Negative [facility] Determination of erythrocyte mean corpuscular volume (MCV)Ordered By: Donnie Carter on 08-21-2023 MCV (RBC) [Entitic vol] 87.7 fL 80-[address] [facility] Erythrocyte distribution wid th ratioOrdered By: Donnie Carter on 08-21-2023 Erythrocyte distribution width (RBC) [Ratio] 12.1 % 11.6-14.6 [facility] Erythrocyte distribution wid th standard deviationOrdered By: Donnie Carter on 08-21-2023 Erythrocyte distribution width (RBC) [Entitic vol] 38.7 fL 35.1-43.9 [facility] Hematocrit Auto (Bld) [Volum e fraction]Ordered By: Donnie Carter on 08-21-2023 Hematocrit (Bld) [Volume fraction] 46.2 % 40-54 [facility] Immature granulocytes/100 WB C Auto (Bld)Ordered By: Donnie Carter on 08-21-2023 Immature granulocytes/100 WBC (Bld) 0.200 % 0.0-0.9 [facility] Comment on above: IG% - Immature Granu locytes (promyelocytes, myelocytes and metamyelocytes) > 1% indicates that a LEFT SHIFT is Present. Ketones Test strip Ql (U)Ord ered By: Donnie Carter on 08-21-2023 Ketones Ql (U) Negative Negative [facility] Laboratory - Chemistry and C hemistry - challengeOrdered By: Donnie Carter on 08-21-2023 CO2 [Moles/Vol] 29.0 mmol/L 21.0-32.0 [facility] Urea nitrogen/Creatinine [Mass ratio] 11.2 mg/mg 10-20 [facility] Laboratory - Hematology and Cell countsOrdered By: Donnie Carter on 08-21-2023 MCH (RBC) [Entitic mass] 29.4 pg 27.0-32.0 [facility] MCHC (RBC) [Mass/Vol] 33.5 g/dL 32-36 [facility] Nucleated RBC/100 WBC (Bld) [Ratio] 0 % 0-5 [facility] Platelet mean volume (Bld) [Entitic vol] 10.0 fL 6.2-12.0 [facility] Platelets (Bld) [#/Vol] 227 10*3/uL 150-450 [facility] Mucus LM Ql (Urine sed)Order ed By: Donnie Carter on 08-21-2023 Mucus Ql (Urine sed) 0 SEEN /hpf [facility] Nitrite Test strip Ql (U)Ord ered By: Donnie Carter on 08-21-2023 Nitrite Ql (U) Negative Negative [facility] No Panel InformationOrdered By: Donnie Carter on 08-21-2023 Urine RBC 0 SEEN /hpf 0-5 [facility] 0 SEEN /hpf 0-5 [facility] D-Dimer Quantitative (PE/DVT) 0.28 FEU/ug/m 0.27-0.49 [facility] Comment on above: NORMAL D-Dimer level (<0.50) indicates no DVT or PE. Estimated Creatinine Clearance Calc 84.71 ml/min [facility] Estimated GFR (MDRD) Amer 103 mL/min >60 [facility] Comment on above: GFR Calc Estimated GFR (MDRD) Non-Af Amer 85 mL/min >60 [facility] Comment on above: Non- GFR Calc Troponin I High Sensitivity 4 pg/mL 3.0-78.0 [facility] Comment on above: Please Note: New Fely t Units and Gender Specific Reference Ranges. For more information see Policy Stat Procedure [place] High Sensitivity Troponin (TNIH) and attachments. 29.4 pg 27.0-32.0 [facility] 33.5 g/dL 32-36 [facility] 227 K/mm3 150-450 [facility] 10.0 fl 6.2-12.0 [facility] 0 % 0-5 [facility] 0.28 FEU/ug/m 0.27-0.49 [facility] 85 mL/min >60 [facility] 103 mL/min >60 [facility] 84.71 ml/min [facility] 11.2 RATIO 10-20 [facility] 4 pg/mL 3.0-78.0 [facility] 29.0 mmol/L 21.0-32.0 [facility] Protein Test strip Ql (U)Ord ered By: Donnie Carter on 08-21-2023 Protein Ql (U) Negative Negative [facility] RBC Auto (Bld) [#/Vol]Ordere d By: Donnie Carter on 08-21-2023 RBC (Bld) [#/Vol] 5.27 10*6/uL 4.6-6.2 [facility] Serum or plasma calcium leida urement (mass/volume)Ordered By: Donnie Carter on 08-21-2023 Calcium [Mass/Vol] 9.2 mg/dL 8.5-10.1 [facility] Serum or plasma creatinine m easurement (mass/volume)Ordered By: Donnie Carter on 08-21-2023 Creatinine [Mass/Vol] 1.07 mg/dL 0.70-1.30 [facility] Comment on above: The validity of the calculated GFR & GFRAA in patients over 70 years has not been determined. Clinical correlation is essential. Serum or plasma urea nitroge n measurement (mass/volume)Ordered By: Donnie Carter on 08-21-2023 Urea nitrogen [Mass/Vol] 12 mg/dL 7-18 [facility] Squamous epithelial cells de tection in urine sediment by light microscopyOrdered By: Donnie Carter on 08-21-2023 Epithelial cells.squamous LM Ql (Urine sed) 0 SEEN /hpf 0-5 [facility] Thin prep Papanicolaou smear with manual screeningOrdered By: Donnie Carter on 08-21-2023 Thin prep Papanicolaou smear with manual screening 4 5-15 [facility] Urine blood detectionOrdered By: Donnie Carter on 08-21-2023 RBC Ql (U) Negative Negative [facility] Urine clarityOrdered By: Emma Carter on 08-21-2023 Clarity (U) Clear Clear [facility] Urine color determinationOrd ered By: Donnie Carter on 08-21-2023 Color (U) Yellow Yellow [facility] Urine glucose detectionOrder ed By: Donnie Carter on 08-21-2023 Glucose Ql (U) Normal mg/dl Normal [facility] Urine leukocyte esterase det ection by dipstickOrdered By: Donnie Carter on 08-21-2023 Leukocyte esterase Test strip Ql (U) Negative Negative [facility] Urine pHOrdered By: Donnie fam on 08-21-2023 pH (U) 7.0 [pH] 5.0 - 8.0 [facility] Urine sediment bacteria coun t by microscopy (number/high power field)Ordered By: Donnie Carter on 08-21-2023 Bacteria LM.HPF (Urine sed) [#/Area] 0 /[HPF] None Seen [facility] Urine specific gravity measu rementOrdered By: Donnie Carter on 08-21-2023 Specific gravity (U) [Rel density] 1.010 1.002-1.030 [facility] Urine urobilinogen measureme ntOrdered By: Donnie Carter on 08-21-2023 Urobilinogen Ql (U) Normal mg/dl Normal [facility] Absolute lymphocyte countOrd ered By: Jad Santamaria on 08-19-2023 Lymphocytes Auto (Unsp spec) [#/Vol] 2.41 10*3/uL 0.83-4.51 [facility] Automated lymphocyte count a s percentage of total leukocytesOrdered By: Jad Santamaria on 08-19-2023 Lymphocytes/100 WBC Auto (Unsp spec) 38.6 % 19-41 [facility] Basophil percentageOrdered B y: Jad Santamaria on 08-19-2023 Basophil percentage 16.2 g/dL 13.0-16.5 [facility] Basophil percentage 101 mg/dL 74-106 [facility] Basophil percentage 7.6 g/dL 6.4-8.2 [facility] Basophil percentage 0.60 mg/dL 0.20-1.00 [facility] Basophil percentage 140 mmol/L 136-145 [facility] Basophil percentage 4.1 mmol/L 3.5-5.1 [facility] Basophil percentage 108 mmol/L 98-107 [facility] Basophils (Bld) [#/Vol] 6.3 10*3/uL 4.4-11.0 [facility] Basophils (Bld) [#/Vol] 3.0 10*3/uL 2.0-7.7 [facility] Basophils/100 WBC (Bld) 0.8 % 0-[address] [facility] Basophils/100 WBC (Bld) 48.3 % 47-[address] [facility] Basophils/100 WBC (Bld) 9.9 % 0-[address] [facility] Basophils/100 WBC (Bld) 2.1 % 0-[address] [facility] Bilirubin [Mass/Vol] 0.60 mg/dL 0.20-1.00 [facility] Comment on above: For patients on eltr ombopag therapy, use of Dimension [place] TBIL is not recommended. Chloride [Moles/Vol] 108 mmol/L 98-107 [facility] Eosinophils/100 WBC (Bld) 2.1 % 0-5 [facility] Glucose [Mass/Vol] 101 mg/dL 74-106 [facility] Comment on above: Fasting Glucose resu lt from 100 to 125 mg/dL suggests IMPAIRED HOMEOSTASIS per A.D.A. criteria. Hemoglobin (Bld) [Mass/Vol] 16.2 g/dL 13.0-16.5 [facility] Monocytes/100 WBC (Bld) 9.9 % 0-[address] [facility] Neutrophils (Bld) [#/Vol] 3.0 10*3/uL 2.0-7.7 [facility] Neutrophils/100 WBC (Bld) 48.3 % 47-70 [facility] Potassium [Moles/Vol] 4.1 mmol/L 3.5-5.1 [facility] Protein [Mass/Vol] 7.6 g/dL 6.4-8.2 [facility] Sodium [Moles/Vol] 140 mmol/L 136-145 [facility] WBC (Bld) [#/Vol] 6.3 10*3/uL 4.4-11.0 [facility] Determination of erythrocyte mean corpuscular volume (MCV)Ordered By: Jad Santamaria on 08-19-2023 MCV (RBC) [Entitic vol] 87.3 fL 80-[address] [facility] Erythrocyte distribution wid th ratioOrdered By: Jad Santamaria on 08-19-2023 Erythrocyte distribution width (RBC) [Ratio] 12.2 % 11.6-14.6 [facility] Erythrocyte distribution wid th standard deviationOrdered By: Jad Santamaria on 08-19-2023 Erythrocyte distribution width (RBC) [Entitic vol] 39.1 fL 35.1-43.9 [facility] Hematocrit Auto (Bld) [Volum e fraction]Ordered By: Jad Santamaria on 08-19-2023 Hematocrit (Bld) [Volume fraction] 48.1 % 40-54 [facility] Immature granulocytes/100 WB C Auto (Bld)Ordered By: Jad Santamaria on 08-19-2023 Immature granulocytes/100 WBC (Bld) 0.300 % 0.0-0.9 [facility] Comment on above: IG% - Immature Granu locytes (promyelocytes, myelocytes and metamyelocytes) > 1% indicates that a LEFT SHIFT is Present. Laboratory - Chemistry and C hemistry - challengeOrdered By: Jad Santamaria on 08-19-2023 Albumin/Globulin [Mass ratio] 1.5 {ratio} 0.9-2.4 [facility] ALP [Catalytic activity/Vol] 80 U/L 45-117 [facility] ALT [Catalytic activity/Vol] 16 U/L 16-61 [facility] CO2 [Moles/Vol] 24.0 mmol/L 21.0-32.0 [facility] Globulin (S) [Mass/Vol] 3.1 g/dL 2.2-4.[address] [facility] Urea nitrogen/Creatinine [Mass ratio] 12.0 mg/mg 10-20 [facility] Laboratory - Hematology and Cell countsOrdered By: Jad Santamaria on 08-19-2023 MCH (RBC) [Entitic mass] 29.4 pg 27.0-32.0 [facility] MCHC (RBC) [Mass/Vol] 33.7 g/dL 32-36 [facility] Nucleated RBC/100 WBC (Bld) [Ratio] 0 % 0-5 [facility] Platelet mean volume (Bld) [Entitic vol] 10.0 fL 6.2-12.0 [facility] Platelets (Bld) [#/Vol] 227 10*3/uL 150-450 [facility] No Panel InformationOrdered By: Jad Santamaria on 08-19-2023 Troponin I High Sensitivity 8 pg/mL 3.0-78.0 [facility] Comment on above: Please Note: New Fely t Units and Gender Specific Reference Ranges. For more information see Policy Stat Procedure [place] High Sensitivity Troponin (TNIH) and attachments. 8 pg/mL 3.0-78.0 [facility] Estimated Creatinine Clearance Calc 95.38 ml/min [facility] Estimated GFR (MDRD) Amer 112 mL/min >60 [facility] Comment on above: GFR Calc Estimated GFR (MDRD) Non-Af Amer 92 mL/min >60 [facility] Comment on above: Non- GFR Calc 29.4 pg 27.0-32.0 [facility] 33.7 g/dL 32-36 [facility] 227 K/mm3 150-450 [facility] 10.0 fl 6.2-12.0 [facility] 0 % 0-5 [facility] 92 mL/min >60 [facility] 112 mL/min >60 [facility] 95.38 ml/min [facility] 12.0 RATIO 10-20 [facility] 3.1 g/dL 2.2-4.2 [facility] 1.5 RATIO 0.9-2.4 [facility] 80 U/L 45-117 [facility] 16 U/L 16-61 [facility] 24.0 mmol/L 21.0-32.0 [facility] RBC Auto (Bld) [#/Vol]Ordere d By: Jad Santamaria on 08-19-2023 RBC (Bld) [#/Vol] 5.51 10*6/uL 4.6-6.2 [facility] Serum or plasma calcium leida urement (mass/volume)Ordered By: Jad Santamaria on 08-19-2023 Calcium [Mass/Vol] 9.1 mg/dL 8.5-10.1 [facility] Serum or plasma cardiac trop onin I panel by high sensitivity methodOrdered By: Jad Santamaria on 08-19-2023 Tropinin I.cardiac panel High sensitivity method 5 pg/mL 3.0-78.0 [facility] [facility] Comment on above: Please Note: New Fely t Units and Gender Specific Reference Ranges. For more information see Policy Stat Procedure Kimball High Sensitivity Troponin (TNIH) and attachments. Serum or plasma creatinine m easurement (mass/volume)Ordered By: Jad Santamaria on 08-19-2023 Creatinine [Mass/Vol] 1.00 mg/dL 0.70-1.30 [facility] Comment on above: The validity of the calculated GFR & GFRAA in patients over 70 years has not been determined. Clinical correlation is essential. Serum or plasma urea nitroge n measurement (mass/volume)Ordered By: Jad Santamaria on 08-19-2023 Urea nitrogen [Mass/Vol] 12 mg/dL 7-18 [facility] Thin prep Papanicolaou smear with manual screeningOrdered By: Jad Santamaria on 08-19-2023 Thin prep Papanicolaou smear with manual screening 4.5 g/dL 3.2-5.0 [facility] Thin prep Papanicolaou smear with manual screening 15 U/L 15-37 [facility] Thin prep Papanicolaou smear with manual screening 8 5-15 [facility] Serum or plasma thyroid stim ulating hormone (TSH) measurement (units/volume)Ordered By: Abimael Christianson on 08-15-2023 TSH Qn 0.57 uIU/mL 0.358-3.74 [facility] Absolute lymphocyte countOrd ered By: Ky Gonzalez on 08-12-2023 Lymphocytes Auto (Unsp spec) [#/Vol] 2.99 10*3/uL 0.83-4.51 [facility] Automated lymphocyte count a s percentage of total leukocytesOrdered By: Ky Gonzalez on 08-12-2023 Lymphocytes/100 WBC Auto (Unsp spec) 44.0 % 19-41 [facility] Basophil percentageOrdered B y: Ky Gonzalez on 08-12-2023 Basophil percentage 15.9 g/dL 13.0-16.5 [facility] Basophil percentage 102 mg/dL 74-106 [facility] Basophil percentage 142 mmol/L 136-145 [facility] Basophil percentage 3.3 mmol/L 3.5-5.1 [facility] Basophil percentage 107 mmol/L 98-107 [facility] Basophils (Bld) [#/Vol] 6.8 10*3/uL 4.4-11.0 [facility] Basophils (Bld) [#/Vol] 3.2 10*3/uL 2.0-7.7 [facility] Basophils/100 WBC (Bld) 0.4 % 0-[address] [facility] Basophils/100 WBC (Bld) 47.1 % 47-[address] [facility] Basophils/100 WBC (Bld) 6.9 % 0-[address] [facility] Basophils/100 WBC (Bld) 1.5 % 0-[address] [facility] Chloride [Moles/Vol] 107 mmol/L 98-107 [facility] Eosinophils/100 WBC (Bld) 1.5 % 0-5 [facility] Glucose [Mass/Vol] 102 mg/dL 74-106 [facility] Comment on above: Fasting Glucose resu lt from 100 to 125 mg/dL suggests IMPAIRED HOMEOSTASIS per A.D.A. criteria. Hemoglobin (Bld) [Mass/Vol] 15.9 g/dL 13.0-16.5 [facility] Monocytes/100 WBC (Bld) 6.9 % 0-[address] [facility] Neutrophils (Bld) [#/Vol] 3.2 10*3/uL 2.0-7.7 [facility] Neutrophils/100 WBC (Bld) 47.1 % 47-70 [facility] Potassium [Moles/Vol] 3.3 mmol/L 3.5-5.1 [facility] Sodium [Moles/Vol] 142 mmol/L 136-145 [facility] WBC (Bld) [#/Vol] 6.8 10*3/uL 4.4-11.0 [facility] Determination of erythrocyte mean corpuscular volume (MCV)Ordered By: Ky Gonzalez on 08-12-2023 MCV (RBC) [Entitic vol] 88.9 fL 80-[address] [facility] Erythrocyte distribution wid th ratioOrdered By: Ky Gonzalez on 08-12-2023 Erythrocyte distribution width (RBC) [Ratio] 12.1 % 11.6-14.6 [facility] Erythrocyte distribution wid th standard deviationOrdered By: Ky Gonzalez on 08-12-2023 Erythrocyte distribution width (RBC) [Entitic vol] 40.0 fL 35.1-43.9 [facility] Hematocrit Auto (Bld) [Volum e fraction]Ordered By: Ky Gonzalez on 08-12-2023 Hematocrit (Bld) [Volume fraction] 46.6 % 40-54 [facility] Immature granulocytes/100 WB C Auto (Bld)Ordered By: Ky Gonzalez on 08-12-2023 Immature granulocytes/100 WBC (Bld) 0.100 % 0.0-0.9 [facility] Comment on above: IG% - Immature Granu locytes (promyelocytes, myelocytes and metamyelocytes) > 1% indicates that a LEFT SHIFT is Present. Laboratory - Chemistry and C hemistry - challengeOrdered By: Ky Gonzalez on 08-12-2023 CO2 [Moles/Vol] 30.0 mmol/L 21.0-32.0 [facility] Urea nitrogen/Creatinine [Mass ratio] 13.7 mg/mg 10-20 [facility] Laboratory - Hematology and Cell countsOrdered By: Ky Gonzalez on 08-12-2023 MCH (RBC) [Entitic mass] 30.3 pg 27.0-32.0 [facility] MCHC (RBC) [Mass/Vol] 34.1 g/dL 32-36 [facility] Nucleated RBC/100 WBC (Bld) [Ratio] 0 % 0-5 [facility] Platelet mean volume (Bld) [Entitic vol] 10.3 fL 6.2-12.0 [facility] Platelets (Bld) [#/Vol] 220 10*3/uL 150-450 [facility] No Panel InformationOrdered By: Ky Gonzalez on 08-12-2023 Estimated Creatinine Clearance Calc 93.58 ml/min [facility] Estimated GFR (MDRD) Amer 109 mL/min >60 [facility] Comment on above: GFR Calc Estimated GFR (MDRD) Non-Af Amer 90 mL/min >60 [facility] Comment on above: Non- GFR Calc Troponin I High Sensitivity 5 pg/mL 3.0-78.0 [facility] Comment on above: Please Note: New Fely t Units and Gender Specific Reference Ranges. For more information see Policy Stat Procedure [place] High Sensitivity Troponin (TNIH) and attachments. 30.3 pg 27.0-32.0 [facility] 34.1 g/dL 32-36 [facility] 220 K/mm3 150-450 [facility] 10.3 fl 6.2-12.0 [facility] 0 % 0-5 [facility] 90 mL/min >60 [facility] 109 mL/min >60 [facility] 93.58 ml/min [facility] 13.7 RATIO 10-20 [facility] 5 pg/mL 3.0-78.0 [facility] 30.0 mmol/L 21.0-32.0 [facility] RBC Auto (Bld) [#/Vol]Ordere d By: Ky Gonzalez on 08-12-2023 RBC (Bld) [#/Vol] 5.24 10*6/uL 4.6-6.2 [facility] Serum or plasma calcium leida urement (mass/volume)Ordered By: Ky Gonzalez on 08-12-2023 Calcium [Mass/Vol] 8.9 mg/dL 8.5-10.1 [facility] Serum or plasma creatinine m easurement (mass/volume)Ordered By: Ky Gonzalez on 08-12-2023 Creatinine [Mass/Vol] 1.02 mg/dL 0.70-1.30 [facility] Comment on above: The validity of the calculated GFR & GFRAA in patients over 70 years has not been determined. Clinical correlation is essential. Serum or plasma urea nitroge n measurement (mass/volume)Ordered By: Ky Gonzalez on 08-12-2023 Urea nitrogen [Mass/Vol] 14 mg/dL 7-18 [facility] Thin prep Papanicolaou smear with manual screeningOrdered By: Ky Gonzalez on 08-12-2023 Thin prep Papanicolaou smear with manual screening 5 5-15 [facility] Erythrocyte sedimentation ra teOrdered By: Ritika Suarez on 08-09-2023 ESR (Bld) [Velocity] mm/h 0-20 [facility] No Panel InformationOrdered By: Ritika Suarez on 08-09-2023 Anti-Nuclear Antibody Screen Negative Negative [facility] Comment on above: Performed at: [address] [id number] Director: David Peter PhD, Phone: [phone] C-Reactive Protein Extended Range < 2.90 mg/L 0.0-3.0 [facility] Comment on above: C-Reactive Protein ( CRP) provides useful information for thediagnosis, therapy and monitoring of inflammatory processesand associated diseases. For the evaluation of Relative Riskfor Cardiovascular Disease, a High Sensitivity CRP (HSCRP)should be ordered. D-Dimer Quantitative (PE/DVT) < 0.27 FEU/ug/m 0.27-0.49 [facility] Comment on above: NORMAL D-Dimer level (<0.50) indicates no DVT or PE. Lyme Disease IgG Ab 18 kDa Band Absent . [facility] Lyme Disease IgG Ab 23 kDa Band Absent . [facility] Lyme Disease IgG Ab 28 kDa Band Absent . [facility] Lyme Disease IgG Ab 30 kDa Band Absent . [facility] Lyme Disease IgG Ab 39 kDa Band Absent . [facility] Lyme Disease IgG Ab 41 kDa Band Absent . [facility] Lyme Disease IgG Ab 45 kDa Band Absent . [facility] Lyme Disease IgG Ab 58 kDa Band Absent . [facility] Lyme Disease IgG Ab 66 kDa Band Absent . [facility] Lyme Disease IgG Ab 93 kDa Band Absent . [facility] Lyme Disease IgG [place] Interp Negative . [facility] Comment on above: Positive: 5 of the f ollowing Borrelia-specific bands: 18,23,28,30,39,41,45,58, 66, and 93. Negative: No bands or banding patterns which do not meet positive criteria. Lyme Disease IgM Ab (Western Blot) Negative . [facility] Comment on above: Note: An equivocal o r positive EIA result followed by anegative Line Blot result is considered NEGATIVE. Anequivocal or positive EIA result followed by a positiveLine Blot is considered POSITIVE by the CDC.Positive: 2 of the following bands: 23,39 or 41Negative: No bands or banding patterns which do not meetpositive criteria.Criteria for positivity are those recommended byCDC/ASTPHLD. p23=Osp C, m38=[id number]:Sera from individuals with the following may cross reactin the Lyme Line Blot assays: other spirochetal diseases(periodontal disease, leptospirosis, relapsing fever, yaws,and pinta); connective autoimmune (Rheumatoid Arthritis andSystemic Lupus Erythematosus and also individuals withAntinuclear Antibody); other infections (Contreras MountainSpotted Fever; Jasmeet-Irizarry Virus, and Cytomegalovirus).Please Note: Lyme immunoblot alone is not recommended forthe diagnosis of Lyme disease. Current guidelines recommendthe use of a two-tiered approach to Lyme serology testingto improve the sensitivity and specificity of testing.[facility] offers test code [id number] Lyme Disease Serology withReflex to aid in the diagnosis of Lyme Disease.Performed at: [address] [id number] Director: Freda Pablo MD, Phone: [phone] Lyme Disease IgM Ab 23 kDa Band Absent . [facility] Lyme Disease IgM Ab 39 kDa Band Absent . [facility] Lyme Disease IgM Ab 41 kDa Band Absent . [facility] < 0.27 FEU/ug/m 0.27-0.49 [facility] < 2.90 mg/L 0.0-3.0 [facility] Negative . [facility] Absent . [facility] Absolute lymphocyte countOrd ered By: Donnie Carter on 08-08-2023 Lymphocytes Auto (Unsp spec) [#/Vol] 1.87 10*3/uL 0.83-4.51 [facility] Automated lymphocyte count a s percentage of total leukocytesOrdered By: Donnie Carter on 08-08-2023 Lymphocytes/100 WBC Auto (Unsp spec) 29.6 % 19-41 [facility] Basophil percentageOrdered B y: Donnie Carter on 08-08-2023 Basophil percentage 0 SEEN /hpf 0-5 [facility] Basophil percentage 16.2 g/dL 13.0-16.5 [facility] Basophil percentage 88 mg/dL 74-106 [facility] Basophil percentage 141 mmol/L 136-145 [facility] Basophil percentage 3.7 mmol/L 3.5-5.1 [facility] Basophil percentage 107 mmol/L 98-107 [facility] Basophils (Bld) [#/Vol] 6.3 10*3/uL 4.4-11.0 [facility] Basophils (Bld) [#/Vol] 3.7 10*3/uL 2.0-7.7 [facility] Basophils/100 WBC (Bld) 0.5 % 0-[address] [facility] Basophils/100 WBC (Bld) 58.9 % 47-[address] [facility] Basophils/100 WBC (Bld) 10.3 % 0-[address] [facility] Basophils/100 WBC (Bld) 0.2 % 0-[address] [facility] Chloride [Moles/Vol] 107 mmol/L 98-107 [facility] Eosinophils/100 WBC (Bld) 0.2 % 0-5 [facility] Glucose [Mass/Vol] 88 mg/dL 74-106 [facility] Hemoglobin (Bld) [Mass/Vol] 16.2 g/dL 13.0-16.5 [facility] Monocytes/100 WBC (Bld) 10.3 % 0-[address] [facility] Neutrophils (Bld) [#/Vol] 3.7 10*3/uL 2.0-7.7 [facility] Neutrophils/100 WBC (Bld) 58.9 % 47-70 [facility] Potassium [Moles/Vol] 3.7 mmol/L 3.5-5.1 [facility] Sodium [Moles/Vol] 141 mmol/L 136-145 [facility] WBC (Bld) [#/Vol] 6.3 10*3/uL 4.4-11.0 [facility] Bilirubin Test strip Ql (U)O rdered By: Donnie Carter on 08-08-2023 Bilirubin Ql (U) Negative Negative [facility] Determination of erythrocyte mean corpuscular volume (MCV)Ordered By: Donnie Carter on 08-08-2023 MCV (RBC) [Entitic vol] 86.1 fL 80-[address] [facility] Erythrocyte distribution wid th ratioOrdered By: Donnie Carter on 08-08-2023 Erythrocyte distribution width (RBC) [Ratio] 12.2 % 11.6-14.6 [facility] Erythrocyte distribution wid th standard deviationOrdered By: Donnie Carter on 08-08-2023 Erythrocyte distribution width (RBC) [Entitic vol] 38.9 fL 35.1-43.9 [facility] Hematocrit Auto (Bld) [Volum e fraction]Ordered By: Donnie Carter on 08-08-2023 Hematocrit (Bld) [Volume fraction] 47.6 % 40-54 [facility] Immature granulocytes/100 WB C Auto (Bld)Ordered By: Donnie Carter on 08-08-2023 Immature granulocytes/100 WBC (Bld) 0.500 % 0.0-0.9 [facility] Comment on above: IG% - Immature Granu locytes (promyelocytes, myelocytes and metamyelocytes) > 1% indicates that a LEFT SHIFT is Present. Ketones Test strip Ql (U)Ord ered By: Donnie Carter on 08-08-2023 Ketones Ql (U) 50 mg/dl Negative [facility] Laboratory - Chemistry and C hemistry - challengeOrdered By: Donnie Carter on 08-08-2023 CO2 [Moles/Vol] 27.0 mmol/L 21.0-32.0 [facility] Urea nitrogen/Creatinine [Mass ratio] 13.5 mg/mg 10-20 [facility] Laboratory - Hematology and Cell countsOrdered By: Donnie Carter on 08-08-2023 MCH (RBC) [Entitic mass] 29.3 pg 27.0-32.0 [facility] MCHC (RBC) [Mass/Vol] 34.0 g/dL 32-36 [facility] Nucleated RBC/100 WBC (Bld) [Ratio] 0 % 0-5 [facility] Platelet mean volume (Bld) [Entitic vol] 10.0 fL 6.2-12.0 [facility] Platelets (Bld) [#/Vol] 228 10*3/uL 150-450 [facility] Laboratory - Microbiology an d Antimicrobial susceptibilityOrdered By: Donnie Carter on 08-08-2023 SARS-CoV-2 (COVID-19) RNA ALIX+probe Ql (Unsp spec) [facility] SARS-CoV-2 (COVID-19) RNA ALIX+probe Ql (Unsp spec) [facility] Mucus LM Ql (Urine sed)Order ed By: Donnie Carter on 08-08-2023 Mucus Ql (Urine sed) 0 SEEN /hpf [facility] Nitrite Test strip Ql (U)Ord ered By: Donnie Carter on 08-08-2023 Nitrite Ql (U) Negative Negative [facility] No Panel InformationOrdered By: Donnie Carter on 08-08-2023 Urine RBC 0 SEEN /hpf 0-5 [facility] 0 SEEN /hpf 0-5 [facility] Estimated Creatinine Clearance Calc 92.58 ml/min [facility] Estimated GFR (MDRD) Amer 107 mL/min >60 [facility] Comment on above: GFR Calc Estimated GFR (MDRD) Non-Af Amer 88 mL/min >60 [facility] Comment on above: Non- GFR Calc 29.3 pg 27.0-32.0 [facility] 34.0 g/dL 32-36 [facility] 228 K/mm3 150-450 [facility] 10.0 fl 6.2-12.0 [facility] 0 % 0-5 [facility] 88 mL/min >60 [facility] 107 mL/min >60 [facility] 92.58 ml/min [facility] 13.5 RATIO 10-20 [facility] 27.0 mmol/L 21.0-32.0 [facility] Protein Test strip Ql (U)Ord ered By: Donnie Carter on 08-08-2023 Protein Ql (U) 15 mg/dl Negative [facility] RBC Auto (Bld) [#/Vol]Ordere d By: Donnie Carter on 08-08-2023 RBC (Bld) [#/Vol] 5.53 10*6/uL 4.6-6.2 [facility] Serum or plasma calcium leida urement (mass/volume)Ordered By: Donnie Carter on 08-08-2023 Calcium [Mass/Vol] 9.6 mg/dL 8.5-10.1 [facility] Serum or plasma creatinine m easurement (mass/volume)Ordered By: Donnie Carter on 08-08-2023 Creatinine [Mass/Vol] 1.04 mg/dL 0.70-1.30 [facility] Comment on above: The validity of the calculated GFR & GFRAA in patients over 70 years has not been determined. Clinical correlation is essential. Serum or plasma urea nitroge n measurement (mass/volume)Ordered By: Donnie Carter on 08-08-2023 Urea nitrogen [Mass/Vol] 14 mg/dL 7-18 [facility] Squamous epithelial cells de tection in urine sediment by light microscopyOrdered By: Donnie Carter on 08-08-2023 Epithelial cells.squamous LM Ql (Urine sed) 0 SEEN /hpf 0-5 [facility] Thin prep Papanicolaou smear with manual screeningOrdered By: Donnie Carter on 08-08-2023 Thin prep Papanicolaou smear with manual screening 7 5-15 [facility] Urine blood detectionOrdered By: Donnie Carter on 08-08-2023 RBC Ql (U) Negative Negative [facility] Urine clarityOrdered By: Emma Carter on 08-08-2023 Clarity (U) Clear Clear [facility] Urine color determinationOrd ered By: Donnie Carter on 08-08-2023 Color (U) Yellow Yellow [facility] Urine glucose detectionOrder ed By: Donnie Carter on 08-08-2023 Glucose Ql (U) Normal mg/dl Normal [facility] Urine leukocyte esterase det ection by dipstickOrdered By: Donnie Carter on 08-08-2023 Leukocyte esterase Test strip Ql (U) Negative Negative [facility] Urine pHOrdered By: Donnie fam on 08-08-2023 pH (U) 6.5 [pH] 5.0 - 8.0 [facility] Urine sediment bacteria coun t by microscopy (number/high power field)Ordered By: Donnie Carter on 08-08-2023 Bacteria LM.HPF (Urine sed) [#/Area] 0 /[HPF] None Seen [facility] Urine specific gravity measu rementOrdered By: Donnie Carter on 08-08-2023 Specific gravity (U) [Rel density] 1.015 1.002-1.030 [facility] Urine urobilinogen measureme ntOrdered By: Donnie Carter on 08-08-2023 Urobilinogen Ql (U) 1 mg/dl Normal [facility] Laboratory - Microbiology an d Antimicrobial susceptibilityOrdered By: Neva Lea on 08-06-2023 SARS-CoV-2 (COVID-19) RNA ALIX+probe Ql (Unsp spec) [facility] SARS-CoV-2 (COVID-19) RNA ALIX+probe Ql (Unsp spec) [facility] Absolute lymphocyte countOrd ered By: Neva Lea on 08-05-2023 Lymphocytes Auto (Unsp spec) [#/Vol] 1.79 10*3/uL 0.83-4.51 [facility] Automated lymphocyte count a s percentage of total leukocytesOrdered By: Neva Lea on 08-05-2023 Lymphocytes/100 WBC Auto (Unsp spec) 33.6 % 19-41 [facility] Basophil percentageOrdered B y: Neva Lea on 08-05-2023 Basophil percentage 15.7 g/dL 13.0-16.5 [facility] Basophil percentage 110 mg/dL 74-106 [facility] Basophil percentage 7.2 g/dL 6.4-8.2 [facility] Basophil percentage 1.10 mg/dL 0.20-1.00 [facility] Basophil percentage 141 mmol/L 136-145 [facility] Basophil percentage 3.3 mmol/L 3.5-5.1 [facility] Basophil percentage 109 mmol/L 98-107 [facility] Basophils (Bld) [#/Vol] 5.3 10*3/uL 4.4-11.0 [facility] Basophils (Bld) [#/Vol] 3.1 10*3/uL 2.0-7.7 [facility] Basophils/100 WBC (Bld) 0.8 % 0-[address] [facility] Basophils/100 WBC (Bld) 57.5 % 47-[address] [facility] Basophils/100 WBC (Bld) 7.3 % 0-[address] [facility] Basophils/100 WBC (Bld) 0.4 % 0-[address] [facility] Bilirubin [Mass/Vol] 1.10 mg/dL 0.20-1.00 [facility] Comment on above: For patients on eltr ombopag therapy, use of Dimension Kimball TBIL is not recommended. Chloride [Moles/Vol] 109 mmol/L 98-107 [facility] Eosinophils/100 WBC (Bld) 0.4 % 0-5 [facility] Glucose [Mass/Vol] 110 mg/dL 74-106 [facility] Comment on above: Fasting Glucose resu lt from 100 to 125 mg/dL suggests IMPAIRED HOMEOSTASIS per A.D.A. criteria. Hemoglobin (Bld) [Mass/Vol] 15.7 g/dL 13.0-16.5 [facility] Monocytes/100 WBC (Bld) 7.3 % 0-[address] [facility] Neutrophils (Bld) [#/Vol] 3.1 10*3/uL 2.0-7.7 [facility] Neutrophils/100 WBC (Bld) 57.5 % 47-70 [facility] Potassium [Moles/Vol] 3.3 mmol/L 3.5-5.1 [facility] Protein [Mass/Vol] 7.2 g/dL 6.4-8.2 [facility] Sodium [Moles/Vol] 141 mmol/L 136-145 [facility] WBC (Bld) [#/Vol] 5.3 10*3/uL 4.4-11.0 [facility] Determination of erythrocyte mean corpuscular volume (MCV)Ordered By: Neva Lea on 08-05-2023 MCV (RBC) [Entitic vol] 87.6 fL 80-[address] [facility] Erythrocyte distribution wid th ratioOrdered By: Neva Lea on 08-05-2023 Erythrocyte distribution width (RBC) [Ratio] 12.3 % 11.6-14.6 [facility] Erythrocyte distribution wid th standard deviationOrdered By: Neva Lea on 08-05-2023 Erythrocyte distribution width (RBC) [Entitic vol] 39.4 fL 35.1-43.9 [facility] Hematocrit Auto (Bld) [Volum e fraction]Ordered By: Neva Lea on 08-05-2023 Hematocrit (Bld) [Volume fraction] 46.6 % 40-54 [facility] Immature granulocytes/100 WB C Auto (Bld)Ordered By: Neva Lea on 08-05-2023 Immature granulocytes/100 WBC (Bld) 0.400 % 0.0-0.9 [facility] Comment on above: IG% - Immature Granu locytes (promyelocytes, myelocytes and metamyelocytes) > 1% indicates that a LEFT SHIFT is Present. Laboratory - Chemistry and C hemistry - challengeOrdered By: Neva Lea on 08-05-2023 Albumin/Globulin [Mass ratio] 2.0 {ratio} 0.9-2.4 [facility] ALP [Catalytic activity/Vol] 89 U/L 45-117 [facility] ALT [Catalytic activity/Vol] 20 U/L 16-61 [facility] CO2 [Moles/Vol] 23.0 mmol/L 21.0-32.0 [facility] [facility] Globulin (S) [Mass/Vol] 2.4 g/dL 2.2-4.[address] [facility] Urea nitrogen/Creatinine [Mass ratio] 12.5 mg/mg 10-20 [facility] Laboratory - Drug toxicology Ordered By: Neva Lea on 08-05-2023 Amphetamines Ql (U) Negative <1000 ng/mL [facility] Benzodiazepines Ql (U) Negative < 200 ng/mL [facility] Cannabinoids Screen Ql (U) Positive < 50 ng/mL [facility] Cocaine Ql (U) Negative < 300 ng/mL [facility] Opiates Ql (U) Negative < 300 ng/mL [facility] Laboratory - Hematology and Cell countsOrdered By: Neva Lea on 08-05-2023 MCH (RBC) [Entitic mass] 29.5 pg 27.0-32.0 [facility] MCHC (RBC) [Mass/Vol] 33.7 g/dL 32-36 [facility] Nucleated RBC/100 WBC (Bld) [Ratio] 0 % 0-5 [facility] Platelet mean volume (Bld) [Entitic vol] 10.2 fL 6.2-12.0 [facility] Platelets (Bld) [#/Vol] 231 10*3/uL 150-450 [facility] No Panel InformationOrdered By: Neva Lea on 08-05-2023 Estimated Creatinine Clearance Calc 82.97 ml/min [facility] Estimated GFR (MDRD) Amer 90 mL/min >60 [facility] Comment on above: GFR Calc Estimated GFR (MDRD) Non-Af Amer 75 mL/min >60 [facility] Comment on above: Non- GFR Calc MDMA (Ecstasy) Screen Negative < 500 ng/mL [facility] Urine Barbiturates Screen Negative < 200 ng/mL [facility] Urine Drug Screen Comment [facility] Comment on above: CONFIRMATORY TESTING FOR ALL POSITIVE URINE DRUG SCREENRESULTS WILL ONLY BE SENT OUT UPON PHYSICIAN ORDER. [facility] Urine Drug Screen methods provide only preliminaryanalytical test results. A more specific alternate chemicalmethod must be used in order to obtain a confirmedanalytical result. Gas chromatography/mass spectrometery(GC/MS) is the preferred confirmatory method. Clinicalconsideration and professional judgement should be appliedto any drug of abuse test result, particularly whenpreliminary positive results are used. URINE TCA TESTING MUST BE ORDERED SEPARATELY. USE TESTMNEMONIC: [facility] Urine Methadone Screen Negative < 300 ng/mL [facility] 29.5 pg 27.0-32.0 [facility] 33.7 g/dL 32-36 [facility] 231 K/mm3 150-450 [facility] 10.2 fl 6.2-12.0 [facility] 0 % 0-5 [facility] 75 mL/min >60 [facility] 90 mL/min >60 [facility] 82.97 ml/min [facility] 12.5 RATIO 10-20 [facility] 2.4 g/dL 2.2-4.2 [facility] 2.0 RATIO 0.9-2.4 [facility] 89 U/L 45-117 [facility] 20 U/L 16-61 [facility] 23.0 mmol/L 21.0-32.0 [facility] Negative < 300 ng/mL [facility] Positive < 50 ng/mL [facility] RBC Auto (Bld) [#/Vol]Ordere d By: Neva Lea on 08-05-2023 RBC (Bld) [#/Vol] 5.32 10*6/uL 4.6-6.2 [facility] Serum or plasma calcium leida urement (mass/volume)Ordered By: Neva Lea on 08-05-2023 Calcium [Mass/Vol] 9.1 mg/dL 8.5-10.1 [facility] Serum or plasma creatinine m easurement (mass/volume)Ordered By: Neva Lea on 08-05-2023 Creatinine [Mass/Vol] 1.20 mg/dL 0.70-1.30 [facility] Comment on above: The validity of the calculated GFR & GFRAA in patients over 70 years has not been determined. Clinical correlation is essential. Serum or plasma urea nitroge n measurement (mass/volume)Ordered By: Neva Lea on 08-05-2023 Urea nitrogen [Mass/Vol] 15 mg/dL 7-18 [facility] Thin prep Papanicolaou smear with manual screeningOrdered By: Neva Lea on 08-05-2023 Thin prep Papanicolaou smear with manual screening 4.8 g/dL 3.2-5.0 [facility] Thin prep Papanicolaou smear with manual screening 25 U/L 15-37 [facility] Thin prep Papanicolaou smear with manual screening 9 5-15 [facility] Urine phencyclidine (PCP) de tectionOrdered By: Neva Lea on 08-05-2023 Phencyclidine Ql (U) Negative < 25 ng/mL [facility] Absolute lymphocyte countOrd ered By: Joycelyn Isaac on 07-21-2023 Lymphocytes Auto (Unsp spec) [#/Vol] 1.58 10*3/uL 0.83-4.51 [facility] Automated lymphocyte count a s percentage of total leukocytesOrdered By: Joycelyn Isaac on 07-21-2023 Lymphocytes/100 WBC Auto (Unsp spec) 29.9 % 19-41 [facility] Basophil percentageOrdered B y: Joycelyn Isaac on 07-21-2023 Basophil percentage 15.0 g/dL 13.0-16.5 [facility] Basophil percentage 113 mg/dL 74-106 [facility] Basophil percentage 140 mmol/L 136-145 [facility] Basophil percentage 3.7 mmol/L 3.5-5.1 [facility] Basophil percentage 107 mmol/L 98-107 [facility] Basophils (Bld) [#/Vol] 5.3 10*3/uL 4.4-11.0 [facility] Basophils (Bld) [#/Vol] 3.1 10*3/uL 2.0-7.7 [facility] Basophils/100 WBC (Bld) 0.8 % 0-[address] [facility] Basophils/100 WBC (Bld) 58.0 % 47-[address] [facility] Basophils/100 WBC (Bld) 10.0 % 0-[address] [facility] Basophils/100 WBC (Bld) 0.9 % 0-[address] [facility] Chloride [Moles/Vol] 107 mmol/L 98-107 [facility] Eosinophils/100 WBC (Bld) 0.9 % 0-5 [facility] Glucose [Mass/Vol] 113 mg/dL 74-106 [facility] Comment on above: Fasting Glucose resu lt from 100 to 125 mg/dL suggests IMPAIRED HOMEOSTASIS per A.D.A. criteria. Hemoglobin (Bld) [Mass/Vol] 15.0 g/dL 13.0-16.5 [facility] Monocytes/100 WBC (Bld) 10.0 % 0-[address] [facility] Neutrophils (Bld) [#/Vol] 3.1 10*3/uL 2.0-7.7 [facility] Neutrophils/100 WBC (Bld) 58.0 % 47-70 [facility] Potassium [Moles/Vol] 3.7 mmol/L 3.5-5.1 [facility] Sodium [Moles/Vol] 140 mmol/L 136-145 [facility] WBC (Bld) [#/Vol] 5.3 10*3/uL 4.4-11.0 [facility] Determination of erythrocyte mean corpuscular volume (MCV)Ordered By: Joycelyn Isaac on 07-21-2023 MCV (RBC) [Entitic vol] 87.7 fL 80-[address] [facility] Erythrocyte distribution wid th ratioOrdered By: Joycelyn Isaac on 07-21-2023 Erythrocyte distribution width (RBC) [Ratio] 12.7 % 11.6-14.6 [facility] Erythrocyte distribution wid th standard deviationOrdered By: Joycelyn Isaac on 07-21-2023 Erythrocyte distribution width (RBC) [Entitic vol] 40.9 fL 35.1-43.9 [facility] Hematocrit Auto (Bld) [Volum e fraction]Ordered By: Joycelyn Isaac on 07-21-2023 Hematocrit (Bld) [Volume fraction] 43.3 % 40-54 [facility] Immature granulocytes/100 WB C Auto (Bld)Ordered By: Joycelyn Isaac on 07-21-2023 Immature granulocytes/100 WBC (Bld) 0.400 % 0.0-0.9 [facility] Comment on above: IG% - Immature Granu locytes (promyelocytes, myelocytes and metamyelocytes) > 1% indicates that a LEFT SHIFT is Present. Laboratory - Chemistry and C hemistry - challengeOrdered By: Joycelyn Isaac on 07-21-2023 CO2 [Moles/Vol] 27.0 mmol/L 21.0-32.0 [facility] Urea nitrogen/Creatinine [Mass ratio] 11.0 mg/mg 10-20 [facility] Laboratory - Hematology and Cell countsOrdered By: Joycelyn Isaac on 07-21-2023 MCH (RBC) [Entitic mass] 30.4 pg 27.0-32.0 [facility] MCHC (RBC) [Mass/Vol] 34.6 g/dL 32-36 [facility] Nucleated RBC/100 WBC (Bld) [Ratio] 0 % 0-5 [facility] Platelet mean volume (Bld) [Entitic vol] 10.6 fL 6.2-12.0 [facility] Platelets (Bld) [#/Vol] 262 10*3/uL 150-450 [facility] No Panel InformationOrdered By: Joycelyn Isaac on 07-21-2023 Estimated Creatinine Clearance Calc 99.50 ml/min [facility] Estimated GFR (MDRD) Amer 112 mL/min >60 [facility] Comment on above: GFR Calc Estimated GFR (MDRD) Non-Af Amer 93 mL/min >60 [facility] Comment on above: Non- GFR Calc Troponin I High Sensitivity 5 pg/mL 3.0-78.0 [facility] Comment on above: Please Note: New Fely t Units and Gender Specific Reference Ranges. For more information see Policy Stat Procedure [place] High Sensitivity Troponin (TNIH) and attachments. 30.4 pg 27.0-32.0 [facility] 34.6 g/dL 32-36 [facility] 262 K/mm3 150-450 [facility] 10.6 fl 6.2-12.0 [facility] 0 % 0-5 [facility] 93 mL/min >60 [facility] 112 mL/min >60 [facility] 99.50 ml/min [facility] 11.0 RATIO 10-20 [facility] 5 pg/mL 3.0-78.0 [facility] 27.0 mmol/L 21.0-32.0 [facility] RBC Auto (Bld) [#/Vol]Ordere d By: Joycelyn Isaac on 07-21-2023 RBC (Bld) [#/Vol] 4.94 10*6/uL 4.6-6.2 [facility] Serum or plasma calcium leida urement (mass/volume)Ordered By: Joycelyn Isaac on 07-21-2023 Calcium [Mass/Vol] 9.0 mg/dL 8.5-10.1 [facility] Serum or plasma creatinine m easurement (mass/volume)Ordered By: Joycelyn Isaac on 07-21-2023 Creatinine [Mass/Vol] 1.00 mg/dL 0.70-1.30 [facility] Comment on above: The validity of the calculated GFR & GFRAA in patients over 70 years has not been determined. Clinical correlation is essential. Serum or plasma urea nitroge n measurement (mass/volume)Ordered By: Joycelyn Isaac on 07-21-2023 Urea nitrogen [Mass/Vol] 11 mg/dL 7-18 [facility] Thin prep Papanicolaou smear with manual screeningOrdered By: Joycelyn Isaac on 07-21-2023 Thin prep Papanicolaou smear with manual screening 6 5-15 [facility] Absolute lymphocyte countOrd ered By: ED PROVIDER on 08-10-2022 Lymphocytes Auto (Unsp spec) [#/Vol] 2.47 10*3/uL 0.83-4.51 [facility] Basophil percentageOrdered B y: ED PROVIDER on 08-10-2022 Basophils/100 WBC (Bld) 1.0 % 0-[address] [facility] Chloride [Moles/Vol] 105 mmol/L 98-107 [facility] Eosinophils/100 WBC (Bld) 6.7 % 0-5 [facility] Glucose [Mass/Vol] 147 mg/dL 74-106 [facility] Comment on above: Fasting Glucose resu lt greater than or equal to 126 mg/dL suggests DIABETES MELLITUS per A.D.A. criteria. Neutrophils (Bld) [#/Vol] 2.2 10*3/uL 2.0-7.7 [facility] Neutrophils/100 WBC (Bld) 37.0 % 47-70 [facility] Potassium [Moles/Vol] 4.3 mmol/L 3.5-5.1 [facility] Sodium [Moles/Vol] 137 mmol/L 136-145 [facility] WBC (Bld) [#/Vol] 5.8 10*3/uL 4.4-11.0 [facility] Blood erythrocytes count (nu mber/volume)Ordered By: ED PROVIDER on 08-10-2022 RBC (Bld) [#/Vol] 4.85 10*6/uL 4.6-6.2 [facility] Blood hemoglobin measurement (mass/volume)Ordered By: ED PROVIDER on 08-10-2022 Hemoglobin (Bld) [Mass/Vol] 14.6 g/dL 13.0-16.5 [facility] Blood lymphocytes/100 leukoc ytesOrdered By: ED PROVIDER on 08-10-2022 Lymphocytes/100 WBC (Bld) 42.4 % 19-41 [facility] Blood monocytes/100 leukocyt esOrdered By: ED PROVIDER on 08-10-2022 Monocytes/100 WBC (Bld) 12.7 % 0-[address] [facility] Blood platelet mean volumeOr dered By: ED PROVIDER on 08-10-2022 Platelet mean volume (Bld) [Entitic vol] 10.1 fL 6.2-12.0 [facility] Determination of erythrocyte mean corpuscular volume (MCV)Ordered By: ED PROVIDER on 08-10-2022 MCV (RBC) [Entitic vol] 92.8 fL 80-[address] [facility] Hematocrit Auto (Bld) [Volum e fraction]Ordered By: ED PROVIDER on 08-10-2022 Hematocrit (Bld) [Volume fraction] 45.0 % 40-54 [facility] Laboratory - Chemistry and C hemistry - challengeOrdered By: ED PROVIDER on 08-10-2022 CO2 [Moles/Vol] 25.0 mmol/L 21.0-32.0 [facility] Urea nitrogen/Creatinine [Mass ratio] 21.5 mg/mg 10-20 [facility] Laboratory - Drug toxicology Ordered By: ED PROVIDER on 08-10-2022 Amphetamines Ql (U) Positive <1000 ng/mL [facility] Benzodiazepines Ql (U) Negative < 200 ng/mL [facility] Cannabinoids Screen Ql (U) Positive < 50 ng/mL [facility] Cocaine Ql (U) Positive < 300 ng/mL [facility] Opiates Ql (U) Negative < 300 ng/mL [facility] Laboratory - Hematology and Cell countsOrdered By: ED PROVIDER on 08-10-2022 Erythrocyte distribution width (RBC) [Entitic vol] 42.6 fL 35.1-43.9 [facility] Erythrocyte distribution width (RBC) [Ratio] 12.4 % 11.6-14.6 [facility] Immature granulocytes/100 WBC (Bld) 0.200 % 0.0-0.9 [facility] Comment on above: IG% - Immature Granu locytes (promyelocytes, myelocytes and metamyelocytes) > 1% indicates that a LEFT SHIFT is Present. MCH (RBC) [Entitic mass] 30.1 pg 27.0-32.0 [facility] Nucleated RBC/100 WBC (Bld) [Ratio] 0 % 0-5 [facility] MCHC Auto (RBC) [Mass/Vol]Or dered By: ED PROVIDER on 08-10-2022 MCHC (RBC) [Mass/Vol] 32.4 g/dL 32-36 [facility] No Panel InformationOrdered By: ED PROVIDER on 08-10-2022 MDMA (Ecstasy) Screen Negative < 500 ng/mL [facility] Urine Barbiturates Screen Negative < 200 ng/mL [facility] Urine Drug Screen Comment [facility] Comment on above: CONFIRMATORY TESTING FOR ALL POSITIVE URINE DRUG SCREENRESULTS WILL ONLY BE SENT OUT UPON PHYSICIAN ORDER. [facility]IST[facility] Urine Drug Screen methods provide only preliminaryanalytical test results. A more specific alternate chemicalmethod must be used in order to obtain a confirmedanalytical result. Gas chromatography/mass spectrometery(GC/MS) is the preferred confirmatory method. Clinicalconsideration and professional judgement should be appliedto any drug of abuse test result, particularly whenpreliminary positive results are used. URINE TCA TESTING MUST BE ORDERED SEPARATELY. USE TESTMNEMONIC: [facility] Urine Methadone Screen Negative < 300 ng/mL [facility] Estimated Creatinine Clearance Calc 111.59 ml/min [facility] Estimated GFR (MDRD) Amer 129 mL/min >60 [facility] Comment on above: GFR Calc Estimated GFR (MDRD) Non-Af Amer 107 mL/min >60 [facility] Comment on above: Non- GFR Calc Ethyl Alcohol Level < 3.0 mg/dL [facility] Comment on above: The serum:whole bloo d ethanol ratio is approximately 1.14and varies slightly with hematocrit. Medical Alcohol reference interval and critical value innon-tolerant individuals; 50 - 100 Impairment 100 Intoxication 100 - 250 Severe Poisoning 250 - 400 Deep/possible fatal coma Platelets bldOrdered By: ED PROVIDER on 08-10-2022 Platelets (Bld) [#/Vol] 240 10*3/uL 150-450 [facility] Serum or plasma calcium leida urement (mass/volume)Ordered By: ED PROVIDER on 08-10-2022 Calcium [Mass/Vol] 9.0 mg/dL 8.5-10.1 [facility] Serum or plasma creatinine m easurement (mass/volume)Ordered By: ED PROVIDER on 08-10-2022 Creatinine [Mass/Vol] 0.88 mg/dL 0.70-1.30 [facility] Comment on above: The validity of the calculated GFR & GFRAA in patients over 70 years has not been determined. Clinical correlation is essential. Serum or plasma urea nitroge n measurement (mass/volume)Ordered By: ED PROVIDER on 08-10-2022 Urea nitrogen [Mass/Vol] 19 mg/dL 7-18 [facility] Thin prep Papanicolaou smear with manual screeningOrdered By: ED PROVIDER on 08-10-2022 Thin prep Papanicolaou smear with manual screening 7 5-15 [facility] Urine phencyclidine (PCP) de tectionOrdered By: ED PROVIDER on 08-10-2022 Phencyclidine Ql (U) Negative < 25 ng/mL [facility] XR SPINE LUMBAR AP/LATon XR SPINE LUMBAR [...] 05/30/2022 4:46:55 AM Ordering Provider: FRANKY RIVERA [facility] ([place]) Vital Signs Date Time Vital Sign Value Performing Clinician Facility 12-30-2024 19:53-0400 Body temperature 96.9 [degF] Ritika ERICC Work Phone: [facility] 12-30-2024 19:53-0400 Diastolic blood pressure 60 mm[Hg] Ritika ERICC Work Phone: [facility] 12-30-2024 19:53-0400 Heart rate 87 /min Ritika ERICC Work Phone: [phone] [place] [address] 12-30-2024 19:53-0400 Respiratory rate 16 /min Ritika Suarez [employer] [facility] Work Phone: [phone])[phone] [place] [address] 12-30-2024 19:53-0400 SaO2% (BldA) [Mass fraction] 100 % Ritika Suarez [employer] Work Phone: [phone])[phone] [place] [address] 12-30-2024 19:53-0400 Systolic blood pressure 123 mm[Hg] Ritika Suarez [employer] Work Phone: [phone] [place] [address] 12-30-2024 18:37-0400 Body height 175.26 cm Ritika Suarez [employer] Work Phone: [phone] [place] [address] 12-30-2024 18:37-0400 Body mass index (BMI) [Ratio] 21.7 kg/m2 Ritika Suarez [employer] Work Phone: [phone](110)[phone] [place] [address] 12-30-2024 18:37-0400 Body weight 66.6 kg Ritika Suarez [employer] Work Phone: 0(104)184-266933 [place] [address] 12-19-2024 01:04-0400 Body temperature 98.1 [degF] Ritika Suarez [employer] Work Phone: 0(165)399-620133 [place] [address] 12-19-2024 01:04-0400 Diastolic blood pressure 73 mm[Hg] Ritika Suarez [employer] Work Phone: [phone])[phone] [place] [address] 12-19-2024 01:04-0400 Heart rate 65 /min Ritika Suarez [employer] Work Phone: [phone](635)999-159833 [place] [address] 12-19-2024 01:04-0400 Respiratory rate 18 /min Ritika Suarez [employer] Work Phone: [phone])998-738933 [place] [address] 12-19-2024 01:04-0400 SaO2% (BldA) [Mass fraction] 100 % Ritika Suarez [employer] Work Phone: 2([phone])045-265033 [place] [address] 12-19-2024 01:04-0400 Systolic blood pressure 120 mm[Hg] Ritika Suarez [employer] Work Phone: [phone])[phone] [place] [address] 12-18-2024 23:43-0400 Body height 175.26 cm Ritika Suarez [employer] Work Phone: 2(434)[phone] [place] [address] 12-18-2024 23:43-0400 Body mass index (BMI) [Ratio] 21.8 kg/m2 Ritika Suarez [employer] Work Phone: 5(508)964-109233 [place] [address] 12-18-2024 23:43-0400 Body weight 67.1 kg Ritika Suarez [employer] Work Phone: 7(019)483-639733 [place] [address] 11-25-2024 21:59-0400 Body temperature 98.1 [degF] Ritika Suarez [employer] Work Phone: 0(413)[phone] [place] [address] 11-25-2024 21:59-0400 Diastolic blood pressure 94 mm[Hg] Ritika Suarez [employer] Work Phone: 5(994)[phone] [place] [address] 11-25-2024 21:59-0400 Heart rate 72 /min Ritkia Suarez [employer] Work Phone: 8(405)226-655033 [place] [address] 11-25-2024 21:59-0400 Respiratory rate 14 /min Ritika Suarez [employer] Work Phone: 5(399)251-801833 [place] [address] 11-25-2024 21:59-0400 SaO2% (BldA) [Mass fraction] 97 % Ritika Suarez [employer] Work Phone: 2(351)191-653233 [place] [address] 11-25-2024 21:59-0400 Systolic blood pressure 135 mm[Hg] Ritika Suarez [employer] Work Phone: 3(282)[phone] [place] [address] 11-25-2024 18:21-0400 Body height 175.26 cm Ritika Suarez [employer] Work Phone: 8(009)193-083433 [place] [address] 11-25-2024 18:21-0400 Body mass index (BMI) [Ratio] 20.8 kg/m2 Ritika Suarez [employer] Work Phone: 7(187)049-873433 [place] [address] 11-25-2024 18:21-0400 Body weight 63.95 kg Ritika Suarez [employer] Work Phone: 8(378)564-326133 [place] [address] 11-03-2024 11:25-0400 Diastolic blood pressure 70 mm[Hg] Ritika Suarez [employer] Work Phone: 4(520)[phone] [place] [address] 11-03-2024 11:25-0400 Heart rate 72 /min Ritika Suarez [employer] Work Phone: 5([phone])[phone] [place] [address] 11-03-2024 11:25-0400 Respiratory rate 18 /min Ritika Suarez [employer] Work Phone: 7(424)468-817233 [place] [address] 11-03-2024 11:25-0400 SaO2% (BldA) [Mass fraction] 98 % Ritika Suarez [employer] Work Phone: [phone](662)091-362433 [place] [address] 11-03-2024 11:25-0400 Systolic blood pressure 116 mm[Hg] Ritika Suarez [employer] Work Phone: 4(138)238-566233 [place] [address] 11-03-2024 09:26-0400 Body height 175.26 cm Ritika Suarez [employer] Work Phone: 0(314)564-025933 [place] [address] 11-03-2024 09:26-0400 Body mass index (BMI) [Ratio] 21.8 kg/m2 Ritika Suarez [employer] Work Phone: 1(462)566-722833 [place] [address] 11-03-2024 09:26-0400 Body temperature 98.1 [degF] Ritika Suarez [employer] Work Phone: 3([phone])[phone] [place] [address] 11-03-2024 09:26-0400 Body weight 67 kg Ritika Suarez [employer] Work Phone: 2(275)373-514833 [place] [address] 11-02-2024 14:00-0400 Body temperature 97.6 [degF] Ritika Suarez [employer] Work Phone: [phone])[phone] [place] [address] 11-02-2024 14:00-0400 Diastolic blood pressure 78 mm[Hg] Ritika Suarez [employer] Work Phone: [phone](115)[phone] [place] [address] 11-02-2024 14:00-0400 Heart rate 100 /min Ritika Suarez [employer] Work Phone: [phone] [place] [address] 11-02-2024 14:00-0400 Respiratory rate 18 /min Ritika Erick [employer] Work Phone: [phone] [place] [address] 11-02-2024 14:00-0400 SaO2% (BldA) [Mass fraction] 98 % Ritika Erick [employer] Work Phone: 8(244)417-208233 [place] [address] 11-02-2024 14:00-0400 Systolic blood pressure 152 mm[Hg] Ritikajammie Suarez [employer] Work Phone: [phone](148)211-316333 [place] [address] 11-02-2024 12:06-0400 Body mass index (BMI) [Ratio] 20.7 kg/m2 Ritika Erick [employer] Work Phone: 4([phone])352-827233 [place] [address] 11-02-2024 12:06-0400 Body weight 63.5 kg Ritika Erick [employer] Work Phone: [phone])[phone] [address] [place], [place] [address] 10-29-2024 09:36-0400 Body height 175.26 cm Ritikajammie Suarez [employer] Work Phone: 7(082)925-095533 [place] [address] 10-29-2024 09:36-0400 Body mass index (BMI) [Ratio] 21.4 kg/m2 Ritika Erick [employer] Work Phone: 6(013)215-002233 [place] [address] 10-29-2024 09:36-0400 Body weight 65.77 kg Ritika Erick [employer] Work Phone: 3(995)020-245233 [place] [address] 10-29-2024 09:36-0400 Heart rate 85 /min Ritikajammie Suarez [employer] Work Phone: 6(832)525-554933 [place] [address] 10-29-2024 09:36-0400 Respiratory rate 18 /min Ritika Erick [employer] Work Phone: 6(141)625-891733 [place] [address] 10-29-2024 09:36-0400 SaO2% (BldA) [Mass fraction] 98 % Ritikajammie Suarez [employer] Work Phone: 8(448)263-304233 [place] [address] 10-17-2024 00:33-0400 Body temperature 97.6 [degF] Ritikajammie Suarez [employer] Work Phone: 9(147)038-290033 [place] [address] 10-17-2024 00:33-0400 Diastolic blood pressure 80 mm[Hg] Ritika Suarez [employer] Work Phone: 3(253)790-137945 [place] [address] 10-17-2024 00:33-0400 Heart rate 65 /min Ritika Suarez [employer] Work Phone: 9(584)097-387833 [place] [address] 10-17-2024 00:33-0400 Respiratory rate 16 /min Ritika Suarez [employer] Work Phone: 4(652)199-103733 [place] [address] 10-17-2024 00:33-0400 SaO2% (BldA) [Mass fraction] 96 % Ritika Suarez [employer] Work Phone: 1(947)018-411088 [address] 10-17-2024 00:33-0400 Systolic blood pressure 119 mm[Hg] Ritika Suarez [employer] Work Phone: 3(377)807-422133 [place] [address] 10-16-2024 22:41-0400 Body height 175.26 cm Ritika Suarez [employer] Work Phone: 7(043)816-553633 [place] [address] 10-16-2024 22:41-0400 Body mass index (BMI) [Ratio] 21.7 kg/m2 Ritika Suarez [employer] Work Phone: 9(551)529-233933 [place] [address] 10-16-2024 22:41-0400 Body weight 66.67 kg Ritika Suarez [employer] Work Phone: 6(344)115-507345 [place] [address] 10-07-2024 09:48-0400 Body temperature 98 [degF] No Primary Care Physician [facility] 10-07-2024 09:48-0400 Diastolic blood pressure 74 mm[Hg] No Primary Care Physician [facility] 10-07-2024 09:48-0400 Heart rate 58 /min No Primary Care Physician [facility] 10-07-2024 09:48-0400 Respiratory rate 14 /min No Primary Care Physician [facility] 10-07-2024 09:48-0400 SaO2% (BldA) [Mass fraction] 97 % No Primary Care Physician [facility] 10-07-2024 09:48-0400 Systolic blood pressure 116 mm[Hg] No Primary Care Physician [facility] 10-07-2024 06:19-0400 Body height 175.26 cm No Primary Care Physician [facility] 10-07-2024 06:19-0400 Body mass index (BMI) [Ratio] 21.7 kg/m2 No Primary Care Physician [facility] 10-07-2024 06:19-0400 Body weight 66.7 kg No Primary Care Physician [facility] 06-15-2024 13:21-0500 Body mass index (BMI) [Ratio] 20.2 kg/m2 No Primary Care Physician [facility] 06-15-2024 13:21-0500 Body weight 62.36 kg No Primary Care Physician [facility] 06-15-2024 13:21-0500 Diastolic blood pressure 80 mm[Hg] No Primary Care Physician [facility] 06-15-2024 13:21-0500 Heart rate 89 /min No Primary Care Physician [facility] 06-15-2024 13:21-0500 SaO2% (BldA) [Mass fraction] 99 % No Primary Care Physician [facility] 06-15-2024 13:21-0500 Systolic blood pressure 124 mm[Hg] No Primary Care Physician [facility] 06-07-2024 13:09-0500 Body mass index (BMI) [Ratio] 20.48 kg/m2 Ritika Jessica [employer]IAT[employer]IC DENTAL HYGIENIST Work Phone: [facility] 06-07-2024 13:09-0500 Body temperature 97.7 [degF] Ritika Jessica [employer] COVERMAKER.PEDIATRIC DENTAL HYGIENIST Work Phone: [facility] 06-07-2024 13:09-0500 Body weight 62 kg Ritika Jessica [employer] RO[employer] COVERMAKER.PEDIATRIC DENTAL HYGIENIST Work Phone: [facility] 06-07-2024 13:09-0500 Diastolic blood pressure 76 mm[Hg] Ritika Jessica [employer] RO[employer] COVERMAKER.PEDIATRIC DENTAL HYGIENIST Work Phone: [facility] 06-07-2024 13:09-0500 Heart rate 125 /min Ritika Jessica [employer] RO[employer] COVERMAKER.PEDIATRIC DENTAL HYGIENIST Work Phone: [facility] 06-07-2024 13:09-0500 Respiratory rate 22 /min Ritika Jessica [employer] RO[employer] COVERMAKER.PEDIATRIC DENTAL HYGIENIST Work Phone: [facility] 06-07-2024 13:09-0500 SaO2% (BldA) [Mass fraction] 98 % Ritika Romanogs [employer] RO[employer] COVERMAKER.PEDIATRIC DENTAL HYGIENIST Work Phone: [facility] 06-07-2024 13:09-0500 Systolic blood pressure 110 mm[Hg] Ritika Jessica [employer] RO[employer] COVERMAKER.PEDIATRIC DENTAL HYGIENIST Work Phone: [facility] 10-03-2023 07:37-0400 Body temperature 97.5 [degF] [facility] Work Phone: 3(295)277-973533 [place] [address] 10-03-2023 07:37-0400 Diastolic blood pressure 59 mm[Hg] [facility] Work Phone: 7(747)934-966433 [place] [address] 10-03-2023 07:37-0400 Heart rate 69 /min [facility] Work Phone: 0(705)275-818733 [place] [address] 10-03-2023 07:37-0400 Respiratory rate 14 /min [facility] Work Phone: 8(868)058-696333 [place] [address] 10-03-2023 07:37-0400 SaO2% (BldA) [Mass fraction] 96 % [facility] Work Phone: 9(876)440-864533 [place] [address] 10-03-2023 07:37-0400 Systolic blood pressure 99 mm[Hg] [facility] Work Phone: 5(372)146-917833 [place] [address] 10-02-2023 17:04-0400 Body height 172.72 cm [facility] Work Phone: 0(847)014-410133 [place] [address] 10-02-2023 17:04-0400 Body mass index (BMI) [Ratio] 21.2 kg/m2 [facility] Work Phone: 7(981)447-025733 [place] [address] 10-02-2023 17:04-0400 Body weight 63.5 kg [facility] Work Phone: 7(032)070-747933 [place] [address] 09-30-2023 12:49-0400 Body height 175.01 cm [facility] Work Phone: 8(269)331-557833 [place] [address] 09-30-2023 12:49-0400 Body mass index (BMI) [Ratio] 19.7 kg/m2 [facility] Work Phone: 4(255)625-105733 [place] [address] 09-30-2023 12:49-0400 Body temperature 97.8 [degF] [facility] Work Phone: 5(914)686-576233 [place] [address] 09-30-2023 12:49-0400 Body weight 60.47 kg [facility] Work Phone: 4(051)721-726233 [place] [address] 09-30-2023 12:49-0400 Diastolic blood pressure 92 mm[Hg] [facility] Work Phone: 0(010)323-857333 [place] [address] 09-30-2023 12:49-0400 Heart rate 85 /min [facility] Work Phone: 4(823)638-776233 [place] [address] 09-30-2023 12:49-0400 Respiratory rate 16 /min [facility] Work Phone: 9(682)597-698933 [place] [address] 09-30-2023 12:49-0400 SaO2% (BldA) [Mass fraction] 98 % [facility] Work Phone: 8(326)561-657833 [place] [address] 09-30-2023 12:49-0400 Systolic blood pressure 116 mm[Hg] [facility] Work Phone: 1(364)499-710933 [place] [address] 09-27-2023 20:29-0400 Body temperature 97.4 [degF] [facility] Work Phone: 0(929)660-002833 [place] [address] 09-27-2023 20:29-0400 Diastolic blood pressure 75 mm[Hg] [facility] Work Phone: 4(437)280-099533 [place] [address] 09-27-2023 20:29-0400 Heart rate 59 /min [facility] Work Phone: 9(265)444-274233 [place] [address] 09-27-2023 20:29-0400 Respiratory rate 16 /min [facility] Work Phone: 4(125)827-085033 [place] [address] 09-27-2023 20:29-0400 SaO2% (BldA) [Mass fraction] 99 % [facility] Work Phone: 6(465)571-722733 [place] [address] 09-27-2023 20:29-0400 Systolic blood pressure 120 mm[Hg] [facility] Work Phone: [facility] 09-27-2023 15:46-0400 Body height 175.01 cm [facility] Work Phone: 1(067)844-262633 [place] [address] 09-27-2023 15:46-0400 Body mass index (BMI) [Ratio] 20.7 kg/m2 [facility] Work Phone: 1(552)312-359133 [place] [address] 09-27-2023 15:46-0400 Body weight 63.5 kg [facility] Work Phone: 4(702)728-263533 [place] [address] 09-27-2023 11:22-0400 Diastolic blood pressure 88 mm[Hg] [facility] Work Phone: 8(323)522-954633 [place] [address] 09-27-2023 11:22-0400 Heart rate 90 /min [facility] Work Phone: 0(677)569-464733 [place] [address] 09-27-2023 11:22-0400 Respiratory rate 16 /min [facility] Work Phone: 9(399)620-862233 [place] [address] 09-27-2023 11:22-0400 SaO2% (BldA) [Mass fraction] 99 % [facility] Work Phone: 6(820)721-614833 [place] [address] 09-27-2023 11:22-0400 Systolic blood pressure 128 mm[Hg] [facility] Work Phone: 7(317)653-273233 [place] [address] 09-27-2023 07:23-0400 Body height 175.26 cm [facility] Work Phone: 0(186)022-672333 [place] [address] 09-27-2023 07:23-0400 Body mass index (BMI) [Ratio] 20.7 kg/m2 [facility] Work Phone: 6(776)605-876233 [place] [address] 09-27-2023 07:23-0400 Body temperature 98 [degF] [facility] Work Phone: 2(917)837-499933 [place] [address] 09-27-2023 07:23-0400 Body weight 63.91 kg [facility] Work Phone: 7(829)938-263433 [place] [address] 09-26-2023 08:20-0400 Body height 175.26 cm [facility] Work Phone: 6(988)758-681333 [place] [address] 09-26-2023 08:20-0400 Body mass index (BMI) [Ratio] 20.9 kg/m2 [facility] Work Phone: 1(706)428-616033 [place] [address] 09-26-2023 08:20-0400 Body temperature 97.8 [degF] [facility] Work Phone: 9(674)423-598033 [place] [address] 09-26-2023 08:20-0400 Body weight 64.22 kg [facility] Work Phone: 4(347)726-792433 [place] [address] 09-26-2023 08:20-0400 Diastolic blood pressure 92 mm[Hg] [facility] Work Phone: 7(349)787-859833 [place] [address] 09-26-2023 08:20-0400 Heart rate 75 /min [facility] Work Phone: 2(997)983-325233 [place] [address] 09-26-2023 08:20-0400 Respiratory rate 16 /min [facility] Work Phone: 9(856)148-204133 [place] [address] 09-26-2023 08:20-0400 SaO2% (BldA) [Mass fraction] 99 % [facility] Work Phone: 2(033)096-318033 [place] [address] 09-26-2023 08:20-0400 Systolic blood pressure 141 mm[Hg] [facility] Work Phone: 7(608)309-198833 [place] [address] 09-25-2023 04:51-0400 Body temperature 97.2 [degF] [facility] Work Phone: 5(267)428-573133 [place] [address] 09-25-2023 04:51-0400 Diastolic blood pressure 83 mm[Hg] [facility] Work Phone: 0(228)526-684833 [place] [address] 09-25-2023 04:51-0400 Heart rate 63 /min [facility] Work Phone: 5(517)992-770433 [place] [address] 09-25-2023 04:51-0400 Respiratory rate 16 /min [facility] Work Phone: 1(242)952-948533 [place] [address] 09-25-2023 04:51-0400 SaO2% (BldA) [Mass fraction] 96 % [facility] Work Phone: 4(423)505-253233 [place] [address] 09-25-2023 04:51-0400 Systolic blood pressure 120 mm[Hg] [facility] Work Phone: 7(464)367-369333 [place] [address] 09-25-2023 03:19-0400 Body height 175.26 cm [facility] Work Phone: 8(108)051-250233 [place] [address] 09-25-2023 03:19-0400 Body mass index (BMI) [Ratio] 20.7 kg/m2 [facility] Work Phone: 4(799)201-320833 [place] [address] 09-25-2023 03:19-0400 Body weight 63.6 kg [facility] Work Phone: 1(726)674-156333 [place] [address] 09-20-2023 12:51-0400 Body temperature 98.1 [degF] [facility] Work Phone: 1(702)893-340033 [place] [address] 09-20-2023 12:51-0400 Diastolic blood pressure 78 mm[Hg] [facility] Work Phone: 3(304)296-627933 [place] [address] 09-20-2023 12:51-0400 Heart rate 78 /min [facility] Work Phone: 9(716)888-356033 [place] [address] 09-20-2023 12:51-0400 Respiratory rate 14 /min [facility] Work Phone: 4(308)278-319933 [place] [address] 09-20-2023 12:51-0400 SaO2% (BldA) [Mass fraction] 99 % [facility] Work Phone: 4(043)656-337033 [place] [address] 09-20-2023 12:51-0400 Systolic blood pressure 135 mm[Hg] [facility] Work Phone: 5(042)100-127333 [place] [address] 09-20-2023 12:13-0400 Body height 175.26 cm [facility] Work Phone: 6(208)905-485333 [place] [address] 09-20-2023 12:13-0400 Body mass index (BMI) [Ratio] 20.1 kg/m2 [facility] Work Phone: 8(067)551-521633 [place] [address] 09-20-2023 12:13-0400 Body weight 61.8 kg [facility] Work Phone: [facility] 09-16-2023 09:59-0400 Body height 175.[address] [facility] 09-16-2023 09:59-0400 Body mass index (BMI) [Ratio] 20.2 kg/m2 [facility] 09-16-2023 09:59-0400 Body temperature 97.2 [degF] [facility] 09-16-2023 09:59-0400 Body weight 62.[address] [facility] 09-16-2023 09:59-0400 Diastolic blood pressure 73 mm[Hg] [facility] 09-16-2023 09:59-0400 Heart rate 94 /min [facility] 09-16-2023 09:59-0400 Respiratory rate 14 /min [facility] 09-16-2023 09:59-0400 SaO2% (BldA) [Mass fraction] 100 % [facility] 09-16-2023 09:59-0400 Systolic blood pressure 112 mm[Hg] [facility] 09-15-2023 19:14-0400 Body temperature 98.7 [degF] [facility] 09-15-2023 19:14-0400 Diastolic blood pressure 80 mm[Hg] [facility] 09-15-2023 19:14-0400 Heart rate 89 /min [facility] 09-15-2023 19:14-0400 Respiratory rate 16 /min [facility] 09-15-2023 19:14-0400 SaO2% (BldA) [Mass fraction] 96 % [facility] 09-15-2023 19:14-0400 Systolic blood pressure 137 mm[Hg] [facility] 09-15-2023 18:22-0400 Body height 175.[address] [facility] 09-15-2023 18:22-0400 Body mass index (BMI) [Ratio] 21.2 kg/m2 [facility] 09-15-2023 18:22-0400 Body weight 65.[address] [facility] 09-12-2023 19:21-0400 Body temperature 98.2 [degF] [facility] 09-12-2023 19:21-0400 Diastolic blood pressure 84 mm[Hg] [facility] 09-12-2023 19:21-0400 Heart rate 75 /min [facility] 09-12-2023 19:21-0400 Respiratory rate 16 /min [facility] 09-12-2023 19:21-0400 SaO2% (BldA) [Mass fraction] 99 % [facility] 09-12-2023 19:21-0400 Systolic blood pressure 123 mm[Hg] [facility] 09-12-2023 15:35-0400 Body height 175.[address] [facility] 09-07-2023 11:21-0400 Diastolic blood pressure 69 mm[Hg] [facility] 09-07-2023 11:21-0400 Heart rate 78 /min [facility] 09-07-2023 11:21-0400 Respiratory rate 16 /min [facility] 09-07-2023 11:21-0400 SaO2% (BldA) [Mass fraction] 99 % [facility] 09-07-2023 11:21-0400 Systolic blood pressure 117 mm[Hg] [facility] 09-07-2023 10:49-0400 Body height 175.[address] [facility] 09-07-2023 10:49-0400 Body mass index (BMI) [Ratio] 22.1 kg/m2 [facility] 09-07-2023 10:49-0400 Body temperature 97.8 [degF] [facility] 09-07-2023 10:49-0400 Body weight [address] [facility] 08-26-2023 21:32-0400 Body temperature 98.4 [degF] [facility] 08-26-2023 21:32-0400 Diastolic blood pressure 78 mm[Hg] [facility] 08-26-2023 21:32-0400 Heart rate 77 /min [facility] 08-26-2023 21:32-0400 Respiratory rate 16 /min [facility] 08-26-2023 21:32-0400 SaO2% (BldA) [Mass fraction] 99 % [facility] 08-26-2023 21:32-0400 Systolic blood pressure 125 mm[Hg] [facility] 08-26-2023 20:10-0400 Body height 175.[address] [facility] 08-26-2023 20:10-0400 Body mass index (BMI) [Ratio] 20.3 kg/m2 [facility] 08-26-2023 20:10-0400 Body weight 62.[address] [facility] 08-21-2023 10:51-0400 Body temperature 97.2 [degF] [facility] 08-21-2023 10:51-0400 Diastolic blood pressure 80 mm[Hg] [facility] 08-21-2023 10:51-0400 Heart rate 69 /min [facility] 08-21-2023 10:51-0400 Respiratory rate 16 /min [facility] 08-21-2023 10:51-0400 SaO2% (BldA) [Mass fraction] 100 % [facility] 08-21-2023 10:51-0400 Systolic blood pressure 120 mm[Hg] [facility] 08-21-2023 08:36-0400 Body height 170.[address] [facility] 08-21-2023 08:36-0400 Body mass index (BMI) [Ratio] 20.7 kg/m2 [facility] 08-21-2023 08:36-0400 Body weight 59.[address] [facility] 08-19-2023 17:18-0500 Body temperature 97.4 [degF] [facility] 08-19-2023 17:18-0500 Diastolic blood pressure 78 mm[Hg] [facility] 08-19-2023 17:18-0500 Heart rate 70 /min [facility] 08-19-2023 17:18-0500 Respiratory rate 16 /min [facility] 08-19-2023 17:18-0500 SaO2% (BldA) [Mass fraction] 96 % [facility] 08-19-2023 17:18-0500 Systolic blood pressure 118 mm[Hg] [facility] 08-19-2023 15:00-0500 Diastolic blood pressure 66 mm[Hg] [facility] 08-19-2023 15:00-0500 Heart rate 55 /min [facility] 08-19-2023 15:00-0500 Respiratory rate 17 /min [facility] 08-19-2023 15:00-0500 SaO2% (BldA) [Mass fraction] 99 % [facility] 08-19-2023 15:00-0500 Systolic blood pressure 110 mm[Hg] [facility] 08-19-2023 12:56-0500 Body height 177.[address] [facility] 08-19-2023 12:56-0500 Body mass index (BMI) [Ratio] 19.9 kg/m2 [facility] 08-19-2023 12:56-0500 Body temperature 96.8 [degF] [facility] 08-19-2023 12:56-0500 Body weight [address] [facility] 08-16-2023 17:02-0500 Body temperature 97.6 [degF] [facility] 08-16-2023 17:02-0500 Diastolic blood pressure 85 mm[Hg] [facility] 08-16-2023 17:02-0500 Heart rate 88 /min [facility] 08-16-2023 17:02-0500 Respiratory rate 14 /min [facility] 08-16-2023 17:02-0500 SaO2% (BldA) [Mass fraction] 99 % [facility] 08-16-2023 17:02-0500 Systolic blood pressure 129 mm[Hg] [facility] 08-16-2023 15:40-0500 Body height 175.[address] [facility] 08-16-2023 15:40-0500 Body mass index (BMI) [Ratio] 20.2 kg/m2 [facility] 08-16-2023 15:40-0500 Body weight 62.[address] [facility] 08-13-2023 15:12-0500 Body temperature 98.1 [degF] [facility] 08-13-2023 15:12-0500 Diastolic blood pressure 89 mm[Hg] [facility] 08-13-2023 15:12-0500 Heart rate 84 /min [facility] 08-13-2023 15:12-0500 Respiratory rate 16 /min [facility] 08-13-2023 15:12-0500 SaO2% (BldA) [Mass fraction] 100 % [facility] 08-13-2023 15:12-0500 Systolic blood pressure 129 mm[Hg] [facility] 08-13-2023 13:40-0500 Body height 175.[address] [facility] 08-13-2023 13:40-0500 Body mass index (BMI) [Ratio] 20.7 kg/m2 [facility] 08-13-2023 13:40-0500 Body weight 63.[address] [facility] 08-12-2023 21:07-0500 Body temperature 98.1 [degF] [facility] 08-12-2023 21:07-0500 Diastolic blood pressure 83 mm[Hg] [facility] 08-12-2023 21:07-0500 Heart rate 67 /min [facility] 08-12-2023 21:07-0500 Respiratory rate 16 /min [facility] 08-12-2023 21:07-0500 SaO2% (BldA) [Mass fraction] 98 % [facility] 08-12-2023 21:07-0500 Systolic blood pressure 136 mm[Hg] [facility] 08-12-2023 19:30-0500 Body height 175.[address] [facility] 08-12-2023 19:30-0500 Body mass index (BMI) [Ratio] 20.5 kg/m2 [facility] 08-12-2023 19:30-0500 Body weight 63.[address] [facility] 08-10-2023 11:08-0500 Body temperature 97.7 [degF] [facility] 08-10-2023 11:08-0500 Diastolic blood pressure 80 mm[Hg] [facility] 08-10-2023 11:08-0500 Heart rate 77 /min [facility] 08-10-2023 11:08-0500 Respiratory rate 18 /min [facility] 08-10-2023 11:08-0500 SaO2% (BldA) [Mass fraction] 97 % [facility] 08-10-2023 11:08-0500 Systolic blood pressure 119 mm[Hg] [facility] 08-10-2023 09:52-0500 Body height 175.[address] [facility] 08-10-2023 09:52-0500 Body mass index (BMI) [Ratio] 22 kg/m2 [facility] 08-10-2023 09:52-0500 Body weight 67.[address] [facility] 08-09-2023 22:48-0500 Body temperature 98.3 [degF] [facility] 08-09-2023 22:48-0500 Diastolic blood pressure 66 mm[Hg] [facility] 08-09-2023 22:48-0500 Heart rate 66 /min [facility] 08-09-2023 22:48-0500 Respiratory rate 12 /min [facility] 08-09-2023 22:48-0500 SaO2% (BldA) [Mass fraction] 100 % [facility] 08-09-2023 22:48-0500 Systolic blood pressure 133 mm[Hg] [facility] 08-09-2023 21:30-0500 Body height 175.[address] [facility] 08-09-2023 21:30-0500 Body mass index (BMI) [Ratio] 21.7 kg/m2 [facility] 08-09-2023 21:30-0500 Body weight 66.[address] [facility] 08-08-2023 13:57-0500 Body temperature 98.7 [degF] [facility] 08-08-2023 13:57-0500 Diastolic blood pressure 79 mm[Hg] [facility] 08-08-2023 13:57-0500 Heart rate 78 /min [facility] 08-08-2023 13:57-0500 Respiratory rate 20 /min [facility] 08-08-2023 13:57-0500 SaO2% (BldA) [Mass fraction] 98 % [facility] 08-08-2023 13:57-0500 Systolic blood pressure 116 mm[Hg] [facility] 08-08-2023 11:14-0500 Body mass index (BMI) [Ratio] 20.7 kg/m2 [facility] 08-08-2023 11:14-0500 Body weight 63.[address] [facility] 08-07-2023 04:33-0500 Body temperature 97.8 [degF] [facility] 08-07-2023 04:33-0500 Diastolic blood pressure 82 mm[Hg] [facility] 08-07-2023 04:33-0500 Heart rate 58 /min [facility] 08-07-2023 04:33-0500 Respiratory rate 16 /min [facility] 08-07-2023 04:33-0500 SaO2% (BldA) [Mass fraction] 97 % [facility] 08-07-2023 04:33-0500 Systolic blood pressure 123 mm[Hg] [facility] 08-07-2023 02:22-0500 Body height 175.[address] [facility] 08-07-2023 02:22-0500 Body mass index (BMI) [Ratio] 21.2 kg/m2 [facility] 08-07-2023 02:22-0500 Body weight 65.[address] [facility] 08-06-2023 12:54-0500 Body height 175.[address] [facility] 08-06-2023 12:54-0500 Body mass index (BMI) [Ratio] 21.4 kg/m2 [facility] 08-06-2023 12:54-0500 Body temperature 97.2 [degF] [facility] 08-06-2023 12:54-0500 Body weight 65.[address] [facility] 08-06-2023 12:54-0500 Diastolic blood pressure 61 mm[Hg] [facility] 08-06-2023 12:54-0500 Heart rate 106 /min [facility] 08-06-2023 12:54-0500 Respiratory rate 16 /min [facility] 08-06-2023 12:54-0500 SaO2% (BldA) [Mass fraction] 99 % [facility] 08-06-2023 12:54-0500 Systolic blood pressure 128 mm[Hg] [facility] 08-05-2023 14:08-0500 Body temperature 98.6 [degF] [facility] 08-05-2023 14:08-0500 Diastolic blood pressure 84 mm[Hg] [facility] 08-05-2023 14:08-0500 Heart rate 69 /min [facility] 08-05-2023 14:08-0500 Respiratory rate 20 /min [facility] 08-05-2023 14:08-0500 SaO2% (BldA) [Mass fraction] 98 % [facility] 08-05-2023 14:08-0500 Systolic blood pressure 132 mm[Hg] [facility] 08-05-2023 12:47-0500 Body height 175.[address] [facility] 08-05-2023 12:47-0500 Body mass index (BMI) [Ratio] 21.4 kg/m2 [facility] 08-05-2023 12:47-0500 Body weight 65.[address] [facility] 08-03-2023 23:06-0500 Body temperature 98.3 [degF] [facility] 08-03-2023 23:06-0500 Diastolic blood pressure 90 mm[Hg] [facility] 08-03-2023 23:06-0500 Heart rate 81 /min [facility] 08-03-2023 23:06-0500 Respiratory rate 18 /min [facility] 08-03-2023 23:06-0500 SaO2% (BldA) [Mass fraction] 100 % [facility] 08-03-2023 23:06-0500 Systolic blood pressure 121 mm[Hg] [facility] 08-03-2023 22:27-0500 Body height 175.[address] [facility] 08-03-2023 22:27-0500 Body mass index (BMI) [Ratio] 21.7 kg/m2 [facility] 08-03-2023 22:27-0500 Body weight 66.[address] [facility] 08-03-2023 08:38-0500 Body temperature 97.9 [degF] [facility] 08-03-2023 08:38-0500 Diastolic blood pressure 74 mm[Hg] [facility] 08-03-2023 08:38-0500 Heart rate 73 /min [facility] 08-03-2023 08:38-0500 Respiratory rate 14 /min [facility] 08-03-2023 08:38-0500 SaO2% (BldA) [Mass fraction] 98 % [facility] 08-03-2023 08:38-0500 Systolic blood pressure 120 mm[Hg] [facility] 08-03-2023 06:21-0500 Body height 175.[address] [facility] 08-03-2023 06:21-0500 Body mass index (BMI) [Ratio] 22.1 kg/m2 [facility] 08-03-2023 06:21-0500 Body weight [address] [facility] 07-21-2023 16:59-0500 Diastolic blood pressure 69 mm[Hg] [facility] 07-21-2023 16:59-0500 Heart rate 72 /min [facility] 07-21-2023 16:59-0500 Respiratory rate 15 /min [facility] 07-21-2023 16:59-0500 SaO2% (BldA) [Mass fraction] 99 % [facility] 07-21-2023 16:59-0500 Systolic blood pressure 124 mm[Hg] [facility] 07-21-2023 14:41-0500 Body mass index (BMI) [Ratio] 21.4 kg/m2 [facility] 07-21-2023 14:41-0500 Body temperature 98.1 [degF] [facility] 07-21-2023 14:41-0500 Body weight 65.[address] [facility] 02-04-2023 15:13-0400 Body temperature 98.4 [degF] Keli Frank APRN.PEDIATRIC DENTAL HYGIENIST Work Phone: [facility] 02-04-2023 15:13-0400 Body weight 69.04 kg Keli Frank APRN.CNP Work Phone: [facility] 02-04-2023 15:13-0400 Diastolic blood pressure 86 mm[Hg] Keli Frank APRN.PEDIATRIC DENTAL HYGIENIST Work Phone: [facility] 02-04-2023 15:13-0400 Heart rate 75 /min Keli Zac [employer] COVERMAKER.PEDIATRIC DENTAL HYGIENIST Work Phone: [facility] 02-04-2023 15:13-0400 Respiratory rate 21 /min Keli Zac [employer] COVERMAKER.PEDIATRIC DENTAL HYGIENIST Work Phone: [facility] 02-04-2023 15:13-0400 SaO2% (BldA) [Mass fraction] 99 % Keli Zac [employer] COVERMAKER.PEDIATRIC DENTAL HYGIENIST Work Phone: [facility] 02-04-2023 15:13-0400 Systolic blood pressure 132 mm[Hg] Keli Zac [employer] COVERMAKER.PEDIATRIC DENTAL HYGIENIST Work Phone: [facility] 08-11-2022 08:41-0500 Body temperature 97.8 [degF] Dr. Sanjay Cid Work Phone: [facility] 08-11-2022 08:41-0500 Diastolic blood pressure 63 mm[Hg] Dr. Sanjay Cid Work Phone: [facility] 08-11-2022 08:41-0500 Heart rate 81 /min Dr. Sanjay Cid Work Phone: [facility] 08-11-2022 08:41-0500 Respiratory rate 16 /min Dr. Sanjay Cid Work Phone: [facility] 08-11-2022 08:41-0500 SaO2% (BldA) [Mass fraction] 99 % Dr. Sanjay Cid Work Phone: [facility] 08-11-2022 08:41-0500 Systolic blood pressure 108 mm[Hg] Dr. Sanjay Cid Work Phone: [facility] 08-10-2022 17:11-0500 Body height 175.[address] Sanjay Cid Work Phone: [facility] 08-10-2022 17:11-0500 Body mass index (BMI) [Ratio] 20.9 kg/m2 Dr. Sanjay Cid Work Phone: 8(475)737-896486 [place] [address] 08-10-2022 17:11-0500 Body weight 64.[address] Sanjay Cid Work Phone: 4(567)823-010060 [place] [address] 08-10-2022 14:57-0500 Body temperature 98 [degF] Dr. Sanjay Cid Work Phone: 6(073)582-753260 [place] [address] 08-10-2022 14:57-0500 Diastolic blood pressure 59 mm[Hg] Dr. Sanjay Cid Work Phone: 2(279)461-095460 [place] [address] 08-10-2022 14:57-0500 Heart rate 89 /min Dr. Sanjay Cid Work Phone: 4(423)993-417860 [place] [address] 08-10-2022 14:57-0500 Respiratory rate 16 /min Dr. Sanjay Cid Work Phone: 4(019)147-183460 [place] [address] 08-10-2022 14:57-0500 SaO2% (BldA) [Mass fraction] 98 % Dr. Sanjay Cid Work Phone: 9(439)773-734060 [place] [address] 08-10-2022 14:57-0500 Systolic blood pressure 108 mm[Hg] Dr. Sanjay Cid Work Phone: 2(619)678-440060 [place] [address] 08-10-2022 12:58-0500 Body height 175.[address] Sanjay Cid Work Phone: 9(705)492-318160 [place] [address] 08-10-2022 12:58-0500 Body mass index (BMI) [Ratio] 20.9 kg/m2 Dr. Sanjay Cid Work Phone: 8(265)146-320860 [place] [address] 08-10-2022 12:58-0500 Body weight 64.[address] Sanjay Cid Work Phone: 3(785)966-629460 [place] [address] 07-29-2022 15:03-0500 Body temperature 98.01 [degF] Farrukh Perea MD Work Phone: 0(913)300-698689 [place] [address] 07-29-2022 15:03-0500 Body weight 62.32 kg Farrukh Perea MD Work Phone: [facility] 07-29-2022 15:03-0500 Diastolic blood pressure 80 mm[Hg] Farrukh Perea MD Work Phone: [facility] 07-29-2022 15:03-0500 Heart rate 84 /min Farrukh Perea MD Work Phone: [facility] 07-29-2022 15:03-0500 Respiratory rate 16 /min Farrukh Perea MD Work Phone: [facility] 07-29-2022 15:03-0500 Systolic blood pressure 122 mm[Hg] Farrukh Perea MD Work Phone: 2(673)969-127389 [place] [address] 07-29-2022 12:30-0500 Body height 175.[address] Sanjay Cid Work Phone: 1(712)647-874260 [place] [address] 07-29-2022 12:30-0500 Body mass index (BMI) [Ratio] 19.2 kg/m2 Dr. Sanjay Cid Work Phone: 0(552)459-616860 [place] [address] 07-29-2022 12:30-0500 Body temperature 96.8 [degF] Dr. Sanjay Cid Work Phone: 9(310)821-474460 [place] [address] 07-29-2022 12:30-0500 Body weight 58.[address] Sanjay Cid Work Phone: 9(638)715-566560 [place] [address] 07-29-2022 12:30-0500 Diastolic blood pressure 66 mm[Hg] Dr. Sanjay Cid Work Phone: 3(916)313-055386 [place] [address] 07-29-2022 12:30-0500 Heart rate 63 /min Dr. Sanjay Cid Work Phone: 4(861)714-861186 [place] [address] 07-29-2022 12:30-0500 Respiratory rate 18 /min Dr. Sanjay Cid Work Phone: 7(089)235-449360 [place] [address] 07-29-2022 12:30-0500 SaO2% (BldA) [Mass fraction] 97 % Dr. Sanjay Cid Work Phone: [facility] 07-29-2022 12:30-0500 Systolic blood pressure 118 mm[Hg] Dr. Sanjay Cid Work Phone: [facility] 05-30-2022 05:00-0500 Diastolic Blood Pressure Non-Invasive [address] FRANKY RIVERA MD [facility] 05-30-2022 05:00-0500 Heart rate 73 /min DR FRANKY RIVERA MD [facility] 05-30-2022 05:00-0500 Respiratory rate 16 /min DR FRANKY RIVERA MD [facility] 05-30-2022 05:00-0500 Systolic Blood Pressure Non-Invasive [address] FRANKY RIVERA MD [facility] 05-30-2022 04:07-0500 Body height [address] FRANKY RIVERA MD [facility] 05-30-2022 04:07-0500 Body temperature 98.6 [degF] DR FRANKY RIVERA MD [facility] 05-30-2022 04:07-0500 Body weight 61.[address] FRANKY RIVERA MD [facility] 05-30-2022 04:07-0500 Diastolic Blood Pressure Non-Invasive [address] FRANKY RIVERA MD [facility] 05-30-2022 04:07-0500 Heart rate 81 /min DR FRANKY RIVERA MD [facility] 05-30-2022 04:07-0500 Respiratory rate 18 /min DR FRANKY RIVERA MD [facility] 05-30-2022 04:07-0500 Systolic Blood Pressure Non-Invasive [address] FRANKY RIVERA MD [facility] 05-10-2022 11:11-0500 Body height 175.[address] [facility] Work Phone: 05-10-2022 11:11-0500 Body mass index (BMI) [Ratio] 19.9 kg/m2 [facility] 05-10-2022 11:11-0500 Body temperature 98.9 [degF] [facility] 05-10-2022 11:11-0500 Body weight 61.[address] [facility] 05-10-2022 11:11-0500 Diastolic blood pressure 75 mm[Hg] [facility] 05-10-2022 11:11-0500 Heart rate 91 /min [facility] 05-10-2022 11:11-0500 Respiratory rate 16 /min [facility] 05-10-2022 11:11-0500 SaO2% (BldA) [Mass fraction] 100 % [facility] 05-10-2022 11:11-0500 Systolic blood pressure 133 mm[Hg] [facility] 04-22-2022 17:48-0500 Diastolic blood pressure 72 mm[Hg] [facility] 04-22-2022 17:48-0500 Heart rate 64 /min [facility] 04-22-2022 17:48-0500 Respiratory rate 14 /min [facility] 04-22-2022 17:48-0500 SaO2% (BldA) [Mass fraction] 100 % [facility] 04-22-2022 17:48-0500 Systolic blood pressure 119 mm[Hg] [facility] 04-22-2022 15:36-0500 Body height 175.[address] [facility] Work Phone: 04-22-2022 15:36-0500 Body mass index (BMI) [Ratio] 19.9 kg/m2 [facility] 04-22-2022 15:36-0500 Body temperature 96.9 [degF] [facility] 04-22-2022 15:36-0500 Body weight 61.[address] [facility] Encounters Encounter Date Encounter Type Care Provider Facility Start: 12-30-2024 End: 12-30-2024 Emergency department patient visit Ritika Suarez [employer] [facility] Work Phone: -Emergency Department Work Phone: Start: 12-18-2024 End: 12-19-2024 Emergency department patient visit Ritika Suarez [employer] [facility] Work Phone: -Emergency Department Work Phone: Start: 11-25-2024 End: 11-25-2024 Emergency department patient visit Ritika Suarez [employer] Work Phone: -Emergency Department Work Phone: Start: 11-22-2024 ambulatory Ritikajammie Suarez VSC Fa cility:[facility] Start: 11-03-2024 End: 11-03-2024 Emergency department patient visit Ritika Suarez [employer] Work Phone: -Emergency Department Work Phone: Start: 11-02-2024 End: 11-02-2024 Emergency department patient visit Ritika Suarez [employer] Work Phone: -Emergency Department Work Phone: Start: 10-29-2024 End: 10-29-[address] Pieter Lara MD -[facility] Work Phone: Start: 10-29-2024 End: 10-29-2024 ambulatory Ritika Erick [employer] Work Phone: [facility] Work Phone: Start: 10-16-2024 End: 10-17-2024 Emergency department patient visit Ritika Suarez [employer] Work Phone: -Emergency Department Work Phone: Start: 10-07-2024 End: 10-07-2024 Emergency department patient visit No Primary Care Physician -Emergency Department Work Phone: Start: 06-25-2024 ambulatory Pieter brito:[facility] Start: 06-17-2024 End: 06-17-2024 Patient encounter procedure Agustin Sim [facility] -[facility] Work Phone: Start: 06-17-2024 End: 06-17-2024 ambulatory No Primary Care Physician [place] [place]: 06-17-2024 End: 06-17-2024 ambulatory No Primary Care Physician Facility:[facility] Start: 06-07-2024 End: 06-07-2024 Patient encounter procedure Ritika Jessica [employer] COVERMAKER.PEDIATRIC DENTAL HYGIENIST Work Phone: [facility] Comment on above: Treatment not availa ble (Primary Dx) Start: 06-07-2024 End: 06-07-2024 ambulatory Facility:[facility] Start: 06-03-2024 End: 06-03-2024 Emergency department patient visit Ross Smith Facility:[facility] Start: 05-26-2024 End: 05-26-2024 Emergency department patient visit Jad Santamaria Facility:[facility] Start: 05-25-2024 End: 05-25-2024 Emergency department patient visit Juliusjanes Leóner Facility:[facility] Start: 04-15-2024 End: 04-15-2024 ambulatory Pieter Lara [place] [place]: 04-05-2024 End: 04-05-2024 Emergency department patient visit Ritika Suarez [facility] Facility:[facility] Start: 03-26-2024 End: 03-26-2024 ambulatory Ritika Suarez [facility] Facility:[facility] Start: 03-05-2024 End: 03-06-2024 Emergency department patient visit Ritika Suarez [facility] Facility:[facility] Start: 03-05-2024 End: 03-05-2024 ambulatory Ritika Suarez [facility] Facility:[facility] Start: 03-01-2024 End: 03-02-2024 Emergency department patient visit Ranjan Grimes Facility:[facility] Start: 02-25-2024 End: 02-25-2024 Emergency department patient visit Ritika Suarez [facility] Facility:[facility] Start: 01-23-2024 End: 01-23-2024 Emergency department patient visit Ritika Suarez [facility] Facility:[facility] Start: 01-16-2024 End: 01-16-2024 Emergency department patient visit Julius Lewis Facility:[facility] Start: 10-02-2023 End: 10-03-2023 Emergency department patient visit [facility] Work Phone: [facility] Work Phone: Start: 10-02-2023 End: 10-03-2023 [facility] Work Phone: [facility]-Emergency Department Work Phone: Start: 09-30-2023 End: 09-30-2023 Emergency department patient visit [facility] Work Phone: [facility] Work Phone: Start: 09-30-2023 End: 09-30-2023 [facility] Work Phone: [facility]-Emergency Department Work Phone: Start: 09-29-2023 End: 09-29-2023 [facility] Work Phone: [facility] Work Phone: Start: 09-28-2023 End: 09-28-2023 ambulatory [facility] Work Phone: [facility] Work Phone: Start: 09-28-2023 End: 09-28-2023 [facility] Work Phone: [facility] Work Phone: Start: 09-27-2023 End: 09-27-2023 Emergency department patient visit [facility] Work Phone: [facility] Work Phone: Start: 09-27-2023 End: 09-27-2023 [facility] Work Phone: [facility]-Emergency Department Work Phone: Start: 09-27-2023 End: 09-27-2023 Emergency department patient visit [facility] Work Phone: [facility]-Emergency Department Work Phone: Start: 09-27-2023 End: 09-27-2023 [facility] Work Phone: [facility]-Emergency Department Work Phone: Start: 09-26-2023 End: 09-26-2023 Emergency department patient visit [facility] Work Phone: [facility]-Emergency Department Work Phone: Start: 09-26-2023 End: 09-26-2023 [facility] Work Phone: [facility]-Emergency Department Work Phone: Start: 09-25-2023 End: 09-25-2023 Emergency department patient visit [facility] Work Phone: [facility]-Emergency Department Work Phone: Start: 09-25-2023 End: 09-25-2023 [facility] Work Phone: [facility]-Emergency Department Work Phone: Start: 09-20-2023 End: 09-20-2023 Emergency department patient visit [facility] Work Phone: [facility]-Emergency Department Work Phone: Start: 09-20-2023 End: 09-20-2023 [facility] Work Phone: [facility]-Emergency Department Work Phone: Start: 09-19-2023 End: 09-19-2023 Patient encounter procedure [facility] Work Phone: [facility] Work Phone: Start: 09-19-2023 End: 09-19-2023 [facility] Work Phone: [facility] Work Phone: Start: 09-16-2023 End: 09-16-2023 Emergency department patient visit [facility] Work Phone: Start: 09-16-2023 End: 09-16-2023 [facility] Work Phone: [facility]-Emergency Department Work Phone: Start: 09-15-2023 End: 09-15-2023 Emergency department patient visit [facility] Work Phone: Start: 09-15-2023 End: 09-15-2023 [facility] Work Phone: [facility]-Emergency Department Work Phone: Start: 09-12-2023 End: 09-12-2023 Emergency department patient visit [facility]Emergency [facility] Work Phone: Start: 09-12-2023 End: 09-12-2023 [facility] Work Phone: [facility]-Emergency Department Work Phone: Start: 09-07-2023 End: 09-07-2023 Emergency department patient visit [facility] Work Phone: Start: 09-07-2023 End: 09-07-2023 [facility] Work Phone: [facility]-Emergency Department Work Phone: Start: 08-26-2023 End: 08-26-2023 Emergency department patient visit [facility] Work Phone: Start: 08-26-2023 End: 08-26-2023 [facility] Work Phone: [facility]-Emergency Department Work Phone: Start: 08-22-2023 End: 08-22-2023 Emergency department patient visit [facility]Emergency [facility] Work Phone: Start: 08-22-2023 End: 08-22-2023 [facility] Work Phone: [facility]-Emergency Department Work Phone: Start: 08-21-2023 End: 08-21-2023 Emergency department patient visit [facility]Emergency [facility] Work Phone: Start: 08-21-2023 End: 08-21-2023 [facility] Work Phone: [facility]-Emergency Department Work Phone: Start: 08-19-2023 End: 08-19-2023 Emergency department patient visit [facility]Emergency [facility] Work Phone: Start: 08-19-2023 End: 08-19-2023 [facility] Work Phone: [facility]-Emergency Department Work Phone: Start: 08-16-2023 End: 08-16-2023 Emergency department patient visit [facility]Emergency [facility] Work Phone: Start: 08-16-2023 End: 08-16-2023 [facility] Work Phone: [facility]-Emergency Department Work Phone: Start: 08-15-2023 End: 08-15-2023 ambulatory [facility] Work Phone: Start: 08-15-2023 End: 08-15-2023 Patient encounter procedure [facility]-Laboratory Work Phone: Start: 08-15-2023 End: 08-15-2023 [facility] Work Phone: [facility]-Laboratory Work Phone: Start: 08-13-2023 End: 08-13-2023 Emergency department patient visit [facility]Emergency [facility] Work Phone: Start: 08-13-2023 End: 08-13-2023 [facility] Work Phone: [facility]-Emergency Department Work Phone: Start: 08-12-2023 End: 08-12-2023 Emergency department patient visit [facility]Emergency Department Work Phone: Start: 08-12-2023 End: 08-12-2023 [facility] Work Phone: [facility]Emer[facility] Department Work Phone: Start: 08-10-2023 End: 08-10-2023 Emergency department patient visit [facility] Work Phone: Start: 08-10-2023 End: 08-10-2023 [facility] Work Phone: [facility] Work Phone: Start: 08-09-2023 End: 08-09-2023 Emergency department patient visit [facility] Work Phone: Start: 08-09-2023 End: 08-09-2023 [facility] Work Phone: [facility] Work Phone: Start: 08-09-2023 End: 08-09-2023 ambulatory [facility] Work Phone: Start: 08-09-2023 End: 08-09-2023 Patient encounter procedure [facility]Laboratory Work Phone: Start: 08-09-2023 End: 08-09-2023 [facility] Work Phone: [facility] Work Phone: Start: 08-08-2023 End: 08-08-2023 Emergency department patient visit [facility] Work Phone: Start: 08-08-2023 End: 08-08-2023 [facility] Work Phone: [facility] Work Phone: Start: 08-07-2023 End: 08-07-2023 Emergency department patient visit [facility] Work Phone: Start: 08-07-2023 End: 08-07-2023 [facility] Work Phone: [facility] Work Phone: Start: 08-06-2023 End: 08-06-2023 [facility] Start: 08-06-2023 End: 08-06-2023 [facility]: Start: 08-05-2023 End: 08-05-2023 [facility]: Start: 08-05-2023 End: 08-05-2023 [facility] Work Phone: [facility] Work Phone: Start: 08-03-2023 End: 08-03-2023 [facility]: Start: 08-03-2023 End: 08-03-2023 [facility]: Start: 08-03-2023 End: 08-03-2023 [facility]: Start: 08-03-2023 End: 08-03-2023 [facility]: Start: 07-21-2023 End: 07-21-2023 [facility]: Start: 07-21-2023 End: 07-21-2023 [facility] Work [facility]: Start: 02-04-2023 End: 02-04-2023 Patient encounter procedure Keli Frank APRN.PEDIATRIC DENTAL HYGIENIST Work Phone: [facility] Comment on above: Acute bilateral low back pain without sciatica (Primary Dx) Start: 08-11-2022 Non-patient / Non-visit Dr. Sanjay Cid Work Phone: [facility] Start: 08-10-2022 Non-patient / Non-visit Dr. Sanjay Cid Work Phone: [facility] Start: 08-10-2022 End: 08-11-2022 Evaluation and management of inpatient Dr. Sanjay Cid Work Phone: [facility]-Medical Surgical 3 Start: 08-01-2022 Telephone encounter Farrukh Cordero MD Work Phone: [facility] Comment on above: Results Start: 07-29-2022 End: 07-29-2022 Patient encounter procedure Farrukh Perea MD Work Phone: [facility] Comment on above: Laceration of left h and without foreign body, initial encounter (Primary Dx) Start: 07-29-2022 End: 07-29-2022 Emergency department patient visit Dr. Sanjay Cid Work Phone: [facility]Emergency Department Start: 05-30-2022 End: 05-30-2022 Emergency department patient visit DR. FRANKY RIVERA MD. Facility:B Start: 05-30-2022 End: 05-30-2022 Emergency department patient visit DR FRANKY RIVERA MD [facility] Start: 05-11-2022 End: 05-11-[address] Sanjay Cid Work Phone: [facility] Start: 05-10-2022 End: 05-10-2022 Emergency department patient visit [facility] Start: 04-22-2022 End: 04-22-2022 Emergency department patient visit [facility] Procedures Date Procedure Procedure Detail Performing Clinician Start: 12-18-2024 X-ray of chest, PA a nd lateral views Ritika ERICC Work Phone: Start: 11-25-2024 Estimated creatinine clearance Ritika Suarez [employer] INTERN-[employer] Work Phone: Start: 11-03-2024 Estimated creatinine clearance Ritika Suarez [employer] Work Phone: Start: 11-02-2024 Plain X-ray of shoulder Ritika Suarez [employer] INTER[employer] Work Phone: Start: 10-07-2024 Urnls dip stick/tabl et reagent auto microscopy Ritika Suarez [employer] INTER[employer] Work Phone: Start: 10-07-2024 Computed tomography of abdomen and pelvis with intravenous contrast No Primary Care Physician Start: 10-07-2024 Estimated creatinine clearance Ritika Suarez [employer] INTER[employer] Work Phone: Start: 06-17-2024 X-ray of lumbar spin e, two or three views No Primary Care Physician Start: 09-28-2023 MRI of cervical spine [facility] Work Phone: Start: 09-27-2023 CT cervical spine wi thout contrast [facility] Work Phone: Start: 09-27-2023 CT of thorax, abdome n and pelvis with contrast [facility] Work Phone: Start: 09-19-2023 Radiography of thora cic spine [facility] Work Phone: Start: 09-19-2023 X-ray of cervical spine [facility] Work Phone: Start: 08-19-2023 Plain chest X-ray Start: 08-19-2023 CT cervical spine wi thout contrast Start: 08-19-2023 CT of head without contrast Start: 08-12-2023 Plain chest X-ray Start: 08-08-2023 SARS-CoV-2, Influenz a & RSV (PCR) Start: 08-08-2023 [facility] Work Phone: Start: 08-08-2023 CT of abdomen and pe lvis without contrast Start: 08-07-2023 Computed tomography of abdomen and pelvis with intravenous contrast Start: 08-06-2023 SARS-CoV-2, Influenz a & RSV (PCR) Start: 08-06-2023 [facility] Work Phone: Start: 08-03-2023 X-ray of lumbar spin e, two or three views Start: 07-21-2023 Plain chest X-ray Start: 07-21-2023 X-ray of lumbar spin e, two or three views Start: 07-21-2023 CT angiography of he ad and neck Start: 04-22-2022 CT of lumbar spine Start: 04-22-2022 CT of pelvis without contrast Appendectomy DR FRANKY ROMO MD Plan of Treatment Date Care Activity Detail Author Start: 07-29-2032 Urine microalbumin profile [facility] Start: 12-30-2024 [facility] Start: 12-19-2024 [facility] Start: 11-25-2024 End: 11-25-2024 [facility] Start: 11-25-2024 [facility] Start: 11-03-2024 [facility] Start: 11-02-2024 [facility] Start: 10-16-2024 End: 10-17-2024 [facility] Start: 10-07-2024 [facility] Start: 06-17-2024 Patient referral [facility] Work Phone: Start: 02-11-2024 Covid-19 Vaccine ( season) Covid-19 Vaccine ( season) [facility] Start: 02-11-2024 Influenza vaccination Influenza Vaccine (#1) [facility] Start: 10-02-2023 [facility] Start: 10-02-2023 Suicide precautions [facility] Start: 09-30-2023 End: 09-30-2023 [facility] Start: 09-29-2023 Patient referral [facility] Work Phone: Start: 09-27-2023 [facility] Start: 09-27-2023 Consultation [facility] Start: 09-26-2023 Control nasal hemorrhage anterior simple [facility] Start: 09-26-2023 [facility] Start: 09-25-2023 [facility] Start: 09-20-2023 [facility] Start: 09-19-2023 Patient referral [facility] Work Phone: Start: 09-16-2023 [facility] Start: 09-15-2023 [facility] Start: 09-12-2023 [facility] Start: 09-07-2023 [facility] Start: 08-26-2023 [facility] Start: 08-21-2023 [facility] Start: 08-19-2023 Troponin I measurement [facility] Start: 08-19-2023 [facility] Start: 08-16-2023 [facility] Start: 08-13-2023 [facility] Start: 08-12-2023 [facility] Start: 08-12-2023 Plain chest X-ray Chest 1 View (Portable) [facility] Start: 08-12-2023 XR Chest Single view [facility] Start: 08-10-2023 [facility] Start: 08-09-2023 [facility] Start: 08-09-2023 Borrelia burgdorferi blot test [facility] Start: 08-09-2023 Antibody borrelia burgdorferi confirmatory tst [facility] Start: 08-09-2023 Antinuclear antibodies geovanni [facility] Start: 08-09-2023 C-reactive protein [facility] Start: 08-09-2023 Collection venous blood venipuncture [facility] Start: 08-09-2023 Fibrin dgradj products d-dimer quantitative [facility] Start: 08-09-2023 Sedimentation rate rbc automated [facility] Start: 08-08-2023 [facility] Start: 08-07-2023 [facility] Start: 08-06-2023 [facility] Start: 08-05-2023 [facility] Start: 08-03-2023 [facility] Start: 08-03-2023 Radex spine lumbosacral 2/3 views [facility] Start: 08-03-2023 [facility] Start: 07-21-2023 [facility] Start: 02-10-2023 Influenza vaccination INFLUENZA (#1) [facility] Start: 08-11-2022 Patient discharge [facility] Start: 08-10-2022 Assessment of risk of venous thromboembolism [facility] Start: 08-10-2022 Catheterization of vein [facility] Start: 08-10-2022 Incentive spirometry [facility] Start: 08-10-2022 Insertion of catheter into peripheral vein [facility] Start: 08-10-2022 Oxygen therapy [facility] Start: 08-10-2022 Providing care according to standard [facility] Start: 08-10-2022 Referral to service [facility] Start: 08-10-2022 [facility] Start: 08-10-2022 Verification routine [facility] Start: 08-10-2022 Admission procedure [facility] Start: 06-12-2022 DEPRESSION ASSESSMENT DEPRESSION ASSESSMENT [facility] Start: 05-10-2022 [facility] Start: 02-10-2022 Influenza vaccination INFLUENZA (#1) [facility] Start: 11-14-2010 Pneumococcal vaccination Pneumococcal Vaccine (1 of 2 - PCV) [facility] Start: 11-14-2009 Anxiety Screening Anxiety Screening [facility] Start: 11-14-2009 Depression Screening Depression Screening [facility] Start: 11-14-2009 HEPATITIS C SCREENING HEPATITIS C SCREENING [facility] Start: 11-14-2009 Hepatitis C screening Hepatitis C Screening [facility] Start: 11-14-2009 HIV SCREENING HIV SCREENING [facility] Start: 11-14-2009 HIV screening HIV Screening [facility] Start: 11-14-1997 PNEUMOCOCCAL (1 - PCV) PNEUMOCOCCAL (1 - PCV) [facility] Start: 05-16-1992 COVID-19 VACCINE (#1) COVID-19 VACCINE (#1) [facility] Laboratory data interpretation [facility] MR Cervical spine [facility] MR Cervical spine [facility] Nuclear Ab [Presence ] in Serum [facility] Patient Education [facility] Work Phone: Patient referral [facility] Work Phone: [facility] Immunizations Immunization Date Immunization Notes Care Provider Fa brunoty 07-29-2022 tetanus toxoid, redu marissa diphtheria toxoid, and acellular pertussis vaccine, adsorbed Farrukh Perea MD Work Phone: [facility] 12-03-2010 TD(adult) unspecifie d formulation Farrukh Perea MD Work Phone: [facility] Work Phone: 04-20-2009 hepatitis B vaccine, pediatric or pediatric/adolescent dosage Farrukh Perea MD Work Phone: [facility] Work Phone: 04-20-2009 influenza virus vaccine, unspecified formulation Farrukh Perea MD Work Phone: [facility] Work Phone: 01-20-2005 hepatitis B vaccine, pediatric or pediatric/adolescent dosage Farrukh Perea MD Work Phone: [facility] Work Phone: 01-20-2005 tetanus and diphther ia toxoids, adsorbed, preservative free, for adult use (2 Lf of tetanus toxoid and 2 Lf of diphtheria toxoid) Farrukh Perea MD Work Phone: [facility] Work Phone: 01-20-2005 tetanus and diphther ia toxoids, adsorbed, preservative free, for adult use (5 Lf of tetanus toxoid and 2 Lf of diphtheria toxoid) Farrukh Perea MD Work Phone: [facility] 01-23-2004 hepatitis B vaccine, pediatric or pediatric/adolescent dosage Farrukh Perea MD Work Phone: [facility] Work Phone: 01-23-2004 measles, mumps and rubella virus vaccine Farrukh Perea MD Work Phone: [facility] Work Phone: 07-29-1997 diphtheria, tetanus toxoids and acellular pertussis vaccine Farrukh Perea MD Work Phone: [facility] Work Phone: 07-29-1997 trivalent poliovirus vaccine, live, oral Farrukh Perea MD Work Phone: [facility] Work Phone: 07-03-1995 diphtheria, tetanus toxoids and acellular pertussis vaccine Farrukh Perea MD Work Phone: [facility] Work Phone: 04-12-1993 diphtheria, tetanus toxoids and acellular pertussis vaccine Farrukh Perea MD Work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 because of pain in his left hip low back area. He does not have steps, which hegoes up and down. He denies dragging his foot. He is concerned the pain in hisback is something serious. He began to cry when he told me this. Prior similar symptoms: Yes Recent Illness/Hospitalization: Yes (Counseling center several weeks ago) PFS PFS Medical History Acute hyperventilation syndrome Anxiety Panic attack Polysubstance abuse Tobacco abuse Home Medications NK 08/26/23 [History Last Taken Unknown] clorazepate dipotassium 3.75 mg tablet 3.75 mg PO TID 5 days #15 tabs 08/26/23 [Rx Last Taken Unknown] Allergy/AdvReac Type Severity Reaction Status Date / Time No Known Allergies Allergy Verified 08/16/23 15:40 Surgical History H/O vascular surgery History of appendectomy Social History Smoking Status: Current every day smoker tobacco type: e-cigarettes alcohol intake: never substance use type: amphetamines ROS ROS ED Constitutional Constitutional ED: Denies chills, fever(s), subjective, sweats or weight loss Eyes Eyes: Denies blurry vision or change in vision ENT ENT ED: Denies ear pain, rhinorrhea or sore throat Cardiovascular Cardiovascular: Denies chest pain or palpitations Respiratory/Chest Respiratory/Chest: Denies cough or dyspnea Gastrointestinal Gastrointestinal: Denies abdominal pain, constipation, nausea or vomiting Genitourinary Genitourinary ED: Reports other Details: And documented in HPI narrative ; Denies dysuria, hematuria or urinary frequency Musculoskeletal Musculoskeletal: Reports back pain; Denies arthralgias, myalgias or neck pain Integumentary Denies rash Neurologic Neurologic: Denies paresthesias or weakness Psychiatric Psychiatric: Reports anxiety and depression Hematologic/Lymphatic Hematologic/Lymphatic: Reports systems reviewed and no addt'l complaints, exceptas documented EXAM Physical Exam Const Vital Signs: 08/26/23 20:10 Temperature 98.3 F Temperature Source Temporal Pulse Rate 95 Respiratory Rate 18 Blood Pressure 139/85 H Blood Pressure Mean 103 Pulse Ox 98 Oxygen Delivery Method Room Air Positive well nourished and well developed General Appearance ED: well developed; Negative for NAD or pallor HEENT Reports moist mucous membranes HEENT Narrative: Atraumatic and normocephalic. Ears normal. Nares patent. Posterior pharynx normal. Eyes PERRL and EOMs intact bilaterally Eyes Narrative: Patient does wear glasses. General Eye ED: Negative for pale conjunctiva or scleral icterus Neck no lymphadenopathy, supple and no JVD Chest Wall inspection of chest normal and palpation of chest normal Resp normal respiratory effort and clear to auscultation bilaterally Cardio regular rate, regular rhythm, S1 normal heart sound, S2 normal heart sound and no murmurs GI normal to inspection, nondistended, normoactive bowel sounds, non-tender, non-distended and no masses; Negative for hepatosplenomegaly Back/Spine no CVA tenderness Back/Spine Narrative: Straight leg test and femoral stretch tests are negative. Patella and ankle reflex are 3+ and symmetric. EHLs intact. Gait observed and normal. No foot drop with ambulation. He is able to walk on his heels and toes. He is able to perform 1 legged squat right leg. He complained of pain on the left and had difficulty. DP and PT pulse are palpable. He has normal sensation L3-S1 dermatome. EHL is intact. Rashad Beata 4 test causes him pain laterally. Thoracic Spine / Upper Back: Negative for thoracic spinal tenderness Lumbar Spine / Lower Back: Negative for lumbar spinal tenderness Extremity normal to inspection General Extremety ED: Negative for edema or tenderness General Extremity: Negative for edema Neuro oriented x3, CN's II-XII intact bilaterally and no sensory deficits noted Psych Psych Narrative: In my opinion patient began to hyperventilate. Mood & Affect: anxious and tearful Skin no rashes or lesions noted, no wounds and skin turgor normal General Skin Exam: elasticity normal; Negative for jaundice or pallor MDM MDM MDM Narrative Medical decision making narrative: Suspect patient's low back pain is due to muscular pain and not herniated disc. Suspect a lot of his symptoms are due to anxiety reaction/panic attack. Patientwas treated with lorazepam. Prior records were reviewed. He has been to the emergency department several times for anxiety. Patient was reassessed at 2117. He is much Colmer. He was prescribed Tranxene. History & Record Review Additional record(s) reviewed:: Prior outpatient record and Prior ED visit Discharge Plan Triage Chief Complaint: Anxiety ED Provider: Ross Smith Dx/Rx/DC Orders Clinical Impression: Anxiety in acute stress reaction, Palpitations, Acute left-sided low back pain Instructions: ED Anxiety Reaction, ED Back and Neck Pain, General Prescriptions: New clorazepate dipotassium 3.75 mg tablet 3.75 mg PO TID 5 Days Qty: 15 0RF No Action NK [facility] Referrals: Counseling,Center [Group of Physicians] - As soon as possible [facility] [Primary Care Provider] - 1 Week Disposition Disposition: Home, Self Care What to do if you have Problems For any increased pain, shortness of breath, bleeding, nausea or vomiting, chestpain, or any unexpected problems, contact your Primary Care Provider. Call [facility] ([phone]) or report to the closest Emergency Room. Call 911 if necessary. 08/26/232130 <Electronically signed by Ross Smith MD> Cosigner Signature (if applicable): CC: [facility] ~ Signed [facility] Work Phone: 1(898) 959-662903-03-2024 Discharge summary Author Ross Smith [facility] August 13, 2023 2:47pm Note Date/Time August 13, 2023 1:59 pm [facility] Medical Records Department [address] [place] [address] Emergency Department Summary 08/13/23 MR#: [id number] Acct: [id number] Name: JAYY LOPES Rep #:[id number] : 1990 32 From: Ross Smith MD PCP: Care Physician,No Primary Status :REG ER Location: ED HPI HPI - Psych History of Present Illness Chief Complaint: Anxiety Detail of Chief Complaint: Anxiety and see HPI narrative Informant: patient Onset/Context/Timing Onset: Hours (1 hour prior to presentation) Context: Sudden Onset Conflict: Family, Work and Financial Timing: Continuous Current Severity: Severe Maximum Severity: Severe Worsened by: Situational factors and Alcohol intoxication Relieved by: Patient is a 32-year-old male with hx of anxiety disorder and polysubstance Associated Symptoms Associated Symptoms - Psych: Positive for Change in Eating and Change in sleeping; Negative for Depressed, Decreased Interest, Guilt, Decreased Concentration, Hopelessness, Suicidal Thoughts, Easily distracted, Grandiosity, Flight of Ideas, Increased activity, Pressured Speech, Agitated, Angry, Hostile,Threatening, Confusion, Paranoia, Visual Hallucinations or Auditory Hallucinations Specific plan (suicidal thought): Not applicable Narrative Narrative: Patient is a 32-year-old male who has had numerous visits over the last 11 days. He has been seen here. Dominantly for anxiety. He was given outpatient resources. He has not followed up. He took hydroxyzine 1/2-hour to 1 hour prior to presentation. He feels overwhelmed as if he is going to . He does endorse shortness of breath, tingling of his hands, feet and perioral region. He complains of palpitations and shortness of breath. He denies headache. Denies ringing is ears decreased hearing. No trouble speech or swallowing. He denies nausea or vomiting. Prior similar symptoms: Yes Recent Illness/Hospitalization: Yes [facility] Medical History Tobacco abuse Home Medications hydroxyzine pamoate 25 mg capsule (Vistaril) 25 mg PO TID PRN anxiety #20 caps 08/09/23 [Rx Last Taken 08/12/23] Allergy/AdvReac Type Severity Reaction Status Date / Time No Known Allergies Allergy Verified 08/13/23 13:41 Surgical History H/O vascular surgery History of appendectomy Social History Smoking Status: Current every day smoker tobacco type: e-cigarettes alcohol intake: never substance use type: amphetamines ROS ROS ED Constitutional Constitutional ED: Denies chills, fever(s), subjective, sweats or weight loss Eyes Eyes: Denies blurry vision, change in vision or diplopia ENT ENT ED: Denies ear pain, rhinorrhea or sore throat Cardiovascular Cardiovascular: Reports palpitations and racing heartbeat; Denies chest pain, orthopnea or paroxysmal nocturnal dyspnea Respiratory/Chest Respiratory/Chest: Reports dyspnea; Denies cough, dyspnea on exertion, orthopneaor paroxysmal nocturnal dyspnea Gastrointestinal Gastrointestinal: Denies abdominal pain, diarrhea, melena, nausea or vomiting Musculoskeletal Musculoskeletal: Denies arthralgias, back pain, myalgias or neck pain Integumentary Denies rash Neurologic Neurologic: Reports paresthesias and weakness; Denies headache(s) Psychiatric Psychiatric: Reports anxiety; Denies depression or suicidal ideation Endocrine Endocrinology: Denies polydipsia, polyphagia or polyuria Hematologic/Lymphatic Hematologic/Lymphatic: Denies easy bleeding or easy bruising EXAM Physical Exam Const Vital Signs: 08/13/23 13:40 Temperature 97.4 F L Temperature Source Temporal Pulse Rate 107 H Respiratory Rate 28 H Blood Pressure 159/101 H Blood Pressure Mean 120 Pulse Ox 99 Oxygen Delivery Method Room Air Positive well nourished and well developed Constitutional Narrative: Patient is thin. There is no eye contact during history and physical. General Appearance ED: well developed; Negative for pallor HEENT Denies moist mucous membranes HEENT Narrative: Ears normal. normocephalic and atraumatic Eyes PERRL and EOMs intact bilaterally General Eye ED: Negative for pale conjunctiva or scleral icterus Neck no lymphadenopathy, supple and no JVD Resp normal respiratory effort and clear to auscultation bilaterally Cardio S1 normal heart sound, S2 normal heart sound and no murmurs Rate: tachycardic Rhythm: regular rhythm GI non-tender, non-distended and no masses Auscultation: normoactive bowel sounds Palpation: soft Back/Spine no CVA tenderness Extremity normal to inspection General Extremety ED: Negative for edema or tenderness General Extremity: Negative for edema Neuro oriented x3, CN's II-XII intact bilaterally and no sensory deficits noted Neuro Narrative: DTRs are brisk. There is no pathologic spread. Patient does have clonus at theankles bilaterally. Patient has a positive straight Chvostek sign and Trousseausign. Nighat Coma Scale: document GCS findings Spontaneous Obeys Commands Oriented 15 Sensorium / Orientation: alert Psych cooperative, speech normal, activity/motor behavior normal, denies hallucinations, denies homicidal ideation and denies suicidal ideation Appearance: grossly normal and appropriate Activity / Motor Behavior: psychomotor agitation, fidgetting and avoids eye contact Speech: normal speech Mood & Affect: anxious Thought Process: normal thought process Thought Content: normal thought content Attention / Concentration: attention grossly intact Memory / Cognition: memory grossly intact Insight: limited Judgement: fair Skin Skin Narrative: No lesions, rash, acral cyanosis noted. General Skin Exam: Negative for jaundice or pallor Lesions: no lesions Rashes: no rashes MDM MDM MDM Narrative Medical decision making narrative: Patient is hyperventilating in light of a positive Chvostek sign, hyperreflexia,clonus and complaints of perioral as well as bilateral hand and feet numbness. Patient has a history of anxiety. He was treated with Ativan p.o. and brown paper bag since he is hyperventilating. History & Record Review Additional record(s) reviewed:: Prior ED visit (As noted in the HPI patient's had numerous visits since August 03. He also had a visit July 21.) Treatment and Re-Evaluation Narrative: Patient was reassessed at 1445. He is sitting up. There is good eye contact. His symptoms have resolved with outlined treatment. Patient was instructed to follow-up with the counseling center. He was informed that he had a panic attack and that he was hyperventilating. Patient feels comfortable going home. Discharge Plan Triage Chief Complaint: Anxiety ED Provider: Ross Smith Dx/Rx/DC Orders Clinical Impression: Acute dyspnea, Panic attack, Acute hyperventilation syndrome Instructions: ED Hyperventilation Syndrome, ED Panic Attack Prescriptions: No Action hydroxyzine pamoate [Vistaril] 25 mg capsule 25 mg PO TID PRN (Reason: anxiety) Qty: 20 0RF Primary Care Provider: Care Physician,No Primary Referrals: Counseling,Center [Group of Physicians] - As soon as possible Care Physician,No Primary [Primary Care Provider] - Disposition Disposition: Home, Self Care What to do if you have Problems For any increased pain, shortness of breath, bleeding, nausea or vomiting, chestpain, or any unexpected problems, contact your Primary Care Provider. Call [facility] ([phone]) or report to the closest Emergency Room. Call 911 if necessary. 08/13/23 7812 <Electronically signed by Ross Smith MD> Cosigner Signature (if applicable): CC: No Primary Care Physician ~ Signed [facility] Work Phone: 1(912) 822-714502-28-2024 Discharge summary Author Aayush Hsu [facility] August 09, 2023 9:52pm Note Date/Time August 09, 2023 9:53pm [facility] Medical Records Department [address] [place] [address] Emergency Department Summary 08/09/23 MR#: [id number] Acct: [id number] Name: JAYY LOPES Rep #:[id number] : 1990 32 From: Aayush Hsu DO PCP: Care Physician,No Primary Status :PRE ER Location: ED HPI History of Present Illness Chief Complaint: Palpitations Narrative Narrative: Patient presenting with anxiety. He states believes it is due to taking prednisone. He was just started on this for lower back pain. He states it did initially help his pain and he felt like he was going to sleep last night and then today it has been worse. He states he took his prednisone tonight as prescribed and now he feels even more anxious. He admits that he did smoke someweed tonight and states that he had previously smoked this batch. He does not know if there was something in it or not. Patient states it does not calm down and he is actually more anxious. He had lab work done 2 days ago which was normal as an outpatient. He had a D-dimer done yesterday as well. He denies any chest pain but does feel like he is a little bit anxious with his symptoms. No fevers, chills, cough. PFSH PFS Medical History Tobacco abuse Home Medications cyclobenzaprine 10 mg tablet 10 mg PO QHS PRN PRN Muscle Spasm #10 TABLETS 08/03/23 [Rx Last Taken Unknown] naproxen 500 mg tablet 500 mg PO BID PRN #20 tabs 08/03/23 [Rx Last Taken Unknown] prednisone 20 mg tablet 40 mg (2 x 20 mg) PO QHS #12 TABLETS 08/03/23 [Rx Last Taken Unknown] hydroxyzine pamoate 25 mg capsule (Vistaril) 25 mg PO TID PRN anxiety #20 caps 08/09/23 [Rx Last Taken Unknown] Allergy/AdvReac Type Severity Reaction Status Date / Time No Known Allergies Allergy Verified 08/09/23 21:32 Surgical History H/O vascular surgery History of appendectomy Social History Smoking Status: Current every day smoker tobacco type: e-cigarettes alcohol intake: never substance use type: amphetamines ROS ROS ED Constitutional Constitutional ED: Denies chills, fever(s) or sweats Eyes Eyes: Denies blurry vision or change in vision ENT ENT ED: Denies ear pain or sore throat Cardiovascular Cardiovascular: Denies chest pain, palpitations or racing heartbeat Respiratory/Chest Respiratory/Chest: Denies cough, dyspnea or sputum Gastrointestinal Gastrointestinal: Denies abdominal pain, constipation, diarrhea, nausea or vomiting Genitourinary Genitourinary ED: Denies dysuria, hematuria or urinary frequency Musculoskeletal Musculoskeletal: Reports back pain; Denies arthralgias, myalgias or neck pain Integumentary Denies abscess, Abrasions or rash Neurologic Neurologic: Denies headache(s), paresthesias or weakness Psychiatric Psychiatric: Reports anxiety; Denies depression, suicidal ideation or suicidal thoughts Endocrine Endocrinology: Denies polydipsia or polyuria EXAM Physical Exam Const Vital Signs: 08/09/23 21:30 Temperature 97.6 F L Temperature Source Temporal Pulse Rate 118 H Respiratory Rate 16 Blood Pressure 134/77 H Blood Pressure Mean 96 Pulse Ox 99 Oxygen Delivery Method Room Air Positive well nourished and well developed General Appearance ED: well developed and NAD; Negative for pallor HEENT Reports moist mucous membranes Eyes PERRL and EOMs intact bilaterally Resp normal respiratory effort and clear to auscultation bilaterally Auscultation: Negative for rales, rhonchi or wheezes Cardio regular rate Rate: tachycardic Neuro oriented x3 and CN's II-XII intact bilaterally Psych mental status grossly normal Skin no rashes or lesions noted General Skin Exam: Negative for jaundice or pallor MDM MDM MDM Narrative Medical decision making narrative: Patient presenting with anxiety. He believes it is due to taking prednisone. He states he is never really taken that. He also took Naprosyn today which he thought might of worsened his symptoms. He he admits to smoking weed as well does not know if there was something in the weed but he is more anxious now. Hehad blood work drawn the last couple days and is normal. I do not suspect a cardiac source. He had a negative D-dimer. Patient will be given Vistaril herein the ER. He states his mother could pick him up. He does not have much pain on examination of his back and he is able to get up and walk around the room. He is going from laying to sitting to standing over and over again because he isanxious. I do not believe he is a threat to himself or others however. His mother will be able to pick him up after he is medicated. I will give him prescription for Vistaril as well and he can take this home with him via [facility]. He will discontinue his prednisone as this is causing his symptoms and symptoms should resolve. He acknowledges standing this. Impression: 1. History of lumbar strain 2. Medication side effect 3. Anxiety Discharge Plan Triage Chief Complaint: Palpitations ED Provider: Aayush Hsu Dx/Rx/DC Orders Instructions: ED Drug Reaction, Other Prescriptions: New hydroxyzine pamoate [Vistaril] 25 mg capsule 25 mg PO TID PRN (Reason: anxiety) Qty: 20 0RF No Action prednisone 20 mg tablet 40 mg PO QHS Qty: 12 0RF cyclobenzaprine [cyclobenzaprine] 10 mg tablet 10 mg PO QHS PRN PRN (Reason: Muscle Spasm) Qty: 10 0RF naproxen 500 mg tablet 500 mg PO BID PRN Qty: 20 0RF Primary Care Provider: Care Physician,No Primary Referrals: Care Physician,No Primary [Primary Care Provider] - Disposition Disposition: Home, Self Care What to do if you have Problems For any increased pain, shortness of breath, bleeding, nausea or vomiting, chestpain, or any unexpected problems, contact your Primary Care Provider. Call [facility] ([phone]) or report to the closest Emergency Room. Call 911 if necessary. 08/09/232151 <Electronically signed by Aayush Hsu DO> Cosigner Signature (if applicable): CC: No Primary Care Physician ~ Signed [facility] Work Phone: 1(467) 463-925408-26-2023 History of Present illness Narrative* Keli Frank APRN.PEDIATRIC DENTAL HYGIENIST - 02/04/2023 3:25 PM EDT Images from the original note were not included. Subjective The history is provided by the patient. No supervisor asbestos removal was used. HUMBERTO Lopes is a 32 year old male who presents today for CC of lower back pain that started today with lifting porcelain molds. He denies any loss of bowel or bladder function. He has not used anytreatment. 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 No scoliosis. Back: [...] for higher level of care were discussed indetail warranting prompt ER evaluation. Keli Frank APRN.PEDIATRIC DENTAL HYGIENIST [facility] History and physical note Author Dr. Hopkins [facility] August 10, 2022 3:07pm Note Date/Time August 10, 2022 2:40 pm [facility] Medical Records Department [address] [place] [address] H&P Exam - Hospitalist 08/10/22 1437 MR#: [id number] Acct: [id number] Name: JAYY LOPES Rep #:[id number] : 1990 31 From: Missy Hopkins DO PCP: Dr. Sanjay Cid MD Status:A DM IN Location: [facility] BF793-3 HPI - General General Date of Admission: 08/10/22 Date of Service: 08/10/22 Chief Complaint: Polysubstance abuse-suspected acute opiate withdrawal HPI Narrative JAYY LOPES, is a 31 M who presented the emergency department on 08/10/2022 after presenting to [facility] and having a toxicology screen positive for fentanyl. 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 Unfortunately his toxicology screen was positive for fentanyl as well and there is suspicion that the amphetamines he uses is laced with this. Toxicology screen here is positive for cocaine, amphetamines, and marijuana. Patient states he has been using for several months. States he has been having escalation of use lately and would really like to stop. He states its not doing me any good. He is interested in sobriety. He denies any IV drug use ever. He admits also smoking tobacco. Vital signs on presentation were unremarkable. CBC was pending on admission. Chemistry panel was unremarkable. Toxicology screen showed amphetamines, cocaine, and cannabis. Our screen is not able to delineate fentanyl. Plan is to admit the patient and monitor need for Subutex with withdrawal symptoms. If not any required 24 hours we will likely discharge home with outpatient planning for [facility]. [facility] Medical History Tobacco abuse Home Medications naproxen 500 mg tablet 500 mg PO BID PRN #20 tabs 07/11/19 [Rx Last Taken Unknown] Allergy/AdvReac Type Severity Reaction Status Date / Time No Known Allergies Allergy Verified 07/29/22 12:36 no significant family history Surgical History History of appendectomy Social History (Updated 08/10/22 @ 15:[address] Missy Hopkins DO) Smoking Status: Current every day smoker tobacco type: cigarettes alcohol intake: never substance use type: amphetamines ROS Constitutional Constitutional: Reports chills; Denies anorexia, change in weight, fatigue, fever(s), malaise, night sweats, weakness or other Eyes Eyes: Denies blurry vision, change in eye color, change in vision, discharge from eye(s), double vision, erythema, eye pain, loss of vision or other ENT HEENT: Denies abnormal hearing, dysphagia, ear pain, epistaxis, headache(s), hearing loss, nasal congestion, nasal discharge, post nasal drip, sinus pressure, sore throat or other Cardiovascular Cardiovascular: Denies chest pain, claudication, dyspnea on exertion, edema, lightheadedness, orthopnea, palpitations, paroxysmal nocturnal dyspnea, rapid heart rate, syncope or other Respiratory/Chest Respiratory/Chest: Denies cough, dyspnea, excessive phlegm production, hemoptysis, productive cough, shortness of breath at rest, shortness of breath with exertion, wheezing or other Gastrointestinal Gastrointestinal: Denies abdominal pain, coffee ground emesis, constipation, diarrhea, dyspepsia, hematemesis, hematochezia, loose stools, melena, nausea, vomiting or other Genitourinary Genitourinary: Denies burning urination, difficulty urinating, dysuria, hematuria, nocturia, urinary frequency, urinary hesitancy, urinary incontinence,urinary urgency or other Musculoskeletal Musculoskeletal: Denies arthralgias, back pain, joint pain, joint stiffness, joint swelling, myalgias, neck pain or other Neurologic Neurologic: Reports tremor(s); Denies abnormal gait, abnormal speech, confusion,disequilibrium, dizziness, focal weakness, headache(s), numbness, paresthesias, seizure-like activity, seizures, syncope, tingling or other Psychiatric Psychiatric: Reports anxiety; Denies depression, homicidal ideation, suicidal ideation or other Endocrine Endocrinology: Denies change in body appearance, cold intolerance, excessive sweating, heat intolerance, polydipsia, polyuria or other Hematologic/Lymphatic Hematologic/Lymphatic: Denies anemia, easy bleeding, easy bruising, lymphadenopathy or other Allergic/Immunologic Allergic/Immunologic: Denies rhinitis, hives, eczemia, asthma or other Vital Signs Vital Signs Vital Signs: 08/10/22 12:58 Temperature 98.4 F Temperature Source Temporal Pulse Rate 83 Respiratory Rate 18 Blood Pressure 105/78 Blood Pressure Mean 87 Pulse Ox 98 Oxygen Delivery Method Room Air Weight Weight: 64.274 kg Body Mass Index (BMI) 20.9 Physical Exam Const alert, oriented x3, no apparent distress and well nourished Constitutional Narrative: Young middle-aged white male, sitting up in bed, appears comfortable nontoxic HEENT normocephalic, head/scalp atraumatic, hearing grossly normal bilaterally and moist oral mucous membranes HEENT Narrative: Dentition is good, Mallampati is 2, no thrush Resp normal respiratory effort, no retractions, no use of accessory muscles and clearto auscultation bilaterally Auscultation: Negative for rales, rhonchi or wheezes Cardio regular rate, regular rhythm, S1 normal heart sound, S2 normal heart sound, no murmurs, no rub, no gallops and no clicks GI normal to inspection, nondistended, normoactive bowel sounds, soft to palpation,non-tender and non-distended Extremity no clubbing, cyanosis or edema Extremity Narrative: 2+ pedal pulses Neuro oriented x3, CN's II-XII intact bilaterally, moves all extremities and no focal motor deficits Speech: speech normal Psych affect normal Psych Narrative: Appears mildly anxious but otherwise unremarkable Results Lab / Micro Data Result Diagrams: 08/10/22 13:16 08/10/22 13:16 Labs: Laboratory Results - last 24 hr 08/10/22 13:16: Sodium 137, Potassium 4.3, Chloride 105, Carbon Dioxide 25.0, Anion Gap 7, BUN 19 H, Creatinine 0.88, Estim Creat Clear Calc 111.59, Est GFR (MDRD) Af Amer 129, Est GFR (MDRD) Non-Af 107, BUN/Creatinine Ratio 21.5 H, Glucose 147 H, Calcium 9.0 08/10/22 13:16: Ethyl Alcohol < 3.0 08/10/22 13:17: Urine Opiates Screen NEGATIVE, Urine Methadone Screen NEGATIVE, Ur Barbiturates Screen NEGATIVE, Ur Phencyclidine Scrn NEGATIVE, Ur AmphetaminesScreen POSITIVE H, MDMA (Ecstasy) Screen NEGATIVE, U Benzodiazepines Scrn NEGATIVE, Urine Cocaine Screen POSITIVE H, U Cannabinoids Screen POSITIVE H, Ur Drug Screen Comment Assessment & Plan Assessment/Plan (1) Opiate withdrawal: (2) Polysubstance abuse: PLAN: Plan Acute opiate withdrawal -Patient denies regular opiate use however it is suspected based on his tox screen over 180 that his methamphetamines and cocaine are laced with fentanyl -Toxicology screen at 180 was positive for fentanyl -Subutex taper per [facility] protocol -Supportive medications as needed -Consult 180 Polysubstance abuse -Toxicology screen positive for marijuana, cocaine, amphetamines, and fentanyl positive at 180 -Recommend cessation -180 consultation as above Tobacco abuse -Recommend cessation -Nicotine replacement therapy DVT prophylaxis -Low risk -Encourage frequent and early ambulation CODE STATUS Full code Charges/Coding Visit Charges Inpatient E&M: 17509 Init Hosp L2 08/10/22 1507 <Electronically signed by Missy Hopkins DO> Cosigner Signature (if applicable): CC: Dr. Missy Hopkins DO; Dr. Sanjay Cid MD~ Signed ADDENDUM by Dr. Missy Hopkins DO on 08/10/22 at 1507 Visit Charges Inpatient E&M: 88442 Init Hosp L2 08/10/22 1507<Electronically signed by Missy Hopkins DO> Cosigner Signature (if applicable): cc: Dr. Missy Hopkins DO; Dr. Sanjay Cid MD ~* Signed [facility] Work Phone: 1(847) 937-522803-01-[address] Worthington [facility] August 10, 2022 3:00pm Note Date/Time August 10, 2022 2:51 pm [facility] Medical Records Department [address] [place] [address] Emergency Department Summary 08/10/22 MR#: [id number] Acct: [id number] Name: JAYY LOPES Rep #:[id number] : 1990 31 From: Estrellita Barcenas PCP: Dr. 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 He states he snorts it. He states he generally uses every day. He kind of useswhenever he can get but thinks it is mostly methamphetamines. He was following with 180 and had a drug screen today which was also positive for fentanyl. Theyrecommend he come to the emergency room for inpatient detox. Patient states he last used 2 days ago. He does note that he is having abdominal discomfort, diarrhea and just feels jittery. Denies any nausea or vomiting. Denies any other complaints at this time. Does note that he had a recent laceration to hisleft hand 10 days ago and one of the sutures fell out but the other [address]. No other complaints. [facility] Medical History Tobacco abuse Home Medications naproxen 500 mg tablet 500 mg PO BID PRN #20 tabs 07/11/19 [Rx Last Taken Unknown] Allergy/AdvReac Type Severity Reaction Status Date / Time No Known Allergies Allergy Verified 07/29/22 12:36 Surgical History History of appendectomy Social History Smoking Status: Current every day smoker tobacco type: cigarettes ROS ROS ED Constitutional Constitutional ED: Denies chills or fever(s) Eyes Eyes: Denies change in vision Respiratory/Chest Respiratory/Chest: Denies cough or dyspnea Gastrointestinal Gastrointestinal: Reports abdominal pain and diarrhea; Denies nausea or vomiting Musculoskeletal Musculoskeletal: Reports myalgias; Denies arthralgias Neurologic Neurologic: Denies headache(s) Psychiatric Psychiatric: Denies anxiety Hematologic/Lymphatic Hematologic/Lymphatic: Denies easy bleeding or easy bruising EXAM Physical Exam Const Vital Signs: 08/10/22 12:58 Temperature 98.4 F Temperature Source Temporal Pulse Rate 83 Respiratory Rate 18 Blood Pressure 105/78 Blood Pressure Mean 87 Pulse Ox 98 Oxygen Delivery Method Room Air Positive well nourished and well developed Constitutional Narrative: thin General Appearance ED: well developed and NAD; Negative for pallor HEENT Reports moist mucous membranes atraumatic Eyes PERRL and EOMs intact bilaterally Neck supple Chest Wall inspection of chest normal Resp normal respiratory effort and clear to auscultation bilaterally Cardio regular rate and regular rhythm GI soft to palpation, non-tender and non-distended Extremity General Extremety ED: Negative for edema or tenderness General Extremity: Negative for edema Neuro oriented x3 Sensorium / Orientation: alert Motor Exam: Negative for general weakness Psych mental status grossly normal and thought process normal Skin Skin Narrative: Healing well approximated laceration to the left hand between the thumb and the index finger. [address] General Skin Exam: Negative for jaundice or pallor Lesions: no lesions Rashes: no rashes MDM MDM MDM Narrative Medical decision making narrative: Patient presents for inpatient detox. He has a benign physical exam. Does have a suture in the left hand that is ready to be removed. This will be removed pernursing staff. Patient structure is positive for amphetamines, cocaine and cannabis. We do not have fentanyl in our drug screen but apparently that was positive earlier today at 180. Patient will be admitted for inpatient detox as he is likely regularly using fentanyl with his amphetamines. He is agreeable with plan of care. Remains hemodynamically stable. Lab Data Attestation: I reviewed the patient's lab results. Labs: Laboratory Results - last 24 hr 08/10/22 08/10/22 08/10/22 13:16 13:16 13:17 Sodium 137 Potassium 4.3 Chloride 105 Carbon Dioxide 25.0 Anion Gap 7 BUN 19 H Creatinine 0.88 Estim Creat Clear Calc 111.59 Est GFR (MDRD) Af Amer 129 Est GFR (MDRD) Non-Af 107 BUN/Creatinine Ratio 21.5 H Glucose 147 H Calcium 9.0 Urine Opiates Screen NEGATIVE Urine Methadone Screen NEGATIVE Ur Barbiturates Screen NEGATIVE Ur Phencyclidine Scrn NEGATIVE Ur Amphetamines Screen POSITIVE H MDMA (Ecstasy) Screen NEGATIVE U Benzodiazepines Scrn NEGATIVE Urine Cocaine Screen POSITIVE H U Cannabinoids Screen POSITIVE H Ur Drug Screen Comment Ethyl Alcohol < 3.0 Discharge Plan Triage Chief Complaint: Substance Abuse ED Provider: Estrellita Worthington Dx/Rx/DC Orders Prescriptions: No Action naproxen 500 MG tablet 500 mg PO BID PRN Qty: 20 0RF Primary Care Provider: Sanjay Cid Referrals: Sanjay Cid MD [Primary Care Provider] - What to do if you have Problems For any increased pain, shortness of breath, bleeding, nausea or vomiting, chestpain, or any unexpected problems, contact your Primary Care Provider. Call [facility] [facility] ([phone]) or report to the closest Emergency Room. Call 911 if necessary. 08/10/22 1500 <Electronically signed by Estrellita Worthington DO> Cosigner Signature (if applicable): CC: Dr. Sanjay Cid MD ~ Signed [facility] Work Phone: 1(544) 514-629903-01-2023 History and physical note Author Dr. Hopkins [facility] August 10, 2022 3:07pm Note Date/Time August 10, 2022 2:40 pm [facility] Medical Records Department [address] [place] [address] H&P Exam - Hospitalist 08/10/22 1437 MR#: [id number] Acct: [id number] Name: JAYY LOPES Rep #:[id number] : 1990 31 From: Missy Hopkins DO PCP: Dr. Sanjay Cid MD Status:A DM IN Location: [facility] [id number] HPI - General General Date of Admission: 08/10/22 Date of Service: 08/10/22 Chief Complaint: Polysubstance abuse-suspected acute opiate withdrawal HPI Narrative JAYY LOPES, is a 31 M who presented the emergency department on 08/10/2022 after presenting to [facility] and having a toxicology screen positive for fentanyl. 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 Unfortunately his toxicology screen was positive for fentanyl as well and there is suspicion that the amphetamines he uses is laced with this. Toxicology screen here is positive for cocaine, amphetamines, and marijuana. Patient states he has been using for several months. States he has been having escalation of use lately and would really like to stop. He states its not doing me any good. He is interested in sobriety. He denies any IV drug use ever. He admits also smoking tobacco. Vital signs on presentation were unremarkable. CBC was pending on admission. Chemistry panel was unremarkable. Toxicology screen showed amphetamines, cocaine, and cannabis. Our screen is not able to delineate fentanyl. Plan is to admit the patient and monitor need for Subutex with withdrawal symptoms. If not any required 24 hours we will likely discharge home with outpatient planning for [facility]. [facility] Medical History Tobacco abuse Home Medications naproxen 500 mg tablet 500 mg PO BID PRN #20 tabs 07/11/19 [Rx Last Taken Unknown] Allergy/AdvReac Type Severity Reaction Status Date / Time No Known Allergies Allergy Verified 07/29/22 12:36 no significant family history Surgical History History of appendectomy Social History (Updated 08/10/22 @ 15:[address] Missy Hopkins DO) Smoking Status: Current every day smoker tobacco type: cigarettes alcohol intake: never substance use type: amphetamines ROS Constitutional Constitutional: Reports chills; Denies anorexia, change in weight, fatigue, fever(s), malaise, night sweats, weakness or other Eyes Eyes: Denies blurry vision, change in eye color, change in vision, discharge from eye(s), double vision, erythema, eye pain, loss of vision or other ENT HEENT: Denies abnormal hearing, dysphagia, ear pain, epistaxis, headache(s), hearing loss, nasal congestion, nasal discharge, post nasal drip, sinus pressure, sore throat or other Cardiovascular Cardiovascular: Denies chest pain, claudication, dyspnea on exertion, edema, lightheadedness, orthopnea, palpitations, paroxysmal nocturnal dyspnea, rapid heart rate, syncope or other Respiratory/Chest Respiratory/Chest: Denies cough, dyspnea, excessive phlegm production, hemoptysis, productive cough, shortness of breath at rest, shortness of breath with exertion, wheezing or other Gastrointestinal Gastrointestinal: Denies abdominal pain, coffee ground emesis, constipation, diarrhea, dyspepsia, hematemesis, hematochezia, loose stools, melena, nausea, vomiting or other Genitourinary Genitourinary: Denies burning urination, difficulty urinating, dysuria, hematuria, nocturia, urinary frequency, urinary hesitancy, urinary incontinence,urinary urgency or other Musculoskeletal Musculoskeletal: Denies arthralgias, back pain, joint pain, joint stiffness, joint swelling, myalgias, neck pain or other Neurologic Neurologic: Reports tremor(s); Denies abnormal gait, abnormal speech, confusion,disequilibrium, dizziness, focal weakness, headache(s), numbness, paresthesias, seizure-like activity, seizures, syncope, tingling or other Psychiatric Psychiatric: Reports anxiety; Denies depression, homicidal ideation, suicidal ideation or other Endocrine Endocrinology: Denies change in body appearance, cold intolerance, excessive sweating, heat intolerance, polydipsia, polyuria or other Hematologic/Lymphatic Hematologic/Lymphatic: Denies anemia, easy bleeding, easy bruising, lymphadenopathy or other Allergic/Immunologic Allergic/Immunologic: Denies rhinitis, hives, eczemia, asthma or other Vital Signs Vital Signs Vital Signs: 08/10/22 12:58 Temperature 98.4 F Temperature Source Temporal Pulse Rate 83 Respiratory Rate 18 Blood Pressure 105/78 Blood Pressure Mean 87 Pulse Ox 98 Oxygen Delivery Method Room Air Weight Weight: 64.274 kg Body Mass Index (BMI) 20.9 Physical Exam Const alert, oriented x3, no apparent distress and well nourished Constitutional Narrative: Young middle-aged white male, sitting up in bed, appears comfortable nontoxic HEENT normocephalic, head/scalp atraumatic, hearing grossly normal bilaterally and moist oral mucous membranes HEENT Narrative: Dentition is good, Mallampati is 2, no thrush Resp normal respiratory effort, no retractions, no use of accessory muscles and clearto auscultation bilaterally Auscultation: Negative for rales, rhonchi or wheezes Cardio regular rate, regular rhythm, S1 normal heart sound, S2 normal heart sound, no murmurs, no rub, no gallops and no clicks GI normal to inspection, nondistended, normoactive bowel sounds, soft to palpation,non-tender and non-distended Extremity no clubbing, cyanosis or edema Extremity Narrative: 2+ pedal pulses Neuro oriented x3, CN's II-XII intact bilaterally, moves all extremities and no focal motor deficits Speech: speech normal Psych affect normal Psych Narrative: Appears mildly anxious but otherwise unremarkable Results Lab / Micro Data Result Diagrams: 08/10/22 13:16 08/10/22 13:16 Labs: Laboratory Results - last 24 hr 08/10/22 13:16: Sodium 137, Potassium 4.3, Chloride 105, Carbon Dioxide 25.0, Anion Gap 7, BUN 19 H, Creatinine 0.88, Estim Creat Clear Calc 111.59, Est GFR (MDRD) Af Amer 129, Est GFR (MDRD) Non-Af 107, BUN/Creatinine Ratio 21.5 H, Glucose 147 H, Calcium 9.0 08/10/22 13:16: Ethyl Alcohol < 3.0 08/10/22 13:17: Urine Opiates Screen NEGATIVE, Urine Methadone Screen NEGATIVE, Ur Barbiturates Screen NEGATIVE, Ur Phencyclidine Scrn NEGATIVE, Ur AmphetaminesScreen POSITIVE H, MDMA (Ecstasy) Screen NEGATIVE, U Benzodiazepines Scrn NEGATIVE, Urine Cocaine Screen POSITIVE H, U Cannabinoids Screen POSITIVE H, Ur Drug Screen Comment Assessment & Plan Assessment/Plan (1) Opiate withdrawal: (2) Polysubstance abuse: PLAN: Plan Acute opiate withdrawal -Patient denies regular opiate use however it is suspected based on his tox screen over 180 that his methamphetamines and cocaine are laced with fentanyl -Toxicology screen at 180 was positive for fentanyl -Subutex taper per [facility] protocol -Supportive medications as needed -Consult 180 Polysubstance abuse -Toxicology screen positive for marijuana, cocaine, amphetamines, and fentanyl positive at 180 -Recommend cessation -180 consultation as above Tobacco abuse -Recommend cessation -Nicotine replacement therapy DVT prophylaxis -Low risk -Encourage frequent and early ambulation CODE STATUS Full code Charges/Coding Visit Charges Inpatient E&M: 83698 Init Hosp L2 08/10/22 1507 <Electronically signed by Missy Hopkins DO> Cosigner Signature (if applicable): CC: Dr. Missy Hopkins DO; Dr. Sanjay Cid MD~ Signed ADDENDUM by Dr. Missy Hopkins DO on 08/10/22 at 1507 Visit Charges Inpatient E&M: 28266 Init Hosp L2 08/10/22 1507<Electronically signed by Missy Hopkins DO> Cosigner Signature (if applicable): cc: Dr. Missy Hopkins DO; Dr. Sanjay Cid MD ~* Signed [facility] Work Phone: 1(759) 179-984902-21-2023 Miscellaneous Notes* Telephone Encounter - Crystal Jimenez LPN - 08/02/2022 12:22 PM EST Letter faxed to number provided.Crystal Jimenez LPN * Telephone Encounter - Angelic Pro PA-C - 08/02/2022 12:20 PM EST Note printed. 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 Just need something in writing stating below restrictions faxed to [phone] attn workman's comp. Barbara Murrieta * Telephone Encounter - Barbara Glenny - 08/02/2022 8:45 AM EST called call was disconnected now busy sound, will try again. Barbara Murrieta * Telephone Encounter - Angelic Pro PA-C - 08/01/2022 7:06 PM EST Can we call and see what the patient does for work? Generally do not want to do anything that wouldsubmerge it in water, keep it covered, avoid things that would cause stress on the wound to rip thesutures out. * Telephone Encounter - Cindy Paniagua LPN - 08/01/2022 3:33 PM EST Clifford pt's employer called to let us know his employee had an incident on 07-29-22 and was treated at the [facility] and was given stitches. Employer asking if pt has any restrictions. Before going any further I informed the employer that I needed to get permission from pt to speak with them or send any type of message thru. I called pt and he gave his verbal okay to speak with his employer.Please review and advise if pt has any restrictions while at work to employer. Clifford PH: [phone] ext [phone]. Cindy Paniagua LPN [facility] History of Present illness Narrative* Farrukh Perea MD - 07/29/2022 3:13 PM EST Patient presents with: left hand laceration: Cut [...] with hibiclens on gauze and irrigation with normalsaline. 2 simple interrupted sutures with 4-0 Prolene [...] exposed to limited water but not submerged. [place] re-evaluation for sign of infection such as spreading redness, warmth, pus- like discharge, increasing pain, or fever. Return for suture removal in 7-10 days. - TDAP VACCINE AGE 7+ IM Farrukh Perea MD documented in this [facility] Hospital Discharge instructions Patient Education 05/30/2022 05:00:42 [...] your side with your knees bent up towardyour chest and a pillow between your knees. [...] to 90 minutes, or several times a day.This will reduce swelling and pain. Be sure [...] You may need physical therapy or more testsif your symptoms get worse. If you had X-rays your healthcare provider may be checking for any broken bones, breaks, or fractures. Bruises and sprains can sometimes hurt as much as a fracture. These injuries can take time to heal completely. If your symptoms don t improve or they get worse, talk with your healthcare provider.You may need a repeat X-ray or other [...] Numbness in the groin or genital area 5309-2152 [employer] [address] [place] [address]. All rights reserved. This information is not intended as a substitute for professional medical care. Always follow yourhealthcare professional's instructions. Follow Up Care 05/30/2022 04:01:13 With:KHUSHI HARRIS Address: [address] [place] [address] [place] [address]- [phone] Business (1) When:2-4 days Comments:Take Tylenol ibuprofen use lidocaine patches for back pain. You may use muscle relaxers as needed. As discussed, do not take muscle relaxers and drive or operate heavy machinery. Follow-up with your doctor. Return if worsening or concerning symptoms such as severe pain numbness weakness accidents with your bowels or bladder. [facility] 12-19-2022 Note Discharge Instructions Thank you for allowing [facility] to assist you with your healthcare needs. The following is importantdischarge information regarding your hospital visit. Diagnosis from [...] accidents with your bowels or bladder. Where: [address] [place] [address] [place] [address]- [phone] Business (1) Allergies NKA Medications Please ask your primary doctor or pharmacist before taking any other medication not listed, including over the counter drugs, herbal medications, vitamins and or supplements as they may interact withyour home medications. What How Much When Instructions [...] by blocking nerve impulses (or pain sensations) thatare sent to your brain. Cyclobenzaprine is used [...] in the past 14 days. A dangerous druginteraction could occur. MAO inhibitors include isocarboxazid, linezolid, [...] may report side effects to FDA at 0-993-FXL-7124. What other drugs will affect cyclobenzaprine? Using cyclobenzaprine with other drugs that make you drowsy can worsen this effect. Ask your doctorbefore using opioid medication, a sleeping pill, a [...] drugs may affect cyclobenzaprine, including prescription and skan-ohc-iaxecdg medicines, vitamins, and herbal products. Not all [...] to ensure that the information provided by [employer]. ('[employer]') is accurate, up-to-date, and complete, but no guarantee is made to that effect. Drug information contained herein may be time sensitive. [employer] information has been compiled for use by healthcare practitioners and consumers in the [place] and therefore [employer] does not warrant that uses outside of the [place] are appropriate, unless specifically indicated otherwise. [employer] drug information does not endorse drugs, diagnose patients or recommend therapy. [employer] drug information isan informational resource designed to assist licensed healthcare practitioners in caring for their p atients and/or to serve consumers viewing this service as a supplement to, and not a substitute for, the expertise, skill, knowledge and judgment of healthcare practitioners. The absence of a warningfor a given drug or drug combination in no way should be construed to indicate that the drug or drug combination is safe, effective or appropriate for any given patient. [employer] does not assume any responsibility for any aspect of healthcare administered with the aid of information [employer] provides. The information contained herein is not intended to cover all possible uses, directions, precautions, warnings, drug interactions, allergic reactions, or adverse effects. If you have questions about the drugs you are taking, check with your doctor, nurse or pharmacist. Copyright 1634-0589 [employer]. Version: 5.01. Revision Date: 03/07/2018. lidocaine topical (LYE mohr dykes TOP i dayron) AneCream, Bactine, Glydo, LidaMantle, Lidoderm, LidoRx, Medi-Quik [place], RadiaGuard, RectiCare, Regenecare COPE [place], Solarcaine Cool Aloe What is the most [...] poison oak, poison sumac, and minor cuts, scratches,or conner. Lidocaine topical is also used to [...] it has been prescribed by your doctor. Donot apply this medicine in larger amounts than [...] over large skin areas, or if you applyheat, bandages, or plastic wrap to treated skin [...] a child or pet who accidentally sucks onor swallows the patch. Seek emergency medical attention [...] of the medicine is absorbed through your skinand into your blood. Overdose symptoms may include [...] may report side effects to FDA at 4-882-DQS-8171. What other drugs will affect lidocaine topical? Medicine used on the skin is not likely to be affected by other drugs you use. But many drugs can interact with each other. Tell each of your health care providers about all medicines you use, including prescription and kyiy-ztt-kstwpjb medicines, vitamins, and herbal products. Where can I get more information? Your pharmacist can provide more information about lidocaine topical. Remember, keep this and all other medicines out of the reach of children, never share your medicines with others, and use this medication only for the indication prescribed. Every effort has been made to ensure that the information provided by [employer]. ('[employer]') is accurate, up-to-date, and complete, but no guarantee is made to that effect. Drug information contained herein may be time sensitive. [employer] information has been compiled for use by healthcare practitioners and consumers in the [place] and therefore [employer] does not warrant that uses outside of the [place] are appropriate, unless specifically indicated otherwise. [employer] drug information does not endorse drugs, diagnose patients or recommend therapy. [employer] drug information isan informational resource designed to assist licensed healthcare practitioners in caring for their p atients and/or to serve consumers viewing this service as a supplement to, and not a substitute for, the expertise, skill, knowledge and judgment of healthcare practitioners. The absence of a warningfor a given drug or drug combination in no way should be construed to indicate that the drug or drug combination is safe, effective or appropriate for any given patient. [employer] does not assume any responsibility for any aspect of healthcare administered with the aid of information [employer] provides. The information contained herein is not intended to cover all possible uses, directions, precautions, warnings, drug interactions, allergic reactions, or adverse effects. If you have questions about the drugs you are taking, check with your doctor, nurse or pharmacist. Copyright 1327-9418 [employer]. Version: 9.02. Revision Date: 10/26/2021. ibuprofen (EYE [...] you have ever had an asthma attack orsevere allergic reaction after taking aspirin or an [...] your doctor tells you to. Taking an NSAIDduring the last 20 weeks of can cause serious heart or kidney problems in the unborn babyand possible complications with your . Do not [...] and weight of your child. Ask a doctoror pharmacist if you have questions. Take ibuprofen [...] light-headed or short of breath, rapid heart rate,trouble concentrating; or kidney problems--little or no urinating, [...] may report side effects to FDA at 2-459-ROV-6927. What other drugs will affect ibuprofen? Ask [...] drugs may affect ibuprofen, including prescription and pgjc-xbq-[id number] medicines, vitamins, and herbal products. Not all [...] to ensure that the information provided by [employer] ('[employer]') is accurate, up-to-date, and complete, but no guarantee is made to that effect. Drug information contained herein may be time sensitive. [employer] information has been compiled for use by healthcare practitioners and consumers in the [place] and therefore [employer] does not warrant that uses outside of the [place] are appropriate, unless specifically indicated otherwise. [employer] drug information does not endorse drugs, diagnose patients or recommend therapy. [employer] drug information isan informational resource designed to assist licensed healthcare practitioners in caring for their p atients and/or to serve consumers viewing this service as a supplement to, and not a substitute for, the expertise, skill, knowledge and judgment of healthcare practitioners. The absence of a warningfor a given drug or drug combination in no way should be construed to indicate that the drug or drug combination is safe, effective or appropriate for any given patient. [employer] does not assume any responsibility for any aspect of healthcare administered with the aid of information [employer] provides. The information contained herein is not intended to cover all possible uses, directions, precautions, warnings, drug interactions, allergic reactions, or adverse effects. If you have questions about the drugs you are taking, check with your doctor, nurse or pharmacist. Copyright 5058-4343 [employer]. Version: 22.01. Revision Date: 05/06/2020. Education Materials [...] your side with your knees bent up towardyour chest and a pillow between your knees. [...] to 90 minutes, or several times a day.This will reduce swelling and pain. Be sure [...] You may need physical therapy or more testsif your symptoms get worse. If you had X-rays your healthcare provider may be checking for any broken bones, breaks, or fractures. Bruises and sprains can sometimes hurt as much as a fracture. These injuries can take time to heal completely. If your symptoms don t improve or they get worse, talk with your healthcare provider.You may need a repeat X-ray or other [...] Numbness in the groin or genital area 6703-7263 [employer] [address] [place] [address], [place] [address]. All rights reserved. This information is not intended as a substitute for professional medical care. Always follow yourhealthcare professional's instructions. Additional Information VACCINATE! IT SAVES LIVES! Members of the community who have not yet received the COVID-19 vaccine and would like to receive it can visit one of [facility] vaccine clinics. There are many vaccine clinic locations within the [facility]. For locations and available times, please visit [email or web address]. It is important to note that some COVID mobile vaccine clinics are held outdoors and may be canceled in rainy orstormy conditions. To learn more about pediatric vaccinations (ages 5-11), we invite you to visit the [facility] webpage. [email or web address] learn more about the COVID-19 vaccine, we invite you to visit the [facility] website for a list of frequently asked questions. [email or web address] [facility] [employer] Patient Portal Access Instructions: Stay connected with your healthcare team and access your personal medical information anytime with the [facility] [employer] Patient Portal. If you would like a full copy of your medical records please contact the [facility] Medical Records Department Monday through Monday between 8a.m. and 4:30p.m. Please follow the directions below to access the portal: 1.Access the email account you provided upon registration to the hospital.2.Look for an invitation email from [facility].3.Open the email and access the invitation link: Accept Invitation to [facility]4.Fill in the required leija to create your account. Sign into [email or web address] with your username and password that you [...] you will allow to register on the [facility] [employer] Patient Portal for access to your information. You can also access the [facility] Patient Portal on the [email or web address]. Simply click on Health Records under MOGL and then click on the [facility] logo. HOW TO SAFELY DISPOSE OF PRESCRIPTION MEDICATIONS Please use one of the following methods to safely dispose of your unused medications. 1.Use a drug disposal kit: the drug disposal pouch allows you to safely discard your old and unuseddrugs. Ask your nurse to give you one when you are discharged.2.Visit a local take-back location: Many local pharmacies and police departments have programs that collect old and unwanted prescriptiondrugs. Call your local pharmacy or go to http://DeepRockDrive.ScienceLogic/9B3Go4x to find one close to you.3.Make use of household items: Use cat litter or old coffee grounds to dispose medications if other options arenot available. Mix your drugs with these household products, seal them in an airtight container andthrow it into the garbage. Call [facility]: [phone] to be sure your drugs can be [...] drowsiness, such as benzodiazepines, also known as benzos,including diazepam and alprazolam, muscle relaxants or sleep aids. Never sell or share prescriptionopioids. This is illegal. Store opioids in a secure place and out of reach of others (including children, family, friends and visitors). The last page(s) of this document has been signed and retained as a CHART COPY Signatures Patient Education Materials Back Sprain/Strain Medication Leaflets cyclobenzaprine, lidocaine topical, ibuprofen My discharge plan and instructions have been reviewed and explained to me and I,JAYY LOPES understand my current condition and have read and understand these discharge instructions. I have received a written copy of the plan/instructions. If I have questions, I am aware that I should contact my doctor. 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 Interpreted by: aRjan Cazares MD Preliminary Report By: Rajan Cazares MD Electronically signed By Rajan Cazares MD Dictated Date: 05/30/2022 4:45:40 AM Prelim Date: 05/30/2022 4:46:55 AM Sign Date: 05/30/2022 4:46:55 AM Ordering Provider: [facility]12-19-2022 Note ORIGINAL EXAMINATION: XRAY VIEWS OF THE [...] Sign Date: 05/30/2022 4:46:55 AM Ordering Provider: [facility] summary Author Dr. Blandon [facility] August 11, 2022 12:48pm Note Date/Time August 11, 2022 12:4 7pm [facility] Medical Records Department [address] [place] [id number] Instructions for Home/Discharge Instructions 08/11/22 1246 MR#: [id number] Acct: [id number] Name: JAYY LOPES Rep #:[id number] : 1990 31 From: Vannessa Blandon MD PCP: Dr. Sanjay Cid MD Status:A DM IN Discharge Instructions Diet Discharge Diet: No restrictions Activity Discharge Activity: Return to Normal Activity Follow Up Care Test Results: Test results from this visit will be discussed in further detail at your follow- up appointment, if applicable. Discharge Plan Admission Admit Date/Time: 08/10/22 14:31 Primary Reason for Your Visit: Opioid detox Attending Provider: Vannessa Blandon Primary Care Provider: Sanjay Cid Consulting Providers: Missy Hopkins Instructions Patient Instructions: ED Drug Abuse Discharge Orders/Prescriptions Prescriptions: Continued naproxen 500 MG tablet 500 mg PO BID PRN Qty: 20 0RF Referrals / Follow Up: Sanjay Cid MD [Primary Care Provider] - Disposition Disposition (needs filled in before D/C Order can be placed): DC/Tx to Another Type of HCF 08/11/22 1248<Electronically signed by Vannessa Blandon MD>Vannessa Blandon MD CC: Dr. Missy Hopkins, DO; Dr. Sanjay Cid MD ~ Signed [facility] Work Phone: Discharge summary Author Dr. Blandon [facility] August 11, 2022 12:50pm Note Date/Time August 11, 2022 12:5 0pm [facility] Medical Records Department [address] [place] [address] Discharge Summary 08/11/22 1248 MR#: [id number] Acct: [id number] Name: JAYY LOPES Rep #:[id number] : 1990 31 From: Vannessa Blandon MD PCP: Dr. Sanjay Cid MD Status:A DM IN Location: [place] [address] Providers Date of Admission: 08/10/22 Date of Discharge: 08/11/22 Primary Care Physician: Dr. Sanjay Cid MD Reason For Visit: OPIATE DETOX Diagnosis Discharge Diagnosis (1) Opiate withdrawal: Status: Acute Code(s): F11.93 - Opioid use, unspecified with withdrawal (2) Polysubstance abuse: Status: Acute Code(s): F19.10 - Other psychoactive substance abuse, uncomplicated Medications at Discharge Home Medications naproxen 500 mg tablet 500 mg PO BID PRN #20 tabs 07/11/19 Hospital Course Summary of Care Provided Minutes Spent on Discharge: 20 Hospital Course: Per HPI: JAYY LOPES is a 31 M who presented the emergency department on 3after presenting to [facility] and having a toxicology screen positive for fentanyl.? 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 Unfortunately his toxicology screen was positive for fentanyl as well and there is suspicion that the amphetamines he uses is laced with this.? Toxicology screen here is positive for cocaine, amphetamines, and marijuana.? Patient states he has been using for several months.? States he has been having escalation of use lately and would really like to stop.? He states its not doing me any good.? He is interested in sobriety.? He denies any IV drug use ever.? He admits also smoking tobacco. Vital signs on presentation were unremarkable.? CBC was pending on admission.? Chemistry panel was unremarkable.? Toxicology screen showed amphetamines, cocaine, and cannabis.? Our screen is not able to delineate fentanyl. Plan is to admit the patient and monitor need for Subutex with withdrawal symptoms.? If not any required 24 hours we will likely discharge home with outpatient planning for 180. Interim history: He did overnight and did not develop any symptoms of withdrawal, no complaints on day of discharge and was discharged to [facility] residential treatment in stable condition. Physical Exam Narrative General: Alert, oriented, no apparent distress HEENT: Atraumatic, normocephalic Eyes: Anicteric, normal conjunctiva, extraocular movements grossly intact Neck: Supple Respiratory: Clear to auscultation bilaterally, normal respiratory effort Cardiovascular: Regular rate and rhythm GI: Soft, nontender, nondistended Extremities: No edema Musculoskeletal: Moving all extremities Neuro: No overt focal neurological deficits Skin: No rashes appreciated Psych: Cooperative Weight / BMI Weight Weight: 64.27 kg Body Mass Index (BMI) 20.9 ABG / Lab / Microbiology Data Result Diagrams: 08/10/22 13:16 08/10/22 13:16 Laboratory: Laboratory Results - last 24 hr 08/10/22 13:16: WBC 5.8, RBC 4.85, Hgb 14.6, Hct 45.0, MCV 92.8, MCH 30.1, MCHC 32.4, RDW Std Deviation 42.6, RDW Coeff of Johanna 12.4, Plt Count 240, MPV 10.1, Immature Gran % (Auto) 0.200, Neut % (Auto) 37.0 L, Lymph % (Auto) 42.4 H, Sawyer % (Auto) 12.7 H, Eos % (Auto) 6.7 H, Baso % (Auto) 1.0, Absolute Neuts (auto) 2.2, Absolute Lymphs (auto) 2.47, Nucleated RBC % 0 03/01/23 13:16: Sodium 137, Potassium 4.3, Chloride 105, Carbon Dioxide 25.0, Anion Gap 7, BUN 19 H, Creatinine 0.88, Estim Creat Clear Calc 111.59, Est GFR (MDRD) Af Amer 129, Est GFR (MDRD) Non-Af 107, BUN/Creatinine Ratio 21.5 H, Glucose 147 H, Calcium 9.0 08/10/22 13:16: Ethyl Alcohol < 3.0 08/10/22 13:17: Urine Opiates Screen NEGATIVE, Urine Methadone Screen NEGATIVE, Ur Barbiturates Screen NEGATIVE, Ur Phencyclidine Scrn NEGATIVE, Ur AmphetaminesScreen POSITIVE H, MDMA (Ecstasy) Screen NEGATIVE, U Benzodiazepines Scrn NEGATIVE, Urine Cocaine Screen POSITIVE H, U Cannabinoids Screen POSITIVE H, Ur Drug Screen Comment D/C Instructions Discharge Diet: No restrictions Meaningful Use Info Meaningful Use Diagnoses (Choose all that apply): None applicable Discharge Plan Admission Admit Date/Time: 08/10/22 14:31 Primary Reason for Your Visit: Opioid detox Attending Provider: Vannessa Blandon Primary Care Provider: Sanjay Cid Consulting Providers: Missy Hopkins Instructions Patient Instructions: ED Drug Abuse Discharge Orders/Prescriptions Prescriptions: Continued naproxen 500 MG tablet 500 mg PO BID PRN Qty: 20 0RF Referrals / Follow Up: Sanjay Cid MD [Primary Care Provider] - Disposition Disposition (needs filled in before D/C Order can be placed): DC/Tx to Another Type of HCF Charges/Coding Visit Charges Inpatient E&M: 87121 Disch Hosp 08/11/22 1250 <Electronically signed by Vannessa Blandon MD> Cosigner Signature (if applicable): CC: Dr. Vannessa Blandon MD; Dr. Sanjay Cid MD~ Signed [facility] Work Phone: Discharge summary Author Hector Saunders [facility] August 07, 2023 4:21am Note Date/Time August 07, 2023 2:51am [facility] Medical Records Department [address] [place] [address] Emergency Department Summary 08/07/23 MR#: [id number] Acct: [id number] Name: JAYY LOPES Rep #:[id number] : 1990 32 From: Hector Saunders MD PCP: Care Physician,No Primary Status :REG ER Location: ED HPI History of Present Illness Chief Complaint: Other, Pain/Inj Informant: patient Narrative Narrative: Patient complains of pain in the right hip groin back area. Patient has had multiple visits for this. He also has a history of chronic backpain. This is normally managed with meds. No surgeries ever. He states that this pain has been going on for about a week. He really defines it is in the left groin area. He shows me that he can lift his hip up and rotated he gets popping in the anterior groin and anterior hip area. This reproduces his symptoms. Denies urinary symptoms. No change in bowel habits or incontinence. He sometimes feels tingling in his toes but never had weakness. This comes and goes. He states the pain kind of radiates up into his lower abdomen. At first he thought his back was acting up but he thinks this is different. When I talked to the patient I find out he did fall about a few days or maybe a week before this. 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 He was not climbing a ladder. 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 Evidently had bound up somehow and it knocked him to the ground backwards and landed on his back sacral and left hip area. But he states it did not seem to hurt a lot at that time. He has never had kidney stones. He is never had fevers with this. He states the pain makes him sometimes feel as though he might get sick but he is not nauseated and he has never vomited and he is able to eat and drink fine. I reviewed some recent visits. He has had 2 sets of blood works this month. Hehas had lumbar spine films. He even had CTA of the head and neck. All of his workup so far has been negative. He is on prednisone but just took the second dose tonight. So he is not going to be getting much benefit from it yet. [facility] Medical History Tobacco abuse Home Medications cyclobenzaprine 10 mg tablet 10 mg PO QHS PRN PRN Muscle Spasm #10 TABLETS 08/03/23 [Rx Last Taken Unknown] naproxen 500 mg tablet 500 mg PO BID PRN #20 tabs 08/03/23 [Rx Last Taken Unknown] prednisone 20 mg tablet 40 mg (2 x 20 mg) PO QHS #12 TABLETS 08/03/23 [Rx Last Taken Unknown] Allergy/AdvReac Type Severity Reaction Status Date / Time No Known Allergies Allergy Verified 08/06/23 12:56 Surgical History H/O vascular surgery History of appendectomy Social History Smoking Status: Current every day smoker tobacco type: cigarettes and e- cigarettes alcohol intake: never substance use type: amphetamines ROS ROS ED ROS Narrative A complete review of systems was performed and is negative except as documented in the history of present illness. Some specific details below. Constitutional: No recent fevers or chills. No overall malaise or myalgias. Hehas pain in the left hip but no generalized aches ENT: No difficulty swallowing. No swelling. No pain. No GERD. CV: No chest pain or palpitations. Respiratory: No dyspnea. No hemoptysis. No difficulty taking breaths. GI: Please see history of present illness. No actual nausea vomiting. No diarrhea. No constipation. No incontinence. : No frequency dysuria or hematuria. No trouble starting or stopping stream. Musculoskeletal: See history of present illness. Skin: No rash. Nondiaphoretic. Neuro: No weakness or numbness. Occasionally has a tingly feeling just in the tip of his toes. But he states he sometimes gets these in the right toes and inboth hands also. This might be anxiety. He also states that he is out of his Ativan. It looks like he was given a prescription earlier this month but just for a few days and is not routinely prescribed it. Endocrine: No polyuria or polydipsia. EXAM Physical Exam Narrative Exam Narrative: CONSTITUTIONAL: Patient is nontoxic in appearance. The patient looks comfortable. Work of breathing looks normal. I watched him walk back to the room which he did without any difficulty HEENT: No notable trauma. Mucous membranes moist. No sign of dental infection. EYES: No conjunctival injection. No pallor. NECK: No meningismus. No JVD. CARDIOVASCULAR: Regular rate. Regular rhythm. No notable murmur. No JVD. RESPIRATORY: No respiratory distress. Breathing is unlabored. No wheezes. No rhonchi. No rales. No pain with a deep breath. GASTROINTESTINAL: Not distended. Bowel sounds are normal. No tenderness. No guarding. No rebound. No palpable mass. No bruit. Abdomen is overall quite benign. I do not even get left lower quadrant tenderness. GENITOURINARY: No tenderness over the bladder. No CVA tenderness. There is no inguinal hernia. When I put my hand over the anterior hip area on the left, patient will lift and rotate his leg and I can feel the clicking that he refers to. This is what is causing him pain. This seems very musculoskeletal. MUSCULOSKELETAL: Atraumatic. No peripheral edema. No cord. No tenderness along the deep venous system. No asymmetry. Distal pulses are intact. Sensation is also intact. NEUROLOGICAL: Patient is alert and oriented. No focal deficit noted. Patient can stand on toes and heels and do squats. He walks well. Patellar reflex 2+ bilaterally. Achilles reflex 1+ bilaterally. SKIN: No noted rashes. No diaphoresis. No vesicles noted. No notable pallor. PSYCHIATRIC: Patient is calm. Mood is appropriate. Const Vital Signs: 08/07/23 02:22 Temperature 97.5 F L Temperature Source Oral Pulse Rate 98 Respiratory Rate 16 Blood Pressure 132/94 H Blood Pressure Mean 106 Pulse Ox 98 Oxygen Delivery Method Room Air MDM MDM MDM Narrative Medical decision making narrative: I believe this patient's symptoms are musculoskeletal. It certainly possible itis related to the injury at work but I am not certain of that. But he has a clicking popping in the left inguinal area possibly from the left hip with motion. Patient has had x-rays. But with his multiple visits recurrent symptoms I will do a scan of his abdomen pelvis to make sure were not missing kidney stone or bleeding or other acute significant process. This may not hand picker even a hip joint injury. But I think it is a starting point to rule out acute processes. I do not think we need to repeat his blood work. He has had 2sets of relatively normal blood work this month. My independent interpretation of the patient's CT scan of the abdomen and pelvisshows no acute process. I do not see any bony injury. Kidneys look normal. Bowel looks normal. Final reading is really normal other than degenerative changes noted L4- S1. I explained to the patient that he appears to have musculoskeletal problem. I agree that this may not be typical back pain. He has an obvious clicking in theinguinal region when he lifts and rotates the leg with an internal/external rotation mechanism. I recommend he not do this repetitively to check it. He tendsto sit in bed and move it [id number]. I think this is aggravating it. I will write him off work for couple days. I explained he needs to continue the prednisone because it takes days before it works for musculoskeletal problems. Radiography Diagnostic Testing: Clinical Impression(s) from Imaging Studies Abdomen/Pelvis CT 08/07/23 02:40 IMPRESSION: 1. No acute abnormality. 2. No abnormality seen in the left inguinal region. 3. Degenerative changes at L5-S1 and disc protrusions at L4-L5 and L5-S1. Electronically Signed: Ronal HoDO tea at 4:07 EST Reading Location ID and State: [facility] / [place] Tel , Service support , Discharge Plan Triage Chief Complaint: Other, Pain/Inj Other Complaint: Lower Extremity Injury ED Provider: Hector Saunders Dx/Rx/DC Orders Clinical Impression: Left inguinal pain Instructions: ED Hip Strain Prescriptions: No Action prednisone 20 mg tablet 40 mg PO QHS Qty: 12 0RF cyclobenzaprine [cyclobenzaprine] 10 mg tablet 10 mg PO QHS PRN PRN (Reason: Muscle Spasm) Qty: 10 0RF naproxen 500 mg tablet 500 mg PO BID PRN Qty: 20 0RF Stand Alone Forms: ED Work / School Excuse Primary Care Provider: Care Physician,No Primary Referrals: Vasyl Rocha [Non-Staff] - 3-5 Days if not improving Care Physician,No Primary [Primary Care Provider] - Activity Restrictions/Additional Instructions: Follow-up with your physician or referral as above. Disposition Disposition: Home, Self Care What to do if you have Problems For any increased pain, shortness of breath, bleeding, nausea or vomiting, chestpain, or any unexpected problems, contact your Primary Care Provider. Call [facility] [facility] ([phone]) or report to the closest Emergency Room. Call 911 if necessary. 08/07/23 042 <Electronically signed by Hector Saunders MD> Cosigner Signature (if applicable): CC: No Primary Care Physician ~ Signed [facility] Work Phone: Discharge summary Author Tomasz Layne [facility] September 26, 2023 9:42am Note Date/Time September 26, 2023 8:5 1am [facility]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 Provider Active Dr. Aayush Hsu DO Emergency Provider Active Team Status: Inactive Member Role Status Dates Dr. Donnie Carter DO Attending Provider, Emergency P rovider Active No Primary Care Physician Primary Care Provider Active Team Status: Active Member Role Status Dates No Primary Care Physician Primary Care Provider Active Ritika Suarez NP, [employer]-C Attending Provider, Referrin g Provider Active Team Status: Inactive Member Role Status Dates No Primary Care Physician Primary Care Provider Active David Ruiz MD Attending Provider, Emergency Provid er Active Team Status: Inactive Member Role Status Dates No Primary Care Physician Primary Care Provider Active Dr. Ambrose Muñoz DO Emergency Provider Active Team Status: Inactive Member Role Status Dates No Primary Care Physician Primary Care Provider Active Dr. Donnie Carter DO Attending Provider, Emergency P rovider Active Team Status: Inactive Member Role Status Dates No Primary Care Physician Primary Care Provider Active Dr. Hector Saunders MD Attending Provider, Emergency Provider Active Team Status: Inactive Member Role Status Dates No Primary Care Physician Primary Care Provider Active Dr. Ross Smith MD Emergency Provider Active Team Status: Inactive Member Role Status Dates No Primary Care Physician Primary Care Provider Active Ritika Suarez NP, [employer]-C Attending Provider, Referrin g Provider Active Team Status: Active Member Role Status Dates No Primary Care Physician Family Provider Active [facility] Primary Care Provider A ctive Team Status: Inactive Member Role Status Dates No Primary Care Physician Primary Care Provider Active Dr. Aayush Hsu DO Attending Provider, Emergency Provider Active Team Status: Inactive Member Role Status Dates No Primary Care Physician Primary Care Provider Active Dr. Ambrose Muñoz DO Attending Provider, Emergency Pro vider Active Team Status: Inactive Member Role Status Dates No Primary Care Physician Primary Care Provider Active Dr. Ross Smith MD Attending Provider, Emergency Provi felisha Active Team Status: Active Member Role Status Dates Abimael PRIETO, CREDIT INTERN-C Attending Provider, Referring Pro vider Active [facility] Primary Care Provider A ctive Team Status: Inactive Member Role Status Dates [facility] Primary Care Provider A ctive Dr. Tomasz Layne MD Emergency Provider Active Team Status: Active Member Role Status Dates [facility] Primary Care Provider A ctive Dr. Jad Santamaria MD Emergency Provider Active Team Status: Inactive Member Role Status Dates bAimael PRIETO, CREDIT INTERN-C Attending Provider, Referring Pro vider Active [facility] Primary Care Provider A ctive Team Status: Inactive Member Role Status Dates [facility] Primary Care Provider A ctive Dr. Jad Santamaria MD Emergency Provider Active Team Status: Inactive Member Role Status Dates [facility] Primary Care Provider A ctive Dr. Donnie Carter DO Emergency Provider Active Team Status: Inactive Member Role Status Dates [facility] Primary Care Provider A ctive Dr. Jad Santamaria MD Attending Provider, Emergency Provider Active Team Status: Inactive Member Role Status Dates [facility] Primary Care Provider A ctive Dr. Tomasz Layne MD Attending Provider, Emergency Pro vider Active Team Status: Inactive Member Role Status Dates [facility] Primary Care Provider A ctive Ed Physician Provider Emergency Provider Active Team Status: Inactive Member Role Status Dates [facility] Primary Care Provider A ctive Dr. Donnie Carter DO Attending Provider, Emergency P rovider Active Team Status: Inactive Member Role Status Dates [facility] Primary Care Provider A ctive Ed Physician Provider Attending Provider, Emergency Pr ovider Active Team Status: Inactive Member Role Status [facility] Primary Care Provider A ctive Dr. Ross Smith MD Emergency Provider Active Team Status: Inactive Member Role Status Dates [facility] Primary Care Provider A ctive Dr. Ambrose Muñoz DO Emergency Provider Active Team Status: Inactive Member Role Status Dates [facility] Primary Care Provider A ctive Dr. Ross Smith MD Attending Provider, Emergency Provi felisha Active Team Status: Inactive Member Role Status Dates [facility] Primary Care Provider A ctive Dr. Ranjan Grimes DO Emergency Provider Active Team Status: Inactive Member Role Status Dates [facility] Primary Care Provider, Referring Provider Active Dr. Pj Mcgarry MD Attending Provider Active Team Status: Inactive Member Role Status Dates [facility] Primary Care Provider A ctive Dr. Alphonso Knowles MD Attending Provider Active Team Status: Inactive Member Role Status Dates [facility] Primary Care Provider A ctive Dr. Ambrose Muñoz DO Attending Provider, Emergency Pro vider Active Team Status: Inactive Member Role Status Dates [facility] Primary Care Provider A ctive Dr. Ranjan Grimes DO Attending Provider, Emergency P rovider Active Team Status: Inactive Member Role Status Dates [facility] Primary Care Provider A ctive Dr. Isaiah Bai , Emergency Provider Active Team Status: Inactive Member Role Status Dates [facility] Primary Care Provider A ctive David Ruiz MD Emergency Provider Active Team Status: Inactive Member Role Status Dates [facility] Primary Care Provider A ctive Dr. Aayush Hsu DO Emergency Provider Active Team Status: Active Member Role Status Dates [facility] Primary Care Provider A ctive Dr. Pj Mcgarry MD Attending Provider, Referring Pr ovider Active Team Status: Inactive Member Role Status Dates [facility] Primary Care Provider A ctive Dr. Isaiah Bai DO Attending Provider, Emergency Pr ovider Active Team Status: Inactive Member Role Status Dates [facility] Primary Care Provider A ctive Dr. Joycelyn Isaac MD Emergency Provider Active Team Status: Inactive Member Role Status Dates [facility] Primary Care Provider A ctive Dr. Pj Mcgarry MD Attending Provider, Referring Pr ovider Active Team Status: Inactive Member Role Status Dates [facility] Primary Care Provider A ctive David Ruiz MD Attending Provider, Emergency Provid er Active Team Status: Inactive Member Role Status [facility] Primary Care Provider A ctive Dr. Aayush Hsu DO Attending Provider, Emergency Provider Active Team Status: Active Member Role Status Ritika Suarez Inge, CREDIT INTERN-C Primary Care Provider Activ e Team Status: Inactive Member Role Status Dates No Primary Care Physician Primary Care Provider Active Start: June 17, 2024 End: June 17, 2024 No Primary Care Physician Referring Provider Active Start: June 17, 2024 End: June 17, 2024 JOSE GUADALUPE Giraldo Attending Provider Active Start: June 17, 2024 End: June 17, 2024 Team Status: Inactive Member Role Status Dates No Primary Care Physician Primary Care Provider Active Start: June 17, 2024 End: June 17, 2024 JOSE GUADALUPE Giraldo Attending Provider Active Start: June 17, 2024 End: June 17, 2024 Agustin SHI PA Referring Provider Active Start: June 17, 2024 End: June 17, 2024 Team Status: Inactive Member Role Status Dates Ritiak JUNEC, CREDIT INTERN-C Primary Care Provider Activ e Start: October 07, 2024 End: October 07, 2024 Dr. Koko Walker DO Emergency Provider Active Start: October 07, 2024 End: October 07, 2024 Team Status: Inactive Member Role Status Dates Ritika Suarez VSC, CREDIT INTERN-C Primary Care Provider Activ e Start: October 07, 2024 End: October 07, 2024 Dr. Koko Walker DO Attending Provider Active Start: October 07, 2024 End: October 07, 2024 Dr. Koko Walker DO Emergency Provider Active Start: October 07, 2024 End: October 07, 2024 Team Status: Inactive Member Role Status Dates Ritika Suarez VSC, CREDIT INTERN-C Primary Care Provider Activ e Start: October 16, 2024 End: October 17, 2024 Dr. Jad Santamaria MD Emergency Provider Active Start: October 16, 2024 End: October 17, 2024 Team Status: Inactive Member Role Status Dates Ritika Suarez VSC, CREDIT INTERN-C Primary Care Provider Activ e Start: October 16, 2024 End: October 17, 2024 Dr. Jad Santamaria MD Attending Provider Active Start: October 16, 2024 End: October 17, 2024 Dr. Jad Santamaria MD Emergency Provider Active Start: October 16, 2024 End: October 17, 2024 Team Status: Inactive Member Role Status Dates Ritika Suarez VSC, CREDIT INTERN-C Primary Care Provider Activ e Start: October 29, 2024 End: October 29, 2024 Ritika Suarez VSC, CREDIT INTERN-C Referring Provider Active Start: October 29, 2024 End: October 29, 2024 Dr. Pieter Lara MD Attending Provider Active Start: October 29, 2024 End: October 29, 2024 Team Status: Inactive Member Role Status Dates Ritika Suarez VSC, CREDIT INTERN-C Primary Care Provider Activ e Start: November 02, 2024 End: November 02, 2024 Dr. Tomasz Layne MD Emergency Provider Active S tart: November 02, 2024 End: November 02, 2024 Team Status: Inactive Member Role Status Dates Ritika JUNEC, CREDIT INTERN-C Primary Care Provider Activ e Start: November 03, 2024 End: November 03, 2024 Dr. Donnie Carter DO Emergency Provider Active Start: November 03, 2024 End: November 03, 2024 Team Status: Inactive Member Role Status Dates Ritika JUNEC, CREDIT INTERN-C Primary Care Provider Activ e Start: November 02, 2024 End: November 02, 2024 Dr. Tomasz Layne MD Attending Provider Active S tart: November 02, 2024 End: November 02, 2024 Dr. Tomasz Layne MD Emergency Provider Active S tart: November 02, 2024 End: November 02, 2024 Team Status: Inactive Member Role Status Dates Ritika JUNEC, CREDIT INTERN-C Primary Care Provider Activ e Start: November 03, 2024 End: November 03, 2024 Dr. Donnie Carter DO Attending Provider Active Start: November 03, 2024 End: November 03, 2024 Dr. Donnie Carter DO Emergency Provider Active Start: November 03, 2024 End: November 03, 2024 Team Status: Inactive Member Role Status Dates Ritika JUNEC, CREDIT INTERN-C Primary Care Provider Activ e Start: November 25, 2024 End: November 25, 2024 Dr. Ambrose Muñoz , Emergency Provider Active S tart: November 25, 2024 End: November 25, 2024 Team Status: Active Member Role/Relationship Status Dates Ritika Suarez VSC, CREDIT INTERN-C Primary Care Provider Activ e Team Status: Inactive Member Role/Relationship Status Dates Ritika JUNEC, CREDIT INTERN-C Primary Care Provider Activ e Start: October 07, 2024 End: October 07, 2024 Dr. Koko Wlaker DO Attending Provider Active Start: October 07, 2024 End: October 07, 2024 Dr. Koko Walker DO Emergency Provider Active Start: October 07, 2024 End: October 07, 2024 Team Status: Inactive Member Role/Relationship Status Dates Ritika JUNEC, CREDIT INTERN-C Primary Care Provider Activ e Start: October 16, 2024 End: October 17, 2024 Dr. Jad Santamaria MD Attending Provider Active Start: October 16, 2024 End: October 17, 2024 Dr. Jad Santamaria MD Emergency Provider Active Start: October 16, 2024 End: October 17, 2024 Team Status: Inactive Member Role/Relationship Status Dates Ritika Suarez VSC, CREDIT INTERN-C Primary Care Provider Activ e Start: October 29, 2024 End: October 29, 2024 Ritika JUNEC, CREDIT INTERN-C Referring Provider Active Start: October 29, 2024 End: October 29, 2024 Dr. Pieter Lara MD Attending Provider Active Start: October 29, 2024 End: October 29, 2024 Team Status: Inactive Member Role/Relationship Status Dates Ritika Erick SLADEC, CREDIT INTERN-C Primary Care Provider Activ e Start: November 02, 2024 End: November 02, 2024 Dr. Tomasz Layne MD Attending Provider Active S tart: November 02, 2024 End: November 02, 2024 Dr. Tomasz Layne MD Emergency Provider Active S tart: November 02, 2024 End: November 02, 2024 Team Status: Inactive Member Role/Relationship Status Dates Ritika Erick SLADEC, CREDIT INTERN-C Primary Care Provider Activ e Start: November 03, 2024 End: November 03, 2024 Dr. Donnie Carter , Attending Provider Active Start: November 03, 2024 End: November 03, 2024 Dr. Donnie Carter , Emergency Provider Active Start: November 03, 2024 End: November 03, 2024 Team Status: Inactive Member Role/Relationship Status Dates Ritika Erick SLADEC, CREDIT INTERN-C Primary Care Provider Activ e Start: November 25, 2024 End: November 25, 2024 Dr. Ambrose Muñoz , Attending Provider Active S tart: November 25, 2024 End: November 25, 2024 Dr. Ambrose Muñoz , Emergency Provider Active S tart: November 25, 2024 End: November 25, 2024 Team Status: Inactive Member Role/Relationship Status Dates Ritika Suarez VSC, CREDIT INTERN-C Primary Care Provider Activ e Start: December 18, 2024 End: December 19, 2024 Dr. Isaiah Bai , Emergency Provider Active Start: December 18, 2024 End: December 19, 2024 Team Status: Inactive Member Role/Relationship Status Dates Ritika Suarez VSC, CREDIT INTERN-C Primary Care Provider Activ e Start: December 18, 2024 End: December 19, 2024 Dr. Isaiah Bai , Attending Provider Active Start: December 18, 2024 End: December 19, 2024 Dr. Isaiah Bai DO Emergency Provider Active Start: December 18, 2024 End: December 19, 2024 Team Status: Inactive Member Role/Relationship Status Dates Ritika Suarez IDA, CREDIT INTERN-C Primary Care Provider Activ e Start: December 30, 2024 End: December 30, 2024 Dr. Tomasz Layne MD Emergency Provider Active S tart: December 30, 2024 End: December 30, 2024 Source Comments (unrecognize d section and content) In the event this informatio n is protected by the Federal Confidentiality of Alcohol and Drug Abuse Patient Records regulations: The Federal rules restrict any use of the information to criminally investigate or prosecute any alcohol or drug abuse patient.[facility] the event this information is protected by the Federal Confidentiality of Alcohol and Drug Abuse Patient Records regulations: The Federal rules restrict any use of the information to criminally investigate or prosecute any alcohol or drug abuse patient.[facility] the event this information is protected by the Federal Confidentiality of Alcohol and Drug Abuse Patient Records regulations: The Federal rules restrict any use of the information to criminally investigate or prosecute any alcohol or drug abuse patient.[facility] the event this information is protected by the Federal Confidentiality of Alcohol and Drug Abuse Patient Records regulations: The Federal rules restrict any use of the information to criminally investigate or prosecute any alcohol or drug abuse patient.[facility] Reason for Visit (unrecogniz ed section and content) Reason Comments left hand laceration Cut hand 2 hours ag o Reason Comments Results Reason Comments Back Pain Lower back pain, judie oting down left leg started today Reason Comments Pain Lower back pain into bilat legs, states he was lifting water into a car at work and felt instant tear, on R lower side hip area, x 4 days FOR RECORDS PERTAINING TO PATIENTS WHO ARE [...] BE BASED ON THE PRIMARY CLINICAL RECORDS. [employer] provides no warranty or guarantee of the accuracy or completeness of information in this document.
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
[2025-01-01 22:50] VITALS: BP 127/74; PULSE 62; RESP 18; TEMP 36.6; O2SAT 100
== END 2025-01-01 22:54 | disposition home or self-care (01) ==
PROVIDERS: Emergency Provider Emergency Medicine; PCP Nurse Practitioner Family; Visit Provider Emergency Medicine
DX: F41.9 Anxiety disorder, unspecified (principal); F17.290 Nicotine dependence, other tobacco product, uncomplicated
CPT/HCPCS: 99284

== ENCOUNTER 2025-01-06 13:44 | Emergency (ER) | payer MEDICAID, SELFPAY ==
[2025-01-06 13:45] VITALS: BP 126/84; PULSE 97; TEMP 36.4; O2SAT 97; BMI 20.8
[2025-01-06 14:35] LABS: Hematocrit 47.0 % (40-54); Hemoglobin 16.1 g/dL (13.0-16.5); Immature Granulocytes Count 0.010 X10^3/uL (0.0-0.0); Mean Corp Hgb Conc 34.3 g/dL (32-36); Mean Corpuscular Volume 88.2 fL (80-94); Mean Platelet Vol. 9.5 fl (6.2-12.0); NRBC Flagged by Analyzer 0 % (0-5); Platelet Count 221 K/mm3 (150-450); RBC Distribution Width CV 12.4 % (11.6-14.6); RBC Distribution Width SD 40.2 fl (35.1-43.9); Red Blood Count 5.33 M/mm3 (4.6-6.2); White Blood Count 5.1 K/mm3 (4.4-11.0)
[2025-01-06 15:38] LABS: Anion Gap 15 (5-15); BUN 9 mg/dL (4-19); BUN/Creat Ratio 9.4 RATIO (10-20); Calcium,Total 9.1 mg/dL (7.6-11.0); Carbon Dioxide 24.4 mmol/L (21.0-32.0); Chloride 104 mmol/L (98-108); Estimated Creatinine Clearance 101.34 ml/min (50-250); Glucose 93 mg/dL (70-99); Potassium 4.0 mmol/L (3.3-5.1)
--- NOTE | 2025-01-06 15:41 | EKG12_ITS ---
Test Reason : Blood Pressure : */* mmHG Vent. Rate : 69 BPM Atrial Rate : 69 BPM P-R Int : 154 ms QRS Dur : 76 ms QT Int : 376 ms P-R-T Axes : 80 62 58 degrees QTcB Int : 402 ms Normal sinus rhythm Normal ECG Confirmed by MAYELA YBARRA, NATAN ([id number]), editor dictionary MARITA COELLO ([id number]) on 01/07/2025 1:03:14 PM Referred By: Confirmed By: NATAN PEDRO MD
[2025-01-06 15:42] LABS: Alcohol, Blood (Medical)-Serum 55.7 mg/dL (<=10.0)
[2025-01-06 15:45] VITALS: BP 126/74; PULSE 69; RESP 17; O2SAT 97
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
[2025-01-06 16:51] LABS: Barbiturate Urine NEGATIVE (< 200 ng/mL); Benzodiazepine Urine PRESUMPTIVE POSITIVE (< 200 ng/mL); PCP Urine NEGATIVE (< 25 ng/mL); THC Urine NEGATIVE (< 50 ng/mL)
--- NOTE | 2025-01-06 17:08 | CASEMGMT ---
Social Work SW contacted [facility] , no beds available at this time. Estrella Quintana confirmed open beds, referral sent. Mayra Whipple, STREET ROLLER ENGINEER, MECHANICAL INTEGRITY ENGINEER
[2025-01-06 17:14] VITALS: BP 117/79; PULSE 73; RESP 17; O2SAT 99
--- NOTE | 2025-01-06 18:06 | PCA ---
ACCPETED AT [place] [id number] UNIT ETA [id number]
--- NOTE | 2025-01-06 18:10 | CM.ED ---
Social Work Patient was accepted to [facility]. Admitting physician is Dr. Taylor. Patient will be going to [address]. [address] [phone]. Patient notified of accepting facility and transport time. [employer] slip faxed. Mayra Whipple, HARNESSMAKER, SURVEILLANCE INSPECTOR
[2025-01-06 22:42] VITALS: BP 117/79; PULSE 73; RESP 17; TEMP 36.4; O2SAT 99
== END 2025-01-06 22:43 ==
PROVIDERS: Emergency Provider Emergency Medicine; PCP Nurse Practitioner Family; Visit Provider Emergency Medicine
DX: F41.9 Anxiety disorder, unspecified (principal); R45.851 Suicidal ideations; F32.A Depression, unspecified; F10.90 Alcohol use, unspecified, uncomplicated; R00.2 Palpitations; Z79.899 Other long term (current) drug therapy; Z90.49 Acquired absence of other specified parts of digestive tract; F17.290 Nicotine dependence, other tobacco product, uncomplicated
CPT/HCPCS: 80048; 80307; 82077; 85025; 93005; 99285; A4216

== ENCOUNTER 2025-01-22 18:53 | Emergency (ER) | payer MEDICAID, SELFPAY ==
[2025-01-22 18:54] VITALS: BP 128/84; PULSE 88; RESP 16; TEMP 36.4; O2SAT 100; BMI 20.7
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
[2025-01-22 20:53] VITALS: BP 134/96; PULSE 91; O2SAT 100
[2025-01-22 21:28] VITALS: BP 134/96; PULSE 91; RESP 16; TEMP 36.4; O2SAT 100
== END 2025-01-22 21:31 | disposition home or self-care (01) ==
PROVIDERS: Emergency Provider Emergency Medicine; PCP Nurse Practitioner Family; Referring Provider Emergency Medicine; Visit Provider Emergency Medicine
DX: F41.9 Anxiety disorder, unspecified (principal); F45.8 Other somatoform disorders; F17.290 Nicotine dependence, other tobacco product, uncomplicated; Z79.899 Other long term (current) drug therapy
CPT/HCPCS: 99284

== ENCOUNTER 2025-01-30 19:10 | Emergency (ER) | payer MEDICAID, SELFPAY ==
[2025-01-30 19:10] VITALS: BP 153/73; PULSE 108; RESP 18; TEMP 36.4; O2SAT 98; BMI 20.6
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
[2025-01-30] MEDS: Lidocaine 2% Viscous15 ML UDC 15 ML PO (20:16)
[2025-01-30 20:24] LABS: Hematocrit 49.3 % (40-54); Hemoglobin 17.1 g/dL (13.0-16.5); Immature Granulocytes Count 0.020 X10^3/uL (0.0-0.0); Mean Corp Hgb Conc 34.7 g/dL (32-36); Mean Corpuscular Volume 88.2 fL (80-94); Mean Platelet Vol. 9.9 fl (6.2-12.0); NRBC Flagged by Analyzer 0 % (0-5); Platelet Count 243 K/mm3 (150-450); RBC Distribution Width CV 12.1 % (11.6-14.6); RBC Distribution Width SD 39.3 fl (35.1-43.9); Red Blood Count 5.59 M/mm3 (4.6-6.2); White Blood Count 6.0 K/mm3 (4.4-11.0)
[2025-01-30 21:10] VITALS: PULSE 92; RESP 18; O2SAT 97
[2025-01-30 21:55] LABS: AST(SGOT) 19 U/L (<=37); Alanine Aminotransfer ALT/SGPT 18 U/L (<=46); Albumin, Serum 4.9 g/dL (3.5-5.0); Alkaline Phosphatase 86 U/L (40-129); Anion Gap 15 (5-15); BUN 11 mg/dL (4-19); BUN/Creat Ratio 11.8 RATIO (10-20); Calcium,Total 9.8 mg/dL (7.6-11.0); Carbon Dioxide 26.2 mmol/L (21.0-32.0); Chloride 102 mmol/L (98-108); Estimated Creatinine Clearance 101.40 ml/min (50-250); Globulin 2.8 g/dL (2.2-4.2); Glucose 107 mg/dL (70-99); Lipase 30 U/L (13-75); Potassium 3.9 mmol/L (3.3-5.1)
[2025-01-30 22:09] VITALS: BP 153/73; PULSE 92; RESP 18; TEMP 36.4; O2SAT 97
== END 2025-01-30 22:29 | disposition home or self-care (01) ==
PROVIDERS: Emergency Provider Student in an Organized Health Care Education/Training Program; PCP Nurse Practitioner Family; Visit Provider Student in an Organized Health Care Education/Training Program
DX: R10.9 Unspecified abdominal pain (principal); F17.290 Nicotine dependence, other tobacco product, uncomplicated
CPT/HCPCS: 80053; 83690; 85025; 96374; 99283; A4216; J2405

== ENCOUNTER 2025-01-31 20:52 | Emergency (ER) | payer MEDICAID, SELFPAY ==
[2025-01-31 20:53] VITALS: BP 123/81; PULSE 80; RESP 18; TEMP 36.3; O2SAT 99; BMI 20.6
--- OUTSIDE RECORDS SUMMARY | 2025-01-31 22:19 | XMS RPT_ITS | CCD ---
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 - Hematology and Cell countsOrdered By: Dnonie Carter on 08-21-2023 MCH (RBC) [Entitic mass] 29.4 pg 27.0-32.0 [facility] MCHC (RBC) [Mass/Vol] 33.5 g/dL [facility] Nucleated RBC/100 WBC (Bld) [Ratio] 0 % 0-5 [facility] Platelet mean volume (Bld) [Entitic vol] 10.0 fL 6.2-12.0 [facility] Platelets (Bld) [#/Vol] 227 10*3/uL 150-450 [facility] Mucus LM Ql (Urine sed)Order ed By: Donnie Carter on 08-21-2023 Mucus Ql (Urine sed) 0 SEEN /hpf [facility] Nitrite Test strip Ql (U)Ord ered By: Donnie Carter on 08-21-2023 Nitrite Ql (U) Negative Negative [facility] No Panel InformationOrdered By: Donnie Carter on 08-21-2023 Urine RBC 0 SEEN /hpf 0-5 [facility] 0 SEEN /hpf 0-5 [facility] D-Dimer Quantitative (PE/DVT) 0.28 FEU/ug/m 0.27-0.49 [facility] Comment on above: NORMAL D-Dimer level (<0.50) indicates no DVT or PE. Estimated Creatinine Clearance Calc 84.71 ml/min [facility] Estimated GFR (MDRD) Amer 103 mL/min >60 [facility] Comment on above: GFR Calc Estimated GFR (MDRD) Non-Af Amer 85 mL/min >60 [facility] Comment on above: Non- GFR Calc Troponin I High Sensitivity 4 pg/mL 3.0-78.0 [facility] Comment on above: Please Note: New [place] Units and Gender Specific Reference Ranges. For more information see Policy Stat Procedure [place] High Sensitivity Troponin (TNIH) and attachments. 29.4 pg 27.0-32.0 [facility] 33.5 g/dL 32-36 [facility] 227 K/mm3 150-450 [facility] 10.0 fl 6.2-12.0 [facility] 0 % 0-5 [facility] 0.28 FEU/ug/m 0.27-0.49 [facility] 85 mL/min >60 [facility] 103 mL/min >60 [facility] 84.71 ml/min [facility] 11.2 RATIO 10-20 [facility] 4 pg/mL 3.0-78.0 [facility] 29.0 mmol/L 21.0-32.0 [facility] Protein Test strip Ql (U)Ord ered By: Donnie Carter on 08-21-2023 Protein Ql (U) Negative Negative [facility] RBC Auto (Bld) [#/Vol]Ordere d By: Donnie Carter on 08-21-2023 RBC (Bld) [#/Vol] 5.27 10*6/uL 4.6-6.2 [facility] Serum or plasma calcium leida urement (mass/volume)Ordered By: Donnie Carter on 08-21-2023 Calcium [Mass/Vol] 9.2 mg/dL 8.5-10.1 [facility] Serum or plasma creatinine m easurement (mass/volume)Ordered By: Donnie Carter on 08-21-2023 Creatinine [Mass/Vol] 1.07 mg/dL 0.70-1.30 [facility] Comment on above: The validity of the calculated GFR & GFRAA in patients over 70 years has not been determined. Clinical correlation is essential. Serum or plasma urea nitroge n measurement (mass/volume)Ordered By: Donnie Carter on 08-21-2023 Urea nitrogen [Mass/Vol] 12 mg/dL 7-18 [facility] Squamous epithelial cells de tection in urine sediment by light microscopyOrdered By: Donnie Carter on 08-21-2023 Epithelial cells.squamous LM Ql (Urine sed) 0 SEEN /hpf 0-5 [facility] Thin prep Papanicolaou smear with manual screeningOrdered By: Donnie Carter on 08-21-2023 Thin prep Papanicolaou smear with manual screening 4 5-15 [facility] Urine blood detectionOrdered By: Donnie Carter on 08-21-2023 RBC Ql (U) Negative Negative [facility] Urine clarityOrdered By: Emma Carter on 08-21-2023 Clarity (U) Clear Clear [facility] Urine color determinationOrd ered By: Donnie Carter on 08-21-2023 Color (U) Yellow Yellow [facility] Urine glucose detectionOrder ed By: Donnie Carter on 08-21-2023 Glucose Ql (U) Normal mg/dl Normal [facility] Urine leukocyte esterase det ection by dipstickOrdered By: Donnie Carter on 08-21-2023 Leukocyte esterase Test strip Ql (U) Negative Negative [facility] Urine pHOrdered By: Donnie fam on 08-21-2023 pH (U) 7.0 [pH] 5.0 - 8.0 [facility] Urine sediment bacteria coun t by microscopy (number/high power field)Ordered By: Donnie Carter on 08-21-2023 Bacteria LM.HPF (Urine sed) [#/Area] 0 /[HPF] None Seen [facility] Urine specific gravity measu rementOrdered By: Donnie Carter on 08-21-2023 Specific gravity (U) [Rel density] 1.010 1.002-1.030 [facility] Urine urobilinogen measureme ntOrdered By: Donnie Carter on 08-21-2023 Urobilinogen Ql (U) Normal mg/dl Normal [facility] Absolute lymphocyte countOrd ered By: Jad Santamaria on 08-19-2023 Lymphocytes Auto (Unsp spec) [#/Vol] 2.41 10*3/uL 0.83-4.51 [facility] Automated lymphocyte count a s percentage of total leukocytesOrdered By: Jad Santamaria on 08-19-2023 Lymphocytes/100 WBC Auto (Unsp spec) 38.6 % 19-41 [facility] Basophil percentageOrdered B y: Jad Santamaria on 08-19-2023 Basophil percentage 16.2 g/dL 13.0-16.5 [facility] Basophil percentage 101 mg/dL 74-106 [facility] Basophil percentage 7.6 g/dL 6.4-8.2 [facility] Basophil percentage 0.60 mg/dL 0.20-1.00 [facility] Basophil percentage 140 mmol/L 136-145 [facility] Basophil percentage 4.1 mmol/L 3.5-5.1 [facility] Basophil percentage 108 mmol/L 98-107 [facility] Basophils (Bld) [#/Vol] 6.3 10*3/uL 4.4-11.0 [facility] Basophils (Bld) [#/Vol] 3.0 10*3/uL 2.0-7.7 [facility] Basophils/100 WBC (Bld) 0.8 % 0-1 [facility] Basophils/100 WBC (Bld) 48.3 % 47-70 [facility] Basophils/100 WBC (Bld) 9.9 % 0-10 [facility] Basophils/100 WBC (Bld) 2.1 % 0-5 [facility] Bilirubin [Mass/Vol] 0.60 mg/dL 0.20-1.00 [facility] Comment on above: For patients on eltr ombopag therapy, use of Dimension [place] TBIL is not recommended. Chloride [Moles/Vol] 108 mmol/L 98-107 [facility] Eosinophils/100 WBC (Bld) 2.1 % 0-5 [facility] Glucose [Mass/Vol] 101 mg/dL 74-106 [facility] Comment on above: Fasting Glucose resu lt from 100 to 125 mg/dL suggests IMPAIRED HOMEOSTASIS per A.D.A. criteria. Hemoglobin (Bld) [Mass/Vol] 16.2 g/dL 13.0-16.5 [facility] Monocytes/100 WBC (Bld) 9.9 % 0-10 [facility] Neutrophils (Bld) [#/Vol] 3.0 10*3/uL 2.0-7.7 [facility] Neutrophils/100 WBC (Bld) 48.3 % 47-70 [facility] Potassium [Moles/Vol] 4.1 mmol/L 3.5-5.1 [facility] Protein [Mass/Vol] 7.6 g/dL 6.4-8.2 [facility] Sodium [Moles/Vol] 140 mmol/L 136-145 [facility] WBC (Bld) [#/Vol] 6.3 10*3/uL 4.4-11.0 [facility] Determination of erythrocyte mean corpuscular volume (MCV)Ordered By: Jad Santamaria on 08-19-2023 MCV (RBC) [Entitic vol] 87.3 fL 80-94 [facility] Erythrocyte distribution wid th ratioOrdered By: Jad Santamaria on 08-19-2023 Erythrocyte distribution width (RBC) [Ratio] 12.2 % 11.6-14.6 [facility] Erythrocyte distribution wid th standard deviationOrdered By: Jad Santamaria on 08-19-2023 Erythrocyte distribution width (RBC) [Entitic vol] 39.1 fL 35.1-43.9 [facility] Hematocrit Auto (Bld) [Volum e fraction]Ordered By: Jad Santamaria on 08-19-2023 Hematocrit (Bld) [Volume fraction] 48.1 % 40-54 [facility] Immature granulocytes/100 WB C Auto (Bld)Ordered By: Jad Santamaria on 08-19-2023 Immature granulocytes/100 WBC (Bld) 0.300 % 0.0-0.9 [facility] Comment on above: IG% - Immature Granu locytes (promyelocytes, myelocytes and metamyelocytes) > 1% indicates that a LEFT SHIFT is Present. Laboratory - Chemistry and C hemistry - challengeOrdered By: Jad Santamaria on 08-19-2023 Albumin/Globulin [Mass ratio] 1.5 {ratio} 0.9-2.4 [facility] ALP [Catalytic activity/Vol] 80 U/L 45-117 [facility] ALT [Catalytic activity/Vol] 16 U/L 16-61 [facility] CO2 [Moles/Vol] 24.0 mmol/L 21.0-32.0 [facility] Globulin (S) [Mass/Vol] 3.1 g/dL 2.2-4.2 [facility] Urea nitrogen/Creatinine [Mass ratio] 12.0 mg/mg 10-20 [facility] Laboratory - Hematology and Cell countsOrdered By: Jad Santamaria on 08-19-2023 MCH (RBC) [Entitic mass] 29.4 pg 27.0-32.0 [facility] MCHC (RBC) [Mass/Vol] 33.7 g/dL 32-36 [facility] Nucleated RBC/100 WBC (Bld) [Ratio] 0 % 0-5 [facility] Platelet mean volume (Bld) [Entitic vol] 10.0 fL 6.2-12.0 [facility] Platelets (Bld) [#/Vol] 227 10*3/uL 150-450 [facility] No Panel InformationOrdered By: Jad Santamaria on 08-19-2023 Troponin I High Sensitivity 8 pg/mL 3.0-78.0 [facility] Comment on above: Please Note: New Tracy t Units and Gender Specific Reference Ranges. For more information see Policy Stat Procedure [place] High Sensitivity Troponin (TNIH) and attachments. 8 pg/mL 3.0-78.0 [facility] Estimated Creatinine Clearance Calc 95.38 ml/min [facility] Estimated GFR (MDRD) Amer 112 mL/min >60 [facility] Comment on above: GFR Calc Estimated GFR (MDRD) Non-Af Amer 92 mL/min >60 [facility] Comment on above: Non- GFR Calc 29.4 pg 27.0-32.0 [facility] 33.7 g/dL 32-36 [facility] 227 K/mm3 150-450 [facility] 10.0 fl 6.2-12.0 [facility] 0 % 0-5 [facility] 92 mL/min >60 [facility] 112 mL/min >60 [facility] 95.38 ml/min [facility] 12.0 RATIO 10-20 [facility] 3.1 g/dL 2.2-4.2 [facility] 1.5 RATIO 0.9-2.4 [facility] 80 U/L 45-117 [facility] 16 U/L 16-61 [facility] 24.0 mmol/L 21.0-32.0 [facility] RBC Auto (Bld) [#/Vol]Ordere d By: Jad Santamaria on 08-19-2023 RBC (Bld) [#/Vol] 5.51 10*6/uL 4.6-6.2 [facility] Serum or plasma calcium leida urement (mass/volume)Ordered By: Jad Santamaria on 08-19-2023 Calcium [Mass/Vol] 9.1 mg/dL 8.5-10.1 [facility] Serum or plasma cardiac trop onin I panel by high sensitivity methodOrdered By: Jad Santamaria on 08-19-2023 Tropinin I.cardiac panel High sensitivity method 5 pg/mL 3.0-78.0 [facility] Comment on above: Please Note: New Tracy t Units and Gender Specific Reference Ranges. For more information see Policy Stat Procedure [place] High Sensitivity Troponin (TNIH) and attachments. Serum or plasma creatinine m easurement (mass/volume)Ordered By: Jad Santamaria on 08-19-2023 Creatinine [Mass/Vol] 1.00 mg/dL 0.70-1.30 [facility] Comment on above: The validity of the calculated GFR & GFRAA in patients over 70 years has not been determined. Clinical correlation is essential. Serum or plasma urea nitroge n measurement (mass/volume)Ordered By: Jad Santamaria on 08-19-2023 Urea nitrogen [Mass/Vol] 12 mg/dL 7-18 [facility] Thin prep Papanicolaou smear with manual screeningOrdered By: Jad Santamaria on 08-19-2023 Thin prep Papanicolaou smear with manual screening 4.5 g/dL 3.2-5.0 [facility] Thin prep Papanicolaou smear with manual screening 15 U/L 15-37 [facility] Thin prep Papanicolaou smear with manual screening 8 5-15 [facility] Serum or plasma thyroid stim ulating hormone (TSH) measurement (units/volume)Ordered By: Abimael Christianson on 08-15-2023 TSH Qn 0.57 uIU/mL 0.358-3.74 [facility] Absolute lymphocyte countOrd ered By: Ky Gonzalez on 08-12-2023 Lymphocytes Auto (Unsp spec) [#/Vol] 2.99 10*3/uL 0.83-4.51 [facility] Automated lymphocyte count a s percentage of total leukocytesOrdered By: Ky Gonzalez on 08-12-2023 Lymphocytes/100 WBC Auto (Unsp spec) 44.0 % 19-41 [facility] Basophil percentageOrdered B y: Ky Gonzalez on 08-12-2023 Basophil percentage 15.9 g/dL 13.0-16.5 [facility] Basophil percentage 102 mg/dL 74-106 [facility] Basophil percentage 142 mmol/L 136-145 [facility] Basophil percentage 3.3 mmol/L 3.5-5.1 [facility] Basophil percentage 107 mmol/L 98-107 [facility] Basophils (Bld) [#/Vol] 6.8 10*3/uL 4.4-11.0 [facility] Basophils (Bld) [#/Vol] 3.2 10*3/uL 2.0-7.7 [facility] Basophils/100 WBC (Bld) 0.4 % 0-1 [facility] Basophils/100 WBC (Bld) 47.1 % 47-70 [facility] Basophils/100 WBC (Bld) 6.9 % 0-10 [facility] Basophils/100 WBC (Bld) 1.5 % 0-5 [facility] Chloride [Moles/Vol] 107 mmol/L 98-107 [facility] Eosinophils/100 WBC (Bld) 1.5 % 0-5 [facility] Glucose [Mass/Vol] 102 mg/dL 74-106 [facility] Comment on above: Fasting Glucose resu lt from 100 to 125 mg/dL suggests IMPAIRED HOMEOSTASIS per A.D.A. criteria. Hemoglobin (Bld) [Mass/Vol] 15.9 g/dL 13.0-16.5 [facility] Monocytes/100 WBC (Bld) 6.9 % 0-10 [facility] Neutrophils (Bld) [#/Vol] 3.2 10*3/uL 2.0-7.7 [facility] Neutrophils/100 WBC (Bld) 47.1 % 47-70 [facility] Potassium [Moles/Vol] 3.3 mmol/L 3.5-5.1 [facility] Sodium [Moles/Vol] 142 mmol/L 136-145 [facility] WBC (Bld) [#/Vol] 6.8 10*3/uL 4.4-11.0 [facility] Determination of erythrocyte mean corpuscular volume (MCV)Ordered By: Ky Gonzalez on 08-12-2023 MCV (RBC) [Entitic vol] 88.9 fL 80-94 [facility] Erythrocyte distribution wid th ratioOrdered By: Ky Gonzalez on 08-12-2023 Erythrocyte distribution width (RBC) [Ratio] 12.1 % 11.6-14.6 [facility] Erythrocyte distribution wid th standard deviationOrdered By: Ky Gonzalez on 08-12-2023 Erythrocyte distribution width (RBC) [Entitic vol] 40.0 fL 35.1-43.9 [facility] Hematocrit Auto (Bld) [Volum e fraction]Ordered By: Ky Gonzalez on 08-12-2023 Hematocrit (Bld) [Volume fraction] 46.6 % 40-54 [facility] Immature granulocytes/100 WB C Auto (Bld)Ordered By: Ky Gonzalez on 08-12-2023 Immature granulocytes/100 WBC (Bld) 0.100 % 0.0-0.9 [facility] Comment on above: IG% - Immature Granu locytes (promyelocytes, myelocytes and metamyelocytes) > 1% indicates that a LEFT SHIFT is Present. Laboratory - Chemistry and C hemistry - challengeOrdered By: Ky Gonzalez on 08-12-2023 CO2 [Moles/Vol] 30.0 mmol/L 21.0-32.0 [facility] Urea nitrogen/Creatinine [Mass ratio] 13.7 mg/mg 10-20 [facility] Laboratory - Hematology and Cell countsOrdered By: Ky Gonzalez on 08-12-2023 MCH (RBC) [Entitic mass] 30.3 pg 27.0-32.0 [facility] MCHC (RBC) [Mass/Vol] 34.1 g/dL 32-36 [facility] Nucleated RBC/100 WBC (Bld) [Ratio] 0 % 0-5 [facility] Platelet mean volume (Bld) [Entitic vol] 10.3 fL 6.2-12.0 [facility] Platelets (Bld) [#/Vol] 220 10*3/uL 150-450 [facility] No Panel InformationOrdered By: Ky Gonzalez on 08-12-2023 Estimated Creatinine Clearance Calc 93.58 ml/min [facility] Estimated GFR (MDRD) Amer 109 mL/min >60 [facility] Comment on above: GFR Calc Estimated GFR (MDRD) Non-Af Amer 90 mL/min >60 [facility] Comment on above: Non- GFR Calc Troponin I High Sensitivity 5 pg/mL 3.0-78.0 [facility] Comment on above: Please Note: New Tracy t Units and Gender Specific Reference Ranges. For more information see Policy Stat Procedure [place] High Sensitivity Troponin (TNIH) and attachments. 30.3 pg 27.0-32.0 [facility] 34.1 g/dL 32-36 [facility] 220 K/mm3 150-450 [facility] 10.3 fl 6.2-12.0 [facility] 0 % 0-5 [facility] 90 mL/min >60 [facility] 109 mL/min >60 [facility] 93.58 ml/min [facility] 13.7 RATIO 10-20 [facility] 5 pg/mL 3.0-78.0 [facility] 30.0 mmol/L 21.0-32.0 [facility] RBC Auto (Bld) [#/Vol]Ordere d By: Ky Gonzalez on 08-12-2023 RBC (Bld) [#/Vol] 5.24 10*6/uL 4.6-6.2 [facility] Serum or plasma calcium leida urement (mass/volume)Ordered By: Ky Gonzalez on 08-12-2023 Calcium [Mass/Vol] 8.9 mg/dL 8.5-10.1 [facility] Serum or plasma creatinine m easurement (mass/volume)Ordered By: Ky Gonzalez on 08-12-2023 Creatinine [Mass/Vol] 1.02 mg/dL 0.70-1.30 [facility] Comment on above: The validity of the calculated GFR & GFRAA in patients over 70 years has not been determined. Clinical correlation is essential. Serum or plasma urea nitroge n measurement (mass/volume)Ordered By: Ky Gonzalez on 08-12-2023 Urea nitrogen [Mass/Vol] 14 mg/dL 7-18 [facility] Thin prep Papanicolaou smear with manual screeningOrdered By: Ky Gonzalez on 08-12-2023 Thin prep Papanicolaou smear with manual screening 5 5-15 [facility] Erythrocyte sedimentation ra teOrdered By: Ritika Suarez on 08-09-2023 ESR (Bld) [Velocity] mm/h 0-20 [facility] No Panel InformationOrdered By: Ritika Suarez on 08-09-2023 Anti-Nuclear Antibody Screen Negative Negative [facility] Comment on above: Performed at: [facility] [address] [id number] Director: David Peter PhD, Phone: [phone] C-Reactive Protein Extended Range < 2.90 mg/L 0.0-3.0 [facility] Comment on above: C-Reactive Protein ( CRP) provides useful information for thediagnosis, therapy and monitoring of inflammatory processesand associated diseases. For the evaluation of Relative Riskfor Cardiovascular Disease, a High Sensitivity CRP (HSCRP)should be ordered. D-Dimer Quantitative (PE/DVT) < 0.27 FEU/ug/m 0.27-0.49 [facility] Comment on above: NORMAL D-Dimer level (<0.50) indicates no DVT or PE. Lyme Disease IgG Ab 18 kDa Band Absent . [facility] Lyme Disease IgG Ab 23 kDa Band Absent . [facility] Lyme Disease IgG Ab 28 kDa Band Absent . [facility] Lyme Disease IgG Ab 30 kDa Band Absent . [facility] Lyme Disease IgG Ab 39 kDa Band Absent . [facility] Lyme Disease IgG Ab 41 kDa Band Absent . [facility] Lyme Disease IgG Ab 45 kDa Band Absent . [facility] Lyme Disease IgG Ab 58 kDa Band Absent . [facility] Lyme Disease IgG Ab 66 kDa Band Absent . [facility] Lyme Disease IgG Ab 93 kDa Band Absent . [facility] Lyme Disease IgG [place] Interp Negative . [facility] Comment on above: Positive: 5 of the f ollowing Borrelia-specific bands: 18,23,28,30,39,41,45,58, 66, and 93. Negative: No bands or banding patterns which do not meet positive criteria. Lyme Disease IgM Ab (Western Blot) Negative . [facility] Comment on above: Note: An equivocal o r positive EIA result followed by anegative Line Blot result is considered NEGATIVE. Anequivocal or positive EIA result followed by a positiveLine Blot is considered POSITIVE by the CDC.Positive: 2 of the following bands: 23,39 or 41Negative: No bands or banding patterns which do not meetpositive criteria.Criteria for positivity are those recommended byCDC/ASTPHLD. p23=Osp C, [id number]:Sera from individuals with the following may cross [...] testingto improve the sensitivity and specificity of testing.[facility] offers test code 243708 Lyme Disease Serology withReflex to aid in the diagnosis of Lyme Disease.Performed at: [address] [id number] Director: Freda Pablo MD, Phone: [phone] Lyme Disease IgM Ab 23 kDa Band Absent . [facility] Lyme Disease IgM Ab 39 kDa Band Absent . [facility] Lyme Disease IgM Ab 41 kDa Band Absent . [facility] < 0.27 FEU/ug/m 0.27-0.49 [facility] < 2.90 mg/L 0.0-3.0 [facility] Negative . [facility] Absent . [facility] Absolute lymphocyte countOrd ered By: Donnie Carter on 08-08-2023 Lymphocytes Auto (Unsp spec) [#/Vol] 1.87 10*3/uL 0.83-4.51 [facility] Automated lymphocyte count a s percentage of total leukocytesOrdered By: Donnie Carter on 08-08-2023 Lymphocytes/100 WBC Auto (Unsp spec) 29.6 % 19-41 [facility] Basophil percentageOrdered B y: Donnie Carter on 08-08-2023 Basophil percentage 0 SEEN /hpf 0-5 [facility] Basophil percentage 16.2 g/dL 13.0-16.5 [facility] Basophil percentage 88 mg/dL 74-106 [facility] Basophil percentage 141 mmol/L 136-145 [facility] Basophil percentage 3.7 mmol/L 3.5-5.1 [facility] Basophil percentage 107 mmol/L 98-107 [facility] Basophils (Bld) [#/Vol] 6.3 10*3/uL 4.4-11.0 [facility] Basophils (Bld) [#/Vol] 3.7 10*3/uL 2.0-7.7 [facility] Basophils/100 WBC (Bld) 0.5 % 0-1 [facility] Basophils/100 WBC (Bld) 58.9 % 47-70 [facility] Basophils/100 WBC (Bld) 10.3 % 0-10 [facility] Basophils/100 WBC (Bld) 0.2 % 0-5 [facility] Chloride [Moles/Vol] 107 mmol/L 98-107 [facility] Eosinophils/100 WBC (Bld) 0.2 % 0-5 [facility] Glucose [Mass/Vol] 88 mg/dL 74-106 [facility] Hemoglobin (Bld) [Mass/Vol] 16.2 g/dL 13.0-16.5 [facility] Monocytes/100 WBC (Bld) 10.3 % 0-10 [facility] Neutrophils (Bld) [#/Vol] 3.7 10*3/uL 2.0-7.7 [facility] Neutrophils/100 WBC (Bld) 58.9 % 47-70 [facility] Potassium [Moles/Vol] 3.7 mmol/L 3.5-5.1 [facility] Sodium [Moles/Vol] 141 mmol/L 136-145 [facility] WBC (Bld) [#/Vol] 6.3 10*3/uL 4.4-11.0 [facility] Bilirubin Test strip Ql (U)O rdered By: Donnie Carter on 08-08-2023 Bilirubin Ql (U) Negative Negative [facility] Determination of erythrocyte mean corpuscular volume (MCV)Ordered By: Donnie Carter on 08-08-2023 MCV (RBC) [Entitic vol] 86.1 fL 80-94 [facility] Erythrocyte distribution wid th ratioOrdered By: Donnie Carter on 08-08-2023 Erythrocyte distribution width (RBC) [Ratio] 12.2 % 11.6-14.6 [facility] Erythrocyte distribution wid th standard deviationOrdered By: Donnie Carter on 08-08-2023 Erythrocyte distribution width (RBC) [Entitic vol] 38.9 fL 35.1-43.9 [facility] Hematocrit Auto (Bld) [Volum e fraction]Ordered By: Donnie Carter on 08-08-2023 Hematocrit (Bld) [Volume fraction] 47.6 % 40-54 [facility] Immature granulocytes/100 WB C Auto (Bld)Ordered By: Donnie Carter on 08-08-2023 Immature granulocytes/100 WBC (Bld) 0.500 % 0.0-0.9 [facility] Comment on above: IG% - Immature Granu locytes (promyelocytes, myelocytes and metamyelocytes) > 1% indicates that a LEFT SHIFT is Present. Ketones Test strip Ql (U)Ord ered By: Donnie Carter on 08-08-2023 Ketones Ql (U) 50 mg/dl Negative [facility] Laboratory - Chemistry and C hemistry - challengeOrdered By: Donnie Carter 08-08-2023 CO2 [Moles/Vol] 27.0 mmol/L 21.0-32.0 [facility] Urea nitrogen/Creatinine [Mass ratio] 13.5 mg/mg 10-20 [facility] Laboratory - Hematology and Cell countsOrdered By: Donnie Carter 08-08-2023 MCH (RBC) [Entitic mass] 29.3 pg 27.0-32.0 [facility] MCHC (RBC) [Mass/Vol] 34.0 g/dL 32-36 [facility] Nucleated RBC/100 WBC (Bld) [Ratio] 0 % 0-5 [facility] Platelet mean volume (Bld) [Entitic vol] 10.0 fL 6.2-12.0 [facility] Platelets (Bld) [#/Vol] 228 10*3/uL 150-450 [facility] Laboratory - Microbiology an d Antimicrobial susceptibilityOrdered By: Donnie Carter on 08-08-2023 SARS-CoV-2 (COVID-19) RNA ALIX+probe Ql (Unsp spec) [facility] SARS-CoV-2 (COVID-19) RNA ALIX+probe Ql (Unsp spec) [facility] Mucus LM Ql (Urine sed)Order ed By: Donnie Carter on 08-08-2023 Mucus Ql (Urine sed) 0 SEEN /hpf [facility] Nitrite Test strip Ql (U)Ord ered By: Donnie Carter on 08-08-2023 Nitrite Ql (U) Negative Negative [facility] No Panel InformationOrdered By: Donnie Carter on 08-08-2023 Urine RBC 0 SEEN /hpf 0-5 [facility] 0 SEEN /hpf 0-5 [facility] Estimated Creatinine Clearance Calc 92.58 ml/min [facility] Estimated GFR (MDRD) Amer 107 mL/min >60 [facility] Comment on above: GFR Calc Estimated GFR (MDRD) Non-Af Amer 88 mL/min >60 [facility] Comment on above: Non- GFR Calc 29.3 pg 27.0-32.0 [facility] 34.0 g/dL 32-36 [facility] 228 K/mm3 150-450 [facility] 10.0 fl 6.2-12.0 [facility] 0 % 0-5 [facility] 88 mL/min >60 [facility] 107 mL/min >60 [facility] 92.58 ml/min [facility] 13.5 RATIO 10-20 [facility] 27.0 mmol/L 21.0-32.0 [facility] Protein Test strip Ql (U)Ord ered By: Donnie Carter on 08-08-2023 Protein Ql (U) 15 mg/dl Negative [facility] RBC Auto (Bld) [#/Vol]Ordere d By: Donnie Carter on 08-08-2023 RBC (Bld) [#/Vol] 5.53 10*6/uL 4.6-6.2 [facility] Serum or plasma calcium leida urement (mass/volume)Ordered By: Donnie Carter on 08-08-2023 Calcium [Mass/Vol] 9.6 mg/dL 8.5-10.1 [facility] Serum or plasma creatinine m easurement (mass/volume)Ordered By: Donnie Carter on 08-08-2023 Creatinine [Mass/Vol] 1.04 mg/dL 0.70-1.30 [facility] Comment on above: The validity of the calculated GFR & GFRAA in patients over 70 years has not been determined. Clinical correlation is essential. Serum or plasma urea nitroge n measurement (mass/volume)Ordered By: Donnie Carter on 08-08-2023 Urea nitrogen [Mass/Vol] 14 mg/dL 7-18 [facility] Squamous epithelial cells de tection in urine sediment by light microscopyOrdered By: Donnie Carter on 08-08-2023 Epithelial cells.squamous LM Ql (Urine sed) 0 SEEN /hpf 0-5 [facility] Thin prep Papanicolaou smear with manual screeningOrdered By: Donnie Carter on 08-08-2023 Thin prep Papanicolaou smear with manual screening 7 5-15 [facility] Urine blood detectionOrdered By: Donnie Carter on 08-08-2023 RBC Ql (U) Negative Negative [facility] Urine clarityOrdered By: Emma Carter on 08-08-2023 Clarity (U) Clear Clear [facility] Urine color determinationOrd ered By: Donnie Carter on 08-08-2023 Color (U) Yellow Yellow [facility] Urine glucose detectionOrder ed By: Donnie Carter on 08-08-2023 Glucose Ql (U) Normal mg/dl Normal [facility] Urine leukocyte esterase det ection by dipstickOrdered By: Donnie Carter on 08-08-2023 Leukocyte esterase Test strip Ql (U) Negative Negative [facility] Urine pHOrdered By: Donnie fam on 08-08-2023 pH (U) 6.5 [pH] 5.0 - 8.0 [facility] Urine sediment bacteria coun t by microscopy (number/high power field)Ordered By: Donnie Carter on 08-08-2023 Bacteria LM.HPF (Urine sed) [#/Area] 0 /[HPF] None Seen [facility] Urine specific gravity measu rementOrdered By: Donnie Carter on 08-08-2023 Specific gravity (U) [Rel density] 1.015 1.002-1.030 [facility] Urine urobilinogen measureme ntOrdered By: Donnie Carter on 08-08-2023 Urobilinogen Ql (U) 1 mg/dl Normal [facility] Laboratory - Microbiology an d Antimicrobial susceptibilityOrdered By: Neva Lea on 08-06-2023 SARS-CoV-2 (COVID-19) RNA ALIX+probe Ql (Unsp spec) [facility] SARS-CoV-2 (COVID-19) RNA ALIX+probe Ql (Unsp spec) [facility] Absolute lymphocyte countOrd ered By: Neva Lea on 08-05-2023 Lymphocytes Auto (Unsp spec) [#/Vol] 1.79 10*3/uL 0.83-4.51 [facility] Automated lymphocyte count a s percentage of total leukocytesOrdered By: Neva Lea on 08-05-2023 Lymphocytes/100 WBC Auto (Unsp spec) 33.6 % 19-41 [facility] Basophil percentageOrdered B y: Neva Lea on 08-05-2023 Basophil percentage 15.7 g/dL 13.0-16.5 [facility] Basophil percentage 110 mg/dL 74-106 [facility] Basophil percentage 7.2 g/dL 6.4-8.2 [facility] Basophil percentage 1.10 mg/dL 0.20-1.00 [facility] Basophil percentage 141 mmol/L 136-145 [facility] Basophil percentage 3.3 mmol/L 3.5-5.1 [facility] Basophil percentage 109 mmol/L 98-107 [facility] Basophils (Bld) [#/Vol] 5.3 10*3/uL 4.4-11.0 [facility] Basophils (Bld) [#/Vol] 3.1 10*3/uL 2.0-7.7 [facility] Basophils/100 WBC (Bld) 0.8 % 0-1 [facility] Basophils/100 WBC (Bld) 57.5 % 47-70 [facility] Basophils/100 WBC (Bld) 7.3 % 0-10 [facility] Basophils/100 WBC (Bld) 0.4 % 0-5 [facility] Bilirubin [Mass/Vol] 1.10 mg/dL 0.20-1.00 [facility] Comment on above: For patients on eltr ombopag therapy, use of Dimension [place] TBIL is not recommended. Chloride [Moles/Vol] 109 mmol/L 98-107 [facility] Eosinophils/100 WBC (Bld) 0.4 % 0-5 [facility] Glucose [Mass/Vol] 110 mg/dL 74-106 [facility] Comment on above: Fasting Glucose resu lt from 100 to 125 mg/dL suggests IMPAIRED HOMEOSTASIS per A.D.A. criteria. Hemoglobin (Bld) [Mass/Vol] 15.7 g/dL 13.0-16.5 [facility] Monocytes/100 WBC (Bld) 7.3 % 0-10 [facility] Neutrophils (Bld) [#/Vol] 3.1 10*3/uL 2.0-7.7 [facility] Neutrophils/100 WBC (Bld) 57.5 % 47-70 [facility] Potassium [Moles/Vol] 3.3 mmol/L 3.5-5.1 [facility] Protein [Mass/Vol] 7.2 g/dL 6.4-8.2 [facility] Sodium [Moles/Vol] 141 mmol/L 136-145 [facility] WBC (Bld) [#/Vol] 5.3 10*3/uL 4.4-11.0 [facility] Determination of erythrocyte mean corpuscular volume (MCV)Ordered By: Neva Lea on 08-05-2023 MCV (RBC) [Entitic vol] 87.6 fL 80-94 [facility] Erythrocyte distribution wid th ratioOrdered By: Neva Lea on 08-05-2023 Erythrocyte distribution width (RBC) [Ratio] 12.3 % 11.6-14.6 [facility] Erythrocyte distribution wid th standard deviationOrdered By: Neva Lea on 08-05-2023 Erythrocyte distribution width (RBC) [Entitic vol] 39.4 fL 35.1-43.9 [facility] Hematocrit Auto (Bld) [Volum e fraction]Ordered By: Neva Lea on 08-05-2023 Hematocrit (Bld) [Volume fraction] 46.6 % 40-54 [facility] Immature granulocytes/100 WB C Auto (Bld)Ordered By: Neva Lea on 08-05-2023 Immature granulocytes/100 WBC (Bld) 0.400 % 0.0-0.9 [facility] Comment on above: IG% - Immature Granu locytes (promyelocytes, myelocytes and metamyelocytes) > 1% indicates that a LEFT SHIFT is Present. Laboratory - Chemistry and C hemistry - challengeOrdered By: Neva Lea on 08-05-2023 Albumin/Globulin [Mass ratio] 2.0 {ratio} 0.9-2.4 [facility] ALP [Catalytic activity/Vol] 89 U/L 45-117 [facility] ALT [Catalytic activity/Vol] 20 U/L 16-61 [facility] CO2 [Moles/Vol] 23.0 mmol/L 21.0-32.0 [facility] Globulin (S) [Mass/Vol] 2.4 g/dL 2.2-4.2 [facility] Urea nitrogen/Creatinine [Mass ratio] 12.5 mg/mg 10-20 [facility] Laboratory - Drug toxicology Ordered By: Neva Lea on 08-05-2023 Amphetamines Ql (U) Negative <1000 ng/mL [facility] Benzodiazepines Ql (U) Negative < 200 ng/mL [facility] Cannabinoids Screen Ql (U) Positive < 50 ng/mL [facility] Cocaine Ql (U) Negative < 300 ng/mL [facility] Opiates Ql (U) Negative < 300 ng/mL [facility] Laboratory - Hematology and Cell countsOrdered By: Neva Lea on 08-05-2023 MCH (RBC) [Entitic mass] 29.5 pg 27.0-32.0 [facility] MCHC (RBC) [Mass/Vol] 33.7 g/dL 32-36 [facility] Nucleated RBC/100 WBC (Bld) [Ratio] 0 % 0-5 [facility] Platelet mean volume (Bld) [Entitic vol] 10.2 fL 6.2-12.0 [facility] Platelets (Bld) [#/Vol] 231 10*3/uL 150-450 [facility] No Panel InformationOrdered By: Neva Lea on 08-05-2023 Estimated Creatinine Clearance Calc 82.97 ml/min [facility] Estimated GFR (MDRD) Amer 90 mL/min >60 [facility] Comment on above: GFR Calc Estimated GFR (MDRD) Non-Af Amer 75 mL/min >60 [facility] Comment on above: Non- GFR Calc MDMA (Ecstasy) Screen Negative < 500 ng/mL [facility] Urine Barbiturates Screen Negative < 200 ng/mL [facility] Urine Drug Screen Comment [facility] Comment on above: CONFIRMATORY TESTING FOR ALL [...] Methadone Screen Negative < 300 ng/mL [facility] 29.5 pg 27.0-32.0 [facility] 33.7 g/dL 32-36 [facility] 231 K/mm3 150-450 [facility] 10.2 fl 6.2-12.0 [facility] 0 % 0-5 [facility] 75 mL/min >60 [facility] 90 mL/min >60 [facility] 82.97 ml/min [facility] 12.5 RATIO 10-20 [facility] 2.4 g/dL 2.2-4.2 [facility] 2.0 RATIO 0.9-2.4 [facility] 89 U/L 45-117 [facility] 20 U/L 16-61 [facility] 23.0 mmol/L 21.0-32.0 [facility] Negative < 300 ng/mL [facility] Positive < 50 ng/mL [facility] RBC Auto (Bld) [#/Vol]Ordere d By: Neva Lea on 08-05-2023 RBC (Bld) [#/Vol] 5.32 10*6/uL 4.6-6.2 [facility] Serum or plasma calcium leida urement (mass/volume)Ordered By: Neva Lea on 08-05-2023 Calcium [Mass/Vol] 9.1 mg/dL 8.5-10.1 [facility] Serum or plasma creatinine m easurement (mass/volume)Ordered By: Neva Lea on 08-05-2023 Creatinine [Mass/Vol] 1.20 mg/dL 0.70-1.30 [facility] Comment on above: The validity of the calculated GFR & GFRAA in patients over 70 years has not been determined. Clinical correlation is essential. Serum or plasma urea nitroge n measurement (mass/volume)Ordered By: Neva Lea on 08-05-2023 Urea nitrogen [Mass/Vol] 15 mg/dL 7-18 [facility] Thin prep Papanicolaou smear with manual screeningOrdered By: Neva eLa on 08-05-2023 Thin prep Papanicolaou smear with manual screening 4.8 g/dL 3.2-5.0 [facility] Thin prep Papanicolaou smear with manual screening 25 U/L 15-37 [facility] Thin prep Papanicolaou smear with manual screening 9 5-15 [facility] Urine phencyclidine (PCP) de tectionOrdered By: Neva Lea on 08-05-2023 Phencyclidine Ql (U) Negative < 25 ng/mL [facility] Absolute lymphocyte countOrd ered By: Joycelyn Isaac on 07-21-2023 Lymphocytes Auto (Unsp spec) [#/Vol] 1.58 10*3/uL 0.83-4.51 [facility] Automated lymphocyte count a s percentage of total leukocytesOrdered By: Joycelyn Isaac on 07-21-2023 Lymphocytes/100 WBC Auto (Unsp spec) 29.9 % 19-41 [facility] Basophil percentageOrdered B y: Joycelyn Isaac on 07-21-2023 Basophil percentage 15.0 g/dL 13.0-16.5 [facility] Basophil percentage 113 mg/dL 74-106 [facility] Basophil percentage 140 mmol/L 136-145 [facility] Basophil percentage 3.7 mmol/L 3.5-5.1 [facility] Basophil percentage 107 mmol/L 98-107 [facility] Basophils (Bld) [#/Vol] 5.3 10*3/uL 4.4-11.0 [facility] Basophils (Bld) [#/Vol] 3.1 10*3/uL 2.0-7.7 [facility] Basophils/100 WBC (Bld) 0.8 % 0-1 [facility] Basophils/100 WBC (Bld) 58.0 % 47-70 [facility] Basophils/100 WBC (Bld) 10.0 % 0-10 [facility] Basophils/100 WBC (Bld) 0.9 % 0-5 [facility] Chloride [Moles/Vol] 107 mmol/L 98-107 [facility] Eosinophils/100 WBC (Bld) 0.9 % 0-5 [facility] Glucose [Mass/Vol] 113 mg/dL 74-106 [facility] Comment on above: Fasting Glucose resu lt from 100 to 125 mg/dL suggests IMPAIRED HOMEOSTASIS per A.D.A. criteria. Hemoglobin (Bld) [Mass/Vol] 15.0 g/dL 13.0-16.5 [facility] Monocytes/100 WBC (Bld) 10.0 % 0-10 [facility] Neutrophils (Bld) [#/Vol] 3.1 10*3/uL 2.0-7.7 [facility] Neutrophils/100 WBC (Bld) 58.0 % 47-70 [facility] Potassium [Moles/Vol] 3.7 mmol/L 3.5-5.1 [facility] Sodium [Moles/Vol] 140 mmol/L 136-145 [facility] WBC (Bld) [#/Vol] 5.3 10*3/uL 4.4-11.0 [facility] Determination of erythrocyte mean corpuscular volume (MCV)Ordered By: Joycelyn Isaac on 07-21-2023 MCV (RBC) [Entitic vol] 87.7 fL 80-94 [facility] Erythrocyte distribution wid th ratioOrdered By: Joycelyn Isaac on 07-21-2023 Erythrocyte distribution width (RBC) [Ratio] 12.7 % 11.6-14.6 [facility] Erythrocyte distribution wid th standard deviationOrdered By: Joycelyn Isaac on 07-21-2023 Erythrocyte distribution width (RBC) [Entitic vol] 40.9 fL 35.1-43.9 [facility] Hematocrit Auto (Bld) [Volum e fraction]Ordered By: Joycelyn Isaac on 07-21-2023 Hematocrit (Bld) [Volume fraction] 43.3 % 40-54 [facility] Immature granulocytes/100 WB C Auto (Bld)Ordered By: Joycelyn Isaac on 07-21-2023 Immature granulocytes/100 WBC (Bld) 0.400 % 0.0-0.9 [facility] Comment on above: IG% - Immature Granu locytes (promyelocytes, myelocytes and metamyelocytes) > 1% indicates that a LEFT SHIFT is Present. Laboratory - Chemistry and C hemistry - challengeOrdered By: Joycelyn Isaac on 07-21-2023 CO2 [Moles/Vol] 27.0 mmol/L 21.0-32.0 [facility] Urea nitrogen/Creatinine [Mass ratio] 11.0 mg/mg 10-20 [facility] Laboratory - Hematology and Cell countsOrdered By: Joycelyn Isaac on 07-21-2023 MCH (RBC) [Entitic mass] 30.4 pg 27.0-32.0 [facility] MCHC (RBC) [Mass/Vol] 34.6 g/dL 32-36 [facility] Nucleated RBC/100 WBC (Bld) [Ratio] 0 % 0-5 [facility] Platelet mean volume (Bld) [Entitic vol] 10.6 fL 6.2-12.0 [facility] Platelets (Bld) [#/Vol] 262 10*3/uL 150-450 [facility] No Panel InformationOrdered By: Joycelyn Isaac on 07-21-2023 Estimated Creatinine Clearance Calc 99.50 ml/min [facility] Estimated GFR (MDRD) Amer 112 mL/min >60 [facility] Comment on above: GFR Calc Estimated GFR (MDRD) Non-Af Amer 93 mL/min >60 [facility] Comment on above: Non- GFR Calc Troponin I High Sensitivity 5 pg/mL 3.0-78.0 [facility] Comment on above: Please Note: New [place] t Units and Gender Specific Reference Ranges. For more information see Policy Stat Procedure [place] High Sensitivity Troponin (TNIH) and attachments. 30.4 pg 27.0-32.0 [facility] 34.6 g/dL 32-36 [facility] 262 K/mm3 150-450 [facility] 10.6 fl 6.2-12.0 [facility] 0 % 0-5 [facility] 93 mL/min >60 [facility] 112 mL/min >60 [facility] 99.50 ml/min [facility] 11.0 RATIO 10-20 [facility] 5 pg/mL 3.0-78.0 [facility] 27.0 mmol/L 21.0-32.0 [facility] RBC Auto (Bld) [#/Vol]Ordere d By: Joycelyn Isaac on 07-21-2023 RBC (Bld) [#/Vol] 4.94 10*6/uL 4.6-6.2 [facility] Serum or plasma calcium leida urement (mass/volume)Ordered By: Joycelyn Isaac on 07-21-2023 Calcium [Mass/Vol] 9.0 mg/dL 8.5-10.1 [facility] Serum or plasma creatinine m easurement (mass/volume)Ordered By: Joycelyn Isaac on 07-21-2023 Creatinine [Mass/Vol] 1.00 mg/dL 0.70-1.30 [facility] Comment on above: The validity of the calculated GFR & GFRAA in patients over 70 years has not been determined. Clinical correlation is essential. Serum or plasma urea nitroge n measurement (mass/volume)Ordered By: Joycelyn Isaac on 07-21-2023 Urea nitrogen [Mass/Vol] 11 mg/dL 7-18 [facility] Thin prep Papanicolaou smear with manual screeningOrdered By: Joycelyn Isaac on 07-21-2023 Thin prep Papanicolaou smear with manual screening 6 5-15 [facility] Absolute lymphocyte countOrd ered By: ED PROVIDER on 08-10-2022 Lymphocytes Auto (Unsp spec) [#/Vol] 2.47 10*3/uL 0.83-4.51 [facility] Basophil percentageOrdered B y: ED PROVIDER on 08-10-2022 Basophils/100 WBC (Bld) 1.0 % 0-1 [facility] Chloride [Moles/Vol] 105 mmol/L 98-107 [facility] Eosinophils/100 WBC (Bld) 6.7 % 0-5 [facility] Glucose [Mass/Vol] 147 mg/dL 74-106 [facility] Comment on above: Fasting Glucose resu lt greater than or equal to 126 mg/dL suggests DIABETES MELLITUS per A.D.A. criteria. Neutrophils (Bld) [#/Vol] 2.2 10*3/uL 2.0-7.7 [facility] Neutrophils/100 WBC (Bld) 37.0 % 47-70 [facility] Potassium [Moles/Vol] 4.3 mmol/L 3.5-5.1 [facility] Sodium [Moles/Vol] 137 mmol/L 136-145 [facility] WBC (Bld) [#/Vol] 5.8 10*3/uL 4.4-11.0 [facility] Blood erythrocytes count (nu mber/volume)Ordered By: ED PROVIDER on 08-10-2022 RBC (Bld) [#/Vol] 4.85 10*6/uL 4.6-6.2 [facility] Blood hemoglobin measurement (mass/volume)Ordered By: ED PROVIDER on 08-10-2022 Hemoglobin (Bld) [Mass/Vol] 14.6 g/dL 13.0-16.5 [facility] Blood lymphocytes/100 leukoc ytesOrdered By: ED PROVIDER on 08-10-2022 Lymphocytes/100 WBC (Bld) 42.4 % 19-41 [facility] Blood monocytes/100 leukocyt esOrdered By: ED PROVIDER on 08-10-2022 Monocytes/100 WBC (Bld) 12.7 % 0-10 [facility] Blood platelet mean volumeOr dered By: ED PROVIDER on 08-10-2022 Platelet mean volume (Bld) [Entitic vol] 10.1 fL 6.2-12.0 [facility] Determination of erythrocyte mean corpuscular volume (MCV)Ordered By: ED PROVIDER on 08-10-2022 MCV (RBC) [Entitic vol] 92.8 fL 80-94 [facility] Hematocrit Auto (Bld) [Volum e fraction]Ordered By: ED PROVIDER on 08-10-2022 Hematocrit (Bld) [Volume fraction] 45.0 % 40-54 [facility] Laboratory - Chemistry and C hemistry - challengeOrdered By: ED PROVIDER on 08-10-2022 CO2 [Moles/Vol] 25.0 mmol/L 21.0-32.0 [facility] Urea nitrogen/Creatinine [Mass ratio] 21.5 mg/mg 10-20 [facility] Laboratory - Drug toxicology Ordered By: ED PROVIDER on 08-10-2022 Amphetamines Ql (U) Positive <1000 ng/mL [facility] Benzodiazepines Ql (U) Negative < 200 ng/mL [facility] Cannabinoids Screen Ql (U) Positive < 50 ng/mL [facility] Cocaine Ql (U) Positive < 300 ng/mL [facility] Opiates Ql (U) Negative < 300 ng/mL [facility] Laboratory - Hematology and Cell countsOrdered By: ED PROVIDER on 08-10-2022 Erythrocyte distribution width (RBC) [Entitic vol] 42.6 fL 35.1-43.9 [facility] Erythrocyte distribution width (RBC) [Ratio] 12.4 % 11.6-14.6 [facility] Immature granulocytes/100 WBC (Bld) 0.200 % 0.0-0.9 [facility] Comment on above: IG% - Immature Granu locytes (promyelocytes, myelocytes and metamyelocytes) > 1% indicates that a LEFT SHIFT is Present. MCH (RBC) [Entitic mass] 30.1 pg 27.0-32.0 [facility] Nucleated RBC/100 WBC (Bld) [Ratio] 0 % 0-5 [facility] MCHC Auto (RBC) [Mass/Vol]Or dered By: ED PROVIDER on 08-10-2022 MCHC (RBC) [Mass/Vol] 32.4 g/dL 32-36 [facility] No Panel InformationOrdered By: ED PROVIDER on 08-10-2022 MDMA (Ecstasy) Screen Negative < 500 ng/mL [facility] Urine Barbiturates Screen Negative < 200 ng/mL [facility] Urine Drug Screen Comment [facility] Comment on above: CONFIRMATORY TESTING FOR ALL [...] Methadone Screen Negative < 300 ng/mL [facility] Estimated Creatinine Clearance Calc 111.59 ml/min [facility] Estimated GFR (MDRD) Amer 129 mL/min >60 [facility] Comment on above: GFR Calc Estimated GFR (MDRD) Non-Af Amer 107 mL/min >60 [facility] Comment on above: Non- GFR Calc Ethyl Alcohol Level < 3.0 mg/dL [facility] Comment on above: The serum:whole bloo d ethanol ratio is approximately 1.14and varies slightly with hematocrit. Medical Alcohol reference interval and critical value innon-tolerant individuals; 50 - 100 Impairment 100 Intoxication 100 - 250 Severe Poisoning 250 - 400 Deep/possible fatal coma Platelets bldOrdered By: ED PROVIDER on 08-10-2022 Platelets (Bld) [#/Vol] 240 10*3/uL 150-450 [facility] Serum or plasma calcium leida urement (mass/volume)Ordered By: ED PROVIDER on 08-10-2022 Calcium [Mass/Vol] 9.0 mg/dL 8.5-10.1 [facility] Serum or plasma creatinine m easurement (mass/volume)Ordered By: ED PROVIDER on 08-10-2022 Creatinine [Mass/Vol] 0.88 mg/dL 0.70-1.30 [facility] Comment on above: The validity of the calculated GFR & GFRAA in patients over 70 years has not been determined. Clinical correlation is essential. Serum or plasma urea nitroge n measurement (mass/volume)Ordered By: ED PROVIDER on 08-10-2022 Urea nitrogen [Mass/Vol] 19 mg/dL 7-18 [facility] Thin prep Papanicolaou smear with manual screeningOrdered By: ED PROVIDER on 08-10-2022 Thin prep Papanicolaou smear with manual screening 7 5-15 [facility] Urine phencyclidine (PCP) de tectionOrdered By: ED PROVIDER on 08-10-2022 Phencyclidine Ql (U) Negative < 25 ng/mL [facility] XR SPINE LUMBAR AP/LATon XR SPINE [...] 05/30/2022 4:46:55 AM Ordering Provider: FRANKY RIVERA [facility] ([place]) Vital Signs Date Time Vital Sign Value Performing Clinician Facility 01-30-2025 22:09-0400 Body temperature 97.6 [degF] Ritika Suarez NP-C Work Phone: [facility] 01-30-2025 22:09-0400 Diastolic blood pressure 73 mm[Hg] Ritika Suarez NP-C Work Phone: [facility] 01-30-2025 22:09-0400 Heart rate 92 /min Ritika Suarez NP-C Work Phone: [facility] 01-30-2025 22:09-0400 Respiratory rate 18 /min Ritika Suarez NP-C Work Phone: 6(037)258-557564 [place] [address] 01-30-2025 22:09-0400 SaO2% (BldA) [Mass fraction] 97 % Ritika Suarez [employer] Work Phone: 1(115)110-018454 [place] [address] 01-30-2025 22:09-0400 Systolic blood pressure 153 mm[Hg] Ritika Suarez [employer] Work Phone: 9(598)007-989654 [place] [address] 01-30-2025 19:10-0400 Body height 175.26 cm Ritika Suarez [employer] Work Phone: 2(611)828-379554 [place] [address] 01-30-2025 19:10-0400 Body mass index (BMI) [Ratio] 20.6 kg/m2 Ritika Suarez [employer] Work Phone: 6(572)180-220654 [place] [address] 01-30-2025 19:10-0400 Body weight 63.45 kg Ritika Suarez [employer] Work Phone: 4(603)547-933954 [place] [address] 01-22-2025 21:28-0400 Body temperature 97.5 [degF] Ritika Suarez [employer] Work Phone: 8(186)341-012654 [place] [address] 01-22-2025 21:28-0400 Diastolic blood pressure 96 mm[Hg] Ritika Suarez [employer] Work Phone: 6(091)652-198254 [place] [address] 01-22-2025 21:28-0400 Heart rate 91 /min Ritika Suarez [employer] Work Phone: 1(587)379-618054 [place] [address] 01-22-2025 21:28-0400 Respiratory rate 16 /min Ritika Suarez [employer] Work Phone: 8(033)766-686454 [place] [address] 01-22-2025 21:28-0400 SaO2% (BldA) [Mass fraction] 100 % Ritika Suarez [employer] Work Phone: 4(896)864-887454 [place] [address] 01-22-2025 21:28-0400 Systolic blood pressure 134 mm[Hg] Ritika Suarez [employer]PER[employer] Work Phone: 0(810)209-077454 [place] [address] 01-22-2025 18:54-0400 Body height 175.26 cm Ritika Suarez [employer] Work Phone: 7(018)820-635564 [place] [address] 01-22-2025 18:54-0400 Body mass index (BMI) [Ratio] 20.7 kg/m2 Ritika Suarez [employer] Work Phone: 6(633)840-548654 [place] [address] 01-22-2025 18:54-0400 Body weight 63.6 kg Ritika Suarez [employer]PER[employer] Work Phone: 6(680)920-349954 [place] [address] 01-06-2025 22:42-0400 Body temperature 97.5 [degF] Ritika Suarez SUPER[employer] Work Phone: 2(987)023-729854 [place] [address] 01-06-2025 22:42-0400 Diastolic blood pressure 79 mm[Hg] Ritika Suarez [employer]PER[employer] Work Phone: 5(721)968-776254 [place] [address] 01-06-2025 22:42-0400 Heart rate 73 /min Ritika Suarez [employer]PER[employer] Work Phone: 9(167)880-628854 [place] [address] 01-06-2025 22:42-0400 Respiratory rate 17 /min Ritika Suarez [employer] Work Phone: 1(532)753-440654 [place] [address] 01-06-2025 22:42-0400 SaO2% (BldA) [Mass fraction] 99 % Ritika Suarez [employer]PER[employer] Work Phone: 9(643)769-437354 [place] [address] 01-06-2025 22:42-0400 Systolic blood pressure 117 mm[Hg] Ritika Suarez [employer]PER[employer] Work Phone: 2(688)226-661754 [place] [address] 01-06-2025 13:45-0400 Body height 175.26 cm Ritika Suarez [employer]PER[employer] Work Phone: 5(861)911-843354 [place] [address] 01-06-2025 13:45-0400 Body mass index (BMI) [Ratio] 20.8 kg/m2 Ritika Suarez [employer] Work Phone: 1(051)000-084354 [place] [address] 01-06-2025 13:45-0400 Body weight 64.1 kg Ritika Suarez [employer]PER[employer] Work Phone: 4(557)819-059254 [place] [address] 01-01-2025 22:50-0400 Body temperature 97.9 [degF] Ritika Suarez SUPER[employer] Work Phone: 9(363)526-367364 [place] [address] 01-01-2025 22:50-0400 Diastolic blood pressure 74 mm[Hg] Ritika Suarez [employer]PER[employer] Work Phone: 5(555)545-351554 [place] [address] 01-01-2025 22:50-0400 Heart rate 62 /min Ritika Suarez [employer]PER[employer] Work Phone: 3(313)777-511554 [place] [address] 01-01-2025 22:50-0400 Respiratory rate 18 /min Ritika Suarez [employer] Work Phone: 1(764)800-349654 [place] [address] 01-01-2025 22:50-0400 SaO2% (BldA) [Mass fraction] 100 % Ritika Suarez [employer]PER[employer] Work Phone: 1(611)222-087454 [place] [address] 01-01-2025 22:50-0400 Systolic blood pressure 127 mm[Hg] Ritika Suarez SUPER[employer] Work Phone: 2(026)976-229454 [place] [address] 01-01-2025 21:01-0400 Body height 175.26 cm Ritika Suarez SUPER[employer] Work Phone: 2(251)457-730154 [place] [address] 01-01-2025 21:01-0400 Body mass index (BMI) [Ratio] 23.6 kg/m2 Ritika Suarez [employer] Work Phone: 7(531)209-629754 [place] [address] 01-01-2025 21:01-0400 Body weight 72.6 kg Ritika Suarez [employer]PER[employer] Work Phone: 0(714)411-739354 [place] [address] 12-30-2024 19:53-0400 Body temperature 96.9 [degF] Ritika Suarez SUPERVIS[employer] Work Phone: 8(788)443-789854 [place] [address] 12-30-2024 19:53-0400 Diastolic blood pressure 60 mm[Hg] Ritika Suarez SUPERVIS[employer] Work Phone: 7(039)737-787254 [place] [address] 12-30-2024 19:53-0400 Heart rate 87 /min Ritika Suarez SUPER[employer] Work Phone: 5(185)807-996354 [place] [address] 12-30-2024 19:53-0400 Respiratory rate 16 /min Ritika Suarez SUPERVIS[employer] Work Phone: 0(317)128-490054 [place] [address] 12-30-2024 19:53-0400 SaO2% (BldA) [Mass fraction] 100 % Ritika Suarez SUPER[employer] Work Phone: 8(768)451-387254 [place] [address] 12-30-2024 19:53-0400 Systolic blood pressure 123 mm[Hg] Ritika Suarez SUPERVIS[employer] Work Phone: 0(363)244-701754 [place] [address] 12-30-2024 18:37-0400 Body height 175.26 cm Ritika Suarez SUPERVIS[employer] Work Phone: 5(109)064-554654 [place] [address] 12-30-2024 18:37-0400 Body mass index (BMI) [Ratio] 21.7 kg/m2 Ritika Suarez [employer]PER[employer] Work Phone: 6(216)079-555854 [place] [address] 12-30-2024 18:37-0400 Body weight 66.6 kg Ritika Suarez SUPERVIS[employer] Work Phone: 4(804)922-815754 [place] [address] 12-19-2024 01:04-0400 Body temperature 98.1 [degF] Ritika Suarez SUPERVIS[employer] Work Phone: 4(137)211-756754 [place] [address] 12-19-2024 01:04-0400 Diastolic blood pressure 73 mm[Hg] Ritika Suarez SUPERVISOR [employer] Work Phone: 3(836)592-992454 [place] [address] 12-19-2024 01:04-0400 Heart rate 65 /min Ritika Suarez SUPERVISOR [employer] Work Phone: 4(975)729-200354 [place] [address] 12-19-2024 01:04-0400 Respiratory rate 18 /min Ritika Suarez SUPERVISOR [employer] Work Phone: 9(316)465-260554 [place] [address] 12-19-2024 01:04-0400 SaO2% (BldA) [Mass fraction] 100 % Ritika Suarez SUPERVISOR [employer] Work Phone: 8(122)548-843654 [place] [address] 12-19-2024 01:04-0400 Systolic blood pressure 120 mm[Hg] Ritika Suarez SUPERVISOR [employer] Work Phone: 3(735)430-980354 [place] [address] 12-18-2024 23:43-0400 Body height 175.26 cm Ritika Suarez SUPERVISOR [employer] Work Phone: 4(300)148-627054 [place] [address] 12-18-2024 23:43-0400 Body mass index (BMI) [Ratio] 21.8 kg/m2 Ritika Suarez SUPERVIS[employer] Work Phone: 8(261)439-059354 [place] [address] 12-18-2024 23:43-0400 Body weight 67.1 kg Ritika Suarez SUPERVISOR [employer] Work Phone: 9(389)715-936454 [place] [address] 11-25-2024 21:59-0400 Body temperature 98.1 [degF] Ritika Suarez SUPERVISOR [employer] Work Phone: 0(867)467-635454 [place] [address] 11-25-2024 21:59-0400 Diastolic blood pressure 94 mm[Hg] Ritika Suarez SUPERVISOR [employer] Work Phone: 5(237)815-310154 [place] [address] 11-25-2024 21:59-0400 Heart rate 72 /min Ritika Suarez SUPERVIS[employer] Work Phone: 2(174)604-690654 [place] [address] 11-25-2024 21:59-0400 Respiratory rate 14 /min Ritika Suarez SUPERVISOR [employer] Work Phone: 3(897)682-034954 [place] [address] 11-25-2024 21:59-0400 SaO2% (BldA) [Mass fraction] 97 % Ritika Suarez SUPERVISOR [employer] Work Phone: 2(961)583-714154 [place] [address] 11-25-2024 21:59-0400 Systolic blood pressure 135 mm[Hg] Ritika Suarez SUPERVISOR [employer] Work Phone: 0(888)081-760154 [place] [address] 11-25-2024 18:21-0400 Body height 175.26 cm Ritika Suarez SUPERVISOR [employer] Work Phone: 7(400)697-111054 [place] [address] 11-25-2024 18:21-0400 Body mass index (BMI) [Ratio] 20.8 kg/m2 Ritika Suarez SUPERVIS[employer] Work Phone: 9(559)329-422454 [place] [address] 11-25-2024 18:21-0400 Body weight 63.95 kg Ritika Suarez SUPER[employer] Work Phone: 3(040)703-117554 [place] [address] 11-03-2024 11:25-0400 Diastolic blood pressure 70 mm[Hg] Ritika Suarez SUPERVISOR [employer] Work Phone: 0(999)091-489154 [place] [address] 11-03-2024 11:25-0400 Heart rate 72 /min Ritika Suarez SUPERVISOR [employer] Work Phone: 2(599)816-931954 [place] [address] 11-03-2024 11:25-0400 Respiratory rate 18 /min Ritika Suarez SUPERVISOR [employer] Work Phone: 5(407)407-162954 [place] [address] 11-03-2024 11:25-0400 SaO2% (BldA) [Mass fraction] 98 % Ritika Suarez SUPERVISOR [employer] Work Phone: 7(358)376-883054 [place] [address] 11-03-2024 11:25-0400 Systolic blood pressure 116 mm[Hg] Ritika Suarez SUPERVISOR [employer] Work Phone: 9(773)120-324854 [place] [address] 11-03-2024 09:26-0400 Body height 175.26 cm Ritika Suarez SUPERVISOR [employer] Work Phone: 8(344)511-925554 [place] [address] 11-03-2024 09:26-0400 Body mass index (BMI) [Ratio] 21.8 kg/m2 Ritika Suarez SUPERVISOR [employer] Work Phone: 2(364)873-007254 [place] [address] 11-03-2024 09:26-0400 Body temperature 98.1 [degF] Ritika Suarez SUPERVISOR [employer] Work Phone: 2(749)601-038654 [place] [address] 11-03-2024 09:26-0400 Body weight 67 kg Ritika Suarez SUPERVISOR [employer] Work Phone: 9(801)564-476654 [place] [address] 11-02-2024 14:00-0400 Body temperature 97.6 [degF] Ritika Suarez SUPERVISOR [employer] Work Phone: 9(896)825-918554 [place] [address] 11-02-2024 14:00-0400 Diastolic blood pressure 78 mm[Hg] Ritika Suarez SUPERVISOR [employer] Work Phone: 6(484)051-530454 [place] [address] 11-02-2024 14:00-0400 Heart rate 100 /min Ritika Suarez SUPERVISOR [employer] Work Phone: 1(764)437-203154 [place] [address] 11-02-2024 14:00-0400 Respiratory rate 18 /min Ritika Suarez SUPERVISOR [employer] Work Phone: 9(815)005-549454 [place] [address] 11-02-2024 14:00-0400 SaO2% (BldA) [Mass fraction] 98 % Ritikafrancisco Suarez SUPERVISOR [employer] Work Phone: 3(949)088-411454 [place] [address] 11-02-2024 14:00-0400 Systolic blood pressure 152 mm[Hg] Ritikafrancisco Suarez SUPERVISOR [employer] Work Phone: 6(344)685-316154 [place] [address] 11-02-2024 12:06-0400 Body mass index (BMI) [Ratio] 20.7 kg/m2 Ritikajammie Suarez SUPERVISOR [employer] Work Phone: 5(677)974-123254 [place] [address] 11-02-2024 12:06-0400 Body weight 63.5 kg Ritikajammie Suarez SUPERVISOR [employer] Work Phone: 5(118)782-603854 [place] [address] 10-29-2024 09:36-0400 Body height 175.26 cm Ritikajammie Suarez SUPERVISOR [employer] Work Phone: 1(011)969-387654 [place] [address] 10-29-2024 09:36-0400 Body mass index (BMI) [Ratio] 21.4 kg/m2 Ritikajammie Suarez SUPERVISOR [employer] Work Phone: 6(756)003-001754 [place] [address] 10-29-2024 09:36-0400 Body weight 65.77 kg Ritikajammie Suarez SUPERVISOR [employer] Work Phone: 6(771)126-259054 [place] [address] 10-29-2024 09:36-0400 Heart rate 85 /min Ritikajammie Suarez SUPER[employer]OR [employer] Work Phone: 6(866)109-668654 [place] [address] 10-29-2024 09:36-0400 Respiratory rate 18 /min Ritikajammie Suarez SUPERVISOR [employer] Work Phone: 3(686)682-102554 [place] [address] 10-29-2024 09:36-0400 SaO2% (BldA) [Mass fraction] 98 % Ritikajammei Suarez SUPERVISOR [employer] Work Phone: 0(163)366-610054 [place] [address] 10-17-2024 00:33-0400 Body temperature 97.6 [degF] Ritikajammie Suarez SUPERVISOR [employer] Work Phone: 5(601)336-905354 [place] [address] 10-17-2024 00:33-0400 Diastolic blood pressure 80 mm[Hg] Ritika Suarez SUPERVISOR [employer] Work Phone: 1(855)651-374754 [place] [address] 10-17-2024 00:33-0400 Heart rate 65 /min Ritika Suarez SUPER[employer]OR [employer] Work Phone: 9(938)827-963564 [place] [address] 10-17-2024 00:33-0400 Respiratory rate 16 /min Ritika Suarez SUPERVISOR [employer] Work Phone: 2(634)161-291564 [place] [address] 10-17-2024 00:33-0400 SaO2% (BldA) [Mass fraction] 96 % Ritika Suarez SUPER[employer]OR [employer] Work Phone: 5(653)555-994464 [place] [address] 10-17-2024 00:33-0400 Systolic blood pressure 119 mm[Hg] Ritika Suarez SUPERVISOR [employer] Work Phone: 2(170)300-539916 [address] 10-16-2024 22:41-0400 Body height 175.26 cm Ritika Suarez SUPERVISOR [employer] Work Phone: 9(558)391-471064 [place] [address] 10-16-2024 22:41-0400 Body mass index (BMI) [Ratio] 21.7 kg/m2 Ritika Suarez SUPER[employer] Work Phone: 2(841)773-689464 [place] [address] 10-16-2024 22:41-0400 Body weight 66.67 kg Ritika Suarez [employer]PER[employer] Work Phone: 6(646)096-390464 [place] [address] 10-07-2024 09:48-0400 Body temperature 98 [degF] No Primary Care Physician [facility] 10-07-2024 09:48-0400 Diastolic blood pressure 74 mm[Hg] No Primary Care Physician [facility] 10-07-2024 09:48-0400 Heart rate 58 /min No Primary Care Physician [facility] 10-07-2024 09:48-0400 Respiratory rate 14 /min No Primary Care Physician [facility] 10-07-2024 09:48-0400 SaO2% (BldA) [Mass fraction] 97 % No Primary Care Physician [facility] 10-07-2024 09:48-0400 Systolic blood pressure 116 mm[Hg] No Primary Care Physician [facility] 10-07-2024 06:19-0400 Body height 175.26 cm No Primary Care Physician [facility] 10-07-2024 06:19-0400 Body mass index (BMI) [Ratio] 21.7 kg/m2 No Primary Care Physician [facility] 10-07-2024 06:19-0400 Body weight 66.7 kg No Primary Care Physician [facility] 06-15-2024 13:21-0500 Body mass index (BMI) [Ratio] 20.2 kg/m2 No Primary Care Physician [facility] 06-15-2024 13:21-0500 Body weight 62.36 kg No Primary Care Physician [facility] 06-15-2024 13:21-0500 Diastolic blood pressure 80 mm[Hg] No Primary Care Physician [facility] 06-15-2024 13:21-0500 Heart rate 89 /min No Primary Care Physician [facility] 06-15-2024 13:21-0500 SaO2% (BldA) [Mass fraction] 99 % No Primary Care Physician [facility] 06-15-2024 13:21-0500 Systolic blood pressure 124 mm[Hg] No Primary Care Physician [facility] 06-07-2024 13:09-0500 Body mass index (BMI) [Ratio] 20.48 kg/m2 Ritika Jessica [employer] Work Phone: [facility] 06-07-2024 13:09-0500 Body temperature 97.7 [degF] Ritika Jessica [employer] Work Phone: [facility] 06-07-2024 13:09-0500 Body weight 62 kg Ritika Jessica [employer] Work Phone: [facility] 06-07-2024 13:09-0500 Diastolic blood pressure 76 mm[Hg] Ritika Jessica [employer] Work Phone: [facility] 06-07-2024 13:09-0500 Heart rate 125 /min Ritika Jessica [employer] Work Phone: [facility] 06-07-2024 13:09-0500 Respiratory rate 22 /min Ritika Jessica [employer] Work Phone: [facility] 06-07-2024 13:09-0500 SaO2% (BldA) [Mass fraction] 98 % Ritika Jessica [employer] Work Phone: [facility] 06-07-2024 13:09-0500 Systolic blood pressure 110 mm[Hg] Ritika Jessica W[employer] RESOURCE CONSULTANT Work Phone: [facility] 10-03-2023 07:37-0400 Body temperature 97.5 [degF] [facility] Work Phone: 3(089)735-869254 [place] [address] 10-03-2023 07:37-0400 Diastolic blood pressure 59 mm[Hg] [facility] Work Phone: 2(503)959-158354 [place] [address] 10-03-2023 07:37-0400 Heart rate 69 /min [facility] Work Phone: 9(003)888-167954 [place] [address] 10-03-2023 07:37-0400 Respiratory rate 14 /min [facility] Work Phone: 8(618)602-238054 [place] [address] 10-03-2023 07:37-0400 SaO2% (BldA) [Mass fraction] 96 % [facility] Work Phone: 3(735)146-911054 [place] [address] 10-03-2023 07:37-0400 Systolic blood pressure 99 mm[Hg] [facility] Work Phone: 6(596)296-082154 [place] [address] 10-02-2023 17:04-0400 Body height 172.72 cm [facility] Work Phone: 3(313)279-625254 [place] [address] 10-02-2023 17:04-0400 Body mass index (BMI) [Ratio] 21.2 kg/m2 [facility] Work Phone: 8(370)411-942854 [place] [address] 10-02-2023 17:04-0400 Body weight 63.5 kg [facility] Work Phone: 4(830)804-477854 [place] [address] 09-30-2023 12:49-0400 Body height 175.01 cm [facility] Work Phone: 3(981)176-994254 [place] [address] 09-30-2023 12:49-0400 Body mass index (BMI) [Ratio] 19.7 kg/m2 [facility] Work Phone: 6(293)615-427754 [place] [address] 09-30-2023 12:49-0400 Body temperature 97.8 [degF] [facility] Work Phone: 7(895)337-634554 [place] [address] 09-30-2023 12:49-0400 Body weight 60.47 kg [facility] Work Phone: 5(384)735-423154 [place] [address] 09-30-2023 12:49-0400 Diastolic blood pressure 92 mm[Hg] [facility] Work Phone: 7(377)683-235254 [place] [address] 09-30-2023 12:49-0400 Heart rate 85 /min [facility] Work Phone: 1(992)564-398554 [place] [address] 09-30-2023 12:49-0400 Respiratory rate 16 /min [facility] Work Phone: 0(424)628-894654 [place] [address] 09-30-2023 12:49-0400 SaO2% (BldA) [Mass fraction] 98 % [facility] Work Phone: 8(676)372-583254 [place] [address] 09-30-2023 12:49-0400 Systolic blood pressure 116 mm[Hg] [facility] Work Phone: 1(485)046-158554 [place] [address] 09-27-2023 20:29-0400 Body temperature 97.4 [degF] [facility] Work Phone: 5(489)558-899854 [place] [address] 09-27-2023 20:29-0400 Diastolic blood pressure 75 mm[Hg] [facility] Work Phone: 2(746)047-160854 [place] [address] 09-27-2023 20:29-0400 Heart rate 59 /min [facility] Work Phone: 4(246)655-027854 [place] [address] 09-27-2023 20:29-0400 Respiratory rate 16 /min [facility] Work Phone: 5(594)682-510754 [place] [address] 09-27-2023 20:29-0400 SaO2% (BldA) [Mass fraction] 99 % [facility] Work Phone: 0(036)324-485154 [place] [address] 09-27-2023 20:29-0400 Systolic blood pressure 120 mm[Hg] [facility] Work Phone: 6(159)898-310754 [place] [address] 09-27-2023 15:46-0400 Body height 175.01 cm [facility] Work Phone: 9(055)334-196754 [place] [address] 09-27-2023 15:46-0400 Body mass index (BMI) [Ratio] 20.7 kg/m2 [facility] Work Phone: 5(056)005-881054 [place] [address] 09-27-2023 15:46-0400 Body weight 63.5 kg [facility] Work Phone: 2(070)431-051854 [place] [address] 09-27-2023 11:22-0400 Diastolic blood pressure 88 mm[Hg] [facility] Work Phone: 0(454)540-120354 [place] [address] 09-27-2023 11:22-0400 Heart rate 90 /min [facility] Work Phone: 4(671)599-186354 [place] [address] 09-27-2023 11:22-0400 Respiratory rate 16 /min [facility] Work Phone: 5(250)651-542854 [place] [address] 09-27-2023 11:22-0400 SaO2% (BldA) [Mass fraction] 99 % [facility] Work Phone: 7(563)462-902454 [place] [address] 09-27-2023 11:22-0400 Systolic blood pressure 128 mm[Hg] [facility] Work Phone: 4(030)492-280954 [place] [address] 09-27-2023 07:23-0400 Body height 175.26 cm [facility] Work Phone: 6(461)446-874854 [place] [address] 09-27-2023 07:23-0400 Body mass index (BMI) [Ratio] 20.7 kg/m2 [facility] Work Phone: 9(732)649-872654 [place] [address] 09-27-2023 07:23-0400 Body temperature 98 [degF] [facility] Work Phone: 3(419)950-956554 [place] [address] 09-27-2023 07:23-0400 Body weight 63.91 kg [facility] Work Phone: 3(174)237-472154 [place] [address] 09-26-2023 08:20-0400 Body height 175.26 cm [facility] Work Phone: 3(883)630-616854 [place] [address] 09-26-2023 08:20-0400 Body mass index (BMI) [Ratio] 20.9 kg/m2 [facility] Work Phone: 0(302)444-392654 [place] [address] 09-26-2023 08:20-0400 Body temperature 97.8 [degF] [facility] Work Phone: 2(698)643-948954 [place] [address] 09-26-2023 08:20-0400 Body weight 64.22 kg [facility] Work Phone: 1(065)009-861954 [place] [address] 09-26-2023 08:20-0400 Diastolic blood pressure 92 mm[Hg] [facility] Work Phone: 3(409)333-458554 [place] [address] 09-26-2023 08:20-0400 Heart rate 75 /min [facility] Work Phone: 2(149)458-893654 [place] [address] 09-26-2023 08:20-0400 Respiratory rate 16 /min [facility] Work Phone: 9(202)974-734354 [place] [address] 09-26-2023 08:20-0400 SaO2% (BldA) [Mass fraction] 99 % [facility] Work Phone: 3(395)813-699054 [place] [address] 09-26-2023 08:20-0400 Systolic blood pressure 141 mm[Hg] [facility] Work Phone: 5(737)882-035754 [place] [address] 09-25-2023 04:51-0400 Body temperature 97.2 [degF] [facility] Work Phone: 6(914)692-039254 [place] [address] 09-25-2023 04:51-0400 Diastolic blood pressure 83 mm[Hg] [facility] Work Phone: 5(516)419-547954 [place] [address] 09-25-2023 04:51-0400 Heart rate 63 /min [facility] Work Phone: 8(365)899-848654 [place] [address] 09-25-2023 04:51-0400 Respiratory rate 16 /min [facility] Work Phone: 0(009)967-036854 [place] [address] 09-25-2023 04:51-0400 SaO2% (BldA) [Mass fraction] 96 % [facility] Work Phone: 0(081)900-118954 [place] [address] 09-25-2023 04:51-0400 Systolic blood pressure 120 mm[Hg] [facility] Work Phone: 1(797)591-458754 [place] [address] 09-25-2023 03:19-0400 Body height 175.26 cm [facility] Work Phone: 0(819)189-933154 [place] [address] 09-25-2023 03:19-0400 Body mass index (BMI) [Ratio] 20.7 kg/m2 [facility] Work Phone: 9(519)539-350554 [place] [address] 09-25-2023 03:19-0400 Body weight 63.6 kg [facility] Work Phone: 8(810)172-923654 [place] [address] 09-20-2023 12:51-0400 Body temperature 98.1 [degF] [facility] Work Phone: 2(947)907-526154 [place] [address] 09-20-2023 12:51-0400 Diastolic blood pressure 78 mm[Hg] [facility] Work Phone: 2(080)103-702554 [place] [address] 09-20-2023 12:51-0400 Heart rate 78 /min [facility] Work Phone: 3(801)240-429854 [place] [address] 09-20-2023 12:51-0400 Respiratory rate 14 /min [facility] Work Phone: 1(086)719-803954 [place] [address] 09-20-2023 12:51-0400 SaO2% (BldA) [Mass fraction] 99 % [facility] Work Phone: 1(023)710-952854 [place] [address] 09-20-2023 12:51-0400 Systolic blood pressure 135 mm[Hg] [facility] Work Phone: 2(410)427-015354 [place] [address] 09-20-2023 12:13-0400 Body height 175.26 cm [facility] Work Phone: 7(811)128-958254 [place] [address] 09-20-2023 12:13-0400 Body mass index (BMI) [Ratio] 20.1 kg/m2 [facility] Work Phone: 4(755)283-058154 [place] [address] 09-20-2023 12:13-0400 Body weight 61.8 kg [facility] Work Phone: 8(814)162-653354 [place] [address] 09-16-2023 09:59-0400 Body height 175.26 cm [facility] 09-16-2023 09:59-0400 Body mass index (BMI) [Ratio] 20.2 kg/m2 [facility] 09-16-2023 09:59-0400 Body temperature 97.2 [degF] [facility] 09-16-2023 09:59-0400 Body weight 62.2 kg [facility] 09-16-2023 09:59-0400 Diastolic blood pressure 73 mm[Hg] [facility] 09-16-2023 09:59-0400 Heart rate 94 /min [facility] 09-16-2023 09:59-0400 Respiratory rate 14 /min [facility] 09-16-2023 09:59-0400 SaO2% (BldA) [Mass fraction] 100 % [facility] 09-16-2023 09:59-0400 Systolic blood pressure 112 mm[Hg] [facility] 09-15-2023 19:14-0400 Body temperature 98.7 [degF] [facility] 09-15-2023 19:14-0400 Diastolic blood pressure 80 mm[Hg] [facility] 09-15-2023 19:14-0400 Heart rate 89 /min [facility] 09-15-2023 19:14-0400 Respiratory rate 16 /min [facility] 09-15-2023 19:14-0400 SaO2% (BldA) [Mass fraction] 96 % [facility] 09-15-2023 19:14-0400 Systolic blood pressure 137 mm[Hg] [facility] 09-15-2023 18:22-0400 Body height 175.26 cm [facility] 09-15-2023 18:22-0400 Body mass index (BMI) [Ratio] 21.2 kg/m2 [facility] 09-15-2023 18:22-0400 Body weight 65.1 kg [facility] 09-12-2023 19:21-0400 Body temperature 98.2 [degF] [facility] 09-12-2023 19:21-0400 Diastolic blood pressure 84 mm[Hg] [facility] 09-12-2023 19:21-0400 Heart rate 75 /min [facility] 09-12-2023 19:21-0400 Respiratory rate 16 /min [facility] 09-12-2023 19:21-0400 SaO2% (BldA) [Mass fraction] 99 % [facility] 09-12-2023 19:21-0400 Systolic blood pressure 123 mm[Hg] [facility] 09-12-2023 15:35-0400 Body height 175.26 cm [facility] 09-07-2023 11:21-0400 Diastolic blood pressure 69 mm[Hg] [facility] 09-07-2023 11:21-0400 Heart rate 78 /min [facility] 09-07-2023 11:21-0400 Respiratory rate 16 /min [facility] 09-07-2023 11:21-0400 SaO2% (BldA) [Mass fraction] 99 % [facility] 09-07-2023 11:21-0400 Systolic blood pressure 117 mm[Hg] [facility] 09-07-2023 10:49-0400 Body height 175.26 cm [facility] 09-07-2023 10:49-0400 Body mass index (BMI) [Ratio] 22.1 kg/m2 [facility] 09-07-2023 10:49-0400 Body temperature 97.8 [degF] [facility] 09-07-2023 10:49-0400 Body weight 68 kg [facility] 08-26-2023 21:32-0400 Body temperature 98.4 [degF] [facility] 08-26-2023 21:32-0400 Diastolic blood pressure 78 mm[Hg] [facility] 08-26-2023 21:32-0400 Heart rate 77 /min [facility] 08-26-2023 21:32-0400 Respiratory rate 16 /min [facility] 08-26-2023 21:32-0400 SaO2% (BldA) [Mass fraction] 99 % [facility] 08-26-2023 21:32-0400 Systolic blood pressure 125 mm[Hg] [facility] 08-26-2023 20:10-0400 Body height 175.26 cm [facility] 08-26-2023 20:10-0400 Body mass index (BMI) [Ratio] 20.3 kg/m2 [facility] 08-26-2023 20:10-0400 Body weight 62.59 kg [facility] 08-21-2023 10:51-0400 Body temperature 97.2 [degF] [facility] 08-21-2023 10:51-0400 Diastolic blood pressure 80 mm[Hg] [facility] 08-21-2023 10:51-0400 Heart rate 69 /min [facility] 08-21-2023 10:51-0400 Respiratory rate 16 /min [facility] 08-21-2023 10:51-0400 SaO2% (BldA) [Mass fraction] 100 % [facility] 08-21-2023 10:51-0400 Systolic blood pressure 120 mm[Hg] [facility] 08-21-2023 08:36-0400 Body height 170.18 cm [facility] 08-21-2023 08:36-0400 Body mass index (BMI) [Ratio] 20.7 kg/m2 [facility] 08-21-2023 08:36-0400 Body weight 59.87 kg [facility] 08-19-2023 17:18-0500 Body temperature 97.4 [degF] [facility] 08-19-2023 17:18-0500 Diastolic blood pressure 78 mm[Hg] [facility] 08-19-2023 17:18-0500 Heart rate 70 /min [facility] 08-19-2023 17:18-0500 Respiratory rate 16 /min [facility] 08-19-2023 17:18-0500 SaO2% (BldA) [Mass fraction] 96 % [facility] 08-19-2023 17:18-0500 Systolic blood pressure 118 mm[Hg] [facility] 08-19-2023 15:00-0500 Diastolic blood pressure 66 mm[Hg] [facility] 08-19-2023 15:00-0500 Heart rate 55 /min [facility] 08-19-2023 15:00-0500 Respiratory rate 17 /min [facility] 08-19-2023 15:00-0500 SaO2% (BldA) [Mass fraction] 99 % [facility] 08-19-2023 15:00-0500 Systolic blood pressure 110 mm[Hg] [facility] 08-19-2023 12:56-0500 Body height 177.8 cm [facility] 08-19-2023 12:56-0500 Body mass index (BMI) [Ratio] 19.9 kg/m2 [facility] 08-19-2023 12:56-0500 Body temperature 96.8 [degF] [facility] 08-19-2023 12:56-0500 Body weight 63 kg [facility] 08-16-2023 17:02-0500 Body temperature 97.6 [degF] [facility] 08-16-2023 17:02-0500 Diastolic blood pressure 85 mm[Hg] [facility] 08-16-2023 17:02-0500 Heart rate 88 /min [facility] 08-16-2023 17:02-0500 Respiratory rate 14 /min [facility] 08-16-2023 17:02-0500 SaO2% (BldA) [Mass fraction] 99 % [facility] 08-16-2023 17:02-0500 Systolic blood pressure 129 mm[Hg] [facility] 08-16-2023 15:40-0500 Body height 175.26 cm [facility] 08-16-2023 15:40-0500 Body mass index (BMI) [Ratio] 20.2 kg/m2 [facility] 08-16-2023 15:40-0500 Body weight 62.14 kg [facility] 08-13-2023 15:12-0500 Body temperature 98.1 [degF] [facility] 08-13-2023 15:12-0500 Diastolic blood pressure 89 mm[Hg] [facility] 08-13-2023 15:12-0500 Heart rate 84 /min [facility] 08-13-2023 15:12-0500 Respiratory rate 16 /min [facility] 08-13-2023 15:12-0500 SaO2% (BldA) [Mass fraction] 100 % [facility] 08-13-2023 15:12-0500 Systolic blood pressure 129 mm[Hg] [facility] 08-13-2023 13:40-0500 Body height 175.26 cm [facility] 08-13-2023 13:40-0500 Body mass index (BMI) [Ratio] 20.7 kg/m2 [facility] 08-13-2023 13:40-0500 Body weight 63.7 kg [facility] 08-12-2023 21:07-0500 Body temperature 98.1 [degF] [facility] 08-12-2023 21:07-0500 Diastolic blood pressure 83 mm[Hg] [facility] 08-12-2023 21:07-0500 Heart rate 67 /min [facility] 08-12-2023 21:07-0500 Respiratory rate 16 /min [facility] 08-12-2023 21:07-0500 SaO2% (BldA) [Mass fraction] 98 % [facility] 08-12-2023 21:07-0500 Systolic blood pressure 136 mm[Hg] [facility] 08-12-2023 19:30-0500 Body height 175.26 cm [facility] 08-12-2023 19:30-0500 Body mass index (BMI) [Ratio] 20.5 kg/m2 [facility] 08-12-2023 19:30-0500 Body weight 63.04 kg [facility] 08-10-2023 11:08-0500 Body temperature 97.7 [degF] [facility] 08-10-2023 11:08-0500 Diastolic blood pressure 80 mm[Hg] [facility] 08-10-2023 11:08-0500 Heart rate 77 /min [facility] 08-10-2023 11:08-0500 Respiratory rate 18 /min [facility] 08-10-2023 11:08-0500 SaO2% (BldA) [Mass fraction] 97 % [facility] 08-10-2023 11:08-0500 Systolic blood pressure 119 mm[Hg] [facility] 08-10-2023 09:52-0500 Body height 175.26 cm [facility] 08-10-2023 09:52-0500 Body mass index (BMI) [Ratio] 22 kg/m2 [facility] 08-10-2023 09:52-0500 Body weight 67.6 kg [facility] 08-09-2023 22:48-0500 Body temperature 98.3 [degF] [facility] 08-09-2023 22:48-0500 Diastolic blood pressure 66 mm[Hg] [facility] 08-09-2023 22:48-0500 Heart rate 66 /min [facility] 08-09-2023 22:48-0500 Respiratory rate 12 /min [facility] 08-09-2023 22:48-0500 SaO2% (BldA) [Mass fraction] 100 % [facility] 08-09-2023 22:48-0500 Systolic blood pressure 133 mm[Hg] [facility] 08-09-2023 21:30-0500 Body height 175.26 cm [facility] 08-09-2023 21:30-0500 Body mass index (BMI) [Ratio] 21.7 kg/m2 [facility] 08-09-2023 21:30-0500 Body weight 66.67 kg [facility] 08-08-2023 13:57-0500 Body temperature 98.7 [degF] [facility] 08-08-2023 13:57-0500 Diastolic blood pressure 79 mm[Hg] [facility] 08-08-2023 13:57-0500 Heart rate 78 /min [facility] 08-08-2023 13:57-0500 Respiratory rate 20 /min [facility] 08-08-2023 13:57-0500 SaO2% (BldA) [Mass fraction] 98 % [facility] 08-08-2023 13:57-0500 Systolic blood pressure 116 mm[Hg] [facility] 08-08-2023 11:14-0500 Body mass index (BMI) [Ratio] 20.7 kg/m2 [facility] 08-08-2023 11:14-0500 Body weight 63.6 kg [facility] 08-07-2023 04:33-0500 Body temperature 97.8 [degF] [facility] 08-07-2023 04:33-0500 Diastolic blood pressure 82 mm[Hg] [facility] 08-07-2023 04:33-0500 Heart rate 58 /min [facility] 08-07-2023 04:33-0500 Respiratory rate 16 /min [facility] 08-07-2023 04:33-0500 SaO2% (BldA) [Mass fraction] 97 % [facility] 08-07-2023 04:33-0500 Systolic blood pressure 123 mm[Hg] [facility] 08-07-2023 02:22-0500 Body height 175.26 cm [facility] 08-07-2023 02:22-0500 Body mass index (BMI) [Ratio] 21.2 kg/m2 [facility] 08-07-2023 02:22-0500 Body weight 65.1 kg [facility] 08-06-2023 12:54-0500 Body height 175.26 cm [facility] 08-06-2023 12:54-0500 Body mass index (BMI) [Ratio] 21.4 kg/m2 [facility] 08-06-2023 12:54-0500 Body temperature 97.2 [degF] [facility] 08-06-2023 12:54-0500 Body weight 65.77 kg [facility] 08-06-2023 12:54-0500 Diastolic blood pressure 61 mm[Hg] [facility] 08-06-2023 12:54-0500 Heart rate 106 /min [facility] 08-06-2023 12:54-0500 Respiratory rate 16 /min [facility] 08-06-2023 12:54-0500 SaO2% (BldA) [Mass fraction] 99 % [facility] 08-06-2023 12:54-0500 Systolic blood pressure 128 mm[Hg] [facility] 08-05-2023 14:08-0500 Body temperature 98.6 [degF] [facility] 08-05-2023 14:08-0500 Diastolic blood pressure 84 mm[Hg] [facility] 08-05-2023 14:08-0500 Heart rate 69 /min [facility] 08-05-2023 14:08-0500 Respiratory rate 20 /min [facility] 08-05-2023 14:08-0500 SaO2% (BldA) [Mass fraction] 98 % [facility] 08-05-2023 14:08-0500 Systolic blood pressure 132 mm[Hg] [facility] 08-05-2023 12:47-0500 Body height 175.26 cm [facility] 08-05-2023 12:47-0500 Body mass index (BMI) [Ratio] 21.4 kg/m2 [facility] 08-05-2023 12:47-0500 Body weight 65.77 kg [facility] 08-03-2023 23:06-0500 Body temperature 98.3 [degF] [facility] 08-03-2023 23:06-0500 Diastolic blood pressure 90 mm[Hg] [facility] 08-03-2023 23:06-0500 Heart rate 81 /min [facility] 08-03-2023 23:06-0500 Respiratory rate 18 /min [facility] 08-03-2023 23:06-0500 SaO2% (BldA) [Mass fraction] 100 % [facility] 08-03-2023 23:06-0500 Systolic blood pressure 121 mm[Hg] [facility] 08-03-2023 22:27-0500 Body height 175.26 cm [facility] 08-03-2023 22:27-0500 Body mass index (BMI) [Ratio] 21.7 kg/m2 [facility] 08-03-2023 22:27-0500 Body weight 66.67 kg [facility] 08-03-2023 08:38-0500 Body temperature 97.9 [degF] [facility] 08-03-2023 08:38-0500 Diastolic blood pressure 74 mm[Hg] [facility] 08-03-2023 08:38-0500 Heart rate 73 /min [facility] 08-03-2023 08:38-0500 Respiratory rate 14 /min [facility] 08-03-2023 08:38-0500 SaO2% (BldA) [Mass fraction] 98 % [facility] 08-03-2023 08:38-0500 Systolic blood pressure 120 mm[Hg] [facility] 08-03-2023 06:21-0500 Body height 175.26 cm [facility] 08-03-2023 06:21-0500 Body mass index (BMI) [Ratio] 22.1 kg/m2 [facility] 08-03-2023 06:21-0500 Body weight 68 kg [facility] 07-21-2023 16:59-0500 Diastolic blood pressure 69 mm[Hg] [facility] 07-21-2023 16:59-0500 Heart rate 72 /min [facility] 07-21-2023 16:59-0500 Respiratory rate 15 /min [facility] 07-21-2023 16:59-0500 SaO2% (BldA) [Mass fraction] 99 % [facility] [facility] 07-21-2023 16:59-0500 Systolic blood pressure 124 mm[Hg] [facility] 07-21-2023 14:41-0500 Body mass index (BMI) [Ratio] 21.4 kg/m2 [facility] 07-21-2023 14:41-0500 Body temperature 98.1 [degF] [facility] 07-21-2023 14:41-0500 Body weight 65.72 kg [facility] 02-04-2023 15:13-0400 Body temperature 98.4 [degF] Keli Zac SHOE CASER.WATER RESOURCE CONSULTANT Work Phone: [facility] 02-04-2023 15:13-0400 Body weight 69.04 kg Keli Zac SHOE CASER.WATER RESOURCE CONSULTANT Work Phone: [facility] 02-04-2023 15:13-0400 Diastolic blood pressure 86 mm[Hg] Keli Zac SHOE CASER.WATER RESOURCE CONSULTANT Work Phone: [facility] 02-04-2023 15:13-0400 Heart rate 75 /min Keli Zac SHOE CASER.WATER RESOURCE CONSULTANT Work Phone: [facility] 02-04-2023 15:13-0400 Respiratory rate 21 /min Keli Zac SHOE CASER.WATER RESOURCE CONSULTANT Work Phone: [facility] 02-04-2023 15:13-0400 SaO2% (BldA) [Mass fraction] 99 % Keli Zac SHOE CASER.WATER RESOURCE CONSULTANT Work Phone: [facility] 02-04-2023 15:13-0400 Systolic blood pressure 132 mm[Hg] Keli Zac SHOE CASER.WATER RESOURCE CONSULTANT Work Phone: [facility] 08-11-2022 08:41-0500 Body temperature 97.8 [degF] Dr. Sanjay Cid Work Phone: [facility] 08-11-2022 08:41-0500 Diastolic blood pressure 63 mm[Hg] Dr. Sanjay Cid Work Phone: [facility] 08-11-2022 08:41-0500 Heart rate 81 /min Dr. Sanjay Cid Work Phone: [facility] 08-11-2022 08:41-0500 Respiratory rate 16 /min Dr. Sanjay Cid Work Phone: [facility] 08-11-2022 08:41-0500 SaO2% (BldA) [Mass fraction] 99 % Dr. Sanjay Cid Work Phone: [facility] 08-11-2022 08:41-0500 Systolic blood pressure 108 mm[Hg] Dr. Sanjay Cid Work Phone: [facility] 08-10-2022 17:11-0500 Body height 175.[address] Sanjay Cid Work Phone: [facility] 08-10-2022 17:11-0500 Body mass index (BMI) [Ratio] 20.9 kg/m2 Dr. Sanjay Cid Work Phone: [facility] 03-01-2023 17:11-0500 Body weight 64.[address] Sanjay Cid Work Phone: 5(647)009-294463 [place] [address] 08-10-2022 14:57-0500 Body temperature 98 [degF] Dr. Sanjay Cid Work Phone: 6(682)874-429963 [place] [address] 08-10-2022 14:57-0500 Diastolic blood pressure 59 mm[Hg] Dr. Sanjay Cid Work Phone: 7(394)070-374463 [place] [address] 08-10-2022 14:57-0500 Heart rate 89 /min Dr. Sanjay Cid Work Phone: 7(371)511-494887 [place] [address] 08-10-2022 14:57-0500 Respiratory rate 16 /min Dr. Sanjay Cid Work Phone: 2(868)025-943787 [place] [address] 08-10-2022 14:57-0500 SaO2% (BldA) [Mass fraction] 98 % Dr. Sanjay Cid Work Phone: 0(682)800-126163 [place] [address] 08-10-2022 14:57-0500 Systolic blood pressure 108 mm[Hg] Dr. Sanjay Cid Work Phone: 7(761)403-100787 [place] [address] 08-10-2022 12:58-0500 Body height 175.[address] Sanjay Cid Work Phone: 2(569)933-176887 [place] [address] 08-10-2022 12:58-0500 Body mass index (BMI) [Ratio] 20.9 kg/m2 Dr. Sanjay Cid Work Phone: 4(279)780-654663 [place] [address] 08-10-2022 12:58-0500 Body weight 64.[address] Sanjay Cid Work Phone: 1(518)816-720863 [place] [address] 07-29-2022 15:03-0500 Body temperature 98.01 [degF] Farrukh Perea MD Work Phone: [facility] 07-29-2022 15:03-0500 Body weight 62.32 kg Farrukh Perea MD Work Phone: [facility] 07-29-2022 15:03-0500 Diastolic blood pressure 80 mm[Hg] Farrukh Perea MD Work Phone: 6(445)106-813829 [place] [address] 07-29-2022 15:03-0500 Heart rate 84 /min Farrukh Perea MD Work Phone: [facility] 07-29-2022 15:03-0500 Respiratory rate 16 /min Farrukh Perea MD Work Phone: [facility] 07-29-2022 15:03-0500 Systolic blood pressure 122 mm[Hg] Farrukh Perea MD Work Phone: 8(563)858-399729 [place] [address] 07-29-2022 12:30-0500 Body height 175.[address] Sanjay Cid Work Phone: 3(479)443-463787 [place] [address] 07-29-2022 12:30-0500 Body mass index (BMI) [Ratio] 19.2 kg/m2 Dr. Sanjay Cid Work Phone: 8(949)934-785187 [place] [address] 07-29-2022 12:30-0500 Body temperature 96.8 [degF] Dr. Sanjay Cid Work Phone: 2(092)776-548887 [place] [address] 07-29-2022 12:30-0500 Body weight 58.[address] Sanjay Cid Work Phone: 1(298)939-526187 [place] [address] 07-29-2022 12:30-0500 Diastolic blood pressure 66 mm[Hg] Dr. Sanjay Cid Work Phone: 2(527)827-875787 [place] [address] 07-29-2022 12:30-0500 Heart rate 63 /min Dr. Sanjay Cid Work Phone: 6(247)551-343763 [place] [address] 07-29-2022 12:30-0500 Respiratory rate 18 /min Dr. Sanjay Cid Work Phone: 2(826)337-562487 [place] [address] 07-29-2022 12:30-0500 SaO2% (BldA) [Mass fraction] 97 % Dr. Sanjay Cid Work Phone: 6(473)700-611187 [place] [address] 07-29-2022 12:30-0500 Systolic blood pressure 118 mm[Hg] Dr. Sanjay Cid Work Phone: [facility] 05-30-2022 05:00-0500 Diastolic Blood Pressure Non-Invasive [address] FRANKY RIVERA MD [facility] 05-30-2022 05:00-0500 Heart rate 73 /min DR FRANKY RIVERA MD [facility] 05-30-2022 05:00-0500 Respiratory rate 16 /min DR FRANKY RIVERA MD [facility] 05-30-2022 05:00-0500 Systolic Blood Pressure Non-Invasive [address] FRANKY RIVERA MD [facility] 05-30-2022 04:07-0500 Body height [address] FRANKY RIVERA MD [facility] 05-30-2022 04:07-0500 Body temperature 98.6 [degF] DR FRANKY RIVERA MD [facility] 05-30-2022 04:07-0500 Body weight 61.[address] FRANKY RIVERA MD [facility] 05-30-2022 04:07-0500 Diastolic Blood Pressure Non-Invasive [address] FRANKY RIVERA MD [facility] 05-30-2022 04:07-0500 Heart rate 81 /min DR FRANKY RIVERA MD [facility] 05-30-2022 04:07-0500 Respiratory rate 18 /min DR FRANKY RIVERA MD [facility] 05-30-2022 04:07-0500 Systolic Blood Pressure Non-Invasive [address] FRANKY RIVERA MD [facility] 05-10-2022 11:11-0500 Body height 175.26 cm [facility] Work Phone: 05-10-2022 11:11-0500 Body mass index (BMI) [Ratio] 19.9 kg/m2 [facility] 05-10-2022 11:11-0500 Body temperature 98.9 [degF] [facility] 05-10-2022 11:11-0500 Body weight 61.23 kg [facility] 05-10-2022 11:11-0500 Diastolic blood pressure 75 mm[Hg] [facility] 05-10-2022 11:11-0500 Heart rate 91 /min [facility] 05-10-2022 11:11-0500 Respiratory rate 16 /min [facility] 05-10-2022 11:11-0500 SaO2% (BldA) [Mass fraction] 100 % [facility] 05-10-2022 11:11-0500 Systolic blood pressure 133 mm[Hg] [facility] 04-22-2022 17:48-0500 Diastolic blood pressure 72 mm[Hg] [facility] 04-22-2022 17:48-0500 Heart rate 64 /min [facility] 04-22-2022 17:48-0500 Respiratory rate 14 /min [facility] 04-22-2022 17:48-0500 SaO2% (BldA) [Mass fraction] 100 % [facility] 04-22-2022 17:48-0500 Systolic blood pressure 119 mm[Hg] [facility] 04-22-2022 15:36-0500 Body height 175.26 cm [facility] Work Phone: 04-22-2022 15:36-0500 Body mass index (BMI) [Ratio] 19.9 kg/m2 [facility] 04-22-2022 15:36-0500 Body temperature 96.9 [degF] [facility] 04-22-2022 15:36-0500 Body weight 61.23 kg [facility] Encounters Encounter Date Encounter Type Care Provider Facility Start: 01-30-2025 End: 01-30-2025 Emergency department patient visit Ritika PETERS Work Phone: -Emergency Department Work Phone: Start: 01-22-2025 End: 01-22-2025 Emergency department patient visit Ritika Suarez [employer]VIS[employer] Work Phone: -Emergency Department Work Phone: Start: 01-06-2025 End: 01-06-2025 Emergency department patient visit Ritika Suarez [employer] Work Phone: -Emergency Department Work Phone: Start: 01-01-2025 End: 01-01-2025 Emergency department patient visit Ritika Suarez [employer] Work Phone: -Emergency Department Work Phone: Start: 12-30-2024 End: 12-30-2024 Emergency department patient visit Ritika Suarez [employer] Work Phone: -Emergency Department Work Phone: Start: 12-18-2024 End: 12-19-2024 Emergency department patient visit Ritika Suarez [employer] Work Phone: -Emergency Department Work Phone: Start: 11-25-2024 End: 11-25-2024 Emergency department patient visit Ritika Suarez [employer]PERVIS[employer] Work Phone: -Emergency Department Work Phone: Start: 11-22-2024 ambulatory Ritika Suarez [facility] Fa cility:[facility] Start: 11-03-2024 End: 11-03-2024 Emergency department patient visit Ritika Suarez [employer]PERVIS[employer] Work Phone: -Emergency Department Work Phone: Start: 11-02-2024 End: 11-02-2024 Emergency department patient visit Ritika Suarez [employer]PERVIS[employer] Work Phone: -Emergency Department Work Phone: Start: 10-29-2024 End: 10-29-[address] Pieter Lara MD -[facility] Work Phone: Start: 10-29-2024 End: 10-29-2024 ambulatory Ritika Erick SUPERVISOR [employer]ICATION-C Work Phone: [facility] Work Phone: Start: 10-16-2024 End: 10-17-2024 Emergency department patient visit Ritika Erick [employer]PERVISOR [employer] Work Phone: -Emergency Department Work Phone: Start: 10-07-2024 End: 10-07-2024 Emergency department patient visit No Primary Care Physician -Emergency Department Work Phone: Start: 06-25-2024 ambulatory Pieter Pike lity:[facility] Start: 06-17-2024 End: 06-17-2024 Patient encounter procedure Agustin Sim [facility] Work Phone: Start: 06-17-2024 End: 06-17-2024 ambulatory No Primary Care Physician Facility:[facility] Start: 06-17-2024 End: 06-17-2024 ambulatory No Primary Care Physician Facility:[facility] Start: 06-07-2024 End: 06-07-2024 Patient encounter procedure Ritika Jessica SHOE CASER.WATER RESOURCE CONSULTANT Work Phone: [facility] Comment on above: Treatment not availa ble (Primary Dx) Start: 06-07-2024 End: 06-07-2024 ambulatory Facility:[facility] Start: 06-03-2024 End: 06-03-2024 Emergency department patient visit Ross Smith Facility:[facility] Start: 05-26-2024 End: 05-26-2024 Emergency department patient visit Jad Santamaria Facility:[facility] Start: 05-25-2024 End: 05-25-2024 Emergency department patient visit Julius Lewis Facility:[facility] Start: 04-15-2024 End: 04-15-2024 ambulatory Ritika Suarez [facility] Facility:[facility] Start: 04-05-2024 End: 04-05-2024 Emergency department patient visit Ritika Suarez [facility] Facility:[facility] Start: 03-26-2024 End: 03-26-2024 ambulatory [facility] Facility:[facility] Start: 03-05-2024 End: 03-06-2024 Emergency department patient visit Ritika Suarez [facility] Facility:[facility] Start: 03-05-2024 End: 03-05-2024 ambulatory [facility] Facility:[facility] Start: 03-01-2024 End: 03-02-2024 Emergency department patient visit Ranjan Grimes Facility:[facility] Start: 02-25-2024 End: 02-25-2024 Emergency department patient visit Ritika Suarez [facility] Facility:[facility] Start: 10-02-2023 End: 10-03-2023 Emergency department patient visit [facility] Work Phone: [facility] Work Phone: Start: 10-02-2023 End: 10-03-2023 [facility] Work Phone: [facility]-Emergency Department Work Phone: Start: 09-30-2023 End: 09-30-2023 Emergency department patient visit [facility] Work Phone: [facility] Work Phone: Start: 09-30-2023 End: 09-30-2023 [facility] Work Phone: [facility]-Emergency Department Work Phone: Start: 09-29-2023 End: 09-29-2023 [facility] Work Phone: [facility] Work Phone: Start: 09-28-2023 End: 09-28-2023 ambulatory [facility] Work Phone: [facility] Work Phone: Start: 09-28-2023 End: 09-28-2023 [facility] Work Phone: [facility] Work Phone: Start: 09-27-2023 End: 09-27-2023 Emergency department patient visit [facility] Work Phone: [facility] Work Phone: Start: 09-27-2023 End: 09-27-2023 [facility] Work Phone: [facility]-Emergency Department Work Phone: Start: 09-27-2023 End: 09-27-2023 Emergency department patient visit [facility] Work Phone: [facility]-Emergency Department Work Phone: Start: 09-27-2023 End: 09-27-2023 [facility] Work Phone: [facility]-Emergency Department Work Phone: Start: 09-26-2023 End: 09-26-2023 Emergency department patient visit [facility] Work Phone: [facility]-Emergency Department Work Phone: Start: 09-26-2023 End: 09-26-2023 [facility] Work Phone: [facility]-Emergency Department Work Phone: Start: 09-25-2023 End: 09-25-2023 Emergency department patient visit [facility] Work Phone: [facility]-Emergency Department Work Phone: Start: 09-25-2023 End: 09-25-2023 [facility] Work Phone: [facility]-Emergency Department Work Phone: Start: 09-20-2023 End: 09-20-2023 Emergency department patient visit [facility] Work Phone: [facility]-Emergency Department Work Phone: Start: 09-20-2023 End: 09-20-2023 [facility] Work Phone: [facility]-Emergency Department Work Phone: Start: 09-19-2023 End: 09-19-2023 Patient encounter procedure [facility] Work Phone: [facility] Work Phone: Start: 09-19-2023 End: 09-19-2023 [facility] Work Phone: [facility] Work Phone: Start: 09-16-2023 End: 09-16-2023 [facility] Start: 09-16-2023 End: 09-16-2023 [facility] Work Phone: [facility]-Emergency Department Work Phone: Start: 09-15-2023 End: 09-15-2023 [facility] Start: 09-15-2023 End: 09-15-2023 [facility] Work Phone: [facility]-Emergency Department Work Phone: Start: 09-12-2023 End: 09-12-2023 Emergency department patient visit [facility]-Emergency Department Work Phone: Start: 09-12-2023 End: 09-12-2023 [facility] Work Phone: [facility]-Emergency Department Work Phone: Start: 09-07-2023 End: 09-07-2023 [facility] Start: 09-07-2023 End: 09-07-2023 [facility] Work Phone: [facility]-Emergency Department Work Phone: Start: 08-26-2023 End: 08-26-2023 [facility] Start: 08-26-2023 End: 08-26-2023 [facility] Work Phone: [facility]-Emergency Department Work Phone: Start: 08-22-2023 End: 08-22-2023 Emergency department patient visit [facility]-Emergency Department Work Phone: Start: 08-22-2023 End: 08-22-2023 [facility] Work Phone: [facility]-Emergency Department Work Phone: Start: 08-21-2023 End: 08-21-2023 Emergency department patient visit [facility]-Emergency Department Work Phone: Start: 08-21-2023 End: 08-21-2023 [facility] Work Phone: [facility]-Emergency Department Work Phone: Start: 08-19-2023 End: 08-19-2023 Emergency department patient visit [facility]-Emergency Department Work Phone: Start: 08-19-2023 End: 08-19-2023 [facility] Work Phone: [facility]-Emergency Department Work Phone: Start: 08-16-2023 End: 08-16-2023 Emergency department patient visit [facility]-Emergency Department Work Phone: Start: 08-16-2023 End: 08-16-2023 [facility] Work Phone: [facility]-Emergency Department Work Phone: Start: 08-15-2023 End: 08-15-2023 ambulatory [facility] Work Phone: Start: 08-15-2023 End: 08-15-2023 Patient encounter procedure [facility]-Laboratory Work Phone: Start: 08-15-2023 End: 08-15-2023 [facility] Work Phone: [facility]-Laboratory Work Phone: Start: 08-13-2023 End: 08-13-2023 Emergency department patient visit [facility]-Emergency Department Work Phone: Start: 08-13-2023 End: 08-13-2023 [facility] Work Phone: [facility]-Emergency Department Work Phone: Start: 08-12-2023 End: 08-12-2023 Emergency department patient visit [facility]-Emergency Department Work Phone: Start: 08-12-2023 End: 08-12-2023 [facility] Work Phone: [facility]-Emergency Department Work Phone: Start: 08-10-2023 End: 08-10-2023 Emergency department patient visit [facility]-Emergency Department Work Phone: Start: 08-10-2023 End: 08-10-2023 [facility] Work Phone: [facility]-Emergency Department Work Phone: Start: 08-09-2023 End: 08-09-2023 Emergency department patient visit [facility]-Emergency Department Work Phone: Start: 08-09-2023 End: 08-09-2023 [facility] Work Phone: [facility]-Emergency Department Work Phone: Start: 08-09-2023 End: 08-09-2023 ambulatory [facility] Work Phone: Start: 08-09-2023 End: 08-09-2023 Patient encounter procedure [facility]-Laboratory Work Phone: Start: 08-09-2023 End: 08-09-2023 [facility] Start: 08-08-2023 End: 08-08-2023 Emergency department patient visit [facility]-Emergency Department Work Phone: Start: 08-08-2023 End: 08-08-2023 [facility] Work Phone: [facility]-Emergency Department Work Phone: Start: 08-07-2023 End: 08-07-2023 [facility] Start: 08-07-2023 End: 08-07-2023 [facility] Work Phone: [facility]-Emergency Department Work Phone: Start: 08-06-2023 End: 08-06-2023 Emergency department patient visit [facility]-Emergency Department Work Phone: Start: 08-06-2023 End: 08-06-2023 [facility] Work Phone: [facility]-Emergency Department Work Phone: Start: 08-05-2023 End: 08-05-2023 Emergency department patient visit [facility]Emergency Department Work Phone: Start: 08-05-2023 End: 08-05-2023 [facility] Work Phone: [facility]-Emergency Department Work Phone: Start: 08-03-2023 End: 08-03-2023 Emergency department patient visit [facility]-Emergency Department Work Phone: Start: 08-03-2023 End: 08-03-2023 [facility] Work Phone: [facility]-Emergency Department Work Phone: Start: 08-03-2023 End: 08-03-2023 Emergency department patient visit [facility]-Emergency Department Work Phone: Start: 08-03-2023 End: 08-03-2023 [facility] Work Phone: [facility]-Emergency Department Work Phone: Start: 07-21-2023 End: 07-21-2023 [facility] Start: 07-21-2023 End: 07-21-2023 [facility] Work Phone: [facility]-Emergency Department Work Phone: Start: 02-04-2023 End: 02-04-2023 Patient encounter procedure Keli rFank APRNCaliWATER RESOURCE CONSULTANT Work Phone: [facility] Comment on above: Acute bilateral low back pain without sciatica (Primary Dx) Start: 08-11-2022 Non-patient / Non-visit Dr. Sanjay Cid Work Phone: [facility] Start: 08-10-2022 Non-patient / Non-visit Dr. Sanjay Cid Work Phone: [facility] Start: 08-10-2022 End: 08-11-2022 Evaluation and management of inpatient Dr. [facility] Start: 08-01-2022 Telephone encounter Farrukh Cordero MD Work Phone: [facility] Comment on above: Results Start: 07-29-2022 End: 07-29-2022 Patient encounter procedure Farrukh Perea MD Work Phone: [facility] Comment on above: Laceration of left h and without foreign body, initial encounter (Primary Dx) Start: 07-29-2022 End: 07-29-2022 Emergency department patient visit Dr. Sanjay Cid Work Phone: [facility]-Emergency Department Start: 05-30-2022 End: 05-30-2022 Emergency department patient visit DR. FRANKY RIVERA MD. Facility:[facility] Start: 05-30-2022 End: 05-30-2022 Emergency department patient visit DR FRANKY RIVERA MD [facility] Start: 05-11-2022 End: 05-11-[address] Sanjay Cid Work Phone: [facility] Start: 05-10-2022 End: 05-10-2022 Emergency department patient visit [facility]Emergency Department Start: 04-22-2022 End: 04-22-2022 Emergency department patient visit [facility]Emergency Department Procedures Date Procedure Procedure Detail Performing Clinician Start: 01-30-2025 Estimated creatinine clearance Ritika Suarez [employer]OR [employer] Work Phone: Start: 01-06-2025 Methadone measuremen t, urine Ritika Suarez [employer] Work Phone: Start: 01-06-2025 Estimated creatinine clearance Ritika Suarez [employer]PER[employer] Work Phone: Start: 12-18-2024 X-ray of chest, PA a nd lateral views Ritika Suarez [employer]PERVISOR [employer] Work Phone: Start: 11-25-2024 Estimated creatinine clearance Ritika Suarez [employer]PERVISOR [employer] Work Phone: Start: 11-03-2024 Estimated creatinine clearance Ritika Suarez SUPERVISOR [employer]-C Work Phone: Start: 11-02-2024 Plain X-ray of shoulder Ritika Suarez SUPERVISOR PURIFICATION-C Work Phone: Start: 10-07-2024 Urnls dip stick/tabl et reagent auto microscopy Ritika Suarez SUPERVISOR PURIFICATION-C Work Phone: Start: 10-07-2024 Computed tomography of abdomen and pelvis with intravenous contrast No Primary Care Physician Start: 10-07-2024 Estimated creatinine clearance Ritika Suarez SUPERVISOR PURIFICATION-C Work Phone: Start: 06-17-2024 X-ray of lumbar spin e, two or three views No Primary Care Physician Start: 09-28-2023 MRI of cervical spine [facility] Work Phone: Start: 09-27-2023 CT cervical spine wi thout contrast [facility] Work Phone: Start: 09-27-2023 CT of thorax, abdome n and pelvis with contrast [facility] Work Phone: Start: 09-19-2023 Radiography of thora cic spine [facility] Work Phone: Start: 09-19-2023 X-ray of cervical spine [facility] Work Phone: Start: 08-19-2023 Plain chest X-ray Start: 08-19-2023 CT cervical spine wi thout contrast Start: 08-19-2023 CT of head without contrast Start: 08-12-2023 Plain chest X-ray Start: 08-08-2023 SARS-CoV-2, Influenz a & RSV (PCR) Start: 08-08-2023 [facility] Work Phone: Start: 08-08-2023 CT of abdomen and pe lvis without contrast Start: 08-07-2023 Computed tomography of abdomen and pelvis with intravenous contrast Start: 08-06-2023 SARS-CoV-2, Influenz a & RSV (PCR) Start: 08-06-2023 [facility] Work Phone: Start: 08-03-2023 X-ray of [...] Detail Author Start: 07-29-2032 Urine microalbumin profile [place] [facility] Start: 01-30-2025 [facility] Start: 01-30-2025 [facility] Start: 01-22-2025 [facility] Start: 01-06-2025 [facility] Start: 01-06-2025 [facility] Start: 12-30-2024 [facility] Start: 12-19-2024 [facility] Start: 11-25-2024 End: 11-25-2024 [facility] Start: 11-25-2024 [facility] Start: 11-03-2024 [facility] Start: 11-02-2024 [facility] Start: 10-16-2024 End: 10-17-2024 [facility] Start: 10-07-2024 [facility] Start: 06-17-2024 Patient referral [facility] Work Phone: Start: 02-11-2024 Covid-19 Vaccine ( season) Covid-19 Vaccine ( season) [facility] Start: 02-11-2024 Influenza vaccination Influenza Vaccine (#1) [facility] Start: 10-02-2023 [facility] Start: 10-02-2023 Suicide precautions [facility] Start: 09-30-2023 End: 09-30-2023 [facility] Start: 09-29-2023 Patient referral [facility] Work Phone: Start: 09-27-2023 [facility] Start: 09-27-2023 Consultation [facility] Start: 09-26-2023 Control nasal hemorrhage anterior simple [facility] Start: 09-26-2023 [facility] Start: 09-25-2023 [facility] Start: 09-20-2023 [facility] Start: 09-19-2023 Patient referral [facility] Work Phone: Start: 09-16-2023 [facility] Start: 09-15-2023 [facility] Start: 09-12-2023 [facility] Start: 09-07-2023 [facility] Start: 08-26-2023 [facility] Start: 08-21-2023 [facility] Start: 08-19-2023 Troponin I measurement [facility] Start: 08-19-2023 [facility] Start: 08-16-2023 [facility] Start: 08-13-2023 [facility] Start: 08-12-2023 [facility] Start: 08-12-2023 Plain chest X-ray Chest 1 View (Portable) [facility] Start: 08-12-2023 XR Chest Single view [facility] Start: 08-10-2023 [facility] Start: 08-09-2023 [facility] Start: 08-09-2023 Borrelia burgdorferi blot test [facility] Start: 08-09-2023 Antibody borrelia burgdorferi confirmatory tst [facility] Start: 08-09-2023 Antinuclear antibodies [facility] Start: 08-09-2023 C-reactive protein [facility] Start: 08-09-2023 Collection venous blood venipuncture [facility] Start: 08-09-2023 Fibrin dgradj products d-dimer quantitative [facility] Start: 08-09-2023 Sedimentation rate rbc automated [facility] Start: 08-08-2023 [facility] Start: 08-07-2023 [facility] Start: 08-06-2023 [facility] Start: 08-05-2023 [facility] Start: 08-03-2023 [facility] Start: 08-03-2023 Radex spine lumbosacral 2/3 views [facility] Start: 08-03-2023 [facility] Start: 07-21-2023 [facility] Start: 02-10-2023 Influenza vaccination INFLUENZA (#1) [facility] Start: 08-11-2022 Patient discharge [facility] Start: 08-10-2022 Assessment of risk of venous thromboembolism [facility] Start: 08-10-2022 Catheterization of vein [facility] Start: 08-10-2022 Incentive spirometry [facility] Start: 08-10-2022 Insertion of catheter into peripheral vein [facility] Start: 08-10-2022 Oxygen therapy [facility] Start: 08-10-2022 Providing care according to standard [facility] Start: 08-10-2022 Referral to service [facility] Start: 08-10-2022 [facility] Start: 08-10-2022 Verification routine [facility] Start: 08-10-2022 Admission procedure [facility] Start: 06-12-2022 DEPRESSION ASSESSMENT DEPRESSION ASSESSMENT [facility] Start: 05-10-2022 [facility] Start: 02-10-2022 Influenza vaccination INFLUENZA (#1) [facility] Start: 11-14-2010 Pneumococcal vaccination Pneumococcal Vaccine (1 of 2 - PCV) [facility] Start: 11-14-2009 Anxiety Screening Anxiety Screening [facility] Start: 11-14-2009 Depression Screening Depression Screening [facility] Start: 11-14-2009 HEPATITIS C SCREENING HEPATITIS C SCREENING [facility] Start: 11-14-2009 Hepatitis C screening Hepatitis C Screening [facility] Start: 11-14-2009 HIV SCREENING HIV SCREENING [facility] Start: 11-14-2009 HIV screening HIV Screening [facility] Start: 11-14-1997 PNEUMOCOCCAL (1 - PCV) PNEUMOCOCCAL (1 - PCV) [facility] Start: 05-16-1992 COVID-19 VACCINE (#1) COVID-19 VACCINE (#1) [facility] Laboratory data interpretation [facility] MR Cervical spine [facility] MR Cervical spine [facility] Nuclear Ab [Presence ] in Serum [facility] Patient Education [facility] Work Phone: Patient referral [facility] Work Phone: [facility] Immunizations Immunization Date Immunization Notes Care Provider Piero parson 07-29-2022 tetanus toxoid, redu marissa diphtheria toxoid, and acellular pertussis vaccine, adsorbed Farrukh Perea MD Work Phone: [facility] 12-03-2010 TD(adult) unspecifie d formulation Farrukh Perea MD Work Phone: [facility] Work Phone: 04-20-2009 hepatitis B vaccine, pediatric or pediatric/adolescent dosage Farrukh Perea MD Work Phone: [facility] Work Phone: 04-20-2009 influenza virus vaccine, unspecified formulation Farrukh Perea MD Work Phone: [facility] Work Phone: 01-20-2005 hepatitis B vaccine, pediatric or pediatric/adolescent dosage Farrukh Perea MD Work Phone: [facility] Work Phone: 01-20-2005 tetanus and diphther ia toxoids, adsorbed, preservative free, for adult use (2 Lf of tetanus toxoid and 2 Lf of diphtheria toxoid) Farrukh Perea MD Work Phone: [facility] Work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 of Art Sales Consultant? No November 03, 2024 9:31am Do you have a Healthcare Power of Art Sales Consultant? No November 25, 2024 8:04pm Do you have a Healthcare Power of Art Sales Consultant? No January 01, 2025 9:07pm Do you have a Healthcare Power of Art Sales Consultant? No January 06, 2025 1:51pm Do you have a Healthcare Power of Art Sales Consultant? No January 22, 2025 6:53pm Do you have a Healthcare Power of Art Sales Consultant? No January 30, 2025 7:10pm Do you have a Healthcare Power of Art Sales Consultant? No November 02, 2024 12:14pm Do you have a Healthcare Power of Art Sales Consultant? No December 18, 2024 11:48pm Do you have a Healthcare Power of Art Sales Consultant? No December 30, 2024 6:38pm Summary Purpose Family History Relationship Condition Age at Onset Recorded Date/T [...] Physician Member Role: ED Physician Address: Address: [address] [place] [address] Name: MILLIE Awan Position: AO RN Member Role: ED RN (unrecognized sect ion and content) No Status Records FoundNo Status Records FoundNo Status Records Found INFORMATION SOURCE (unrecogn ized section and content) DATE CREATED AUTHOR 06/07/2022 [facility] ([place]) DATE CREATED AUTHOR AUTHOR'S ORGANIZ ATION 06/09/2024 [facility] DATE CREATED AUTHOR AUTHOR'S ORGANIZ ATION 01/29/2025 [facility] Care Teams (unrecognized sec tion and content) [...] Active Ed Physician Provider Emergency Provider Active Sanding Supervisor Relationship Specialty Start Date End Date Sanjay Cid MD [address] [place] [address] PCP - General Internal Medicine 12/26/17 Sanding Supervisor Relationship Specialty Start Date End Date Sanjay Cid MD [address] [place], [place] [id number] PCP - General Internal Medicine 12/26/17 Team [...] Dr. Vannessa Blandon MD Attending Provider Active Sanding Supervisor Relationship Specialty Start Date End Date Sanjay Cid MD [address] [place] [address] PCP - General Internal Medicine 12/26/17 Team [...] Physician Primary Care Provider Active Ritika Suarez SUPERVISOR PURIFICATION, SUPERVISOR PURIFICATION-C Attending Provider, Referrin g Provider Active Team [...] Primary Care Provider Active Ritika Suarez NP, SUPERVISOR PURIFICATION-C Attending Provider, Referrin g Provider Active Team Status: Active Member Role Status Dates No Primary Care Physician Family Provider Active [facility] Primary Care Provider A ctive Team Status: [...] Active Member Role Status Dates Abimael PRIETO, SUPERVISOR PURIFICATION-C Attending Provider, Referring Pro vider Active [facility] Primary Care Provider A ctive Team Status: Inactive Member Role Status Dates [facility] Primary Care Provider A ctive Dr. Tomasz Layne MD Emergency Provider Active Team Status: Active Member Role Status Dates [facility] Primary Care Provider A ctive Dr. Jad Santamaria MD Emergency Provider Active Team Status: Inactive Member Role Status Dates Abimael PRIETO, SUPERVISOR PURIFICATION-C Attending Provider, Referring Pro vider Active [facility] Primary Care Provider A ctive Team Status: Inactive Member Role Status Dates [facility] Primary Care Provider A ctive Dr. Jad Santamaria MD Emergency Provider Active Team Status: Inactive Member Role Status Dates [facility] Primary Care Provider A ctive Dr. Donnie Carter DO Emergency Provider Active Team Status: Inactive Member Role Status Dates [facility] Primary Care Provider A ctive Dr. Jad Santamaria MD Attending Provider, Emergency Provider Active Team Status: Inactive Member Role Status Dates [facility] Primary Care Provider A ctive Dr. Tomasz Layne MD Attending Provider, Emergency Pro vider Active Team Status: Inactive Member Role Status Dates [facility] Primary Care Provider A ctive Ed Physician Provider Emergency Provider Active Team Status: Inactive Member Role Status Dates [facility] Primary Care Provider A ctive Dr. Donnie Carter DO Attending Provider, Emergency P rovider Active Team Status: Inactive Member Role Status Dates [facility] Primary Care Provider A ctive Ed Physician Provider Attending Provider, Emergency Pr ovider Active Team Status: Inactive Member Role Status Dates [facility] Primary Care Provider A ctive Dr. Ross Smith MD Emergency Provider Active Team Status: Inactive Member Role Status Dates [facility] Primary Care Provider A ctive Dr. Ambrose Muñoz DO Emergency Provider Active Team Status: Inactive Member Role Status [facility] Primary Care Provider A ctive Dr. Ross Smith MD Attending Provider, Emergency Provi felisha Active Team Status: Inactive Member Role Status Dates [facility] Primary Care Provider A ctive Dr. Ranjan Grimes DO Emergency Provider Active Team Status: Inactive Member Role Status Dates [facility] Primary Care Provider, Referring Provider Active Dr. Pj Mcgarry MD Attending Provider Active Team Status: Inactive Member Role Status Dates [facility] Primary Care Provider A ctive Dr. Alphonso Knowles MD Attending Provider Active Team Status: Inactive Member Role Status Dates [facility] Primary Care Provider A ctive Dr. Ambrose Muñoz DO Attending Provider, Emergency Pro vider Active Team Status: Inactive Member Role Status Dates [facility] Primary Care Provider A ctive Dr. Ranjan Sydney , DO Attending Provider, Emergency P rovider Active Team Status: Inactive Member Role Status Dates [facility] Primary Care Provider A ctive Dr. Isaiah Bai , Emergency Provider Active Team Status: Inactive Member Role Status Dates [facility] Primary Care Provider A ctpaulo Ruiz MD Emergency Provider Active Team Status: Inactive Member Role Status Dates [facility] Primary Care Provider A ctive Dr. Aayush Hsu DO Emergency Provider Active Team Status: Active Member Role Status Dates [facility] Primary Care Provider A ctive Dr. Pj Mcgarry MD Attending Provider, Referring Pr ovider Active Team Status: Inactive Member Role Status Dates [facility] Primary Care Provider A ctive Dr. Isaiah Bai DO Attending Provider, Emergency Pr ovider Active Team Status: Inactive Member Role Status Dates [facility] Primary Care Provider A ctive Dr. Joycelyn Isaac MD Emergency Provider Active Team Status: Inactive Member Role Status [facility] Primary Care Provider A ctive Dr. Pj Mcgarry MD Attending Provider, Referring Pr ovider Active Team Status: Inactive Member Role Status Dates [facility] Primary Care Provider A ctive David Ruiz MD Attending Provider, Emergency Provid er Active Team Status: Inactive Member Role Status Dates [facility] Primary Care Provider A ctive Dr. Aayush Hsu DO Attending Provider, Emergency Provider Active Team Status: Active Member Role Status Dates Ritika PRIETO, SUPERVISOR PURIFICATION-C Primary Care Provider Activ e Team Status: [...] End: June 17, 2024 JOSE GUADALUPE Giraldo Referring Provider Active Start: June 17, 2024 End: June 17, 2024 Team Status: Inactive Member Role Status Dates Ritika Erick VSC, SUPERVISOR PURIFICATION-C Primary Care Provider Activ e Start: October 07, 2024 End: October 07, 2024 Dr. Koko Walker DO Emergency Provider Active Start: October 07, 2024 End: October 07, 2024 Team Status: Inactive Member Role Status Dates Ritika JUNEC, SUPERVISOR PURIFICATION-C Primary Care Provider Activ e Start: October 07, 2024 End: October 07, 2024 Dr. Koko Walker DO Attending Provider Active Start: October 07, 2024 End: October 07, 2024 Dr. Koko Walker DO Emergency Provider Active Start: October 07, 2024 End: October 07, 2024 Team Status: Inactive Member Role Status Dates Ritika JUNEC, SUPERVISOR PURIFICATION-C Primary Care Provider Activ e Start: October 16, 2024 End: October 17, 2024 Dr. Jad Santamaria MD Emergency Provider Active Start: October 16, 2024 End: October 17, 2024 Team Status: Inactive Member Role Status Dates Ritika JUNEC, SUPERVISOR PURIFICATION-C Primary Care Provider Activ e Start: October 16, 2024 End: October 17, 2024 Dr. Jad Santamaria MD Attending Provider Active Start: October 16, 2024 End: October 17, 2024 Dr. Jad Santamaria MD Emergency Provider Active Start: October 16, 2024 End: October 17, 2024 Team Status: Inactive Member Role Status Dates Ritika JUNEC, SUPERVISOR PURIFICATION-C Primary Care Provider Activ e Start: October 29, 2024 End: October 29, 2024 Ritika JUNEC, SUPERVISOR PURIFICATION-C Referring Provider Active Start: October 29, 2024 End: October 29, 2024 Dr. Pieter Lara MD Attending Provider Active Start: October 29, 2024 End: October 29, 2024 Team Status: Inactive Member Role Status Dates Ritkia Suarez VSC, SUPERVISOR PURIFICATION-C Primary Care Provider Activ e Start: November 02, 2024 End: November 02, 2024 Dr. Tomasz Layne MD Emergency Provider Active S tart: November 02, 2024 End: November 02, 2024 Team Status: Inactive Member Role Status Dates Ritika Suarez VSC, SUPERVISOR PURIFICATION-C Primary Care Provider Activ e Start: November 03, 2024 End: November 03, 2024 Dr. Donnie Carter DO Emergency Provider Active Start: November 03, 2024 End: November 03, 2024 Team Status: Inactive Member Role Status Dates Ritika JUNEC, SUPERVISOR PURIFICATION-C Primary Care Provider Activ e Start: November 02, 2024 End: November 02, 2024 Dr. Tomasz Layne MD Attending Provider Active S tart: November 02, 2024 End: November 02, 2024 Dr. Tomasz Layne MD Emergency Provider Active S tart: November 02, 2024 End: November 02, 2024 Team Status: Inactive Member Role Status Dates Ritika Suarez VSC, SUPERVISOR PURIFICATION-C Primary Care Provider Activ e Start: November 03, 2024 End: November 03, 2024 Dr. Donnie Carter DO Attending Provider Active Start: November 03, 2024 End: November 03, 2024 Dr. Donnie Carter DO Emergency Provider Active Start: November 03, 2024 End: November 03, 2024 Team Status: Inactive Member Role Status Dates Ritika Suarez VSC, SUPERVISOR PURIFICATION-C Primary Care Provider Activ e Start: November 25, 2024 End: November 25, 2024 Dr. Ambrose Muñoz DO Emergency Provider Active S tart: November 25, 2024 End: November 25, 2024 Team Status: Active Member Role/Relationship Status Dates Ritika Suarez VSC, SUPERVISOR PURIFICATION-C Primary Care Provider Activ e Team Status: Inactive Member Role/Relationship Status Dates Ritika Suarez VSC, SUPERVISOR PURIFICATION-C Primary Care Provider Activ e Start: October 07, 2024 End: October 07, 2024 Dr. Koko Walker DO Attending Provider Active Start: October 07, 2024 End: October 07, 2024 Dr. Koko Walker DO Emergency Provider Active Start: October 07, 2024 End: October 07, 2024 Team Status: Inactive Member Role/Relationship Status Dates Ritika Suarez VSC, SUPERVISOR PURIFICATION-C Primary Care Provider Activ e Start: October 16, 2024 End: October 17, 2024 Dr. Jad Santamaria MD Attending Provider Active Start: October 16, 2024 End: October 17, 2024 Dr. Jad Santamaria MD Emergency Provider Active Start: October 16, 2024 End: October 17, 2024 Team Status: Inactive Member Role/Relationship Status Dates Ritika Suarez VSC, SUPERVISOR PURIFICATION-C Primary Care Provider Activ e Start: October 29, 2024 End: October 29, 2024 Ritika JUNEC, SUPERVISOR PURIFICATION-C Referring Provider Active Start: October 29, 2024 End: October 29, 2024 Dr. Pieter Lara MD Attending Provider Active Start: October 29, 2024 End: October 29, 2024 Team Status: Inactive Member Role/Relationship Status Dates Ritika JUNEC, SUPERVISOR PURIFICATION-C Primary Care Provider Activ e Start: November 02, 2024 End: November 02, 2024 Dr. Tomasz Layne MD Attending Provider Active S tart: November 02, 2024 End: November 02, 2024 Dr. Tomasz Layne MD Emergency Provider Active S tart: November 02, 2024 End: November 02, 2024 Team Status: Inactive Member Role/Relationship Status Dates Ritika JUNEC, SUPERVISOR PURIFICATION-C Primary Care Provider Activ e Start: November 03, 2024 End: November 03, 2024 Dr. Donnie Carter , Attending Provider Active Start: November 03, 2024 End: November 03, 2024 Dr. Donnie Carter , Emergency Provider Active Start: November 03, 2024 End: November 03, 2024 Team Status: Inactive Member Role/Relationship Status Dates Ritika JUNEC, SUPERVISOR PURIFICATION-C Primary Care Provider Activ e Start: November 25, 2024 End: November 25, 2024 Dr. Ambrose Muñoz , Attending Provider Active S tart: November 25, 2024 End: November 25, 2024 Dr. Ambrose Muñoz , Emergency Provider Active S tart: November 25, 2024 End: November 25, 2024 Team Status: Inactive Member Role/Relationship Status Dates Ritika JUNEC, SUPERVISOR PURIFICATION-C Primary Care Provider Activ e Start: December 18, 2024 End: December 19, 2024 Dr. Isaiah Bai , Emergency Provider Active Start: December 18, 2024 End: December 19, 2024 Team Status: Inactive Member Role/Relationship Status Dates Ritika JUNEC, SUPERVISOR PURIFICATION-C Primary Care Provider Activ e Start: December 18, 2024 End: December 19, 2024 Dr. Isaiah Bai , Attending Provider Active Start: December 18, 2024 End: December 19, 2024 Dr. Isaiah Bai , Emergency Provider Active Start: December 18, 2024 End: December 19, 2024 Team Status: Inactive Member Role/Relationship Status Dates Ritika JUNEC, SUPERVISOR PURIFICATION-C Primary Care Provider Activ e Start: December 30, 2024 End: December 30, 2024 Dr. Tomasz Layne MD Emergency Provider Active S tart: December 30, 2024 End: December 30, 2024 Team Status: Inactive Member Role/Relationship Status Dates Ritika Suarez VSC, SUPERVISOR PURIFICATION-C Primary Care Provider Activ e Start: January 01, 2025 End: January 01, 2025 Dr. Ranjan Grimes , Emergency Provider Active Start: January 01, 2025 End: January 01, 2025 Team Status: Inactive Member Role/Relationship Status Dates Ritika JUNEC, SUPERVISOR PURIFICATION-C Primary Care Provider Activ e Start: December 30, 2024 End: December 30, 2024 Dr. Tomasz Layne MD Attending Provider Active S tart: December 30, 2024 End: December 30, 2024 Dr. Tomasz Layne MD Emergency Provider Active S tart: December 30, 2024 End: December 30, 2024 Team Status: Inactive Member Role/Relationship Status Dates Ritika JUNEC, SUPERVISOR PURIFICATION-C Primary Care Provider Activ e Start: January 01, 2025 End: January 01, 2025 Dr. Ranjan Grimes DO Attending Provider Active Start: January 01, 2025 End: January 01, 2025 Dr. Ranjan Grimes DO Emergency Provider Active Start: January 01, 2025 End: January 01, 2025 Team Status: Inactive Member Role/Relationship Status Dates Ritika JUNEC, SUPERVISOR PURIFICATION-C Primary Care Provider Activ e Start: January 06, 2025 End: January 06, 2025 Dr. Estrellita Worthington DO Emergency Provider Active Start: January 06, 2025 End: January 06, 2025 Team Status: Inactive Member Role/Relationship Status Dates Ritika JUNEC, SUPERVISOR PURIFICATION-C Primary Care Provider Activ e Start: January 06, 2025 End: January 06, 2025 Dr. Estrellita Worthington DO Attending Provider Active Start: January 06, 2025 End: January 06, 2025 Dr. Estrellita Worthington DO Emergency Provider Active Start: January 06, 2025 End: January 06, 2025 Team Status: Inactive Member Role/Relationship Status Dates Ritika Erick PRIETO, SUPERVISOR PURIFICATION-C Primary Care Provider Activ e Start: January 22, 2025 End: January 22, 2025 Dr. Yusuf Morales DO Referring Provider Active Start : January 22, 2025 End: January 22, 2025 Dr. Yusuf Morales DO Emergency Provider Active Start : January 22, 2025 End: January 22, 2025 Team Status: Inactive Member Role/Relationship Status Dates Ritika Erick PRIETO, SUPERVISOR PURIFICATION-C Primary Care Provider Activ e Start: January 22, 2025 End: January 22, 2025 Dr. Yusuf Morales DO Attending Provider Active Start : January 22, 2025 End: January 22, 2025 Dr. Yusuf Morales DO Referring Provider Active Start : January 22, 2025 End: January 22, 2025 Dr. Yusuf Morales DO Emergency Provider Active Start : January 22, 2025 End: January 22, 2025 Team Status: Inactive Member Role/Relationship Status Dates Ritika Erick PRIETO, SUPERVISOR PURIFICATION-C Primary Care Provider Activ e Start: January 30, 2025 End: January 30, 2025 Dr. Julissa Frost MD Emergency Provider Active S tart: January 30, 2025 End: January 30, 2025 Source Comments (unrecognize d section and content) In the event this informatio n is protected by the Federal Confidentiality of Alcohol and Drug Abuse Patient Records regulations: The Federal rules restrict any use of the information to criminally investigate or prosecute any alcohol or drug abuse patient.[facility] the event this information is protected by the Federal Confidentiality of Alcohol and Drug Abuse Patient Records regulations: The Federal rules restrict any use of the information to criminally investigate or prosecute any alcohol or drug abuse patient.[facility] the event this information is protected by the Federal Confidentiality of Alcohol and Drug Abuse Patient Records regulations: The Federal rules restrict any use of the information to criminally investigate or prosecute any alcohol or drug abuse patient.[facility] the event this information is protected by the Federal Confidentiality of Alcohol and Drug Abuse Patient Records regulations: The Federal rules restrict any use of the information to criminally investigate or prosecute any alcohol or drug abuse patient.[facility] Reason for Visit (unrecogniz ed section [...] BE BASED ON THE PRIMARY CLINICAL RECORDS. [employer] [facility]. provides no warranty or guarantee of the accuracy or completeness of information in this document.
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
[2025-01-31] MEDS: Famotidine 200 MG/20 ML MDV 20 MG in 0.9% Normal Saline (Pres. free 8 ML 300 MG IV (22:43)
[2025-01-31 22:50] LABS: Hematocrit 48.4 % (40-54); Hemoglobin 16.7 g/dL (13.0-16.5); Immature Granulocytes Count 0.010 X10^3/uL (0.0-0.0); Mean Corp Hgb Conc 34.5 g/dL (32-36); Mean Corpuscular Volume 87.8 fL (80-94); Mean Platelet Vol. 10.2 fl (6.2-12.0); NRBC Flagged by Analyzer 0 % (0-5); Platelet Count 227 K/mm3 (150-450); RBC Distribution Width CV 12.0 % (11.6-14.6); RBC Distribution Width SD 38.7 fl (35.1-43.9); Red Blood Count 5.51 M/mm3 (4.6-6.2); White Blood Count 6.2 K/mm3 (4.4-11.0)
[2025-01-31 22:52] VITALS: BP 121/79; PULSE 65; RESP 18; O2SAT 100
--- NOTE | 2025-01-31 22:55 | RAD_ITS ---
PROCEDURE: ACUTE ABDOMEN INC CHEST 01/31/2025 REASON FOR EXAM: PAIN TECHNIQUE: ACUTE ABDOMEN INC CHEST COMPARISON: 12/19/2024 FINDINGS: Hardware: None. Heart: The heart size is normal. Lungs: The lungs are clear. Bowel gas: Bowel gas pattern is normal. No evidence of bowel obstruction. Free air: No free air. Calcifications: No suspicious calcifications. Bones: The bones are unremarkable. RAD/Acute Abdomen Inc Chest IMPRESSION: No acute findings in the chest or abdomen. Reading [facility]
[2025-01-31 23:24] LABS: Lipase 27 U/L (13-75)
[2025-01-31 23:36] LABS: AST(SGOT) 25 U/L (<=37); Alanine Aminotransfer ALT/SGPT 13 U/L (<=46); Albumin, Serum 4.4 g/dL (3.5-5.0); Alkaline Phosphatase 77 U/L (40-129); Anion Gap 14 (5-15); BUN 11 mg/dL (4-19); BUN/Creat Ratio 12.5 RATIO (10-20); Calcium,Total 9.0 mg/dL (7.6-11.0); Carbon Dioxide 19.6 mmol/L (21.0-32.0); Chloride 103 mmol/L (98-108); Estimated Creatinine Clearance 107.17 ml/min (50-250); Globulin 2.7 g/dL (2.2-4.2); Glucose 86 mg/dL (70-99); Potassium 4.4 mmol/L (3.3-5.1)
[2025-02-01] VITALS: BP 119/80; PULSE 82; RESP 16; O2SAT 97
[2025-02-01] MEDS: Lidocaine 2% Viscous15 ML UDC 15 ML PO (01:19)
[2025-02-01 01:21] VITALS: BP 124/84; PULSE 67; RESP 18; TEMP 36.6; O2SAT 99
== END 2025-02-01 01:25 | disposition home or self-care (01) ==
PROVIDERS: Emergency Provider Emergency Medicine; PCP Nurse Practitioner Family; Visit Provider Emergency Medicine
DX: R10.13 Epigastric pain (principal); K59.00 Constipation, unspecified; F41.9 Anxiety disorder, unspecified; Z79.899 Other long term (current) drug therapy; F17.290 Nicotine dependence, other tobacco product, uncomplicated
CPT/HCPCS: 74022; 80053; 83690; 85025; 96365; 96375; 99283; A4216; J2405

== ENCOUNTER 2025-02-04 21:29 | Emergency (ER) | payer MEDICAID, SELFPAY ==
[2025-02-04 21:30] VITALS: BP 154/78; PULSE 119; RESP 18; TEMP 36.8; O2SAT 99; BMI 22.4
--- NOTE | 2025-02-04 21:47 | EKG12_ITS ---
Test Reason : CP Blood Pressure : */* mmHG Vent. Rate : 76 BPM Atrial Rate : 76 BPM P-R Int : 164 ms QRS Dur : 84 ms QT Int : 354 ms P-R-T Axes : 81 67 65 degrees QTcB Int : 398 ms Normal sinus rhythm Normal ECG Confirmed by RAMONA REED ([id number]), index editor ENRIQUE EVANS ([id number]) on 02/05/2025 1:51:03 PM Referred By: TB Confirmed By: RAMONA REED
--- NOTE | 2025-02-04 22:05 | RAD_ITS ---
PROCEDURE: CHEST PA AND LATERAL 02/04/2025 REASON FOR EXAM: CHEST PAIN TECHNIQUE: CHEST PA AND LATERAL COMPARISON: 01/31/2025 FINDINGS: LUNGS AND PLEURA: The lungs are clear. No pleural effusion or pneumothorax. HEART AND MEDIASTINUM: The heart size and mediastinal contours are normal. BONES: No acute osseous abnormality. RAD/Chest PA and Lateral IMPRESSION: NEGATIVE CHEST Reading Location: [id number]
[2025-02-04 22:16] LABS: Hematocrit 46.0 % (40-54); Hemoglobin 15.5 g/dL (13.0-16.5); Immature Granulocytes Count 0.010 X10^3/uL (0.0-0.0); Mean Corp Hgb Conc 33.7 g/dL (32-36); Mean Corpuscular Volume 90.0 fL (80-94); Mean Platelet Vol. 10.3 fl (6.2-12.0); NRBC Flagged by Analyzer 0 % (0-5); Platelet Count 238 K/mm3 (150-450); RBC Distribution Width CV 12.4 % (11.6-14.6); RBC Distribution Width SD 41.1 fl (35.1-43.9); Red Blood Count 5.11 M/mm3 (4.6-6.2); White Blood Count 6.5 K/mm3 (4.4-11.0)
[2025-02-04 22:30] VITALS: BP 109/75; PULSE 68; RESP 15
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
[2025-02-04 22:49] LABS: Anion Gap 20 (5-15); BUN 9 mg/dL (4-19); BUN/Creat Ratio 8.2 RATIO (10-20); Calcium,Total 9.5 mg/dL (7.6-11.0); Carbon Dioxide 20.5 mmol/L (21.0-32.0); Chloride 101 mmol/L (98-108); Estimated Creatinine Clearance 98.52 ml/min (50-250); Free T3 3.1 pg/mL (2.18-3.98); Glucose 132 mg/dL (70-99); Potassium 4.0 mmol/L (3.3-5.1)
[2025-02-04 23:00] VITALS: BP 106/72; PULSE 60; RESP 15; O2SAT 93
[2025-02-04 23:06] LABS: Troponin T High Sensitivity < 6 ng/L (<=22)
[2025-02-04 23:31] VITALS: BP 110/80; PULSE 78; RESP 16; TEMP 36.8; O2SAT 93
== END 2025-02-04 23:39 | disposition home or self-care (01) ==
PROVIDERS: Emergency Provider Emergency Medicine; PCP Nurse Practitioner Family; Visit Provider Emergency Medicine
DX: R07.9 Chest pain, unspecified (principal); F41.0 Panic disorder [episodic paroxysmal anxiety]; Z79.899 Other long term (current) drug therapy; F17.290 Nicotine dependence, other tobacco product, uncomplicated
CPT/HCPCS: 71046; 80048; 84439; 84443; 84481; 84484; 85025; 93005; 96374; 99284; A4216; J2405

== ENCOUNTER 2025-02-15 14:49 | Emergency (ER) | payer MEDICAID, SELFPAY ==
[2025-02-15 14:49] VITALS: BP 113/72; PULSE 110; RESP 16; TEMP 36.7; O2SAT 98
--- NOTE | 2025-02-15 15:17 | EKG12_ITS ---
Test Reason : CP/PANIC ATTACK Blood Pressure : */* mmHG Vent. Rate : 96 BPM Atrial Rate : 96 BPM P-R Int : 136 ms QRS Dur : 74 ms QT Int : 340 ms P-R-T Axes : 87 72 67 degrees QTcB Int : 429 ms Normal sinus rhythm Biatrial enlargement Abnormal ECG Confirmed by Martin Lopez ([id number]), tape editor MARITA COELLO ([id number]) on 02/18/2025 5:47:05 AM Referred By: Confirmed By: Martin Lopez
[2025-02-15 15:37] LABS: Hematocrit 48.9 % (40-54); Hemoglobin 16.9 g/dL (13.0-16.5); Immature Granulocytes Count 0.010 X10^3/uL (0.0-0.0); Mean Corp Hgb Conc 34.6 g/dL (32-36); Mean Corpuscular Volume 88.1 fL (80-94); Mean Platelet Vol. 10.2 fl (6.2-12.0); NRBC Flagged by Analyzer 0 % (0-5); Platelet Count 230 K/mm3 (150-450); RBC Distribution Width CV 12.7 % (11.6-14.6); RBC Distribution Width SD 41.7 fl (35.1-43.9); Red Blood Count 5.55 M/mm3 (4.6-6.2); White Blood Count 5.0 K/mm3 (4.4-11.0)
[2025-02-15 16:08] LABS: Anion Gap 19 (5-15); BUN 9 mg/dL (4-19); BUN/Creat Ratio 9.2 RATIO (10-20); Calcium,Total 9.8 mg/dL (7.6-11.0); Carbon Dioxide 19.7 mmol/L (21.0-32.0); Chloride 102 mmol/L (98-108); Glucose 98 mg/dL (70-99); Potassium 4.2 mmol/L (3.3-5.1); Troponin T High Sensitivity 6 ng/L (<=22)
--- NOTE | 2025-02-15 16:15 | RAD_ITS ---
PROCEDURE: CHEST PA AND LATERAL 02/15/2025 REASON FOR EXAM: CHEST PAIN TECHNIQUE: Procedure Code: RADCXR Modality: DX Procedure: CHEST PA AND LATERAL COMPARISON: 02/04/2025 FINDINGS: Hardware: None. Heart: The heart size is normal. Mediastinum: The mediastinal contour is unremarkable. Lungs: The lungs are clear. Bones: The bones are unremarkable. RAD/Chest PA and Lateral IMPRESSION: NO ACUTE FINDINGS. Reading [facility]
[2025-02-15 16:49] VITALS: BP 110/87; PULSE 66
--- NOTE | 2025-02-15 16:59 | EDS_ITS ---
HPI History of Present Illness
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
[2025-02-15 17:20] VITALS: BP 119/84; PULSE 66; RESP 16; TEMP 36.7; O2SAT 98
== END 2025-02-15 17:37 | disposition home or self-care (01) ==
PROVIDERS: Emergency Provider Emergency Medicine; PCP Nurse Practitioner Family; Visit Provider Emergency Medicine
DX: F41.9 Anxiety disorder, unspecified (principal); R11.0 Nausea; F17.290 Nicotine dependence, other tobacco product, uncomplicated; R20.2 Paresthesia of skin
CPT/HCPCS: 71046; 80048; 84484; 85025; 93005; 96374; 99282; A4216

== ENCOUNTER 2025-02-17 14:42 | Emergency (ER) | payer MEDICAID, SELFPAY ==
[2025-02-17 14:43] VITALS: BP 121/72; PULSE 105; RESP 16; TEMP 36.7; O2SAT 98; BMI 20.3
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
[2025-02-17 15:44] VITALS: BP 112/77; PULSE 18; RESP 14; TEMP 36.5; O2SAT 96
--- NOTE | 2025-02-17 16:26 | CM.ED ---
Social Work SW met with patient to determine if patient was able to establish a counselor. [facility] and that Josefina was also working on adjusting his medications. Patient states he had his buspirone increased last week. Patient denies any additional services at this time. Mayra Whipple, SUPERVISOR [employer], SENIOR ELECTRICAL DESIGN ENGINEER
== END 2025-02-17 15:45 | disposition home or self-care (01) ==
PROVIDERS: Emergency Provider Emergency Medicine; PCP Nurse Practitioner Family; Visit Provider Emergency Medicine
DX: F41.9 Anxiety disorder, unspecified (principal); R20.2 Paresthesia of skin; M79.622 Pain in left upper arm; M62.521 Muscle wasting and atrophy, not elsewhere classified, right upper arm; R29.818 Other symptoms and signs involving the nervous system; S49.91XS Unspecified injury of right shoulder and upper arm, sequela; F17.290 Nicotine dependence, other tobacco product, uncomplicated; Z79.899 Other long term (current) drug therapy
CPT/HCPCS: 99283

== ENCOUNTER 2025-03-19 07:37 | Emergency (ER) | payer MEDICAID, SELFPAY ==
[2025-03-19 07:38] VITALS: BP 140/79; PULSE 113; RESP 18; TEMP 36.6; O2SAT 96; BMI 21.8
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
[2025-03-19] MEDS: DiphenhydrAMINE 50 MG/ML Syringe 25 MG IV (08:02)
[2025-03-19] MEDS: Famotidine 200 MG/20 ML MDV 20 MG in 0.9% Normal Saline (Pres. free 8 ML 300 MG IV (08:03)
[2025-03-19 08:19] LABS: Hematocrit 44.3 % (40-54); Hemoglobin 15.2 g/dL (13.0-16.5); Immature Granulocytes Count 0.040 X10^3/uL (0.0-0.0); Mean Corp Hgb Conc 34.3 g/dL (32-36); Mean Corpuscular Volume 90.0 fL (80-94); Mean Platelet Vol. 9.8 fl (6.2-12.0); NRBC Flagged by Analyzer 0 % (0-5); Platelet Count 231 K/mm3 (150-450); RBC Distribution Width CV 12.7 % (11.6-14.6); RBC Distribution Width SD 42.0 fl (35.1-43.9); Red Blood Count 4.92 M/mm3 (4.6-6.2); White Blood Count 9.6 K/mm3 (4.4-11.0)
[2025-03-19 09:01] VITALS: BP 103/60; PULSE 80; RESP 17; O2SAT 95
[2025-03-19 09:03] LABS: Anion Gap 15 (5-15); BUN 13 mg/dL (4-19); BUN/Creat Ratio 13.1 RATIO (10-20); Calcium,Total 9.0 mg/dL (7.6-11.0); Carbon Dioxide 23.4 mmol/L (21.0-32.0); Chloride 103 mmol/L (98-108); Estimated Creatinine Clearance 98.78 ml/min (50-250); Glucose 100 mg/dL (70-99); Potassium 4.0 mmol/L (3.3-5.1)
[2025-03-19 10:51] VITALS: BP 107/67; PULSE 69; RESP 15; TEMP 36.6; O2SAT 99
[2025-03-25 13:08] LABS: C1 EST Inhibitor, Functional >105 (.); C1 Esterase Inhibitor, Quant 33 mg/dL (21-39)
== END 2025-03-19 10:55 | disposition home or self-care (01) ==
PROVIDERS: Emergency Provider Emergency Medicine; PCP Nurse Practitioner Family; Visit Provider Emergency Medicine
DX: T78.3XXA Angioneurotic edema, initial encounter (principal); Z79.899 Other long term (current) drug therapy; F32.A Depression, unspecified; F17.290 Nicotine dependence, other tobacco product, uncomplicated; R49.0 Dysphonia; R13.10 Dysphagia, unspecified; R06.1 Stridor
CPT/HCPCS: 86157; 80048; 85025; 86160; 86161; 96365; 96375; 99285